=== PATIENT | male | born 1945 | race Two or more races ===

== ENCOUNTER 2022-08-13 18:40 | Emergency (ER) | payer OTHER, MEDICAID ==
[~2022-08-13] VITALS: Ht 172.7 cm; Wt 99.7 kg
[~2022-08-13 18:40] MED LIST: APIX2.5T PO; ASPI325T4 PO; ATOR20TA PO; METF-371 PO; METO25TA5 PO; PANT1INJ3 PO; TAMS1CAP25 PO; TRAZ50TA2 PO
[2022-08-13 19:22] LABS: Basophils # (auto) 0 10 ^3/uL (0-0.2); Basophils % (auto) 0.4 % (0.0-2.0); Eosinophils # (auto) 0.1 10 ^3/uL (0-0.8); Eosinophils % (auto) 0.9 % (0.0-7.0); Hematocrit 40.6 % (41.0-53.0); Hemoglobin 13.5 g/dL (13.5-17.5); Lymphocytes # (auto) 1.3 10 ^3/uL (0.4-5.4); Lymphocytes % (auto) 17.3 % (10.0-50.0); Mean Corpuscular Hemoglobin 30.1 pg (28.0-32.0); Mean Corpuscular Hgb Conc. 33.2 g/dL (32.0-36.0); Mean Corpuscular Volume 90.5 fL (80.0-100.0); Monocytes # (auto) 0.4 10 ^3/uL (0-1.3); Monocytes % (auto) 5.8 % (0.0-12.0); Neutrophils # (auto) 5.6 10 ^3/uL (1.6-8.6); Neutrophils % (auto) 75.6 % (37.0-80.0); Red Blood Cells 4.49 10^6/uL (4.5-5.90); Red Cell Distribution Width 13.9 % (11.8-14.3); White Blood Cell 7.4 10^3/uL (4.4-10.8)
[2022-08-13 19:40] LABS: INR 1.07 (0.9-1.15); Partial Thromboplastin Time 32.8 sec (24.6-33.4)
[2022-08-13 19:50] LABS: Calcium 8.6 mg/dL (8.5-10.1)
[2022-08-13 20:00] LABS: Albumin 3.7 g/dL (3.4-5.0); BUN/Creatinine Ratio 16.3 (10.0-20.0); Bilirubin, Total 0.5 mg/dL (0.2-1.0)
[2022-08-13 20:01] LABS: Total Protein 6.7 g/dL (6.4-8.2)
[2022-08-14 05:15] VITALS: BP 169/65
== END 2022-08-14 05:23 | disposition home or self-care (01) ==
LOC: ER 18:40
DX: I24.9 Acute ischemic heart disease, unspecified (principal); R07.89 Other chest pain; E11.9 Type 2 diabetes mellitus without complications; I10 Essential (primary) hypertension; Z79.899 Other long term (current) drug therapy; Z98.890 Other specified postprocedural states; Z88.6 Allergy status to analgesic agent; Z79.84 Long term (current) use of oral hypoglycemic drugs
CPT/HCPCS: 36415; 71045; 80053; 83880; 84484; 85025; 85610; 85730; 93005

== ENCOUNTER → 2022-10-01 | Outpatient (CLI) | payer OTHER, MEDICAID ==
[~2022-10-01] MED LIST changes: +TRAZ-227 PO; -TRAZ50TA2 PO
[2022-10-01 08:23] LABS: Basophils # (auto) 0 10 ^3/uL (0-0.2); Basophils % (auto) 0.4 % (0.0-2.0); Eosinophils # (auto) 0.1 10 ^3/uL (0-0.8); Eosinophils % (auto) 0.9 % (0.0-7.0); Hematocrit 42.3 % (41.0-53.0); Hemoglobin 14.3 g/dL (13.5-17.5); Lymphocytes # (auto) 1.1 10 ^3/uL (0.4-5.4); Lymphocytes % (auto) 17.4 % (10.0-50.0); Mean Corpuscular Hemoglobin 30.6 pg (28.0-32.0); Mean Corpuscular Hgb Conc. 33.7 g/dL (32.0-36.0); Mean Corpuscular Volume 90.6 fL (80.0-100.0); Monocytes # (auto) 0.5 10 ^3/uL (0-1.3); Monocytes % (auto) 7.5 % (0.0-12.0); Neutrophils # (auto) 4.7 10 ^3/uL (1.6-8.6); Neutrophils % (auto) 73.8 % (37.0-80.0); Nucleated Red Blood Cells % 0.5 %; Red Blood Cells 4.67 10^6/uL (4.5-5.90); Red Cell Distribution Width 12.7 % (11.8-14.3); White Blood Cell 6.3 10^3/uL (4.4-10.8)
[2022-10-01 08:35] LABS: Urine Bacteria NONE SEEN /hpf (None Seen); Urine Blood Negative /uL (Negative); Urine Specific Gravity 1.014 (1.001-1.035); Urine WBC <1 /hpf (0 - 3)
[2022-10-01 09:23] LABS: Albumin 3.6 g/dL (3.4-5.0); Magnesium 1.9 mg/dL (1.6-2.6); Potassium 4.2 mmol/L (3.5-5.1)
[2022-10-01 09:28] LABS: BUN/Creatinine Ratio 16.1 (10.0-20.0); Bilirubin, Total 0.8 mg/dL (0.2-1.0); Calcium 8.5 mg/dL (8.5-10.1); Total Protein 6.9 g/dL (6.4-8.2); Uric Acid 5.2 mg/dL (3.5-7.2)
[2022-10-01 10:51] LABS: Prostate Specific Antigen 1.41 ng/mL (0.0-4.0)
[2022-10-01 11:04] LABS: Folate (Folic Acid) 14.49 ng/mL (5.38-24)
== END | disposition home or self-care (01) ==
LOC: LAB 07:48
PROVIDERS: ATTEND Internal Medicine
DX: R79.89 Other specified abnormal findings of blood chemistry (principal); R68.89 Other general symptoms and signs; R73.09 Other abnormal glucose
CPT/HCPCS: 36415; 80053; 80061; 81001; 82306; 82607; 82746; 83036; 83735; 84153; 84443; 84550; 85025; 87086

== ENCOUNTER → 2022-12-17 | Outpatient (CLI) | payer OTHER, MEDICAID ==
[2022-12-17 09:50] LABS: Calcium 8.7 mg/dL (8.5-10.1); Potassium 4.4 mmol/L (3.5-5.1)
== END | disposition home or self-care (01) ==
LOC: LAB 08:47
PROVIDERS: ATTEND Nurse Practitioner Family
DX: C66.2 Malignant neoplasm of left ureter (principal); E11.9 Type 2 diabetes mellitus without complications; I10 Essential (primary) hypertension; E78.5 Hyperlipidemia, unspecified; N40.0 Benign prostatic hyperplasia without lower urinary tract symptoms; R79.89 Other specified abnormal findings of blood chemistry; Z90.5 Acquired absence of kidney; Z68.33 Body mass index [BMI] 33.0-33.9, adult
CPT/HCPCS: 36415; 80048; 82043; 82570

== ENCOUNTER → 2023-01-08 | Outpatient (CLI) | payer OTHER, MEDICAID | END | disposition home or self-care (01) | LOC: LAB 11:48 | PROVIDERS: ATTEND Urology | DX: R35.1 Nocturia (principal); R35.0 Frequency of micturition | CPT/HCPCS: 84153 ==

== ENCOUNTER → 2023-01-21 | Outpatient (CLI) | payer OTHER, MEDICAID ==
[~2023-01-21] VITALS: Ht 175.3 cm; Wt 99.8 kg
[~2023-01-21] MED LIST changes: +ADENOSINE 84 MG in GIVE UN-DILUTED 0 ML IV STA
== END | disposition home or self-care (01) ==
LOC: XYW 07:42
DX: R07.9 Chest pain, unspecified (principal); M17.0 Bilateral primary osteoarthritis of knee; Z87.891 Personal history of nicotine dependence; Z91.89 Other specified personal risk factors, not elsewhere classified; M16.0 Bilateral primary osteoarthritis of hip
CPT/HCPCS: 78452; 93017; A9500; J0153

== ENCOUNTER → 2023-02-07 | Outpatient (CLI) | payer OTHER, MEDICAID ==
[~2023-02-07] MED LIST changes: -ADENOSINE 84 MG in GIVE UN-DILUTED 0 ML IV STA
[2023-02-07 09:20] LABS: Urine Bacteria NONE SEEN /hpf (None Seen); Urine Blood Negative /uL (Negative); Urine Clarity Clear (Clear); Urine Color Colorless (Yellow); Urine Protein, UAD TRACE (Negative); Urine Specific Gravity 1.013 (1.001-1.035); Urine Urobilinogen Normal (Negative); Urine WBC 4 /hpf (0 - 3)
[2023-02-07 09:58] LABS: Alanine Aminotransferase 19 U/L (7-40); Albumin 4.3 g/dL (3.2-4.8); Alkaline Phosphatase 75 U/L (46-116); Anion Gap 8 (5-15); Aspartate Aminotransferase 16 U/L (13-40); BUN/Creatinine Ratio 13.7 (10.0-20.0); Bilirubin, Total 1.2 mg/dL (0.2-1.0); Blood Urea Nitrogen 13 mg/dL (9-23); Calcium 9.3 mg/dL (8.5-10.1); Carbon Dioxide 27 mmol/L (20-30); Chloride 102 mmol/L (98-107); Cholesterol 147 mg/dL (< 200); Glucose 99 mg/dL (74-106); HDL Cholesterol 49 mg/dL (40-59); LDL Cholesterol 79 mg/dL (< 100); Potassium 4.1 mmol/L (3.5-5.1); Sodium 137 mmol/L (136-145); Triglycerides 155 mg/dL (< 150)
[2023-02-07 10:10] LABS: Basophils # (auto) 0 10 ^3/uL (0-0.2); Basophils % (auto) 0.5 % (0.0-2.0); Eosinophils # (auto) 0.1 10 ^3/uL (0-0.8); Eosinophils % (auto) 1.1 % (0.0-7.0); Hemoglobin 15.2 g/dL (13.5-17.5); Lymphocytes # (auto) 1.7 10 ^3/uL (0.4-5.4); Lymphocytes % (auto) 25.1 % (10.0-50.0); Mean Corpuscular Hemoglobin 30.8 pg (28.0-32.0); Mean Corpuscular Hgb Conc. 33.7 g/dL (32.0-36.0); Mean Corpuscular Volume 91.2 fL (80.0-100.0); Monocytes # (auto) 0.4 10 ^3/uL (0-1.3); Monocytes % (auto) 6.5 % (0.0-12.0); Neutrophils # (auto) 4.5 10 ^3/uL (1.6-8.6); Neutrophils % (auto) 66.8 % (37.0-80.0); Red Blood Cells 4.93 10^6/uL (4.5-5.90); Red Cell Distribution Width 13.3 % (11.8-14.3); White Blood Cell 6.7 10^3/uL (4.4-10.8)
[2023-02-07 10:22] LABS: Folate (Folic Acid) 17.18 ng/mL (>5.38)
[2023-02-07 10:27] LABS: Uric Acid 5.9 mg/dL (3.7-9.2)
[2023-02-07 10:29] LABS: Magnesium 1.8 mg/dL (1.6-2.6)
== END | disposition home or self-care (01) ==
LOC: LAB 08:47
PROVIDERS: ATTEND Internal Medicine
DX: E61.2 Magnesium deficiency (principal); E79.0 Hyperuricemia without signs of inflammatory arthritis and tophaceous disease; R94.6 Abnormal results of thyroid function studies; R82.998 Other abnormal findings in urine; E55.9 Vitamin D deficiency, unspecified; R82.79 Other abnormal findings on microbiological examination of urine; D51.9 Vitamin B12 deficiency anemia, unspecified; E78.49 Other hyperlipidemia; R73.09 Other abnormal glucose; R68.89 Other general symptoms and signs
CPT/HCPCS: 36415; 80053; 80061; 81001; 82306; 82607; 82746; 83036; 83735; 84443; 84550; 85025; 87086

== ENCOUNTER 2023-02-12 06:51 | Day surgery (SDC) | payer OTHER, MEDICAID ==
[2023-02-10 10:23] LABS: Basophils # (auto) 0 10 ^3/uL (0-0.2); Basophils % (auto) 0.6 % (0.0-2.0); Eosinophils # (auto) 0.2 10 ^3/uL (0-0.8); Eosinophils % (auto) 2.6 % (0.0-7.0); Hematocrit 42.6 % (41.0-53.0); Hemoglobin 14.5 g/dL (13.5-17.5); Lymphocytes # (auto) 1.5 10 ^3/uL (0.4-5.4); Lymphocytes % (auto) 22.5 % (10.0-50.0); Mean Corpuscular Hemoglobin 30.9 pg (28.0-32.0); Mean Corpuscular Volume 90.8 fL (80.0-100.0); Monocytes # (auto) 0.5 10 ^3/uL (0-1.3); Neutrophils # (auto) 4.6 10 ^3/uL (1.6-8.6); Neutrophils % (auto) 67.3 % (37.0-80.0); Red Blood Cells 4.69 10^6/uL (4.5-5.90); Red Cell Distribution Width 13.2 % (11.8-14.3); White Blood Cell 6.9 10^3/uL (4.4-10.8)
[2023-02-10 10:34] LABS: INR 1.09 (0.9-1.15); Partial Thromboplastin Time 29.9 SEC (24.5-34.5); Prothrombin Time 11.4 sec (9.3-11.8)
[2023-02-10 10:53] LABS: Alanine Aminotransferase 16 U/L (7-40); Albumin 4.2 g/dL (3.2-4.8); Alkaline Phosphatase 68 U/L (46-116); Anion Gap 5 (5-15); Aspartate Aminotransferase 15 U/L (13-40); Blood Urea Nitrogen 13 mg/dL (9-23); Carbon Dioxide 29 mmol/L (20-30); Chloride 102 mmol/L (98-107); Glucose 80 mg/dL (74-106); Potassium 4.5 mmol/L (3.5-5.1); Sodium 136 mmol/L (136-145)
[2023-02-10 10:54] LABS: Bilirubin, Total 0.8 mg/dL (0.2-1.0); Total Protein 6.8 g/dL (5.7-8.2)
[~2023-02-12] VITALS: Ht 170.2 cm; Wt 99.8 kg
[2023-02-12] VITALS (9 sets, daily range): BP systolic 143–165; BP diastolic 64–86; PULSE 50–58; RESP 12–17; TEMP 97.8; O2SAT 92–96
[2023-02-12] MEDS ORDERED: LIDOCAINE 2%HCL (LOCAL ANESTH.) INJ 20ML MDV ONE (07:53)
[2023-02-12] MEDS ORDERED: IODIXANOL 320MG/ML 100ML BTL IV ONE (07:53)
[2023-02-12] MEDS ORDERED: HEPARIN SODIUM (PORCINE) 5000 UNITS/ML 1ML VIAL ONE (08:34)
[2023-02-12] MEDS ORDERED: ANGIOMAX 250 MG VIAL IV ONE (08:34)
[2023-02-12] MEDS ORDERED: VERAPAMIL 2.5MG/ML INJ 2ML VIAL IV ONE (08:34)
[2023-02-12] MEDS ORDERED: SODIUM CHL 0.9% 0 ML ONE (08:35)
[2023-02-12] MEDS ORDERED: MIDAZOLAM HCL 2MG/2ML 2ml VIAL (1mg/ml) ONE (08:35)
[2023-02-12] MEDS ORDERED: fentaNYL CITRATE 100 MCG/2 ML VL ONE (08:35)
== END 2023-02-12 11:55 | disposition home or self-care (01) ==
LOC: CATH 06:51
PROVIDERS: ATTEND Internal Medicine
DX: I25.10 Atherosclerotic heart disease of native coronary artery without angina pectoris (principal); I10 Essential (primary) hypertension; E11.9 Type 2 diabetes mellitus without complications; Z87.891 Personal history of nicotine dependence; Z79.82 Long term (current) use of aspirin; Z79.84 Long term (current) use of oral hypoglycemic drugs; Z79.899 Other long term (current) drug therapy; Z98.890 Other specified postprocedural states
CPT/HCPCS: 36415; 80053; 85025; 85610; 85730; 93458; C1769; C1887; C1894; J1644; J2250; J3010; Q9967; 99152; 99153

== ENCOUNTER 2023-03-20 07:59 | Day surgery (SDC) | payer OTHER, MEDICAID ==
[2023-03-14 14:44] LABS: Basophils # (auto) 0.1 10 ^3/uL (0-0.2); Basophils % (auto) 0.8 % (0.0-2.0); Eosinophils # (auto) 0.3 10 ^3/uL (0-0.8); Eosinophils % (auto) 4.2 % (0.0-7.0); Hematocrit 42.1 % (41.0-53.0); Hemoglobin 14.3 g/dL (13.5-17.5); Lymphocytes # (auto) 1.6 10 ^3/uL (0.4-5.4); Lymphocytes % (auto) 21.7 % (10.0-50.0); Mean Corpuscular Hemoglobin 30.8 pg (28.0-32.0); Mean Corpuscular Volume 90.6 fL (80.0-100.0); Monocytes # (auto) 0.6 10 ^3/uL (0-1.3); Monocytes % (auto) 8.1 % (0.0-12.0); Neutrophils # (auto) 4.7 10 ^3/uL (1.6-8.6); Neutrophils % (auto) 65.2 % (37.0-80.0); Nucleated Red Blood Cells % 0.1 %; Red Blood Cells 4.64 10^6/uL (4.5-5.90); Red Cell Distribution Width 12.9 % (11.8-14.3); White Blood Cell 7.3 10^3/uL (4.4-10.8)
[2023-03-14 14:51] LABS: Urine Bacteria NONE SEEN /hpf (None Seen); Urine Blood Negative /uL (Negative); Urine Clarity Clear (Clear); Urine Color Yellow (Yellow); Urine Protein, UAD TRACE (Negative); Urine Specific Gravity 1.021 (1.001-1.035); Urine WBC 10 /hpf (0 - 3); Urine pH 6.5 (5.0-8.0)
[2023-03-14 15:10] LABS: Alanine Aminotransferase 23 U/L (7-40); Albumin 4.4 g/dL (3.2-4.8); Alkaline Phosphatase 78 U/L (46-116); Anion Gap 5 (5-15); Aspartate Aminotransferase 18 U/L (13-40); BUN/Creatinine Ratio 8.1 (10.0-20.0); Blood Urea Nitrogen 8 mg/dL (9-23); Calcium 9.1 mg/dL (8.5-10.1); Carbon Dioxide 28 mmol/L (20-30); Chloride 100 mmol/L (98-107); Glucose 107 mg/dL (74-106); Potassium 4.7 mmol/L (3.5-5.1); Sodium 133 mmol/L (136-145)
[2023-03-14 15:11] LABS: Bilirubin, Total 0.6 mg/dL (0.2-1.0); Total Protein 6.8 g/dL (5.7-8.2)
[2023-03-14 15:16] LABS: INR 1.12 (0.9-1.15); Partial Thromboplastin Time 30.5 SEC (24.5-34.5); Prothrombin Time 11.7 sec (9.3-11.8)
[~2023-03-20] VITALS: Ht 177.8 cm; Wt 100.7 kg
[~2023-03-20 07:59] MED LIST changes: -APIX2.5T PO; +CHOL100047 PO
[2023-03-20] MEDS ORDERED: IOHEXOL 300 MG/ML 100ML BOTTLE IJ ONE (12:01)
[2023-03-20] MEDS ORDERED: fentaNYL CITRATE 100 MCG/2 ML VL ONE (12:04)
[2023-03-20] MEDS ORDERED: PROPOFOL 10 MG/ML 20 ML IV ONE (12:23)
[2023-03-20] MEDS ORDERED: ePHEDrine SULFATE 50 MG/ML AMP ONE (12:58)
[2023-03-20 13:17] VITALS: TEMP 98.1
[2023-03-20] MEDS ORDERED: MEPERIDINE HCL (25 MG/ML) 1ML VIAL IV PRN (13:30)
[2023-03-20] MEDS ORDERED: HYDROmorphone HCL 2 MG/ML VL/or syr IV PRN (13:30)
[2023-03-20] MEDS ORDERED: ONDANSETRON HCL 4 MG/2 ML VIAL IV PRN (13:30)
[2023-03-20] MEDS ORDERED: hydrALAZINE HCL 20 MG/ML VL IV ONE (14:30)
[2023-03-20 14:45] VITALS: BP 125/83; PULSE 62; RESP 11; O2SAT 96
== END 2023-03-20 14:55 | disposition home or self-care (01) ==
LOC: SUR 07:59
PROVIDERS: ATTEND Urology
DX: D41.22 Neoplasm of uncertain behavior of left ureter (principal); I10 Essential (primary) hypertension; E78.5 Hyperlipidemia, unspecified; E11.9 Type 2 diabetes mellitus without complications; Z87.891 Personal history of nicotine dependence; Z79.82 Long term (current) use of aspirin; Z79.84 Long term (current) use of oral hypoglycemic drugs; Z79.899 Other long term (current) drug therapy; Z98.890 Other specified postprocedural states
CPT/HCPCS: 36415; 52354; 74018; 76000; 80053; 81001; 82962; 85025; 85610; 85730; 87086; J2704; J3010; Q9967

== ENCOUNTER 2023-03-21 12:10 | Emergency (ER) | payer OTHER, MEDICAID | END 2023-03-21 13:53 | disposition left against medical advice (07) | LOC: ER 12:10 → EDBD 12:10 → ER 13:53 | DX: R40.4 Transient alteration of awareness (principal); Z53.21 Procedure and treatment not carried out due to patient leaving prior to being seen by health care provider ==

== ENCOUNTER 2023-04-07 09:14 | Emergency (ER) | payer OTHER, MEDICAID ==
[~2023-04-07] VITALS: Ht 172.7 cm; Wt 104.2 kg
[2023-04-07 10:04] LABS: Basophils # (auto) 0 10 ^3/uL (0-0.2); Basophils % (auto) 0.8 % (0.0-2.0); Eosinophils # (auto) 0.2 10 ^3/uL (0-0.8); Eosinophils % (auto) 2.8 % (0.0-7.0); Hematocrit 40.7 % (41.0-53.0); Hemoglobin 14.1 g/dL (13.5-17.5); Lymphocytes # (auto) 1.1 10 ^3/uL (0.4-5.4); Lymphocytes % (auto) 19.5 % (10.0-50.0); Mean Corpuscular Hemoglobin 31.1 pg (28.0-32.0); Mean Corpuscular Hgb Conc. 34.8 g/dL (32.0-36.0); Mean Corpuscular Volume 89.5 fL (80.0-100.0); Monocytes # (auto) 0.5 10 ^3/uL (0-1.3); Monocytes % (auto) 8.9 % (0.0-12.0); Neutrophils # (auto) 3.9 10 ^3/uL (1.6-8.6); Nucleated Red Blood Cells % 0.1 %; Red Blood Cells 4.54 10^6/uL (4.5-5.90); Red Cell Distribution Width 13.2 % (11.8-14.3); White Blood Cell 5.7 10^3/uL (4.4-10.8)
[2023-04-07 10:24] LABS: Alanine Aminotransferase 20 U/L (7-40); Albumin 4.3 g/dL (3.2-4.8); Alkaline Phosphatase 82 U/L (46-116); Anion Gap 5 (5-15); Aspartate Aminotransferase 15 U/L (13-40); BUN/Creatinine Ratio 15.8 (10.0-20.0); Bilirubin, Total 0.7 mg/dL (0.2-1.0); Blood Urea Nitrogen 16 mg/dL (9-23); Calcium 9.1 mg/dL (8.5-10.1); Carbon Dioxide 28 mmol/L (20-30); Chloride 97 mmol/L (98-107); Glucose 175 mg/dL (74-106); Potassium 3.6 mmol/L (3.5-5.1); Sodium 130 mmol/L (136-145); Total Protein 6.7 g/dL (5.7-8.2)
[2023-04-07 12:06] VITALS: BP 139/86; PULSE 68; RESP 16; TEMP 98.4; O2SAT 98
== END 2023-04-07 12:08 | disposition home or self-care (01) ==
LOC: ER 09:14
DX: D49.512 Neoplasm of unspecified behavior of left kidney (principal); R51.9 Headache, unspecified; I10 Essential (primary) hypertension; Z13.9 Encounter for screening, unspecified; E11.9 Type 2 diabetes mellitus without complications; Z85.9 Personal history of malignant neoplasm, unspecified; Z88.8 Allergy status to other drugs, medicaments and biological substances
CPT/HCPCS: 36415; 70450; 80053; 84484; 85025; 93005

== ENCOUNTER → 2023-04-22 | Outpatient (CLI) | payer OTHER, MEDICAID ==
[2023-04-22 09:01] LABS: Basophils # (auto) 0 10 ^3/uL (0-0.2); Basophils % (auto) 0.4 % (0.0-2.0); Eosinophils # (auto) 0 10 ^3/uL (0-0.8); Eosinophils % (auto) 0.4 % (0.0-7.0); Hematocrit 45.7 % (41.0-53.0); Hemoglobin 15.9 g/dL (13.5-17.5); Lymphocytes # (auto) 1.4 10 ^3/uL (0.4-5.4); Lymphocytes % (auto) 14.9 % (10.0-50.0); Mean Corpuscular Hemoglobin 31.2 pg (28.0-32.0); Mean Corpuscular Hgb Conc. 34.7 g/dL (32.0-36.0); Mean Corpuscular Volume 89.7 fL (80.0-100.0); Monocytes # (auto) 0.5 10 ^3/uL (0-1.3); Monocytes % (auto) 4.9 % (0.0-12.0); Neutrophils # (auto) 7.3 10 ^3/uL (1.6-8.6); Neutrophils % (auto) 79.4 % (37.0-80.0); Nucleated Red Blood Cells % 0.1 %; Red Blood Cells 5.09 10^6/uL (4.5-5.90); Red Cell Distribution Width 13.2 % (11.8-14.3); Urine Bacteria NONE SEEN /hpf (None Seen); Urine Blood Negative /uL (Negative); Urine Clarity Clear (Clear); Urine Color Colorless (Yellow); Urine Protein, UAD Negative (Negative); Urine Specific Gravity 1.015 (1.001-1.035); Urine Urobilinogen Normal (Negative); Urine WBC <1 /hpf (0 - 3); White Blood Cell 9.2 10^3/uL (4.4-10.8)
[2023-04-22 10:47] LABS: Uric Acid 6.4 mg/dL (3.7-9.2)
[2023-04-22 10:54] LABS: Folate (Folic Acid) 15.22 ng/mL (>5.38)
[2023-04-24 08:41] LABS: Hepatitis B Surface Antigen Negative (Negative)
[2023-04-24 09:01] LABS: Hepatitis A Ab IgM Negative
[2023-04-24 09:03] LABS: Hepatitis B Core IgM Negative; Hepatitis C Antibody Negative (Negative)
== END | disposition home or self-care (01) ==
LOC: LAB 08:06
PROVIDERS: ATTEND Internal Medicine
DX: E61.2 Magnesium deficiency (principal); R78.89 Finding of other specified substances, not normally found in blood; E78.9 Disorder of lipoprotein metabolism, unspecified; R68.89 Other general symptoms and signs; R94.6 Abnormal results of thyroid function studies; E79.0 Hyperuricemia without signs of inflammatory arthritis and tophaceous disease; R82.991 Hypocitraturia; R82.90 Unspecified abnormal findings in urine; E85.9 Amyloidosis, unspecified; R82.79 Other abnormal findings on microbiological examination of urine; D51.9 Vitamin B12 deficiency anemia, unspecified
CPT/HCPCS: 36415; 80061; 80074; 81001; 82306; 82607; 82746; 83036; 83735; 84443; 84550; 85025; 87086

== ENCOUNTER → 2023-06-16 | Outpatient (CLI) | payer OTHER, MEDICAID ==
[2023-06-16 10:01] LABS: Basophils # (auto) 0 10 ^3/uL (0-0.2); Basophils % (auto) 0.5 % (0.0-2.0); Eosinophils # (auto) 0.2 10 ^3/uL (0-0.8); Eosinophils % (auto) 2.9 % (0.0-7.0); Hematocrit 43.5 % (41.0-53.0); Lymphocytes # (auto) 1.6 10 ^3/uL (0.4-5.4); Lymphocytes % (auto) 25.2 % (10.0-50.0); Mean Corpuscular Hemoglobin 31.2 pg (28.0-32.0); Mean Corpuscular Hgb Conc. 34.5 g/dL (32.0-36.0); Mean Corpuscular Volume 90.5 fL (80.0-100.0); Monocytes # (auto) 0.5 10 ^3/uL (0-1.3); Monocytes % (auto) 8.1 % (0.0-12.0); Neutrophils # (auto) 3.9 10 ^3/uL (1.6-8.6); Neutrophils % (auto) 63.3 % (37.0-80.0); Nucleated Red Blood Cells % 0.1 %; Red Blood Cells 4.81 10^6/uL (4.5-5.90); Red Cell Distribution Width 13.6 % (11.8-14.3); White Blood Cell 6.2 10^3/uL (4.4-10.8)
[2023-06-16 10:18] LABS: Urine Bacteria NONE SEEN /hpf (None Seen); Urine Blood Negative /uL (Negative); Urine Clarity Clear (Clear); Urine Protein, UAD Negative (Negative); Urine Specific Gravity 1.014 (1.001-1.035); Urine WBC 2 /hpf (0 - 3); Urine pH 6.5 (5.0-8.0)
[2023-06-16 10:28] LABS: Urine Color Straw (Yellow)
[2023-06-16 10:30] LABS: Alanine Aminotransferase 16 U/L (7-40); Albumin 4.4 g/dL (3.2-4.8); Alkaline Phosphatase 81 U/L (46-116); Anion Gap 7 (5-15); BUN/Creatinine Ratio 9.1 (10.0-20.0); Blood Urea Nitrogen 8 mg/dL (9-23); Calcium 9.6 mg/dL (8.5-10.1); Carbon Dioxide 26 mmol/L (20-30); Chloride 100 mmol/L (98-107); Cholesterol 147 mg/dL (< 200); Glucose 115 mg/dL (74-106); HDL Cholesterol 52 mg/dL (40-59); LDL Cholesterol 81 mg/dL (< 100); Sodium 133 mmol/L (136-145); Triglycerides 131 mg/dL (< 150)
[2023-06-16 10:31] LABS: Bilirubin, Total 1.2 mg/dL (0.2-1.0); Total Protein 6.7 g/dL (5.7-8.2)
[2023-06-16 10:48] LABS: Aspartate Aminotransferase 25 U/L (13-40)
[2023-06-16 11:50] LABS: Folate (Folic Acid) 20.21 ng/mL (>5.38)
[2023-06-16 12:05] LABS: Uric Acid 5.6 mg/dL (3.7-9.2)
== END | disposition home or self-care (01) ==
LOC: LAB 09:17
PROVIDERS: ATTEND Internal Medicine
DX: E61.2 Magnesium deficiency (principal); E79.0 Hyperuricemia without signs of inflammatory arthritis and tophaceous disease; R82.998 Other abnormal findings in urine; R94.6 Abnormal results of thyroid function studies; D51.9 Vitamin B12 deficiency anemia, unspecified; E55.9 Vitamin D deficiency, unspecified; R82.79 Other abnormal findings on microbiological examination of urine; R78.89 Finding of other specified substances, not normally found in blood; E78.49 Other hyperlipidemia; R68.89 Other general symptoms and signs; R73.09 Other abnormal glucose
CPT/HCPCS: 36415; 80053; 80061; 81001; 82306; 82607; 82746; 83036; 83735; 84443; 84550; 85025; 87086

== ENCOUNTER 2023-08-30 10:04 | Emergency (ER) | payer OTHER, MEDICAID ==
[~2023-08-30] VITALS: Ht 170.2 cm; Wt 105.0 kg
[~2023-08-30 10:04] MED LIST changes: -ASPI325T4 PO; +ASPI325T6 PO
[2023-08-30 10:48] LABS: Urine Bacteria None Seen /hpf (None Seen)
[2023-08-30 10:58] LABS: Urine Blood Negative /uL (Negative); Urine Clarity Clear (Clear); Urine Color Light-Yellow (Yellow); Urine Protein, UAD Negative (Negative); Urine Specific Gravity 1.016 (1.001-1.035); Urine Urobilinogen Normal (Negative); Urine WBC 2 /hpf (0 - 3)
[2023-08-30 11:06] LABS: Basophils # (auto) 0 10 ^3/uL (0-0.2); Basophils % (auto) 0.2 % (0.0-2.0); Eosinophils # (auto) 0.1 10 ^3/uL (0-0.8); Eosinophils % (auto) 0.7 % (0.0-7.0); Hematocrit 41.8 % (41.0-53.0); Hemoglobin 14.4 g/dL (13.5-17.5); Lymphocytes # (auto) 0.6 10 ^3/uL (0.4-5.4); Lymphocytes % (auto) 6.2 % (10.0-50.0); Mean Corpuscular Hgb Conc. 34.4 g/dL (32.0-36.0); Mean Corpuscular Volume 90.2 fL (80.0-100.0); Monocytes # (auto) 0.5 10 ^3/uL (0-1.3); Neutrophils % (auto) 87.9 % (37.0-80.0); Red Blood Cells 4.63 10^6/uL (4.5-5.90); Red Cell Distribution Width 13.4 % (11.8-14.3); White Blood Cell 9.1 10^3/uL (4.4-10.8)
[2023-08-30 11:23] LABS: Alanine Aminotransferase 19 U/L (7-40); Albumin 4.6 g/dL (3.2-4.8); Alkaline Phosphatase 90 U/L (46-116); Anion Gap 7 (5-15); Aspartate Aminotransferase 16 U/L (13-40); BUN/Creatinine Ratio 9.6 (10.0-20.0); Blood Urea Nitrogen 10 mg/dL (9-23); Calcium 9.4 mg/dL (8.5-10.1); Carbon Dioxide 25 mmol/L (20-30); Chloride 95 mmol/L (98-107); Glucose 219 mg/dL (74-106); Potassium 3.6 mmol/L (3.5-5.1); Sodium 127 mmol/L (136-145)
[2023-08-30 11:24] LABS: Total Protein 7.3 g/dL (5.7-8.2)
[2023-08-30 11:59] VITALS: BP 135/75; PULSE 68; RESP 17; TEMP 98.2; O2SAT 96
== END 2023-08-30 12:00 | disposition home or self-care (01) ==
LOC: ER 10:04
DX: J06.9 Acute upper respiratory infection, unspecified (principal); E11.65 Type 2 diabetes mellitus with hyperglycemia; E87.1 Hypo-osmolality and hyponatremia; I10 Essential (primary) hypertension; E78.5 Hyperlipidemia, unspecified; Z85.9 Personal history of malignant neoplasm, unspecified; Z79.899 Other long term (current) drug therapy
CPT/HCPCS: 36415; 80053; 81001; 85025

== ENCOUNTER → 2023-09-02 | Outpatient (CLI) | payer OTHER, MEDICAID ==
[2023-09-02 11:29] LABS: Chloride 91 mmol/L (98-107); Potassium 3.8 mmol/L (3.5-5.1); Sodium 125 mmol/L (136-145)
[2023-09-02 11:30] LABS: Anion Gap 8 (5-15); Calcium 9.4 mg/dL (8.7-10.4); Carbon Dioxide 26 mmol/L (20-30)
[2023-09-02 11:35] LABS: BUN/Creatinine Ratio 13.1 (10.0-20.0); Blood Urea Nitrogen 13 mg/dL (9-23); Glucose 157 mg/dL (74-106)
== END | disposition home or self-care (01) ==
LOC: LAB 09:43
DX: C64.2 Malignant neoplasm of left kidney, except renal pelvis (principal)
CPT/HCPCS: 36415; 80048

== ENCOUNTER 2023-09-25 10:20 | Emergency (ER) | payer OTHER, MEDICAID ==
[~2023-09-25] VITALS: Ht 170.2 cm; Wt 105.3 kg
[2023-09-25 10:49] VITALS: BP 140/76
[2023-09-25 11:10] LABS: Basophils # (auto) 0.1 10 ^3/uL (0-0.2); Basophils % (auto) 0.8 % (0.0-2.0); Eosinophils # (auto) 0.3 10 ^3/uL (0-0.8); Eosinophils % (auto) 4.1 % (0.0-7.0); Hematocrit 42.6 % (41.0-53.0); Hemoglobin 14.7 g/dL (13.5-17.5); Lymphocytes # (auto) 1.2 10 ^3/uL (0.4-5.4); Lymphocytes % (auto) 18.7 % (10.0-50.0); Mean Corpuscular Hemoglobin 31.1 pg (28.0-32.0); Mean Corpuscular Hgb Conc. 34.6 g/dL (32.0-36.0); Monocytes # (auto) 0.5 10 ^3/uL (0-1.3); Monocytes % (auto) 7.5 % (0.0-12.0); Neutrophils # (auto) 4.6 10 ^3/uL (1.6-8.6); Neutrophils % (auto) 68.9 % (37.0-80.0); Red Blood Cells 4.73 10^6/uL (4.5-5.90); Red Cell Distribution Width 13.6 % (11.8-14.3); White Blood Cell 6.7 10^3/uL (4.4-10.8)
[2023-09-25 11:25] LABS: Chloride 96 mmol/L (98-107); Potassium 3.6 mmol/L (3.5-5.1); Sodium 131 mmol/L (136-145)
[2023-09-25 11:26] VITALS: PULSE 83
[2023-09-25 11:26] LABS: Anion Gap 5 (5-15); Carbon Dioxide 30 mmol/L (20-30)
[2023-09-25 11:27] LABS: Calcium 9.7 mg/dL (8.7-10.4)
[2023-09-25 11:29] LABS: Urine Bacteria None Seen /hpf (None Seen)
[2023-09-25 11:32] LABS: BUN/Creatinine Ratio 8.8 (10.0-20.0); Blood Urea Nitrogen 9 mg/dL (9-23); Glucose 191 mg/dL (74-106)
[2023-09-25 11:40] LABS: Urine Blood Negative /uL (Negative); Urine Clarity Clear (Clear); Urine Color Yellow (Yellow); Urine Protein, UAD TRACE (Negative); Urine Specific Gravity 1.016 (1.001-1.035); Urine Urobilinogen 2 mg/dL (Negative); Urine WBC 9 /hpf (0 - 3)
[2023-09-25 11:54] VITALS: RESP 16; O2SAT 98
== END 2023-09-25 15:30 | disposition home or self-care (01) ==
LOC: ER 10:20
DX: R53.1 Weakness (principal); M79.605 Pain in left leg; M79.604 Pain in right leg; R07.89 Other chest pain; I10 Essential (primary) hypertension; E78.5 Hyperlipidemia, unspecified; E11.9 Type 2 diabetes mellitus without complications; Z79.82 Long term (current) use of aspirin; Z79.899 Other long term (current) drug therapy
CPT/HCPCS: 36415; 71046; 80048; 81001; 83880; 85025; 93005; 93970

== ENCOUNTER → 2023-10-02 | Outpatient (CLI) | payer OTHER, MEDICAID ==
[2023-10-02 09:46] LABS: Urine Bacteria None Seen /hpf (None Seen)
[2023-10-02 10:35] LABS: Alanine Aminotransferase 15 U/L (7-40); Albumin 4.5 g/dL (3.2-4.8); Alkaline Phosphatase 87 U/L (46-116); Anion Gap 4 (5-15); BUN/Creatinine Ratio 12.9 (10.0-20.0); Blood Urea Nitrogen 13 mg/dL (9-23); Calcium 9.6 mg/dL (8.5-10.1); Carbon Dioxide 31 mmol/L (20-30); Chloride 98 mmol/L (98-107); Glucose 131 mg/dL (74-106); LDL Cholesterol 53 mg/dL (< 100); Magnesium 1.9 mg/dL (1.6-2.6); Potassium 3.6 mmol/L (3.5-5.1); Sodium 133 mmol/L (136-145); Triglycerides 141 mg/dL (< 150)
[2023-10-02 10:36] LABS: Aspartate Aminotransferase 11 U/L (13-40); Cholesterol 115 mg/dL (< 200); HDL Cholesterol 42 mg/dL (40-59)
[2023-10-02 10:39] LABS: Folate (Folic Acid) 16.49 ng/mL (>5.38)
[2023-10-02 10:49] LABS: INR 1.15 (0.9-1.15); Partial Thromboplastin Time 29.6 SEC (24.5-34.5); Prothrombin Time 12.1 sec (9.3-11.8)
[2023-10-02 10:54] LABS: Uric Acid 6.8 mg/dL (3.7-9.2)
[2023-10-02 12:49] LABS: Urine Blood Negative /uL (Negative); Urine Clarity Clear (Clear); Urine Color Light-Yellow (Yellow); Urine Protein, UAD Negative (Negative); Urine Specific Gravity 1.014 (1.001-1.035); Urine Urobilinogen Normal (Negative); Urine WBC 3 /hpf (0 - 3); Urine pH 6.5 (5.0-9.0)
== END | disposition home or self-care (01) ==
LOC: LAB 09:30
PROVIDERS: ATTEND Internal Medicine
DX: E66.01 Morbid (severe) obesity due to excess calories (principal); E55.9 Vitamin D deficiency, unspecified; I10 Essential (primary) hypertension; E11.9 Type 2 diabetes mellitus without complications; R07.9 Chest pain, unspecified; N28.9 Disorder of kidney and ureter, unspecified
CPT/HCPCS: 36415; 80053; 80061; 81001; 82306; 82607; 82746; 83036; 83735; 84443; 84550; 85610; 85730; 87086

== ENCOUNTER → 2023-12-03 | Outpatient (CLI) | payer OTHER, MEDICAID ==
[2023-12-03 08:19] LABS: Urine Bacteria FEW /hpf (None Seen); Urine Blood Negative /uL (Negative); Urine Clarity Clear (Clear); Urine Color Colorless (Yellow); Urine Protein, UAD Negative (Negative); Urine Specific Gravity 1.006 (1.001-1.035); Urine Urobilinogen Normal (Negative); Urine WBC 5 /hpf (0 - 3)
[2023-12-03 08:33] LABS: INR 1.07 (0.9-1.15); Partial Thromboplastin Time 29.6 SEC (24.5-34.5); Prothrombin Time 11.3 sec (9.3-11.8)
[2023-12-03 08:43] LABS: Creatinine, Urine 25.63 mg/dL (30.0-125.0)
[2023-12-03 08:47] LABS: Alanine Aminotransferase 57 U/L (7-40); Albumin 4.2 g/dL (3.2-4.8); Alkaline Phosphatase 95 U/L (46-116); Anion Gap 8 (5-15); Aspartate Aminotransferase 29 U/L (13-40); BUN/Creatinine Ratio 9.7 (10.0-20.0); Blood Urea Nitrogen 9 mg/dL (9-23); Calcium 9.5 mg/dL (8.7-10.4); Carbon Dioxide 28 mmol/L (20-30); Chloride 96 mmol/L (98-107); Cholesterol 125 mg/dL (< 200); Glucose 142 mg/dL (74-106); HDL Cholesterol 46 mg/dL (40-59); LDL Cholesterol 58 mg/dL (< 100); Sodium 132 mmol/L (136-145); Triglycerides 166 mg/dL (< 150)
[2023-12-03 08:48] LABS: Bilirubin, Total 1.2 mg/dL (0.2-1.0); Total Protein 6.6 g/dL (5.7-8.2)
[2023-12-03 09:01] LABS: Uric Acid 5.6 mg/dL (3.7-9.2)
[2023-12-03 09:19] LABS: Folate (Folic Acid) 12.74 ng/mL (>5.38)
== END | disposition home or self-care (01) ==
LOC: LAB 07:49
PROVIDERS: ATTEND Internal Medicine
DX: E11.9 Type 2 diabetes mellitus without complications (principal); E66.01 Morbid (severe) obesity due to excess calories
CPT/HCPCS: 36415; 80053; 80061; 81001; 82043; 82306; 82570; 82607; 82746; 83036; 84443; 84550; 85610; 85730; 87086

== ENCOUNTER 2023-12-19 14:01 | Inpatient (IN) | payer OTHER, MEDICAID ==
[~2023-12-19] VITALS: Ht 175.3 cm; Wt 105.0 kg
[2023-12-19 14:51] LABS: Basophils # (auto) 0.1 10 ^3/uL (0-0.2); Eosinophils # (auto) 0.2 10 ^3/uL (0-0.8); Eosinophils % (auto) 2.1 % (0.0-7.0); Hematocrit 37.9 % (41.0-53.0); Hemoglobin 13.1 g/dL (13.5-17.5); Lymphocytes # (auto) 0.7 10 ^3/uL (0.4-5.4); Lymphocytes % (auto) 9.6 % (10.0-50.0); Mean Corpuscular Hemoglobin 30.9 pg (28.0-32.0); Mean Corpuscular Hgb Conc. 34.4 g/dL (32.0-36.0); Mean Corpuscular Volume 89.7 fL (80.0-100.0); Monocytes # (auto) 1.1 10 ^3/uL (0-1.3); Monocytes % (auto) 14.8 % (0.0-12.0); Neutrophils # (auto) 5.5 10 ^3/uL (1.6-8.6); Neutrophils % (auto) 72.5 % (37.0-80.0); Red Blood Cells 4.23 10^6/uL (4.5-5.90); Red Cell Distribution Width 14.1 % (11.8-14.3); White Blood Cell 7.5 10^3/uL (4.4-10.8)
[2023-12-19 15:23] LABS: Chloride 92 mmol/L (98-107); Potassium 3.5 mmol/L (3.5-5.1); Sodium 127 mmol/L (136-145)
[2023-12-19 15:24] LABS: Anion Gap 3 (5-15); Carbon Dioxide 32 mmol/L (20-30)
[2023-12-19 15:25] LABS: Calcium 9.1 mg/dL (8.7-10.4)
[2023-12-19 15:29] LABS: BUN/Creatinine Ratio 7.7 (10.0-20.0); Blood Urea Nitrogen 9 mg/dL (9-23); Glucose 111 mg/dL (74-106)
[2023-12-19] MEDS ORDERED: ONDANSETRON HCL 4 MG/2 ML VIAL IV PRN (21:45)
[2023-12-19] MEDS ORDERED: DEXTROSE (50%) 50ML SYRG IV PRN (21:45)
[2023-12-19] MEDS ORDERED: ALBUTEROL SULF 2.5 MG/0.5ML(0.5%) NEB SOLN NEB PRN (21:45)
[2023-12-19 21:50] VITALS: BP 101/68; PULSE 80; RESP 20; O2SAT 98
[2023-12-19] MEDS: InsuLIN REG 1unit/0.01ml Soln (100units/ml) SC SCH (22:00)
[2023-12-19] MEDS: METOPROLOL TARTRATE 25 MG TAB PO SCH (22:00)
[2023-12-19] MEDS: ACCU-CHEK COMFORT CURVE STRIP VI SCH (22:00)
[2023-12-19] MEDS: ATORVASTATIN 20 MG TAB PO SCH (22:54)
[2023-12-20] VITALS (9 sets, daily range): BP systolic 110–138; BP diastolic 60–86; PULSE 74–90; RESP 16–77; TEMP 98.1–99.5; O2SAT 94–98
[2023-12-20] MEDS: guaiFENesin-CODEINE Liq 5 ML UD PO PRN (00:49)
[2023-12-20 06:13] LABS: Basophils # (auto) 0 10 ^3/uL (0-0.2); Basophils % (auto) 0.6 % (0.0-2.0); Eosinophils # (auto) 0.2 10 ^3/uL (0-0.8); Hematocrit 35.3 % (41.0-53.0); Hemoglobin 12.2 g/dL (13.5-17.5); Lymphocytes # (auto) 0.6 10 ^3/uL (0.4-5.4); Lymphocytes % (auto) 13.3 % (10.0-50.0); Mean Corpuscular Hemoglobin 31.2 pg (28.0-32.0); Mean Corpuscular Hgb Conc. 34.7 g/dL (32.0-36.0); Mean Corpuscular Volume 89.8 fL (80.0-100.0); Monocytes # (auto) 0.9 10 ^3/uL (0-1.3); Monocytes % (auto) 17.8 % (0.0-12.0); Neutrophils # (auto) 3.1 10 ^3/uL (1.6-8.6); Neutrophils % (auto) 64.3 % (37.0-80.0); Nucleated Red Blood Cells % 0.1 %; Red Blood Cells 3.93 10^6/uL (4.5-5.90); Red Cell Distribution Width 14.4 % (11.8-14.3); White Blood Cell 4.8 10^3/uL (4.4-10.8)
[2023-12-20 06:16] LABS: Chloride 96 mmol/L (98-107); Potassium 2.8 mmol/L (3.5-5.1); Sodium 129 mmol/L (136-145)
[2023-12-20 06:17] LABS: Anion Gap 2 (5-15); Calcium 8.6 mg/dL (8.7-10.4); Carbon Dioxide 31 mmol/L (20-30)
[2023-12-20 06:22] LABS: BUN/Creatinine Ratio 9.3 (10.0-20.0); Blood Urea Nitrogen 8 mg/dL (9-23); Glucose 105 mg/dL (74-106)
[2023-12-20] MEDS: POTASSIUM CHLORIDE 60 MEQ, LIDOCAINE 1% (LOCAL ANESTH.) 6 ML in SODIUM CHL 0.9% 500 ML IV ONE (09:57)
[2023-12-20] MEDS: FUROSEMIDE 40 MG TAB PO SCH (12:02)
[2023-12-20] MEDS: ACETAMINOPHEN 325 MG TAB PO PRN (12:03)
[2023-12-20 18:10] LABS: Urine Bacteria None Seen /hpf (None Seen)
[2023-12-20] MEDS: TAMSULOSIN HYDROCHLORIDE 0.4 MG CAP PO SCH (18:11)
[2023-12-20] MEDS: RIVAROXABAN 15 MG TAB PO SCH (18:11)
[2023-12-20 18:16] LABS: Urine Blood TRACE /uL (Negative); Urine Clarity Clear (Clear); Urine Color Colorless (Yellow); Urine Protein, UAD Negative (Negative); Urine Specific Gravity 1.006 (1.001-1.035); Urine Urobilinogen Normal (Negative); Urine WBC <1 /hpf (0 - 3)
[2023-12-20 18:35] LABS: Creatinine, Urine 31.45 mg/dL (30.0-125.0)
[2023-12-20] MEDS: AZITHROMYCIN 500MG/ 250ML 250 ML IV SCH (20:45)
[2023-12-21] VITALS (8 sets, daily range): BP systolic 114–156; BP diastolic 57–83; PULSE 66–92; RESP 16–20; TEMP 97.9–99.1; O2SAT 93–100
[2023-12-21 06:46] LABS: Rapid Influenza A Negative (Negative); Rapid Influenza B Negative (Negative)
[2023-12-21 07:34] LABS: Basophils # (auto) 0 10 ^3/uL (0-0.2); Basophils % (auto) 0.8 % (0.0-2.0); Eosinophils # (auto) 0.4 10 ^3/uL (0-0.8); Hematocrit 39.1 % (41.0-53.0); Hemoglobin 13.4 g/dL (13.5-17.5); Lymphocytes # (auto) 0.8 10 ^3/uL (0.4-5.4); Lymphocytes % (auto) 22.4 % (10.0-50.0); Mean Corpuscular Hemoglobin 31.2 pg (28.0-32.0); Mean Corpuscular Hgb Conc. 34.4 g/dL (32.0-36.0); Mean Corpuscular Volume 90.8 fL (80.0-100.0); Monocytes # (auto) 0.6 10 ^3/uL (0-1.3); Monocytes % (auto) 15.4 % (0.0-12.0); Neutrophils # (auto) 1.8 10 ^3/uL (1.6-8.6); Neutrophils % (auto) 51.4 % (37.0-80.0); Nucleated Red Blood Cells % 0.6 %; Red Blood Cells 4.31 10^6/uL (4.5-5.90); White Blood Cell 3.6 10^3/uL (4.4-10.8)
[2023-12-21 08:08] LABS: Chloride 99 mmol/L (98-107); Potassium 3.4 mmol/L (3.5-5.1); Sodium 131 mmol/L (136-145)
[2023-12-21 08:09] LABS: Calcium 8.9 mg/dL (8.7-10.4)
[2023-12-21 08:10] LABS: Anion Gap 4 (5-15); Carbon Dioxide 28 mmol/L (20-30)
[2023-12-21 08:15] LABS: BUN/Creatinine Ratio 8.2 (10.0-20.0); Blood Urea Nitrogen 7 mg/dL (9-23); Glucose 125 mg/dL (74-106)
[2023-12-21] MEDS: cefTRIAXone 1GM/50ML D5W 50 ML IV SCH (09:04)
[2023-12-21] MEDS: POTASSIUM CHL 20 Meq TABLET PO STA (09:10)
[2023-12-21] MEDS ORDERED: AZIT-185 PO (12:02)
== END 2023-12-21 14:30 | disposition home or self-care (01) | DRG 178 ==
LOC: ER 14:01 → OVERFLOW 21:41 → EAST 21:46
PROVIDERS: ADMIT Nurse Practitioner; ATTEND Nurse Practitioner
DX: J15.69 Pneumonia due to other Gram-negative bacteria (principal); E87.1 Hypo-osmolality and hyponatremia; J98.4 Other disorders of lung; J15.9 Unspecified bacterial pneumonia; I11.0 Hypertensive heart disease with heart failure; E11.65 Type 2 diabetes mellitus with hyperglycemia; E78.5 Hyperlipidemia, unspecified; I48.0 Paroxysmal atrial fibrillation; I50.9 Heart failure, unspecified; E87.6 Hypokalemia; N40.0 Benign prostatic hyperplasia without lower urinary tract symptoms; Z85.51 Personal history of malignant neoplasm of bladder; Z87.891 Personal history of nicotine dependence; Z90.5 Acquired absence of kidney
CPT/HCPCS: 36415; 71045; 80048; 81001; 82570; 82962; 83880; 83930; 84300; 84484; 85025; 87278; 87804; G0378; J1815; J2001

== ENCOUNTER → 2023-12-22 | Outpatient (CLI) | payer OTHER, MEDICAID ==
[~2023-12-22] MED LIST changes: +AZIT-185 PO
[2023-12-22 09:07] LABS: Urine Bacteria None Seen /hpf (None Seen)
[2023-12-22 09:55] LABS: Urine Blood Negative /uL (Negative); Urine Clarity Clear (Clear); Urine Color Yellow (Yellow); Urine Protein, UAD TRACE (Negative); Urine Specific Gravity 1.017 (1.001-1.035); Urine Urobilinogen 2 mg/dL (Negative); Urine WBC 1 /hpf (0 - 3)
[2023-12-22 10:06] LABS: Basophils # (auto) 0 10 ^3/uL (0-0.2); Basophils % (auto) 0.5 % (0.0-2.0); Eosinophils # (auto) 0.4 10 ^3/uL (0-0.8); Eosinophils % (auto) 8.2 % (0.0-7.0); Hematocrit 41.8 % (41.0-53.0); Lymphocytes # (auto) 0.9 10 ^3/uL (0.4-5.4); Lymphocytes % (auto) 18.5 % (10.0-50.0); Mean Corpuscular Hemoglobin 30.8 pg (28.0-32.0); Mean Corpuscular Hgb Conc. 33.5 g/dL (32.0-36.0); Mean Corpuscular Volume 91.7 fL (80.0-100.0); Monocytes # (auto) 0.5 10 ^3/uL (0-1.3); Monocytes % (auto) 9.7 % (0.0-12.0); Neutrophils % (auto) 63.1 % (37.0-80.0); Nucleated Red Blood Cells % 0.2 %; Platelet Count (auto) 350 10^3/uL (140-450); Red Blood Cells 4.55 10^6/uL (4.5-5.90); Red Cell Distribution Width 14.2 % (11.8-14.3); White Blood Cell 4.7 10^3/uL (4.4-10.8)
[2023-12-22 10:52] LABS: Alanine Aminotransferase 21 U/L (7-40); Alkaline Phosphatase 99 U/L (46-116); Anion Gap 3 (5-15); BUN/Creatinine Ratio 9.2 (10.0-20.0); Blood Urea Nitrogen 9 mg/dL (9-23); Calcium 9.5 mg/dL (8.7-10.4); Carbon Dioxide 29 mmol/L (20-30); Chloride 97 mmol/L (98-107); Glucose 159 mg/dL (74-106); Sodium 129 mmol/L (136-145)
[2023-12-22 10:53] LABS: Albumin 4.2 g/dL (3.2-4.8); Aspartate Aminotransferase 22 U/L (13-40); Bilirubin, Total 0.8 mg/dL (0.2-1.0)
[2023-12-22 10:54] LABS: Total Protein 6.9 g/dL (5.7-8.2)
== END | disposition home or self-care (01) ==
LOC: LAB 08:57
PROVIDERS: ATTEND Nurse Practitioner Gerontology
DX: C64.2 Malignant neoplasm of left kidney, except renal pelvis (principal); C67.8 Malignant neoplasm of overlapping sites of bladder; D49.59 Neoplasm of unspecified behavior of other genitourinary organ
CPT/HCPCS: 36415; 80053; 81001; 85025

== ENCOUNTER → 2024-01-16 | Outpatient (CLI) | payer OTHER, MEDICAID ==
[2024-01-16 09:58] LABS: Basophils # (auto) 0 10 ^3/uL (0-0.2); Basophils % (auto) 0.7 % (0.0-2.0); Eosinophils # (auto) 0.2 10 ^3/uL (0-0.8); Eosinophils % (auto) 3.1 % (0.0-7.0); Hematocrit 41.8 % (41.0-53.0); Hemoglobin 14.4 g/dL (13.5-17.5); Lymphocytes % (auto) 17.8 % (10.0-50.0); Mean Corpuscular Hgb Conc. 34.5 g/dL (32.0-36.0); Mean Corpuscular Volume 89.8 fL (80.0-100.0); Monocytes # (auto) 0.4 10 ^3/uL (0-1.3); Neutrophils # (auto) 3.9 10 ^3/uL (1.6-8.6); Neutrophils % (auto) 70.4 % (37.0-80.0); Nucleated Red Blood Cells % 0.1 %; Platelet Count (auto) 300 10^3/uL (140-450); Red Blood Cells 4.65 10^6/uL (4.5-5.90); Red Cell Distribution Width 13.9 % (11.8-14.3); White Blood Cell 5.6 10^3/uL (4.4-10.8)
[2024-01-16 10:52] LABS: Alanine Aminotransferase 22 U/L (7-40); Albumin 4.4 g/dL (3.2-4.8); Alkaline Phosphatase 98 U/L (46-116); Anion Gap 7 (5-15); Aspartate Aminotransferase 13 U/L (13-40); BUN/Creatinine Ratio 10.2 (10.0-20.0); Bilirubin, Total 1.2 mg/dL (0.2-1.0); Blood Urea Nitrogen 11 mg/dL (9-23); Calcium 9.7 mg/dL (8.7-10.4); Carbon Dioxide 29 mmol/L (20-30); Chloride 98 mmol/L (98-107); Glucose 152 mg/dL (74-106); Sodium 134 mmol/L (136-145); Total Protein 7.1 g/dL (5.7-8.2)
== END | disposition home or self-care (01) ==
LOC: LAB 08:50
PROVIDERS: ATTEND Nurse Practitioner Gerontology
DX: C64.2 Malignant neoplasm of left kidney, except renal pelvis (principal)
CPT/HCPCS: 36415; 80053; 85025

== ENCOUNTER 2024-03-31 06:30 | Emergency (ER) | payer OTHER, MEDICAID ==
[~2024-03-31] VITALS: Ht 172.7 cm; Wt 101.5 kg
[2024-03-31] MEDS ORDERED: NITR-87 PO (07:09)
--- NOTE | 2024-03-31 07:13 | ED.PDOC ---
General HPI Comments 78 year old male accompanied by son presents to the ED with chief complaint of Castillo catheter removal. 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 Son relays that the patient was supposed to have the Castillo catheter removed today by his doctor, however, he is unable to see them until 04/08 to have it removed. Patient states he wants it removed as soon as possible and did get the okay from his doctor to do so. Patient denies any abdominal pain, dysuria, hematuria, fever, or chills. Chief Complaint: Urinary Time Seen by MD: 07:08 Primary Care Provider: KENNEY Reviewed notes: Nurses Notes, Medications, Allergies Allergies: Coded Allergies: NO KNOWN ALLERGIES (Unverified , 04/08/22) Home Meds Active Scripts Nitrofurantoin Monohydrate Mac (Macrobid) 100 Mg Cap, 100 MG PO BID for 7 Days, #14 CAP Prov:SVEN COTTO MD 03/31/24 Azithromycin (ZITHROMAX TABLET) 250 Mg Tb, 250 MG PO DAILY, #6 TAB take 2 tabs first day then 1 tab daily until finish. Prov:MATT ASCENCIO MD 12/21/23 Reported Medications Cholecalciferol (D3) 1,000 Unit Cap, 1000 UNIT PO DAILY, CAP 03/17/23 Atorvastatin Calcium (Lipitor) 20 Mg Tab, 20 MG PO QPM, TAB 04/10/22 Trazodone Hcl (Trazodone Hcl) 50 Mg Tab, 25 MG PO DAILY, MG 04/10/22 Aspirin (Aspirin) 325 Mg Tab, 81 MG PO DAILY for 30 Days, MG 04/10/22 Metoprolol Tartrate (Metoprolol Tartrate) 25 Mg Tab, 25 MG PO BID for 30 Days, MG 04/10/22 Tamsulosin HCl (Tamsulosin Hydrochloride) 0.4 Mg Cap, 0.4 MG PO BID, CAP 04/10/22 Pantoprazole Sodium (PANTOPRAZOLE SODIUM) 40 Mg Inj, 40 MG PO BID, INJ 04/10/22 Metformin Hydrochloride (Metformin Hcl) 850 Mg Tab, 850 MG PO BID for 30 Days, MG 04/10/22 Information Source: Patient, Relative (Son) Mode of Arrival: Ambulatory Severity: Mild Inability to void: None Timing: Days Duration: Since onset Prehospital treatment: None Location: None Penile discharge: None Modifying factors: None associated signs and symptoms: None Past Medical History PAST MEDICAL HISTORY: Cancer, DM, High Lipids, HTN Surgical History (Other): Castillo catheter insertion Family History Family History: Reviewed,noncontributory to illness Social History Smoker: Non-Smoker Alcohol: Denies ETOH Use Drugs: Denies Drug Use Lives In: Home Constitutional: denies: chills, diaphoresis, fatigue, fever, malaise, sweats, weakness, others EENTM: denies: blurred vision, double vision, ear bleeding, ear discharge, ear drainage, ear pain, ear ringing, eye pain, eye redness, hearing loss, mouth pain, mouth swelling, nasal discharge, nose bleeding, nose congestion, nose pain, photophobia, tearing, throat pain, throat swelling, voice changes, others Respiratory: denies: cough, hemoptysis, orthopnea, SOB at rest, shortness of breath, SOB with excertion, stridor, wheezing, others Cardiovascular: denies: chest pain, dizzy spells, diaphoresis, Dyspnea on exertion, edema, irregular heart beat, left arm pain, lightheadedness, palpitations, PND, syncope, others Gastrointestinal: denies: abdomen distended, abdominal pain, blood streaked bowels, constipated, diarrhea, dysphagia, difficulty swallowing, hematemesis, melena, nausea, poor appetite, poor fluid intake, rectal bleeding, rectal pain, vomiting, others Genitourinary: denies: burning, dysuria, flank pain, frequency, hematuria, incontinence, penile discharge, penile sore, pain, testicle pain, testicle swelling, urgency, others Neurological: denies: dizziness, fainting, headache, left sided numbness, left sided weakness, numbness, paresthesia, pre-existing deficit, right sided numbness, right sided weakness, seizure, speech problems, tingling, tremors, weakness, others Musculoskeletal: denies: back pain, gout, joint pain, joint swelling, muscle pain, muscle stiffness, neck pain, others Integumetry: denies: bruises, change in color, change in hair/nails, dryness, laceration, lesions, lumps, rash, wounds, others Allergic/Immunocompromised: denies: Difficulty Healing, Frequent Infections, Hives, Itching, others Hematologic/Lymphatic: denies: anemia, blood clots, easy bleeding, easy bruising, swollen glands, others Endocrine: denies: excessive hunger, excessive sweating, excessive thirst, excessive urination, flushing, intolerance to cold, intolerance to heat, unexplained weight gain, unexplained weight loss, others Psychiatric: denies: anxiety, bipolar disorder, depression, hopeless, panic disorder, schizophrenia, sleepless, suicidal, others All Other Systems: Reviewed and Negative Physical Exam General Appearance: No Apparent Distress, Normal HEENT: Normal ENT Inspection, PERRL/EOMI Neck: Full Range of Motion, Non-Tender, Normal, Normal Inspection Respiratory: Chest Non-Tender, Lungs Clear, No Accessory Muscle Use, No Respiratory Distress, Normal Breath Sounds Cardiovascular: No Edema, No JVD, No Murmur, No Gallop, Normal Peripheral Pulses, Regular Rate/Rhythm Breast Exam: Deferred Gastrointestinal: No Organomegaly, Non Tender, No Pulsatile Mass, Normal Bowel Sounds, Soft Genitalia: Other (Castillo catheter in place with clear yellow urine in bag.) Pelvic: Deferred Rectal: Deferred Extremities: No calf tenderness, Normal capillary refill, Normal inspection, Normal range of motion, Non-tender, No pedal edema Musculoskeletal : Apperance: Normal Neurologic: Alert, bookkeeper assistant II-XII nml as Tested, No Motor Deficits, Normal Affect, Normal Mood, No Sensory Deficits Cerebellar Function: Normal Reflexes: Normal Skin: Dry, Normal Color, Warm Lymphatic: No Adenopathy Was a procedure done? Was a procedure done?: No Differential Diagnosis Kidney stone (Female): N/A Kidney stone (Male): N/A Penile/Scrotal: N/A Urinary Problem (Male): Other (Castillo catheter removal) Urinary Problem (Female): N/A X-Ray, Labs, Meds, VS Vital Signs Date Time Temp Pulse Resp B/P (MAP) Pulse Ox O2 Delivery O2 Flow Rate FiO2 03/31/24 07:46 98.1 97 17 137/71 (93) 97 98.1 03/31/24 07:46 71 17 97 Room Air 03/31/24 06:34 98.3 98 19 140/62 (88) 97 Time of 1ST Reevaluation: 07:38 Reevaluation 1ST: Resolved ( ) Patient Education/Counseling: Diagnosis, Treatment, Need For Follow Up Family Education/Counseling: Diagnosis, Treatment, Need For Follow Up Departure 1 Departure Time of Disposition: 08:30 Impression: Primary Impression: Postoperative urinary retention Disposition: 01 HOME / SELF CARE / HOMELESS Condition: Stable e-Prescriptions Nitrofurantoin Monohydrate Mac (Macrobid) 100 Mg Cap 100 MG PO BID for 7 Days, #14 CAP Prov: SVEN COTTO MD 03/31/24 Discharged With: Self Critical Care Note Critical Care Time?: No Stability Stability form required: No Heart Score Heart Score: Heart Score Response (Comments) Value History N/A 0 EKG N/A 0 Age N/A 0 Risk Factors N/A 0 Troponin N/A 0 Total 0 I personally scribed for SVEN COTTO MD ([email or web address]) on 03/31/24 at 07:13. Electronically submitted by Abhay Zendejas ([email or web address]). SVEN COTTO MD Mar 31, 2024 07:13
[2024-03-31 07:46] VITALS: BP 137/71; PULSE 71; RESP 17; TEMP 98.1; O2SAT 97
== END 2024-03-31 07:48 | disposition home or self-care (01) ==
LOC: ER 06:30
DX: R33.9 Retention of urine, unspecified (principal); I10 Essential (primary) hypertension; E11.9 Type 2 diabetes mellitus without complications; E78.5 Hyperlipidemia, unspecified; Z85.9 Personal history of malignant neoplasm, unspecified; Z79.82 Long term (current) use of aspirin; Z79.84 Long term (current) use of oral hypoglycemic drugs; Z79.899 Other long term (current) drug therapy; Z98.890 Other specified postprocedural states

== ENCOUNTER 2024-04-06 02:32 | Inpatient (IN) | payer OTHER, MEDICAID ==
[~2024-04-06] VITALS: Ht 170.2 cm; Wt 101.0 kg
[~2024-04-06 02:32] MED LIST changes: +NITR-87 PO
[2024-04-06 03:03] LABS: Urine Bacteria None Seen /hpf (None Seen)
--- NOTE | 2024-04-06 03:16 | ED.PDOC ---
General HPI Comments 78-year-old male presents with a chief complaint of hematuria, dysuria, and abdominal pain. Patient states that his pain is localized to his suprapubic region, non-radiating. Patient reports that he recently had a Castillo catheter removed on Friday, and just yesterday started developing hematuria. Patient reports that it is painful to urinate. No other symptoms or modifying factors present at this time. Chief Complaint: Penile Problem Time Seen by MD: 02:48 Primary Care Provider: KENNEY Jimenez notes: Medications, Allergies Allergies: Coded Allergies: NO KNOWN ALLERGIES (Unverified , 04/08/22) Home Meds Active Scripts Nitrofurantoin Monohydrate Mac (Macrobid) 100 Mg Cap, 100 MG PO BID for 7 Days, #14 CAP Prov:SVEN COTTO MD 03/31/24 Azithromycin (ZITHROMAX TABLET) 250 Mg Tb, 250 MG PO DAILY, #6 TAB take 2 tabs first day then 1 tab daily until finish. Prov:MATT ASCENCIO MD 12/21/23 Reported Medications Cholecalciferol (D3) 1,000 Unit Cap, 1000 UNIT PO DAILY, CAP 03/17/23 Atorvastatin Calcium (Lipitor) 20 Mg Tab, 20 MG PO QPM, TAB 04/10/22 Trazodone Hcl (Trazodone Hcl) 50 Mg Tab, 25 MG PO DAILY, MG 04/10/22 Aspirin (Aspirin) 325 Mg Tab, 81 MG PO DAILY for 30 Days, MG 04/10/22 Metoprolol Tartrate (Metoprolol Tartrate) 25 Mg Tab, 25 MG PO BID for 30 Days, MG 04/10/22 Tamsulosin HCl (Tamsulosin Hydrochloride) 0.4 Mg Cap, 0.4 MG PO BID, CAP 04/10/22 Pantoprazole Sodium (PANTOPRAZOLE SODIUM) 40 Mg Inj, 40 MG PO BID, INJ 04/10/22 Metformin Hydrochloride (Metformin Hcl) 850 Mg Tab, 850 MG PO BID for 30 Days, MG 04/10/22 Information Source: Patient, Relative Mode of Arrival: Ambulatory Severity: Moderate Inability to void: None Timing: Days Duration: Since onset Has not urinated for: Minutes Prehospital treatment: None Onset: Spontaneous Symptoms: Dysuria, Hematuria History of: Recent post-op Location: Suprapubic associated signs and symptoms: Abdominal Pain, Dysuria, Hematuria Vital Signs Vital Signs Date Time Temp Pulse Resp B/P (MAP) Pulse Ox O2 Delivery O2 Flow Rate FiO2 04/06/24 02:53 99.2 68 18 114/73 (87) 98 Physical Exam General: Awake, alert and oriented. No acute distress. Skin: Skin in warm, dry and intact. Appropriate color for ethnicity. Nailbeds pink with no cyanosis. HEENT: The head is normocephalic and atraumatic. Conjunctivae are clear without exudates or hemorrhage. Sclera is non-icteric. EOM are intact. No signs of nystagmus. Eyelids are normal in appearance without swelling or lesions. Oral mucosa is pink and moist Neck: The neck is supple with normal range of motion. No JVD. Cardiac: Heart rate and rhythm are normal. No murmurs, gallops, or rubs are auscultated. Respiratory: No signs of respiratory distress. Lung sounds are clear in all lobes bilaterally without rales, ronchi, or wheezes. Abdominal: Abdomen is soft, non-tender without distention. Bowel sounds are present and normoactive in all four quadrants. No CVA tenderness Extremities: Upper and lower extremities are atraumatic in appearance without deformity or edema. Neurological: The patient is awake, alert and oriented to person, place, and ti me with normal speech. Speech is clear. There is no facial asymmetry. Psychiatric: Appropriate mood and affect. Good judgement and insight. No visual or auditory hallucinations. Review of Systems: REVIEW OF SYSTEMS: No fever, no chills, or fatigue. No easy bruising or bleeding elsewhere HEENT: No sore throat, no earache, no congestion, no neck pain. Cardiac: No chest pain. No palpitations. Lungs: No shortness of breath, no cough. GI: No nausea, no vomiting, no diarrhea, no constipation, no abdominal pain : Positive dysuria, frequency, or urgency. Positive hematuria. Musculoskeletal: No joint pain , no joint swelling, no extremity edema. Skin: No rash, no itching. Neuro: No headache, no dizziness, no weakness Past Medical History PAST MEDICAL HISTORY: Cancer, DM, High Lipids, HTN Family History Family History: Reviewed,noncontributory to illness Social History Smoker: Non-Smoker Alcohol: Denies ETOH Use Drugs: Denies Drug Use Lives In: Home Was a procedure done? Was a procedure done?: No Differential Diagnosis Kidney stone (Female): AAA, Aortic dissection, Other Other Differential Diagnosis Bleeding disorder, urinary tract infection, kidney stone, hemorrhagic shock, uncontrolled bleeding, other X-Ray, Labs, Meds, VS Vital Signs Date Time Temp Pulse Resp B/P (MAP) Pulse Ox O2 Delivery O2 Flow Rate FiO2 04/06/24 02:53 99.2 68 18 114/73 (87) 98 Lab Test 04/06/24 03:04 04/06/24 03:01 Range/Units White Blood Count 6.3 4.4-10.8 10^3/uL Red Blood Count 4.70 4.5-5.90 10^6/uL Hemoglobin 13.7 13.5-17.5 g/dL Hematocrit 40.2 L 41.0-53.0 % Mean Corpuscular Volume 85.6 80.0-100.0 fL Mean Corpuscular Hemoglobin 29.1 28.0-32.0 pg Mean Corpuscular Hemoglobin Concent 33.9 32.0-36.0 g/dL Red Cell Distribution Width 14.5 H 11.8-14.3 % Platelet Count 262 140-450 10^3/uL Mean Platelet Volume 7.1 6.9-10.8 fL Neutrophils (%) (Auto) 67.8 37.0-80.0 % Lymphocytes (%) (Auto) 15.2 10.0-50.0 % Monocytes (%) (Auto) 5.8 0.0-12.0 % Eosinophils (%) (Auto) 9.8 H 0.0-7.0 % Basophils (%) (Auto) 1.4 0.0-2.0 % Neutrophils # (Auto) 4.3 1.6-8.6 10 ^3/uL Lymphocytes # (Auto) 1.0 0.4-5.4 10 ^3/uL Monocytes # (Auto) 0.4 0-1.3 10 ^3/uL Eosinophils # (Auto) 0.6 0-0.8 10 ^3/uL Basophils # (Auto) 0.1 0-0.2 10 ^3/uL Nucleated Red Blood Cells 0.1 % Prothrombin Time 17.2 H 9.3-11.8 sec Prothrombin Time INR 1.69 H 0.9-1.15 Sodium Level 133 L 136-145 mmol/L Potassium Level 3.7 3.5-5.1 mmol/L Chloride Level 97 L 98-107 mmol/L Carbon Dioxide Level 27 20-31 mmol/L Anion Gap 9 5-15 Blood Urea Nitrogen 16 9-23 mg/dL Creatinine 1.01 0.700-1.30 mg/dL Glomerular Filtration Rate Calc 76 >90 mL/min BUN/Creatinine Ratio 15.8 10.0-20.0 Serum Glucose 122 H 74-106 mg/dL Calcium Level 9.5 8.7-10.4 mg/dL Total Bilirubin 0.7 0.2-1.0 mg/dL Aspartate Amino Transferase (AST) 11 L 13-40 U/L Alanine Aminotransferase (ALT) 18 7-40 U/L Alkaline Phosphatase 90 46-116 U/L Total Protein 7.0 5.7-8.2 g/dL Albumin 4.4 3.2-4.8 g/dL Urine Color Colorless Yellow Urine Clarity Turbid H Clear Urine pH 6.5 5.0-9.0 Urine Specific [place] 1.013 1.001-1.035 Urine Protein 1+ H Negative Urine Ketones Negative Negative Urine Blood 3+ H Negative /uL Urine Nitrite Negative Negative Urine Bilirubin Negative Negative Urine Urobilinogen Normal Negative mg/dL Urine Leukocyte Esterase Trace Negative /uL Urine RBC 4093 0 - 3 /hpf Urine WBC 4 0 - 3 /hpf Urine Squamous Epithelial Cells Few <5 /hpf Urine Bacteria None seen None Seen /hpf Urine Glucose Normal Normal mg/dL Time of 1ST Reevaluation: 03:18 Reevaluation 1ST: Unchanged Patient Education/Counseling: Diagnosis, Treatment, Prognosis Family Education/Counseling: Diagnosis, Treatment, Prognosis Departure 1 Departure Time of Disposition: 05:34 Impression: Primary Impression: Hematuria Disposition: ADMITTED INPATIENT Condition: Stable Comments 78-year-old male with hematuria, on Xarelto. Abnormal bladder findings on CT abdomen and pelvis without contrast. Patient admitted for further treatment, evaluation and monitoring, Urology consultation, considering giving antibiotics however patient is afebrile, no leukocytosis, no bacteria seen on urinalysis. . I reviewed the following notes from the pt's past medical encounters: Most recent ED visit The following tests were ordered, and results were reviewed by me: Labs, imaging Additional information was gathered from interviewing the following independent historians: Patient's family member, son at bedside I reviewed and agreed with the following test results read by other providers: Agree with radiologist's interpretation of CT Critical Care Note Critical Care Time?: No Stability Stability form required: No I personally scribed for ENRIQUETA DUFF MD ([email or web address]) on 04/06/24 at 03:16. Electronically submitted by Panda Chávez ([email or web address]). ENRIQUETA DUFF MD Apr 06, 2024 03:16
[2024-04-06 03:17] LABS: Urine Blood 3+ /uL (Negative); Urine Clarity Turbid (Clear); Urine Color Colorless (Yellow); Urine Protein, UAD 1+ (Negative); Urine Specific Gravity 1.013 (1.001-1.035); Urine Urobilinogen Normal (Negative); Urine WBC 4 /hpf (0 - 3); Urine pH 6.5 (5.0-9.0)
[2024-04-06 03:20] LABS: Basophils # (auto) 0.1 10 ^3/uL (0-0.2); Basophils % (auto) 1.4 % (0.0-2.0); Eosinophils # (auto) 0.6 10 ^3/uL (0-0.8); Eosinophils % (auto) 9.8 % (0.0-7.0); Hematocrit 40.2 % (41.0-53.0); Hemoglobin 13.7 g/dL (13.5-17.5); Lymphocytes % (auto) 15.2 % (10.0-50.0); Mean Corpuscular Hemoglobin 29.1 pg (28.0-32.0); Mean Corpuscular Hgb Conc. 33.9 g/dL (32.0-36.0); Mean Corpuscular Volume 85.6 fL (80.0-100.0); Monocytes # (auto) 0.4 10 ^3/uL (0-1.3); Monocytes % (auto) 5.8 % (0.0-12.0); Neutrophils # (auto) 4.3 10 ^3/uL (1.6-8.6); Neutrophils % (auto) 67.8 % (37.0-80.0); Nucleated Red Blood Cells % 0.1 %; Platelet Count (auto) 262 10^3/uL (140-450); Red Cell Distribution Width 14.5 % (11.8-14.3); White Blood Cell 6.3 10^3/uL (4.4-10.8)
[2024-04-06 03:33] LABS: Alanine Aminotransferase 18 U/L (7-40); Albumin 4.4 g/dL (3.2-4.8); Alkaline Phosphatase 90 U/L (46-116); Anion Gap 9 (5-15); Aspartate Aminotransferase 11 U/L (13-40); BUN/Creatinine Ratio 15.8 (10.0-20.0); Bilirubin, Total 0.7 mg/dL (0.2-1.0); Blood Urea Nitrogen 16 mg/dL (9-23); Calcium 9.5 mg/dL (8.7-10.4); Carbon Dioxide 27 mmol/L (20-31); Chloride 97 mmol/L (98-107); Glucose 122 mg/dL (74-106); INR 1.69 (0.9-1.15); Potassium 3.7 mmol/L (3.5-5.1); Prothrombin Time 17.2 sec (9.3-11.8); Sodium 133 mmol/L (136-145)
--- NOTE | 2024-04-06 04:13 | DVH ---
Examination: ABPL CLINICAL INDICATION: Hematuria, abdominal pain, dysuria. COMPARISON: None. CONTRAST USED: None. TECHNIQUE: A plain CT study of the abdomen and pelvis is performed. The examination was performed w ith [address] scan is done according to ALARA (As Low as Reasonably Achievable). Multipl mateusz reconstructions were obtained. FINDINGS: The lack of intravenous contrast limits evaluation of solid organ and other structures, differentiati on / separation and intraluminal evaluation of vessels and ureter from surrounding structures, and ev aluation of organ or abnormal enhancement. CT ABDOMEN: Visualized lower thorax: The evaluation of lung bases demonstrates no focal infiltrates or pleural effusion. Subtle mosaic attenuation in visualized both lower lungs, due to small vessel / airway disease. Subpleural subsegmental atelectatic areas and / or scarring in visualized both lower pulmonary lobes posteriorly. Calcifications are noted in bilateral posterobasal pleura. Unenhanced liver: The liver is normal in size. There is no intrahepatic biliary radicle dilatation. Gallbladder: The gallbladder is normal and reveals no intrinsic abnormality. The common bile duct is not dilated. Unenhanced pancreas: The pancreas is normal in size and shape. No focal lesion is seen within. The peripancreatic fat planes are normal. Unenhanced spleen: The spleen is normal in size and does not show any focal abnormality. Retroperitoneum: Both adrenal glands are normal in size and morphology in this unenhanced CT scan. There is no significant retroperitoneal lymphadenopathy. Left kidney is not visualized in the left renal fossa along with hyperdensities in the proximal left renal artery, likely post operative changes. Please correlate with operative history. Right kidney measures approximately 11.8 x 6 x 7.5 cm (volume approximately 276 mL). Compensatory enlargement of the right kidney with right-sided perinephric fat stranding. Few hypoattenuating cystic lesions in right kidney, largest of approximate size 25 x 24 mm at the mid pole of right kidney laterally, likely simple renal cortical cysts. Advised further evaluation with CT CT abdomen and pelvis with contrast. No hydronephrosis or renal calculi. Vessels: Calcific atherosclerotic aorto-iliac plaques noted. Otherwise, the aorta, IVC and the mesenteric vess els cannot be commented in this unenhanced CT scan. Stomach and bowel: The bowel loops are unremarkable. There is no ascites. Skeletal system: Degenerative changes in the visualized thoracolumbar spine. The pelvic bones are unremarkable. CT PELVIS: Appendix: The appendix is unremarkable in appearance. Colon: The ascending, transverse, descending, sigmoid colon and rectum are unremarkable. Urinary bladder: Partially distended urinary bladder with circumferential, soft tissue density urinary bladder wall th ickening, probably due to underdistension / cystitis. Advised urinalysis correlation. Pelvic organs: The prostate is normal in size with parenchymal calcifications. No significant pelvic lymphadenopathy is identified. No abnormal fluid collection is seen. Bilateral indirect inguinal omentoceles. Partly visualized fat density area in the perineal musculature on the right side anteriorly, suggesti ve of lipoma. Advised further evaluation with MRI pelvis without contrast. IMPRESSION: 1. Left kidney is not visualized in the left renal fossa along with hyperdensities in the proximal l eft renal artery, likely post operative changes. Please correlate with operative history. 2. Compensatory enlargement of the right kidney with perinephric fat stranding. Advised further pat luation with CT urogram study with contrast as clinically indicated. 3. Partially distended urinary bladder with circumferential, soft tissue density urinary bladder wal l thickening, probably due to underdistension / cystitis. Advised urinalysis correlation. 4. No abdominal mass or adenopathy. 5. No ascites. 6. No free air. 7. Chronic and / or ancillary findings as described above. Electronically Signed 04/06/2024 04:12 Jennifer Espinoza
[2024-04-06] MEDS ORDERED: ACETAMINOPHEN 325 MG TAB PO PRN (04:30)
[2024-04-06] MEDS ORDERED: ONDANSETRON HCL 4 MG/2 ML VIAL IV PRN (04:30)
[2024-04-06] MEDS ORDERED: DEXTROSE (50%) 50ML SYRG IV PRN (04:30)
--- NOTE | 2024-04-06 04:57 | DVHHP2 ---
History of Present Illness Reason for Visit: Hematuria History of Present Illness 78-year-old male presents for evaluation of hematuria. Patient reports a one day history of bloody urine with associated dysuria and lower abdominal pain. Patient reports taking Xarelto. Patient recently had indwelling catheter removed last week. Denies any chest pain, shortness for breath or dizziness. No other acute complaints reported. Past Medical History Dyslipidemia, hypertension, diabetes mellitus and cancer Past Surgical History Denies Family History Noncontributory Smoke: No ALCOHOL: none Drugs: None Lives: with Family Review of Systems Review of Systems Review of systems are currently negative otherwise addressed in HPI. Allergies: Coded Allergies: NO KNOWN ALLERGIES (Unverified , 04/08/22) Medications Current Medications Medications Dose Ordered Sig/Angelito Route Start Time Stop Time Status Last Admin Dose Admin Ceftriaxone Sodium 50 ml @ 100 mls/hr DAILY@09 IV 04/06/24 09:00 Metoprolol Tartrate 25 mg BID PO 04/06/24 10:00 Atorvastatin Calcium 20 mg HS PO 04/06/24 22:00 Pantoprazole Sodium 40 mg DAILY@0600 PO 04/06/24 06:00 Tamsulosin HCl 0.4 mg QPM PO 04/06/24 18:00 Furosemide 20 mg DAILY PO 04/06/24 10:00 Diagnostic Test (Pha) 1 strip ACHS 04/06/24 07:00 Insulin Human Regular ACHS SC 04/06/24 07:00 Dextrose 50 ml UD PRN IV 04/06/24 04:30 Ondansetron HCl 4 mg Q4HP PRN IV 04/06/24 04:30 Acetaminophen 650 mg Q6HP PRN PO 04/06/24 04:30 Exam Vital Signs Vital Signs Date Time Temp Pulse Resp B/P (MAP) Pulse Ox O2 Delivery O2 Flow Rate FiO2 04/06/24 02:53 99.2 68 18 114/73 (87) 98 Exam Gen: 70-year-old male in no apparent distress Skin: Warm, dry, normal color and texture, no rash. HEENT: Normocephalic atraumatic, mucous membranes moist and pink. Neck: Cervical and supraclavicular nodes normal without enlargement, trachea is midline, thyroid gland is normal without masses. Pulmonary: Clear to auscultation and percussion bilaterally. Cardiac: Regular rate and rhythm. No murmur Abdomen: Soft, nontender, nondistended, bowel sounds present all 4 quadrants, no guarding, no rigidity, no organomegaly. Extremities: No cyanosis, clubbing, no edema Neuro: Cranial nerves II through XII grossly intact, normal affect and speech, n o focal motor deficits. Labs/Xrays ORDERING PHYSICIAN: MEGAN ALFARO MD PROCEDURE(s): CXR2 - CHEST TWO VIEWS ROUTINE REASON: chest pain ORDER NUMBER(s): [id number], ACCESSION NUMBER(s): [id number] CHEST TWO VIEWS ROUTINE CLINICAL HISTORY: chest pain COMPARISON: None TECHNIQUE: Frontal and lateral view of the chest was obtained FINDINGS: Lines and Tubes: None Lungs: No focal consolidation. Pleura: No effusion. No pneumothorax. Cardiomediastinal contours: Unremarkable Bones: No acute osseous abnormality. IMPRESSION: No acute cardiopulmonary disease. Labs Test 04/06/24 03:04 04/06/24 03:01 Range/Units White Blood Count 6.3 4.4-10.8 10^3/uL Red Blood Count 4.70 4.5-5.90 10^6/uL Hemoglobin 13.7 13.5-17.5 g/dL Hematocrit 40.2 L 41.0-53.0 % Mean Corpuscular Volume 85.6 80.0-100.0 fL Mean Corpuscular Hemoglobin 29.1 28.0-32.0 pg Mean Corpuscular Hemoglobin Concent 33.9 32.0-36.0 g/dL Red Cell Distribution Width 14.5 H 11.8-14.3 % Platelet Count 262 140-450 10^3/uL Mean Platelet Volume 7.1 6.9-10.8 fL Neutrophils (%) (Auto) 67.8 37.0-80.0 % Lymphocytes (%) (Auto) 15.2 10.0-50.0 % Monocytes (%) (Auto) 5.8 0.0-12.0 % Eosinophils (%) (Auto) 9.8 H 0.0-7.0 % Basophils (%) (Auto) 1.4 0.0-2.0 % Neutrophils # (Auto) 4.3 1.6-8.6 10 ^3/uL Lymphocytes # (Auto) 1.0 0.4-5.4 10 ^3/uL Monocytes # (Auto) 0.4 0-1.3 10 ^3/uL Eosinophils # (Auto) 0.6 0-0.8 10 ^3/uL Basophils # (Auto) 0.1 0-0.2 10 ^3/uL Nucleated Red Blood Cells 0.1 % Prothrombin Time 17.2 H 9.3-11.8 sec Prothrombin Time INR 1.69 H 0.9-1.15 Sodium Level 133 L 136-145 mmol/L Potassium Level 3.7 3.5-5.1 mmol/L Chloride Level 97 L 98-107 mmol/L Carbon Dioxide Level 27 20-31 mmol/L Anion Gap 9 5-15 Blood Urea Nitrogen 16 9-23 mg/dL Creatinine 1.01 0.700-1.30 mg/dL Glomerular Filtration Rate Calc 76 >90 mL/min BUN/Creatinine Ratio 15.8 10.0-20.0 Serum Glucose 122 H 74-106 mg/dL Calcium Level 9.5 8.7-10.4 mg/dL Total Bilirubin 0.7 0.2-1.0 mg/dL Aspartate Amino Transferase (AST) 11 L 13-40 U/L Alanine Aminotransferase (ALT) 18 7-40 U/L Alkaline Phosphatase 90 46-116 U/L Total Protein 7.0 5.7-8.2 g/dL Albumin 4.4 3.2-4.8 g/dL Urine Color Colorless Yellow Urine Clarity Turbid H Clear Urine pH 6.5 5.0-9.0 Urine Specific [place] 1.013 1.001-1.035 Urine Protein 1+ H Negative Urine Ketones Negative Negative Urine Blood 3+ H Negative /uL Urine Nitrite Negative Negative Urine Bilirubin Negative Negative Urine Urobilinogen Normal Negative mg/dL Urine Leukocyte Esterase Trace Negative /uL Urine RBC 4093 0 - 3 /hpf Urine WBC 4 0 - 3 /hpf Urine Squamous Epithelial Cells Few <5 /hpf Urine Bacteria None seen None Seen /hpf Urine Glucose Normal Normal mg/dL Assessment/Plan Assessment/Plan Assessment Hematuria Acute cystitis Diabetes mellitus Secondary coagulopathy Hypertension Plan Admit the patient to [facility] to the hospitalist Nephrology consultation Rocephin Resume home medications, hold Xarelto Continue treatment per orders. Plan discussed with: Patient My Orders Orders - JULES THOMPSON Procedure Category Date Status Time Ceftriaxone 1gm/50ml PHA 04/06/24 In Process D5w (Rocephin) 09:00 Metoprolol Tartrate PHA 04/06/24 In Process Tablet (Lopressor Ta 10:00 Atorvastatin (Lipitor) PHA 04/06/24 In Process 22:00 Pantoprazole Tablet PHA 04/06/24 In Process (Protonix Tablet) 06:00 Tamsulosin PHA 04/06/24 In Process Hydrochloride (Flomax) 18:00 Furosemide Tablet PHA 04/06/24 In Process (Lasix Tablet) 10:00 Type And Screen BBK 04/06/24 Logged 04:23 Consistent DIET 04/06/24 Transmitted Carb(Ccho)Diabetes Breakfast Basic Metabolic Panel LAB 04/07/24 Verified 04:00 Glucose Blood PHA 04/06/24 In Process (Accu-Chek Comfort 07:00 Insulin R (Human) PHA 04/06/24 In Process (Insulin R) 07:00 Dextrose 50% Syringe PHA 04/06/24 In Process 04:30 Admit ADMIT 04/06/24 Transmitted 04:23 Ondansetron Hcl PHA 04/06/24 In Process (Zofran) 04:30 Complete Blood Count LAB 04/07/24 Verified 04:00 Condition: Stable KAMILA 04/06/24 In Process 04:23 Acetaminophen Tablet PHA 04/06/24 In Process (Tylenol Tablet) 04:30 Bedrest With Bathroom KAMILA 04/06/24 In Process Privileg 04:23 Date of Service: Apr 06, 2024 Billing Provider: JULES THOMPSON Common Visit Codes: [id number] INP/OBS CARE (HIGH) JULES THOMPSON Apr 06, 2024 04:57
[2024-04-06] MEDS: PANTOPRAZOLE 40 MG TAB PO SCH (06:25)
[2024-04-06] MEDS: ACCU-CHEK COMFORT CURVE STRIP VI SCH (06:29)
[2024-04-06] MEDS: InsuLIN REG 1unit/0.01ml Soln (100units/ml) SC SCH (06:34)
[2024-04-06 07:46] VITALS: PULSE 79; RESP 18; O2SAT 99
[2024-04-06] MEDS: cefTRIAXone 1GM/50ML D5W 50 ML IV SCH (09:17)
[2024-04-06] MEDS: METOPROLOL TARTRATE 25 MG TAB PO SCH (09:22)
[2024-04-06] MEDS: FUROSEMIDE 20 MG TAB PO SCH (09:22)
[2024-04-06 15:15] VITALS: PULSE 74; RESP 12; O2SAT 98
--- NOTE | 2024-04-06 15:57 | DVHPN2 ---
Subjective Seen in the ED, son at bedside. Still c/o hematuria. Await Urology consult. 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: AAO x 4 Medications Current Medications Medications Dose Ordered Sig/Angelito Route Start Time Stop Time Status Last Admin Dose Admin Ceftriaxone Sodium 50 ml @ 100 mls/hr DAILY@09 IV 04/06/24 09:00 04/06/24 09:17 100 MLS/HR Metoprolol Tartrate 25 mg BID PO 04/06/24 10:00 04/06/24 09:22 25 MG Atorvastatin Calcium 20 mg HS PO 04/06/24 22:00 Pantoprazole Sodium 40 mg DAILY@0600 PO 04/06/24 06:00 04/06/24 06:25 40 MG Tamsulosin HCl 0.4 mg QPM PO 04/06/24 18:00 Furosemide 20 mg DAILY PO 04/06/24 10:00 04/06/24 09:22 20 MG Diagnostic Test (Pha) 1 strip ACHS 04/06/24 07:00 04/06/24 13:48 1 STRIP Insulin Human Regular ACHS SC 04/06/24 07:00 04/06/24 06:34 2 UNITS Dextrose 50 ml UD PRN IV 04/06/24 04:30 Ondansetron HCl 4 mg Q4HP PRN IV 04/06/24 04:30 Acetaminophen 650 mg Q6HP PRN PO 04/06/24 04:30 Laboratory Results Laboratory Tests 04/06/24 03:04 Chemistry Test 04/06/24 03:04 Albumin 4.4 g/dL (3.2-4.8) Calcium Level 9.5 mg/dL (8.7-10.4) Total Protein 7.0 g/dL (5.7-8.2) Coagulation Test 04/06/24 03:04 Prothrombin Time 17.2 sec (9.3-11.8) H Prothrombin Time INR 1.69 (0.9-1.15) H LFT Test 04/06/24 03:04 Alanine Aminotransferase (ALT) 18 U/L (7-40) Alkaline Phosphatase 90 U/L (46-116) Aspartate Amino Transferase (AST) 11 U/L (13-40) L Total Bilirubin 0.7 mg/dL (0.2-1.0) Urinalysis Test 04/06/24 03:01 Urine Color Colorless (Yellow) Urine Clarity Turbid (Clear) H Urine pH 6.5 (5.0-9.0) Urine Specific [place] 1.013 (1.001-1.035) Urine Protein 1+ (Negative) H Urine Ketones Negative (Negative) Urine Blood 3+ /uL (Negative) H Urine Nitrite Negative (Negative) Urine Bilirubin Negative (Negative) Urine Urobilinogen Normal mg/dL (Negative) Urine Leukocyte Esterase Trace /uL (Negative) Urine RBC 4093 /hpf (0 - 3) Urine WBC 4 /hpf (0 - 3) Urine Squamous Epithelial Cells Few /hpf (<5) Urine Bacteria None seen /hpf (None Seen) Urine Glucose Normal mg/dL (Normal) Assessment/Plan Assessment/Plan # Hematuria, 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
[2024-04-06] MEDS: TAMSULOSIN HYDROCHLORIDE 0.4 MG CAP PO SCH (18:31)
[2024-04-06 19:35] VITALS: BP 135/71; PULSE 68; RESP 12; TEMP 97.9; O2SAT 98
--- NOTE | 2024-04-06 21:19 | DVHDS2 ---
Discharge Summary Date of Admission Apr 06, 2024 at 04:33 Date of Discharge: Apr 06, 2024 Labs/Diagnostic Data: Laboratory Results Test 04/06/24 18:10 04/06/24 03:04 04/06/24 03:01 POC Glucose 236 mg/dl (70-106) White Blood Count 6.3 10^3/uL (4.4-10.8) Red Blood Count 4.70 10^6/uL (4.5-5.90) Hemoglobin 13.7 g/dL (13.5-17.5) Hematocrit 40.2 % (41.0-53.0) Mean Corpuscular Volume 85.6 fL (80.0-100.0) Mean Corpuscular Hemoglobin 29.1 pg (28.0-32.0) Mean Corpuscular Hemoglobin Concent 33.9 g/dL (32.0-36.0) Red Cell Distribution Width 14.5 % (11.8-14.3) Platelet Count 262 10^3/uL (140-450) Mean Platelet Volume 7.1 fL (6.9-10.8) Neutrophils (%) (Auto) 67.8 % (37.0-80.0) Lymphocytes (%) (Auto) 15.2 % (10.0-50.0) Monocytes (%) (Auto) 5.8 % (0.0-12.0) Eosinophils (%) (Auto) 9.8 % (0.0-7.0) Basophils (%) (Auto) 1.4 % (0.0-2.0) Neutrophils # (Auto) 4.3 10 ^3/uL (1.6-8.6) Lymphocytes # (Auto) 1.0 10 ^3/uL (0.4-5.4) Monocytes # (Auto) 0.4 10 ^3/uL (0-1.3) Eosinophils # (Auto) 0.6 10 ^3/uL (0-0.8) Basophils # (Auto) 0.1 10 ^3/uL (0-0.2) Nucleated Red Blood Cells 0.1 % Prothrombin Time 17.2 sec (9.3-11.8) Prothrombin Time INR 1.69 (0.9-1.15) Sodium Level 133 mmol/L (136-145) Potassium Level 3.7 mmol/L (3.5-5.1) Chloride Level 97 mmol/L (98-107) Carbon Dioxide Level 27 mmol/L (20-31) Anion Gap 9 (5-15) Blood Urea Nitrogen 16 mg/dL (9-23) Creatinine 1.01 mg/dL (0.700-1.30) Glomerular Filtration Rate Calc 76 mL/min (>90) BUN/Creatinine Ratio 15.8 (10.0-20.0) Serum Glucose 122 mg/dL (74-106) Calcium Level 9.5 mg/dL (8.7-10.4) Total Bilirubin 0.7 mg/dL (0.2-1.0) Aspartate Amino Transferase (AST) 11 U/L (13-40) Alanine Aminotransferase (ALT) 18 U/L (7-40) Alkaline Phosphatase 90 U/L (46-116) Total Protein 7.0 g/dL (5.7-8.2) Albumin 4.4 g/dL (3.2-4.8) Urine Color Colorless (Yellow) Urine Clarity Turbid (Clear) Urine pH 6.5 (5.0-9.0) Urine Specific [place] 1.013 (1.001-1.035) Urine Protein 1+ (Negative) Urine Ketones Negative (Negative) Urine Blood 3+ /uL (Negative) Urine Nitrite Negative (Negative) Urine Bilirubin Negative (Negative) Urine Urobilinogen Normal mg/dL (Negative) Urine Leukocyte Esterase Trace /uL (Negative) Urine RBC 4093 /hpf (0 - 3) Urine WBC 4 /hpf (0 - 3) Urine Squamous Epithelial Cells Few /hpf (<5) Urine Bacteria None seen /hpf (None Seen) Urine Glucose Normal mg/dL (Normal) Other Laboratory Tests 04/06/24 03:04 Brief Hx & Hospital Course: Patient was admitted for Hematuria, left AMA from the ED. Condition at Discharge: Undetermined Final Diagnosis/Problems List Hematuria Discharge Disposition: AMA Discharge Statement: "Patient was advised to return to the ER or call 911 if any headaches, dizziness, shortness of breath, chest pain, abdominal pain, bleeding, fevers, or worsening of medical condition. Patient was counseled about treatment plan, medications, possible side effects, patientverbalized understanding. All questions were answered to the best of my ability. This discharge took greater then 30 minutes in planning, reviewing documentation, counseling the patient, and discussing with other team members." ASSESSMENT ASSESSMENT Assessment Date of Service: Apr 06, 2024 Billing Provider: RENNY HERNANDEZ MD Common Visit Codes: NOT BILLABLE RENNY HERNANDEZ MD Apr 06, 2024 21:19
[2024-04-06] MEDS ORDERED: ATORVASTATIN 20 MG TAB PO SCH (22:00)
== END 2024-04-06 19:48 | disposition left against medical advice (07) | DRG 696 ==
LOC: ER 02:32 → OVERFLOW 04:33
PROVIDERS: ADMIT Nurse Practitioner; ATTEND Internal Medicine
DX: R31.9 Hematuria, unspecified (principal); D68.9 Coagulation defect, unspecified; E11.9 Type 2 diabetes mellitus without complications; Z53.29 Procedure and treatment not carried out because of patient's decision for other reasons; I10 Essential (primary) hypertension; E78.5 Hyperlipidemia, unspecified; Z90.5 Acquired absence of kidney; Z79.4 Long term (current) use of insulin; Z79.899 Other long term (current) drug therapy; I48.0 Paroxysmal atrial fibrillation
CPT/HCPCS: 36415; 74176; 80053; 81001; 82962; 85025; 85610; 86850; 86900; 86901; 96365; G0378; J1815

== ENCOUNTER → 2024-04-12 | Outpatient (CLI) | payer OTHER, MEDICAID ==
[2024-04-12 08:44] LABS: Urine Bacteria None Seen /hpf (None Seen)
[2024-04-12 09:59] LABS: Alanine Aminotransferase 20 U/L (7-40); Albumin 4.5 g/dL (3.2-4.8); Alkaline Phosphatase 99 U/L (46-116); Anion Gap 8 (5-15); Aspartate Aminotransferase 18 U/L (13-40); Calcium 9.8 mg/dL (8.7-10.4); Carbon Dioxide 26 mmol/L (20-31); LDL Cholesterol 48 mg/dL (< 100); Potassium 3.9 mmol/L (3.5-5.1); Triglycerides 81 mg/dL (< 150)
[2024-04-12 10:00] LABS: Bilirubin, Total 0.9 mg/dL (0.2-1.0); Cholesterol 102 mg/dL (< 200); HDL Cholesterol 42 mg/dL (40-59); Total Protein 7.2 g/dL (5.7-8.2); Urine Blood 2+ /uL (Negative); Urine Clarity Clear (Clear); Urine Color Light-Yellow (Yellow); Urine Protein, UAD TRACE (Negative); Urine Specific Gravity 1.017 (1.001-1.035); Urine Urobilinogen Normal (Negative); Urine WBC 2 /hpf (0 - 3)
[2024-04-12 10:01] LABS: Basophils # (auto) 0 10 ^3/uL (0-0.2); Basophils % (auto) 0.6 % (0.0-2.0); Eosinophils # (auto) 0.4 10 ^3/uL (0-0.8); Eosinophils % (auto) 7.8 % (0.0-7.0); Hematocrit 40.6 % (41.0-53.0); Lymphocytes # (auto) 1.1 10 ^3/uL (0.4-5.4); Lymphocytes % (auto) 22.5 % (10.0-50.0); Mean Corpuscular Hemoglobin 29.6 pg (28.0-32.0); Mean Corpuscular Hgb Conc. 34.4 g/dL (32.0-36.0); Mean Corpuscular Volume 86.1 fL (80.0-100.0); Monocytes # (auto) 0.4 10 ^3/uL (0-1.3); Monocytes % (auto) 8.6 % (0.0-12.0); Neutrophils # (auto) 2.9 10 ^3/uL (1.6-8.6); Neutrophils % (auto) 60.5 % (37.0-80.0); Nucleated Red Blood Cells % 0.1 %; Platelet Count (auto) 294 10^3/uL (140-450); Red Blood Cells 4.72 10^6/uL (4.5-5.90); Red Cell Distribution Width 14.8 % (11.8-14.3); White Blood Cell 4.8 10^3/uL (4.4-10.8)
[2024-04-12 10:03] LABS: BUN/Creatinine Ratio 10.5 (10.0-20.0); Blood Urea Nitrogen 14 mg/dL (9-23)
[2024-04-12 10:04] LABS: Chloride 97 mmol/L (98-107); Glucose 128 mg/dL (74-106); Sodium 131 mmol/L (136-145)
[2024-04-12 10:51] LABS: Uric Acid 5.9 mg/dL (3.7-9.2)
[2024-04-12 11:01] LABS: Prostate Specific Antigen 2.68 ng/mL (0.0-4.0)
[2024-04-12 12:19] LABS: Folate (Folic Acid) 12.02 ng/mL (>5.38)
== END | disposition home or self-care (01) ==
LOC: LAB 08:31
PROVIDERS: ATTEND Internal Medicine
DX: E11.9 Type 2 diabetes mellitus without complications (principal); I48.91 Unspecified atrial fibrillation; E78.5 Hyperlipidemia, unspecified; E66.01 Morbid (severe) obesity due to excess calories; M19.90 Unspecified osteoarthritis, unspecified site; I10 Essential (primary) hypertension
CPT/HCPCS: 36415; 80053; 80061; 81001; 82306; 82607; 82746; 83036; 84153; 84443; 84550; 85025; 87086

== ENCOUNTER → 2024-08-17 | Outpatient (CLI) | payer OTHER, MEDICAID ==
[2024-08-17 09:56] LABS: Alanine Aminotransferase 23 U/L (7-40); Alkaline Phosphatase 101 U/L (46-116); Anion Gap 9 (5-15); Aspartate Aminotransferase 16 U/L (13-40); BUN/Creatinine Ratio 10.9 (10.0-20.0); Blood Urea Nitrogen 11 mg/dL (9-23); Potassium 4.1 mmol/L (3.5-5.1); Total Protein 7.6 g/dL (5.7-8.2)
[2024-08-17 09:58] LABS: Albumin 4.8 g/dL (3.2-4.8); Bilirubin, Direct 0.3 mg/dL (<0.3); Carbon Dioxide 31 mmol/L (20-31); Chloride 92 mmol/L (98-107); Glucose 128 mg/dL (74-106); Sodium 132 mmol/L (136-145)
[2024-08-17 10:09] LABS: Basophils # (auto) 0 10 ^3/uL (0-0.2); Basophils % (auto) 0.5 % (0.0-2.0); Eosinophils # (auto) 0.3 10 ^3/uL (0-0.8); Eosinophils % (auto) 3.7 % (0.0-7.0); Hematocrit 44.2 % (41.0-53.0); Hemoglobin 14.6 g/dL (13.5-17.5); Lymphocytes % (auto) 14.6 % (10.0-50.0); Mean Corpuscular Hemoglobin 27.8 pg (28.0-32.0); Mean Corpuscular Volume 84.2 fL (80.0-100.0); Monocytes # (auto) 0.5 10 ^3/uL (0-1.3); Monocytes % (auto) 7.7 % (0.0-12.0); Neutrophils # (auto) 4.9 10 ^3/uL (1.6-8.6); Neutrophils % (auto) 73.5 % (37.0-80.0); Nucleated Red Blood Cells % 0.1 %; Platelet Count (auto) 311 10^3/uL (140-450); Red Blood Cells 5.25 10^6/uL (4.5-5.90); White Blood Cell 6.7 10^3/uL (4.4-10.8)
== END | disposition home or self-care (01) ==
LOC: LAB 08:36
PROVIDERS: ATTEND Urology
DX: C67.8 Malignant neoplasm of overlapping sites of bladder (principal)
CPT/HCPCS: 36415; 80053; 82248; 82977; 84550; 85025

== ENCOUNTER 2024-10-04 09:00 | Outpatient (CLI) | payer OTHER, MEDICAID ==
[2024-10-04 09:50] LABS: Anion Gap 8 (5-15); Calcium 9.8 mg/dL (8.7-10.4); Carbon Dioxide 28 mmol/L (20-31)
[2024-10-04 09:56] LABS: BUN/Creatinine Ratio 13.8 (10.0-20.0); Blood Urea Nitrogen 16 mg/dL (9-23)
[2024-10-04 10:04] LABS: Chloride 95 mmol/L (98-107); Glucose 197 mg/dL (74-106); Potassium 3.4 mmol/L (3.5-5.1); Sodium 131 mmol/L (136-145)
[2024-10-04 10:41] LABS: Creatinine, Urine 91.28 mg/dL (30.0-125.0)
== END 2024-10-04 17:00 | disposition home or self-care (01) ==
LOC: LAB 09:00
PROVIDERS: ATTEND Internal Medicine
DX: E11.9 Type 2 diabetes mellitus without complications (principal)
CPT/HCPCS: 36415; 80048; 82043; 82570

== ENCOUNTER 2024-11-24 19:31 | Inpatient (IN) | payer OTHER, MEDICAID ==
[~2024-11-24] VITALS: Ht 172.7 cm; Wt 116.9 kg
--- NOTE | 2024-11-24 19:54 | ECG ---
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
--- NOTE | 2024-11-24 19:58 | ED.PDOC ---
GI ASSESSMENT HPI Comments 79 year old male presents to the ED with a chief complaint of constipation onset 4 days. Patient's son states patient has been experiencing constipation, abdominal pain, abdominal distension, nausea as well as poor appetite for the past 4 days. PMHx cancer, DM, HTN, HLD. Denies chest pain, shortness of breath, dizziness, headache, fevers, chills, vomiting, diarrhea. No other associated symptoms, modifiers, recent injuries or sick contacts present at this time. Chief Complaint: Abdominal Pain Time Seen by MD: 19:50 Primary Care Provider: KENNEY Reviewed Notes: Medications, Allergies Allergies: Coded Allergies: NO KNOWN ALLERGIES (Unverified , 04/08/22) Home Meds Active Scripts Nitrofurantoin Monohydrate Mac (Macrobid) 100 Mg Cap, 100 MG PO BID for 7 Days, #14 CAP Prov:SVEN COTTO MD 03/31/24 Azithromycin (ZITHROMAX TABLET) 250 Mg Tb, 250 MG PO DAILY, #6 TAB take 2 tabs first day then 1 tab daily until finish. Prov:MATT ASCENCIO MD 12/21/23 Reported Medications Cholecalciferol (D3) 1,000 Unit Cap, 1000 UNIT PO DAILY, CAP 03/17/23 Atorvastatin Calcium (Lipitor) 20 Mg Tab, 20 MG PO QPM, TAB 04/10/22 Trazodone Hcl (Trazodone Hcl) 50 Mg Tab, 25 MG PO DAILY, MG 04/10/22 Aspirin (Aspirin) 325 Mg Tab, 81 MG PO DAILY for 30 Days, MG 04/10/22 Metoprolol Tartrate (Metoprolol Tartrate) 25 Mg Tab, 25 MG PO BID for 30 Days, MG 04/10/22 Tamsulosin HCl (Tamsulosin Hydrochloride) 0.4 Mg Cap, 0.4 MG PO BID, CAP 04/10/22 Pantoprazole Sodium (PANTOPRAZOLE SODIUM) 40 Mg Inj, 40 MG PO BID, INJ 04/10/22 Metformin Hydrochloride (Metformin Hcl) 850 Mg Tab, 850 MG PO BID for 30 Days, MG 04/10/22 Information Source: Patient, Relative (Child) Mode of Arrival: Ambulatory Timing: Days Duration: Since onset Prehospital treatment: None Quality: Sharp Vomitus: None Severity: Moderate Recent: None Recent Hx of: None Pain Location: Diffuse Modifying Factors: Nothing Associated sign and symptoms: Nausea, Constipation, Abdominal Pain Past Medical History PAST MEDICAL HISTORY: Cancer, DM, High Lipids, HTN Surgical History: Unknown Family History Family History: Reviewed,noncontributory to illness Social History Smoker: Non-Smoker Alcohol: Denies ETOH Use Drugs: Denies Drug Use Lives In: Home Constitutional: denies: chills, diaphoresis, fatigue, fever, malaise, sweats, weakness, others EENTM: denies: blurred vision, double vision, ear bleeding, ear discharge, ear drainage, ear pain, ear ringing, eye pain, eye redness, hearing loss, mouth pain, mouth swelling, nasal discharge, nose bleeding, nose congestion, nose pain, photophobia, tearing, throat pain, throat swelling, voice changes, others Respiratory: denies: cough, hemoptysis, orthopnea, SOB at rest, shortness of breath, SOB with excertion, stridor, wheezing, others Cardiovascular: denies: chest pain, dizzy spells, diaphoresis, Dyspnea on exertion, edema, irregular heart beat, left arm pain, lightheadedness, palpitations, PND, syncope, others Gastrointestinal: reports: abdomen distended, abdominal pain, constipated, nausea; denies: blood streaked bowels, diarrhea, dysphagia, difficulty swallowing, hematemesis, melena, poor appetite, poor fluid intake, rectal bleeding, rectal pain, vomiting, others Genitourinary: denies: burning, dysuria, flank pain, frequency, hematuria, incontinence, penile discharge, penile sore, pain, testicle pain, testicle swelling, urgency, others Neurological: denies: dizziness, fainting, headache, left sided numbness, left sided weakness, numbness, paresthesia, pre-existing deficit, right sided numbness, right sided weakness, seizure, speech problems, tingling, tremors, weakness, others Musculoskeletal: denies: back pain, gout, joint pain, joint swelling, muscle pain, muscle stiffness, neck pain, others Integumetry: denies: bruises, change in color, change in hair/nails, dryness, laceration, lesions, lumps, rash, wounds, others Allergic/Immunocompromised: denies: Difficulty Healing, Frequent Infections, Hives, Itching, others Hematologic/Lymphatic: denies: anemia, blood clots, easy bleeding, easy bruising, swollen glands, others Endocrine: denies: excessive hunger, excessive sweating, excessive thirst, excessive urination, flushing, intolerance to cold, intolerance to heat, unexplained weight gain, unexplained weight loss, others Psychiatric: denies: anxiety, bipolar disorder, depression, hopeless, panic disorder, schizophrenia, sleepless, suicidal, others All Other Systems: Reviewed and Negative Physical Exam General Appearance: No Apparent Distress, Normal HEENT: Normal ENT Inspection, Pharynx Normal, TMs Normal Neck: Full Range of Motion, Non-Tender, Normal, Normal Inspection Respiratory: Chest Non-Tender, Lungs Clear, No Accessory Muscle Use, No Respiratory Distress, Normal Breath Sounds Cardiovascular: No Edema, No JVD, No Murmur, No Gallop, Normal Peripheral Pulses, Regular Rate/Rhythm Breast Exam: Deferred Gastrointestinal: Diffuse (tenderness), No Organomegaly, Tenderness (diffused) Genitalia: Deferred Pelvic: Deferred Rectal: Deferred Extremities: No calf tenderness, Normal capillary refill, Normal inspection, Normal range of motion, Non-tender, No pedal edema Musculoskeletal : Apperance: Normal Neurologic: Alert, veneer trimmer II-XII nml as Tested, No Motor Deficits, Normal Affect, Normal Mood, No Sensory Deficits Cerebellar Function: Normal Reflexes: Normal Skin: Dry, Normal Color, Warm Lymphatic: No Adenopathy Was a procedure done? Was a procedure done?: No GI differential Dx Differential Diagnosis: Gastritis/PUD, Gastroenteritis, GI hemorrhage, UTI, Urolithiasis, Dehydration X-Ray, Labs, Meds, VS Vital Signs Date Time Temp Pulse Resp B/P (MAP) Pulse Ox O2 Delivery O2 Flow Rate FiO2 11/24/24 23:35 98.8 90 18 140/82 (101) 95 98.8 11/24/24 19:47 92 11/24/24 19:43 99.2 94 19 142/85 (104) 95 99.2 Lab Test 11/24/24 22:06 11/24/24 19:55 11/24/24 19:49 Range/Units Lactic Acid Level 2.2 *H 0.4-2.0 mmol/L White Blood Count 10.1 4.4-10.8 10^3/uL Red Blood Count 4.65 4.5-5.90 10^6/uL Hemoglobin 14.1 13.5-17.5 g/dL Hematocrit 42.2 41.0-53.0 % Mean Corpuscular Volume 90.9 80.0-100.0 fL Mean Corpuscular Hemoglobin 30.3 28.0-32.0 pg Mean Corpuscular Hemoglobin Concent 33.3 32.0-36.0 g/dL Red Cell Distribution Width 15.7 H 11.8-14.3 % Platelet Count 268 140-450 10^3/uL Mean Platelet Volume 7.6 6.9-10.8 fL Neutrophils (%) (Auto) 78.9 37.0-80.0 % Lymphocytes (%) (Auto) 10.8 10.0-50.0 % Monocytes (%) (Auto) 7.6 0.0-12.0 % Eosinophils (%) (Auto) 2.3 0.0-7.0 % Basophils (%) (Auto) 0.4 0.0-2.0 % Neutrophils # (Auto) 7.9 1.6-8.6 10 ^3/uL Lymphocytes # (Auto) 1.1 0.4-5.4 10 ^3/uL Monocytes # (Auto) 0.8 0-1.3 10 ^3/uL Eosinophils # (Auto) 0.2 0-0.8 10 ^3/uL Basophils # (Auto) 0 0-0.2 10 ^3/uL Nucleated Red Blood Cells 0.1 % Sodium Level 135 L 136-145 mmol/L Potassium Level 3.4 L 3.5-5.1 mmol/L Chloride Level 98 98-107 mmol/L Carbon Dioxide Level 28 20-31 mmol/L Anion Gap 9 5-15 Blood Urea Nitrogen 21 9-23 mg/dL Creatinine 1.66 H 0.700-1.30 mg/dL Glomerular Filtration Rate Calc 42 >90 mL/min BUN/Creatinine Ratio 12.7 10.0-20.0 Serum Glucose 215 H 74-106 mg/dL Calcium Level 8.7 8.7-10.4 mg/dL Magnesium Level 1.7 1.6-2.6 mg/dL Total Bilirubin 0.8 0.2-1.0 mg/dL Aspartate Amino Transferase (AST) 45 H 13-40 U/L Alanine Aminotransferase (ALT) 40 7-40 U/L Alkaline Phosphatase 114 46-116 U/L Troponin I High Sensitivity < 3 L </=54 ng/L Total Protein 6.7 5.7-8.2 g/dL Albumin 4.1 3.2-4.8 g/dL Lipase 39 12-53 U/L Thyroid Stimulating Hormone (TSH) 2.15 0.55-4.78 uIU/mL POC Glucose 203 H 70-106 mg/dl Current Medications Medications (Trade) Dose Ordered Sig/Angelito Route Start Time Stop Time Status Last Admin Sodium Chloride 1,000 ml @ 1,000 mls/hr Q1H ONCE IV 11/24/24 20:00 11/24/24 20:59 DC 11/25/24 00:39 Vancomycin HCl 200 ml @ 200 mls/hr ONCE ONCE IV 11/24/24 22:00 11/24/24 22:59 DC 11/25/24 00:40 Cefepime HCl 50 ml @ 50 mls/hr ONCE ONCE IV 11/24/24 22:15 11/24/24 23:14 DC 11/25/24 03:40 [place] [id number] Ph: [phone] DIAGNOSTIC IMAGING Diagnostic Imaging Report : [id number] Signed PATIENT: INA TINSLEYOACCT: [id number] UNIT: [id number] : 1945 LOC: ER ROOM / BED: / AGE / SEX: 79 / M ADM STATUS: REG ER SERVICE 50 ORDERING PHYSICIAN: MEGAN ALFARO MD PROCEDURE(s): ABPLIV - CT AB PEL WITH IV CON ONLY REASON: abdominal pain ORDER NUMBER(s): [id number], ACCESSION NUMBER(s): [id number] Exam: CT CT AB PEL WITH IV CON ONLY History: abdominal pain Comparison Study: 04/06/2024 TECHNIQUE: Multidetector CT of the abdomen and pelvis with IV contrast. Axial, coronal and sagittal multiplanar reformats were obtained from the axial data set by the technologist. Radiation Dose Information: CT Dose: CTDI volume is 24.8 mGy. Dose-length product is 1525.73 mGy*cm FINDINGS: Bibasilar atelectasis with mild pleural calcification and thickening. Htzm-wr-ucjvlycl cardiomegaly. Hepatic steatosis. Otherwise, liver, spleen, gallbladder, pancreas and adrenal glands unremarkable. The left kidney is surgically absent. Meqz-hm-amoolnif nonspecific right-sided perinephric fat stranding. Exophytic right renal cysts measuring up to 2.7 cm . There is additional 2.5 cm right medial exophytic hypodense righ renal lesion which measures as fluid density on comparison study with Limited evaluation for the Hounsfield unit on current study due to artifact. Moderate right hydronephrosis with no obstructing calculus noted. There is 2 small foci of air within the renal calyces. There is segmental mild wall thickening and dilatation of the right distal ureter up to 1.1 cm with fat stranding adjacent to the right mid and distal ureter. Urinary bladder is decompressed but demonstrates wall thickening with adjacent fat stranding. Prostate is heterogeneous measuring 4.3 x 4.5 5 cm. There is ill- defined margins of the seminal vesicles with associated adjacent fat stranding and 3 x 2.3 cm hypodense area adjacent to the right seminal vesicle. Stomach is unremarkable. Small bowel loops unremarkable. Appendix is unremarkable. Small to moderate amount of fecal material within the colon. The large bowel is otherwise unremarkable. No evidence of intraperitoneal free air. No evidence of aortic aneurysm or dissection. Frms-ch-yiygoyhk atherosclerotic calcification of the aorta and bilateral iliacs. No significant lymphadenopathy. Soft tissues unremarkable. Small fat containing bilateral inguinal hernias. Partially imaged destructive osseous lesions are noted. Multilevel moderate to severe degenerative changes of the thoracic and lumbar spine. 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 IMPRESSION: Wall thickening of the urinary bladder with adjacent fat stranding. Correlate for cystitis. Indistinctness of the seminal vesicles with adjacent fat stranding. Correlate for infectious process. 3 x 2.3 cm hypodense area adjacent to the right seminal vesicle. An abscess is within the differential. Mild fat stranding adjacent to the right mid and distal ureter with segmental Mild wall thickening and Dilatation of the distal ureter . Correlate for possible ascending infection. Xaqk-xs-rbyzljgs right hydronephrosis with no obstructing calculus noted.2 Foci of air within the right renal calyces which may represent emphysematous pyelitis. Prostate is enlarged. Recommend correlation with PSA. Additional findings as above. ATED BY: CODIE SERNA DO DICTATED DATE/TIME: 11/24/242102 SIGNED BY: KAREEM CODIE Zuri ALEMAN SIGNED DATE/TIME: 11/24/242102 CC: Time of 1ST Reevaluation: 20:20 Reevaluation 1ST: Unchanged Patient Education/Counseling: Diagnosis, Treatment, Prognosis Family Education/Counseling: Diagnosis, Treatment, Prognosis Additional Information The following tests were ordered, and results were reviewed by me: CBC, CMP, LIPASE, TROP, UA, CT AB PEL WITH IV CON, EKG Additional Information was gathered from interviewing the following independent historians: son I reviewed and agreed with the following test results read by other providers: CT AB PEL WITH IV CON I discussed treatment and results with medical personnel and: patient and son Comprehensive systems review obtained and negative except for what is stated in the HPI. SEPSIS Sepsis Screen Date sepsis recognized/suspect: Nov 24, 2024 Time Sepsis recognized/suspect: 1944 Recent Procedure: No On Antibiotic Therapy: No Respiratory Rate >20: No Heart Rate >90: No Temp<36 C (96.8 F) or >38.3 C: No SBP <90 or MAP <65 mmHG: No New Acute Mental Status Change: No Is the patient on CPAP, BIPAP,: No Physician Orders Ct Ab Pel With Iv Con Only (11/24/24 19:51) Blood Culture (11/24/24 21:49) Urine Bacterial Culture (11/24/24 21:49) Vital Signs Date Time Temp Pulse Resp B/P (MAP) Pulse Ox O2 Delivery O2 Flow Rate FiO2 11/24/24 23:35 98.8 90 18 140/82 (101) 95 98.8 11/24/24 19:47 92 11/24/24 19:43 99.2 94 19 142/85 (104) 95 99.2 Laboratory Tests Test 11/24/24 19:55 11/24/24 22:06 White Blood Count 10.1 10^3/uL (4.4-10.8) Lactic Acid Level 2.2 mmol/L (0.4-2.0) *H Medications Medications Dose Ordered Sig/Angelito Route Start Time Stop Time Status Last Admin Dose Admin Cefepime HCl 50 ml @ 50 mls/hr ONCE ONCE IV 11/24/24 22:15 11/24/24 23:14 DC 11/25/24 03:40 Sodium Chloride 1,000 ml @ 1,000 mls/hr Q1H ONCE IV 11/24/24 20:00 11/24/24 20:59 DC 11/25/24 00:39 Vancomycin HCl 200 ml @ 200 mls/hr ONCE ONCE IV 11/24/24 22:00 11/24/24 22:59 DC 11/25/24 00:40 Departure 1 Departure Time of Disposition: 06:04 (Patient presented with abdominal pain that was concerning for possible appendicits, gastritis, cholecystitis, colitis, gastroenteritis, sbo, or orther possible surgical emergency. Data: 1. I ordered and reviewed the result of at least 3 labs including a CBC, BMP, and Urinalysis. 2. I independently interpreted the following tests: CT Abdoment and Pelvis is concerning for urethritis hydronephrosis .Risk:This patient has a high risk of morbidity due to further diagnostic testing or treatment and may suffer from an acute abdominal process disorder. Workup reveals urethritis and hydronephrosis and patient should be admitted for further workup. and possible expert consultation. ) Impression: Primary Impression: Urethritis Additional Impressions: Hydronephrosis Qualified Codes: N13.30 - Unspecified hydronephrosis Intractable abdominal pain Disposition: ADMITTED INPATIENT Admit to: Med Surg Condition: Serious Critical Care Note Critical Care Time?: Yes Critical care comment: Intractable abdominal pain Authorized and Performed by: Megan Alfaro MD Total critical care time: Approximately 47 minutes Due to a high probability of clinically significant, life threatening deterioration, the patient required my highest level of preparedness to intervene emergently and I personally spent this critical care time directly and personally managing the patient. This critical care time included obtaining a history; examining the patient; pulse oximetry; ordering and review of studies; arranging urgent treatment with development of a management plan; evaluation of patient's response to treatment; frequent reassessment; and, discussions with other providers. This critical care time was performed to assess and manage the high probability of imminent, life-threatening deterioration that could result in multi-organ failure. It was exclusive of separately billable procedures and treating other patients and teaching time. Please see my other sections and the rest of the note for further information on patient assessment and treatment. Stability Stability form required: No I personally scribed for MEGAN ALFARO MD ([email or web address]) on 11/24/24 at 19:58. Electronically submitted by Barbara Lin ([email or web address]). I personally scribed for MEGAN ALFARO MD ([email or web address]) on 11/24/24 at 21:24. Electronically submitted by Barbara Lin ([email or web address]). MEGAN ALFARO MD Nov 24, 2024 19:58
[2024-11-24] MEDS ORDERED: ONDANSETRON HCL 4 MG/2 ML VIAL IV ONE (20:00)
[2024-11-24 20:14] LABS: Hematocrit 42.2 % (41.0-53.0); Hemoglobin 14.1 g/dL (13.5-17.5); Mean Corpuscular Hemoglobin 30.3 pg (28.0-32.0); Mean Corpuscular Volume 90.9 fL (80.0-100.0); Nucleated Red Blood Cells % 0.1 %
[2024-11-24 20:27] LABS: Alanine Aminotransferase 40 U/L (7-40); Albumin 4.1 g/dL (3.2-4.8); Alkaline Phosphatase 114 U/L (46-116); Anion Gap 9 (5-15); BUN/Creatinine Ratio 12.7 (10.0-20.0); Bilirubin, Total 0.8 mg/dL (0.2-1.0); Blood Urea Nitrogen 21 mg/dL (9-23); Calcium 8.7 mg/dL (8.7-10.4); Carbon Dioxide 28 mmol/L (20-31); Chloride 98 mmol/L (98-107); Lipase 39 U/L (12-53); Total Protein 6.7 g/dL (5.7-8.2)
[2024-11-24 20:28] LABS: Glucose 215 mg/dL (74-106); Potassium 3.4 mmol/L (3.5-5.1); Sodium 135 mmol/L (136-145)
--- NOTE | 2024-11-24 21:05 | DVH ---
Exam: CT CT AB PEL WITH IV CON ONLY History: abdominal pain Comparison Study: 04/06/2024 TECHNIQUE: Multidetector CT of the abdomen and pelvis with IV contrast. Axial, coronal and sagittal m ultiplanar reformats were obtained from the axial data set by the technologist. Radiation Dose Information: CT Dose: CTDI volume is 24.8 mGy. Dose-length product is 1525.73 mGy*cm FINDINGS: Bibasilar atelectasis with mild pleural calcification and thickening. Ldzl-to-yrrymoxe cardiomegaly. Hepatic steatosis. Otherwise, liver, spleen, gallbladder, pancreas and adrenal glands unremarkable. The left kidney is surgically absent. Olir-is-pdwzejug nonspecific right-sided perinephric fat strand ing. Exophytic right renal cysts measuring up to 2.7 cm . There is additional 2.5 cm right medial ex ophytic hypodense righ renal lesion which measures as fluid density on comparison study with Limited evaluation for the Hounsfield unit on current study due to artifact. Moderate right hydronephrosis with no obstructing calculus noted. There is 2 small foci of air within the renal calyces. There is segmental mild wall thickening and dilatation of the right distal ureter up to 1.1 cm with fat stranding adjacent to the right mid and distal ureter. Urinary bladder is decompressed but demonstrates wall thickening with adjacent fat stranding. Prostat e is heterogeneous measuring 4.3 x 4.5 5 cm. There is ill-defined margins of the seminal vesicles wit h associated adjacent fat stranding and 3 x 2.3 cm hypodense area adjacent to the right seminal vesic le. Stomach is unremarkable. Small bowel loops unremarkable. Appendix is unremarkable. Small to moderate amount of fecal material within the colon. The large bowel is otherwise unremarkable. No evidence of intraperitoneal free air. No evidence of aortic aneurysm or dissection. Fngs-ex-ykiqrvbs atherosclerotic calcification of the aorta and bilateral iliacs. No significant lymphadenopathy. Soft tissues unremarkable. Small fat containing bilateral inguinal hernias. Partially imaged destruct lori osseous lesions are noted. Multilevel moderate to severe degenerative changes of the thoracic and lumbar spine. 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 IMPRESSION: Wall thickening of the urinary bladder with adjacent fat stranding. Correlate for cystitis. Indistinctness of the seminal vesicles with adjacent fat stranding. Correlate for infectious process . 3 x 2.3 cm hypodense area adjacent to the right seminal vesicle. An abscess is within the different ial. Mild fat stranding adjacent to the right mid and distal ureter with segmental Mild wall thickening an d Dilatation of the distal ureter . Correlate for possible ascending infection. Fcpf-hl-jkcoiunh right hydronephrosis with no obstructing calculus noted.2 Foci of air within the ri ght renal calyces which may represent emphysematous pyelitis. Prostate is enlarged. Recommend correlation with PSA. Additional findings as above.
[2024-11-24] MEDS ORDERED: CEFEPIME 2GM/50ML NS 50 ML IV ONE (22:00)
[2024-11-24 22:52] LABS: Lactic Acid w/Reflex 2.2 mmol/L (0.4-2.0)
[2024-11-25] VITALS (8 sets, daily range): BP systolic 135–151; BP diastolic 77–102; PULSE 77–97; RESP 16–20; TEMP 96.7–98.8; O2SAT 93–95
[2024-11-25] MEDS: IOHEXOL 300 MG/ML 100ML BOTTLE IJ ONE
--- NOTE | 2024-11-25 00:12 | DVHHP2 ---
History of Present Illness History of Present Illness Patient is 79 years old male with past medical history of hypertension, diabetes mellitus type 2, hyperlipidemia, left renal carcinoma, status post left nephrectomy in 2021, atrial fibrillation on Xarelto came with a complaint of abdominal pain. As per patient he has been having abdominal pain for last 4 days, sudden onset, 8/10, crampy in nature, constant, no radiation, some relief with the pain medication. Patient also endorsed some nausea and poor appetite for a while and constipation for last 4 days. Patient denied any fever, diarrhea, dysuria, acute joint redness or swelling, chest pain no shortness of breaths. Initial lab workup revealed potassium 3.4, sodium 135, serum creatinine 1.66, GFR 42, blood sugar 215, lactic acid 2.2. CT abdomen and pelvis with IV contrast revealed- Wall thickening of the urinary bladder with adjacent fat stranding. Correlate for cystitis. Indistinctness of the seminal vesicles with adjacent fat stranding. Correlate for infectious process. 3 x 2.3 cm hypodense area adjacent to the right seminal vesicle. An abscess is within the differential. Mild fat stranding adjacent to the right mid and distal ureter with segmental Mild wall thickening and Dilatation of the distal ureter . Correlate for possible ascending infection. Ubki-nn-lotcethq right hydronephrosis with no obstructing calculus noted.2 Foci of air within the right renal calyces which may represent emphysematous pyelitis. Prostate is enlarged. Past Medical History hypertension, diabetes mellitus type 2, hyperlipidemia, left renal carcinoma, status post left nephrectomy in 2021, atrial fibrillation on Xarelto Past Surgical History Left nephrectomy due to renal carcinoma Past Social History Ex-smoker, denies alcoholism or substance abuse, lives alone Review of Systems Review of Systems Allergy- NKDA Cardiovascular- deny acute chest pain or shortness of breath or cough or palpitation Respiratory denies cough or short of breath or wheezing Gastrointestinal- denies any rectal bleedingor vomiting Musculoskeletal-denies acute joint swelling or tenderness or redness Neurological- denies acute dysarthria, dysphagia, change in vision Psychiatry- denies depression or SI or HI Skin- denies acute rash or purpura Allergies: Coded Allergies: NO KNOWN ALLERGIES (Unverified , 04/08/22) Medications Current Medications Medications Dose Ordered Sig/Angelito Route Start Time Stop Time Status Last Admin Dose Admin Sodium Chloride 1,000 ml @ 120 mls/hr [id number] IV 11/25/24 00:15 UNV Ondansetron HCl 4 mg Q4HP PRN IV 11/25/24 00:15 UNV Enoxaparin Sodium 40 mg DAILY SC 11/25/24 10:00 UNV Exam Vital Signs Vital Signs Date Time Temp Pulse Resp B/P (MAP) Pulse Ox O2 Delivery O2 Flow Rate FiO2 11/24/24 23:35 98.8 90 18 140/82 (101) 95 98.8 Exam General examination--awake, alert, oriented HEENT- PEERLA, no acute nasal discharge Cardiovascular- S1-S2 audible, rate and rhythm regular, no murmur Respiratory- CTAB, no wheeze or rhonchi Gastrointestinal-mild abdominal tenderness+, bowel sound+. Nondistended Genitourinary-+ suprapubic tenderness+, right renal angle tenderness+ Musculoskeletal-no acute joint swelling or tenderness or redness Lower extremity- no leg edema Neurological- cranial nerves intact, no acute dysarthria or dysphagia Psychiatry- denies depression or SI or HI Skin- no acute rash or purpura Labs/Xrays Labs Test 11/24/24 22:06 11/24/24 19:55 11/24/24 19:49 Range/Units Lactic Acid Level 2.2 *H 0.4-2.0 mmol/L White Blood Count 10.1 4.4-10.8 10^3/uL Red Blood Count 4.65 4.5-5.90 10^6/uL Hemoglobin 14.1 13.5-17.5 g/dL Hematocrit 42.2 41.0-53.0 % Mean Corpuscular Volume 90.9 80.0-100.0 fL Mean Corpuscular Hemoglobin 30.3 28.0-32.0 pg Mean Corpuscular Hemoglobin Concent 33.3 32.0-36.0 g/dL Red Cell Distribution Width 15.7 H 11.8-14.3 % Platelet Count 268 140-450 10^3/uL Mean Platelet Volume 7.6 6.9-10.8 fL Neutrophils (%) (Auto) 78.9 37.0-80.0 % Lymphocytes (%) (Auto) 10.8 10.0-50.0 % Monocytes (%) (Auto) 7.6 0.0-12.0 % Eosinophils (%) (Auto) 2.3 0.0-7.0 % Basophils (%) (Auto) 0.4 0.0-2.0 % Neutrophils # (Auto) 7.9 1.6-8.6 10 ^3/uL Lymphocytes # (Auto) 1.1 0.4-5.4 10 ^3/uL Monocytes # (Auto) 0.8 0-1.3 10 ^3/uL Eosinophils # (Auto) 0.2 0-0.8 10 ^3/uL Basophils # (Auto) 0 0-0.2 10 ^3/uL Nucleated Red Blood Cells 0.1 % Sodium Level 135 L 136-145 mmol/L Potassium Level 3.4 L 3.5-5.1 mmol/L Chloride Level 98 98-107 mmol/L Carbon Dioxide Level 28 20-31 mmol/L Anion Gap 9 5-15 Blood Urea Nitrogen 21 9-23 mg/dL Creatinine 1.66 H 0.700-1.30 mg/dL Glomerular Filtration Rate Calc 42 >90 mL/min BUN/Creatinine Ratio 12.7 10.0-20.0 Serum Glucose 215 H 74-106 mg/dL Calcium Level 8.7 8.7-10.4 mg/dL Total Bilirubin 0.8 0.2-1.0 mg/dL Aspartate Amino Transferase (AST) 45 H 13-40 U/L Alanine Aminotransferase (ALT) 40 7-40 U/L Alkaline Phosphatase 114 46-116 U/L Troponin I High Sensitivity < 3 L </=54 ng/L Total Protein 6.7 5.7-8.2 g/dL Albumin 4.1 3.2-4.8 g/dL Lipase 39 12-53 U/L POC Glucose 203 H 70-106 mg/dl SEPSIS Sepsis Screen Date sepsis recognized/suspect: Nov 24, 2024 Time Sepsis recognized/suspect: 1944 Recent Procedure: No On Antibiotic Therapy: No Respiratory Rate >20: No Heart Rate >90: No Temp<36 C (96.8 F) or >38.3 C: No SBP <90 or MAP <65 mmHG: No New Acute Mental Status Change: No Is the patient on CPAP, BIPAP,: No Physician Orders Urinalysis (11/24/24 19:51) Ct Ab Pel With Iv Con Only (11/24/24 19:51) Blood Culture (11/24/24 21:49) Urine Bacterial Culture (11/24/24 21:49) Admit (11/25/24 00:04) Code Status (11/25/24 00:04) Sodium Chloride 0.9% (11/25/24 00:15) Ondansetron Hcl (Zofran) (11/25/24 00:15) Enoxaparin Sodium (Lovenox) (11/25/24 10:00) Complete Blood Count (11/26/24 04:00) Comprehensive Metabolic Panel (11/26/24 04:00) Cardiac Diet-2gna,Lofat,Lochol (11/25/24 Breakfast) Notify Md Of Changes From Base (11/25/24 00:04) Potassium Er Tablet (Klor-Con Tablet) (11/25/24 00:15) Magnesium (11/25/24 00:08) Psa Total+% Free (11/25/24 00:08) Thyroid Stimulating Hormone (11/25/24 00:08) Abdomen Limited (11/25/24 00:10) Vital Signs Date Time Temp Pulse Resp B/P (MAP) Pulse Ox O2 Delivery O2 Flow Rate FiO2 11/24/24 23:35 98.8 90 18 140/82 (101) 95 98.8 11/24/24 19:47 92 11/24/24 19:43 99.2 94 19 142/85 (104) 95 99.2 Laboratory Tests Test 11/24/24 19:55 11/24/24 22:06 White Blood Count 10.1 10^3/uL (4.4-10.8) Lactic Acid Level 2.2 mmol/L (0.4-2.0) *H Assessment/Plan Assessment/Plan Assessment and plan # Acute intractable abdominal pain 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 - Indistinctness of the seminal vesicles with adjacent fat stranding. - Correlate for infectious process. 3 x 2.3 cm hypodense area adjacent to the right seminal vesicle. -Mild fat stranding adjacent to the right mid and distal ureter with segmental Mild wall thickening and Dilatation of the distal ureter . -Opvl-hr-ohkfidpk right hydronephrosis with no obstructing calculus noted - Foci of air within the right renal calyces which may represent emphysematous pyelitis. - Prostate is enlarged. -Renal ultrasound-1. Moderate right hydronephrosis and perinephric fluid. Right renal cysts. -ordered IV antibiotic meropenem and vancomycin as per pharmacy protocol -pending urine culture, blood culture -pending Urology consult # FERNANDO likely due to VMN -serum creatinine 1.66, GFR 42 -avoid dehydration and nephrotoxic drugs -continue IV normal saline as prescribed # Lactic acidosis-resolved -2.2 >1.9 -continue IV normal saline as prescribed # hypokalemia- -ordered potassium supplement -monitor BMP # BPH -pending PSA -continue Flomax 0.4 mg p.o. daily # Hypertension # Atrial fibrillation, on Xarelto -restarted home medication metoprolol tartrate 25 mg p.o. b.i.d. -restarted home medication Xarelto 20 mg p.o. daily # Diabetes mellitus type 2 with hyperglycemia -HBA1c 6.7 -insulin sliding scale As prescribed # hyperlipidemia -continue atorvastatin 20 mg p.o. q.h.s. # history of renal cancer, status post left nephrectomy -follow up outpatient with urologist PCP-Dr. Misha Coleman-cardiac diet, low-carbohydrate diet Goals of care, Code status full code ; discussed with >15 minutes PUD prophylaxis: Pantoprazole DVT prophylaxis: Lovenox Plan discussed with Dr. Hernandez , nursing staff, Total time spent on patient evaluation, chart review, assessment and plan, discussion discussion >35 minutes Plan discussed with: Patient, Son, Other (RN) My Orders Orders - JASON PALMA RESIDENT Procedure Category Date Status Time Admit ADMIT 11/25/24 Transmitted 00:04 Code Status CODE 11/25/24 Transmitted 00:04 Sodium Chloride 0.9% PHA 11/25/24 Logged 00:15 Ondansetron Hcl PHA 11/25/24 Logged (Zofran) 00:15 Enoxaparin Sodium PHA 11/25/24 Logged (Lovenox) 10:00 Complete Blood Count LAB 11/26/24 Verified 04:00 Comprehensive LAB 11/26/24 Verified Metabolic Panel 04:00 Cardiac DIET 11/25/24 Transmitted Diet-2gna,Lofat,Lochol Breakfast Notify Of Changes KAMILA 11/25/24 In Process From Base 00:04 Potassium Er Tablet PHA 11/25/24 Logged (Klor-Con Tablet) 00:15 Magnesium LAB 11/25/24 Logged 00:08 Psa Total+% Free LAB 11/25/24 Logged 00:08 Thyroid Stimulating LAB 11/25/24 Logged Hormone 00:08 Abdomen Limited US 11/25/24 Logged 00:10 Date of Service: Nov 25, 2024 Billing Provider: RENNY HERNANDEZ MD Common Visit Codes: 01581-NOACUCW INP/OBS CARE (HIGH) Secondary Visit Codes: 21375-DIYEDRAX CARE PLAN 30 MINUTES JASON PALMA RESIDENT Nov 25, 2024 00:12
[2024-11-25] MEDS ORDERED: ONDANSETRON HCL 4 MG/2 ML VIAL IV PRN (00:15)
[2024-11-25] MEDS: SODIUM CHLORIDE 0.9% 1,000 ML IV SCH ×2 (00:15→15:47)
[2024-11-25] MEDS: MORPHINE SULFATE 4 MG/ML SYR/VIAL IV ONE (00:25)
[2024-11-25] MEDS ORDERED: VANCOMYCIN PER PHARMACY 0 MG IV SCH (00:30)
[2024-11-25] MEDS: SODIUM CHLORIDE 0.9% 1,000 ML IV ONE ×2 (00:39)
[2024-11-25] MEDS: POTASSIUM CHL 20 Meq TABLET PO ONE ×2 (00:40→07:02)
[2024-11-25] MEDS: VANCOMYCIN 1GM/200ML PM 200 ML IV ONE (00:40)
--- NOTE | 2024-11-25 02:16 | DVH ---
INDICATION: Pyelonephritis/emphysematous pyelitis/malignancy TECHNIQUE: Multiple real-time sonographic images of the kidneys and bladder were obtained. COMPARISON: None FINDINGS: RIGHT kidney measures 13.0 cm in length with normal parenchymal echotexture and cortical thickness. P erinephric fluid. Anechoic cystic structure measures 3.0 x 2.6 x 2.6 cm. Moderate hydronephrosis. LEFT kidney is surgically absent. The urinary bladder is contracted with a wall thickness of 3 mm. No large intraluminal masses are see n in the bladder. No calculi. No significant postvoid residual. IMPRESSION: 1. Moderate right hydronephrosis and perinephric fluid. 2. Right renal cysts.
[2024-11-25] MEDS: MAGNESIUM SULFATE 1GM/100ML 100 ML IV ONE (02:37)
[2024-11-25] MEDS: CEFEPIME 2GM/50ML NS 50 ML IV ONE (03:40)
[2024-11-25 03:59] LABS: Urine Protein, UAD Negative (Negative)
[2024-11-25 04:14] LABS: Amphetamine Screen, Urine Neg (NEGATIVE); Barbiturate Scree,Urine Neg (NEGATIVE); Benzodiazephine Screen, Urine Neg (NEGATIVE); Cannabinoid Screen, Urine Neg (NEGATIVE); Cocaine Screen, Urine Neg (NEGATIVE); Opiate Scree,Urine Neg (NEGATIVE); Phencyclidine Screen, Urine Neg (NEGATIVE)
[2024-11-25] MEDS: MEROPENEM 1GM IVPB 50 ML IV SCH (05:10)
[2024-11-25 05:59] LABS: Chloride 100 mmol/L (98-107); Sodium 137 mmol/L (136-145)
[2024-11-25 06:00] LABS: Anion Gap 10 (5-15); Carbon Dioxide 27 mmol/L (20-31)
[2024-11-25] MEDS ORDERED: PIPERACILLIN-TAZOB 3.375GM 100 ML IV SCH (06:00)
[2024-11-25 06:01] LABS: Calcium 8.6 mg/dL (8.7-10.4); Hematocrit 38.2 % (41.0-53.0); Hemoglobin 13.3 g/dL (13.5-17.5); Mean Corpuscular Hemoglobin 30.2 pg (28.0-32.0); Mean Corpuscular Volume 86.9 fL (80.0-100.0); Nucleated Red Blood Cells % 0.0 %; Potassium 2.6 mmol/L (3.5-5.1)
[2024-11-25 06:05] LABS: BUN/Creatinine Ratio 13.0 (10.0-20.0); Blood Urea Nitrogen 20 mg/dL (9-23); Magnesium 2.2 mg/dL (1.6-2.6)
[2024-11-25 06:09] LABS: Glucose 187 mg/dL (74-106)
[2024-11-25] MEDS ORDERED: DEXTROSE (50%) 50ML SYRG IV PRN (06:15)
[2024-11-25] MEDS: POTASSIUM CHL 20MEQ/100ML 100 ML IV SCH (07:01)
[2024-11-25] MEDS: ACCU-CHEK COMFORT CURVE STRIP VI SCH (07:05)
[2024-11-25] MEDS: InsuLIN REG 1unit/0.01ml Soln (100units/ml) SC SCH (07:05)
[2024-11-25] MEDS: TAMSULOSIN HYDROCHLORIDE 0.4 MG CAP PO SCH (10:00)
[2024-11-25] MEDS: METOPROLOL TARTRATE 25 MG TAB PO SCH (10:00)
[2024-11-25] MEDS: CHOLECALCIFEROL (VITD3) 1,000UNIT=25mCg TAB PO SCH (10:00)
[2024-11-25] MEDS ORDERED: PATIENTS OWN MEDICATION (Aspirin 81 MG) PO SCH (10:00)
[2024-11-25] MEDS: ENOXAPARIN SOD 40 MG/0.4 ML SYRINGE SC SCH (10:02)
[2024-11-25] MEDS: METOCLOPRAMIDE HCL 5MG/ml INJ 2ml VIAL IV PRN (12:11)
[2024-11-25 12:53] LABS: Chloride 103 mmol/L (98-107); Potassium 3.6 mmol/L (3.5-5.1); Sodium 140 mmol/L (136-145)
[2024-11-25 12:54] LABS: Anion Gap 8 (5-15); Calcium 9.5 mg/dL (8.7-10.4); Carbon Dioxide 29 mmol/L (20-31)
[2024-11-25 12:59] LABS: BUN/Creatinine Ratio 13.2 (10.0-20.0); Blood Urea Nitrogen 18 mg/dL (9-23)
[2024-11-25 13:01] LABS: Glucose 108 mg/dL (74-106)
--- NOTE | 2024-11-25 13:14 | DVH ---
ULTRASOUND OF SCROTUM AND CONTENTS. INDICATION: r/o abscess COMPARISON: None TECHNIQUE: Multiple real-time grayscale sonographic and color and duplex Doppler images of the scrotu m and its contents were obtained. FINDINGS: The right testicle measures 5 x 2 x 3 cm. The left testicle measures 5 x 3 x 4 cm. Both testicles demonstrate homogeneous echotexture without evidence of focal lesions. The right epididymal head measures 1 cm. The left epididymal head measures 1 cm. Bilateral testicular appendages seen measuring up to 5 mm in the right side and 2 mm in the left side . Subsequent color and duplex Doppler interrogation of the testes demonstrated symmetric normal vascula r flow to both testicles. No focal areas of hyperemia were seen. IMPRESSION: 1. No evidence of torsion, epididymitis, and/or orchitis. 2. Large bilateral hydroceles.
--- NOTE | 2024-11-25 13:41 | DVHINCON2 ---
Date of service: Nov 25, 2024 Referring Physician hospitalist Reason for Consultation hydronephrosis History of Present Illness History Source: Patient, RN Notes, MD Notes, Old Records Exam Limitations: No limitations HPI 79 yo male with PMH of HTN, CKD, CHF, DM, and AFIB complaining of abdominal pain. As per patient he has been having abdominal pain for last 4 days, sudden onset, 8/10, crampy in nature, constant, no radiation, some relief with the pain medication. Patient also endorsed some nausea and poor appetite for a while and constipation for last 4 days. Patient denied any fever, diarrhea, dysuria, acute joint redness or swelling, chest pain no shortness of breaths. 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 He is undergoing chemotherapy at [facility]. He mentions multiple TURBTs over the past year and most recently pathology was low grade. CT showed right moderate right hydronephrosis and perinephric stranding with a foci of air in the renal calyces concerning for emphysematous pyelitis, could be due to recent instrumentation. The prostate is enlarged with heterogeneity and fat stranding near the seminal vesicles. Possible abscess near the right seminal vesicle. Home Meds Active Scripts Nitrofurantoin Monohydrate Mac (Macrobid) 100 Mg Cap, 100 MG PO BID for 7 Days, #14 CAP Prov:SVEN COTTO MD 03/31/24 Azithromycin (ZITHROMAX TABLET) 250 Mg Tb, 250 MG PO DAILY, #6 TAB take 2 tabs first day then 1 tab daily until finish. Prov:MATT ASCENCIO MD 12/21/23 Reported Medications Cholecalciferol (D3) 1,000 Unit Cap, 1000 UNIT PO DAILY, CAP 03/17/23 Atorvastatin Calcium (Lipitor) 20 Mg Tab, 20 MG PO QPM, TAB 04/10/22 Trazodone Hcl (Trazodone Hcl) 50 Mg Tab, 25 MG PO DAILY, MG 04/10/22 Aspirin (Aspirin) 325 Mg Tab, 81 MG PO DAILY for 30 Days, MG 04/10/22 Metoprolol Tartrate (Metoprolol Tartrate) 25 Mg Tab, 25 MG PO BID for 30 Days, MG 04/10/22 Tamsulosin HCl (Tamsulosin Hydrochloride) 0.4 Mg Cap, 0.4 MG PO BID, CAP 04/10/22 Pantoprazole Sodium (PANTOPRAZOLE SODIUM) 40 Mg Inj, 40 MG PO BID, INJ 04/10/22 Metformin Hydrochloride (Metformin Hcl) 850 Mg Tab, 850 MG PO BID for 30 Days, MG 04/10/22 Past Medical History Cardiac: AFIB, HTN Hemotology/Oncology: Cancer Patient Family History: Patient reports no known family medical history. Review of Systems Gastrointestinal: Nausea, Abdominal Pain H&P Exam Vital Signs Vital Signs Date Time Temp Pulse Resp B/P (MAP) Pulse Ox O2 Delivery O2 Flow Rate FiO2 11/25/24 12:50 97.0 77 16 139/94 (109) 94 97.0 11/25/24 08:00 Room Air* 0 21 General Appeara: Well developed, Well nourished, Normal Appearance Neuro/Mental St: Alert, Oriented Appearance: Appropriate appearance, Appropriate insight Eye contact/ Speech: Cooperative, Good eye contact, Normal speech Skin Exam: Normal inspection, Normal color, Warm/dry Labs/Xrays [place] [address] Ph: [phone] DIAGNOSTIC IMAGING Diagnostic Imaging Report : [id number] Signed PATIENT: INA TINSLEYOACCT: [id number] UNIT: [id number] : 1945 LOC: ER ROOM / BED: / AGE / SEX: 79 / M ADM STATUS: REG ER SERVICE 50 ORDERING PHYSICIAN: MEGAN ALFARO MD PROCEDURE(s): ABPLIV - CT AB PEL WITH IV CON ONLY REASON: abdominal pain ORDER NUMBER(s): [id number], ACCESSION NUMBER(s): [id number] Exam: CT CT AB PEL WITH IV CON ONLY History: abdominal pain Comparison Study: 04/06/2024 TECHNIQUE: Multidetector CT of the abdomen and pelvis with IV contrast. Axial, coronal and sagittal multiplanar reformats were obtained from the axial data set by the technologist. Radiation Dose Information: CT Dose: CTDI volume is 24.8 mGy. Dose-length product is 1525.73 mGy*cm FINDINGS: Bibasilar atelectasis with mild pleural calcification and thickening. Tiwp-rl-zevpilwm cardiomegaly. Hepatic steatosis. Otherwise, liver, spleen, gallbladder, pancreas and adrenal glands unremarkable. The left kidney is surgically absent. Ylqj-my-dunexzne nonspecific right-sided perinephric fat stranding. Exophytic right renal cysts measuring up to 2.7 cm . There is additional 2.5 cm right medial exophytic hypodense righ renal lesion which measures as fluid density on comparison study with Limited evaluation for the Hounsfield unit on current study due to artifact. Moderate right hydronephrosis with no obstructing calculus noted. There is 2 small foci of air within the renal calyces. There is segmental mild wall thickening and dilatation of the right distal ureter up to 1.1 cm with fat stranding adjacent to the right mid and distal ureter. Urinary bladder is decompressed but demonstrates wall thickening with adjacent fat stranding. Prostate is heterogeneous measuring 4.3 x 4.5 5 cm. There is ill- defined margins of the seminal vesicles with associated adjacent fat stranding and 3 x 2.3 cm hypodense area adjacent to the right seminal vesicle. Stomach is unremarkable. Small bowel loops unremarkable. Appendix is unremarkable. Small to moderate amount of fecal material within the colon. The large bowel is otherwise unremarkable. No evidence of intraperitoneal free air. No evidence of aortic aneurysm or dissection. Dbco-nh-wdfncqmd atherosclerotic calcification of the aorta and bilateral iliacs. No significant lymphadenopathy. Soft tissues unremarkable. Small fat containing bilateral inguinal hernias. Partially imaged destructive osseous lesions are noted. Multilevel moderate to severe degenerative changes of the thoracic and lumbar spine. 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 IMPRESSION: Wall thickening of the urinary bladder with adjacent fat stranding. Correlate for cystitis. Indistinctness of the seminal vesicles with adjacent fat stranding. Correlate for infectious process. 3 x 2.3 cm hypodense area adjacent to the right seminal vesicle. An abscess is within the differential. Mild fat stranding adjacent to the right mid and distal ureter with segmental Mild wall thickening and Dilatation of the distal ureter . Correlate for possible ascending infection. Vkun-ak-efbtslan right hydronephrosis with no obstructing calculus noted.2 Foci of air within the right renal calyces which may represent emphysematous pyelitis. Prostate is enlarged. Recommend correlation with PSA. Additional findings as above. ATED BY: CODIE SERNA DO DICTATED DATE/TIME: 11/24/242102 SIGNED BY: CODIE SERNA DO SIGNED DATE/TIME: 11/24/242102 CC: [address] [address] Ph: [phone] DIAGNOSTIC IMAGING Diagnostic Imaging Report : [id number] Signed PATIENT: JING TINSLEYCT: [id number] UNIT: [id number] : 1945 LOC: [facility] ROOM / BED: [facility] / A AGE / SEX: 79 / M ADM STATUS: ADM IN SERVICE ORDERING PHYSICIAN: JASON PALMA RESIDENT PROCEDURE(s): KIDUS - KIDNEY REASON: Pyelonephritis/emphysematous pyelitis/malignancy ORDER NUMBER(s): [id number], ACCESSION NUMBER(s): [id number] INDICATION: Pyelonephritis/emphysematous pyelitis/malignancy TECHNIQUE: Multiple real-time sonographic images of the kidneys and bladder were obtained. COMPARISON: None FINDINGS: RIGHT kidney measures 13.0 cm in length with normal parenchymal echotexture and cortical thickness. Perinephric fluid. Anechoic cystic structure measures 3.0 x 2.6 x 2.6 cm. Moderate hydronephrosis. LEFT kidney is surgically absent. The urinary bladder is contracted with a wall thickness of 3 mm. No large intraluminal masses are seen in the bladder. No calculi. No significant postvoid residual. IMPRESSION: 1. Moderate right hydronephrosis and perinephric fluid. 2. Right renal cysts. ATED BY: SANDER SAL MD DICTATED DATE/TIME: 11/25/24213 SIGNED BY: SNADER SAL MD SIGNED DATE/TIME: 11/25/24213 CC: [address] [address] Ph: [phone] DIAGNOSTIC IMAGING Diagnostic Imaging Report : [id number] Signed PATIENT: JING TINSLEYCT: [id number] UNIT: [id number] : 1945 LOC: [facility] / BED: 0292 / A AGE / SEX: 79 / M ADM STATUS: ADM IN SERVICE 1004 ORDERING PHYSICIAN: JU DUEÑAS NP PROCEDURE(s): TESUS - TESTICULAR ULTRASOUND REASON: r/o abscess ORDER NUMBER(s): [id number], ACCESSION NUMBER(s): [id number] ULTRASOUND OF SCROTUM AND CONTENTS. INDICATION: r/o abscess COMPARISON: None TECHNIQUE: Multiple real-time grayscale sonographic and color and duplex Doppler images of the scrotum and its contents were obtained. FINDINGS: The right testicle measures 5 x 2 x 3 cm. The left testicle measures 5 x 3 x 4 cm. Both testicles demonstrate homogeneous echotexture without evidence of focal lesions. The right epididymal head measures 1 cm. The left epididymal head measures 1 cm. Bilateral testicular appendages seen measuring up to 5 mm in the right side and 2 mm in the left side. Subsequent color and duplex Doppler interrogation of the testes demonstrated symmetric normal vascular flow to both testicles. No focal areas of hyperemia were seen. IMPRESSION: 1. No evidence of torsion, epididymitis, and/or orchitis. 2. Large bilateral hydroceles. ATED BY: KE WHITING MD DICTATED DATE/TIME: 11/25/24 1312 SIGNED BY: KE WHITING MD SIGNED DATE/TIME: 11/25/24 1312 CC: Labs Test 11/25/24 11:59 11/25/24 06:40 11/25/24 04:50 11/25/24 02:51 Range/Units Sodium Level 140 136-145 mmol/L Potassium Level 3.6 3.5-5.1 mmol/L Chloride Level 103 98-107 mmol/L Carbon Dioxide Level 29 20-31 mmol/L Anion Gap 8 5-15 Blood Urea Nitrogen 18 9-23 mg/dL Creatinine 1.36 H 0.700-1.30 mg/dL Glomerular Filtration Rate Calc 53 >90 mL/min BUN/Creatinine Ratio 13.2 10.0-20.0 Serum Glucose 108 H 74-106 mg/dL Calcium Level 9.5 8.7-10.4 mg/dL POC Glucose 164 H 70-106 mg/dl White Blood Count 8.6 4.4-10.8 10^3/uL Red Blood Count 4.40 L 4.5-5.90 10^6/uL Hemoglobin 13.3 L 13.5-17.5 g/dL Hematocrit 38.2 L 41.0-53.0 % Mean Corpuscular Volume 86.9 # 80.0-100.0 fL Mean Corpuscular Hemoglobin 30.2 28.0-32.0 pg Mean Corpuscular Hemoglobin Concent 34.8 32.0-36.0 g/dL Red Cell Distribution Width 15.3 H 11.8-14.3 % Platelet Count 244 140-450 10^3/uL Mean Platelet Volume 7.9 6.9-10.8 fL Neutrophils (%) (Auto) 81.4 H 37.0-80.0 % Lymphocytes (%) (Auto) 10.0 10.0-50.0 % Monocytes (%) (Auto) 5.8 0.0-12.0 % Eosinophils (%) (Auto) 2.5 0.0-7.0 % Basophils (%) (Auto) 0.3 0.0-2.0 % Neutrophils # (Auto) 7.0 1.6-8.6 10 ^3/uL Lymphocytes # (Auto) 0.9 0.4-5.4 10 ^3/uL Monocytes # (Auto) 0.5 0-1.3 10 ^3/uL Eosinophils # (Auto) 0.2 0-0.8 10 ^3/uL Basophils # (Auto) 0 0-0.2 10 ^3/uL Nucleated Red Blood Cells 0.0 % Hemoglobin A1c 6.7 H <5.7 % A1C Magnesium Level 2.2 1.6-2.6 mg/dL Vitamin B12 Level 674 211-911 pg/mL Vitamin D 25-Hydroxy 61.2 30.0-100 ng/mL Folic Acid 25.71 >5.38 ng/mL Urine Color Colorless Yellow Urine Clarity Clear Clear Urine pH 6.5 5.0-9.0 Urine Specific [place] 1.017 1.001-1.035 Urine Protein Negative Negative Urine Ketones Negative Negative Urine Blood Negative Negative /uL Urine Nitrite Negative Negative Urine Bilirubin Negative Negative Urine Urobilinogen Normal Negative mg/dL Urine Leukocyte Esterase Negative Negative /uL Urine RBC 2 0 - 3 /hpf Urine Microscopic WBC 4 H 0-3 /HPF Urine Squamous Epithelial Cells Few <5 /hpf Urine Bacteria None seen None Seen /hpf Urine Sperm Present None Seen /hpf Urine Glucose Normal Normal mg/dL Urine Opiates Screen Neg NEGATIVE Urine Fentanyl Screen Neg NEGATIVE Urine Barbiturates Screen Neg NEGATIVE Urine Phencyclidine Screen Neg NEGATIVE Urine Amphetamines Screen Neg NEGATIVE Urine Benzodiazepines Screen Neg NEGATIVE Urine Cocaine Screen Neg NEGATIVE Urine Cannabinoids Screen Neg NEGATIVE Test 11/25/24 00:15 11/24/24 19:55 Range/Units Lactic Acid Level 1.9 0.4-2.0 mmol/L Total Bilirubin 0.8 0.2-1.0 mg/dL Aspartate Amino Transferase (AST) 45 H 13-40 U/L Alanine Aminotransferase (ALT) 40 7-40 U/L Alkaline Phosphatase 114 46-116 U/L Troponin I High Sensitivity < 3 L </=54 ng/L Total Protein 6.7 5.7-8.2 g/dL Albumin 4.1 3.2-4.8 g/dL Lipase 39 12-53 U/L Thyroid Stimulating Hormone (TSH) 2.15 0.55-4.78 uIU/mL Assessment/Plan Problem List: (1) Renal cyst (2) Hydronephrosis due to obstruction of ureter (3) History of bladder cancer (4) Status post nephrectomy (5) Hydrocele in adult (6) Hydronephrosis Plan gunderson consult IR for right PCN urine culture PSA follow up with [facility] urology recommend MRI of the prostate Plan discussed with: Patient, Other JU DUEÑAS RAW SCALES OPERATOR Nov 25, 2024 13:40
[2024-11-25 14:24] LABS: INR 1.44 (0.9-1.15); Partial Thromboplastin Time 44.3 SEC (24.5-34.5); Prothrombin Time 14.7 sec (9.3-11.8)
--- NOTE | 2024-11-25 15:11 | DVHPN2 ---
Subjective Patient denies any symptoms. Reviewed: Care Plan, H&P, Labs, Medications Changes from previous H/P or p: No Changes General: Per HPI Objective Vitals Vital Signs Date Time Temp Pulse Resp B/P (MAP) Pulse Ox O2 Delivery O2 Flow Rate FiO2 11/25/24 12:50 97.0 77 16 139/94 (109) 94 97.0 11/25/24 08:00 Room Air* 0 21 Intake/Output Intake and Output 11/25/24 07:00 Intake Total 100 ml Balance 100 ml Intake Oral 100 ml General Appearance: Alert, Oriented X3, Cooperative, No acute distress HEENT: Atraumatic, PERRLA Lungs: Clear to auscultation, Normal air movement Cardiovascular: Normal S1, Normal S2 Musculoskeletal: Normal sensory function, Normal motor function Skin: Dry, Intact Psych/Mental Status: Mental status NL, Mood NL Medications Current Medications Medications Dose Ordered Sig/Angelito Route Start Time Stop Time Status Last Admin Dose Admin Sodium Chloride 1,000 ml @ 120 mls/hr Q8H20M IV 11/25/24 00:15 Enoxaparin Sodium 40 mg DAILY SC 11/25/24 10:00 11/25/24 10:02 40 MG Metoclopramide HCl 10 mg Q6HPRN PRN IV 11/25/24 00:15 11/25/24 12:11 10 MG Atorvastatin Calcium 20 mg QPM PO 11/25/24 18:00 Metoprolol Tartrate 25 mg BID PO 11/25/24 10:00 11/25/24 10:00 25 MG Tamsulosin HCl 0.4 mg BID PO 11/25/24 10:00 11/25/24 10:00 0.4 MG Trazodone HCl 25 mg DAILY PO 11/25/24 10:00 11/25/24 09:59 25 MG Cholecalciferol 1,000 unit DAILY PO 11/25/24 10:00 11/25/24 10:00 1,000 UNIT Rivaroxaban 20 mg QPM PO 11/25/24 18:00 Future Hold Vancomycin HCl 0 ml @ 0 mls/hr UD IV 11/25/24 00:30 Meropenem 50 ml @ 17 mls/hr Q8HR IV 11/25/24 06:00 11/25/24 14:11 17 MLS/HR Diagnostic Test (Pha) 1 strip ACHS 11/25/24 07:00 11/25/24 11:35 1 STRIP Insulin Human Regular ACHS SC 11/25/24 07:00 11/25/24 07:05 3 UNITS Dextrose 50 ml UD PRN IV 11/25/24 06:15 Aspirin 81 mg DAILY PO 11/25/24 10:00 11/25/24 09:59 81 MG Laboratory Results Laboratory Tests 11/25/24 04:50 11/25/24 11:59 Chemistry Test 11/24/24 19:55 11/25/24 04:50 11/25/24 11:59 Albumin 4.1 g/dL (3.2-4.8) Calcium Level 8.7 mg/dL (8.7-10.4) 8.6 mg/dL (8.7-10.4) L 9.5 mg/dL (8.7-10.4) Magnesium Level 1.7 mg/dL (1.6-2.6) 2.2 mg/dL (1.6-2.6) Total Protein 6.7 g/dL (5.7-8.2) Coagulation Test 11/25/24 13:58 Prothrombin Time 14.7 sec (9.3-11.8) H Prothrombin Time INR 1.44 (0.9-1.15) H Activated Partial Thromboplast Time 44.3 SEC (24.5-34.5) H Lipid panel Test 11/24/24 19:55 Lipase 39 U/L (12-53) LFT Test 11/24/24 19:55 Alanine Aminotransferase (ALT) 40 U/L (7-40) Alkaline Phosphatase 114 U/L (46-116) Aspartate Amino Transferase (AST) 45 U/L (13-40) H Total Bilirubin 0.8 mg/dL (0.2-1.0) HgA1c, TSH Test 11/24/24 19:55 11/25/24 04:50 Thyroid Stimulating Hormone (TSH) 2.15 uIU/mL (0.55-4.78) Hemoglobin A1c 6.7 % A1C (<5.7) H Urinalysis Test 11/25/24 02:51 Urine Color Colorless (Yellow) Urine Clarity Clear (Clear) Urine pH 6.5 (5.0-9.0) Urine Specific [place] 1.017 (1.001-1.035) Urine Protein Negative (Negative) Urine Ketones Negative (Negative) Urine Blood Negative /uL (Negative) Urine Nitrite Negative (Negative) Urine Bilirubin Negative (Negative) Urine Urobilinogen Normal mg/dL (Negative) Urine Leukocyte Esterase Negative /uL (Negative) Urine RBC 2 /hpf (0 - 3) Urine Microscopic WBC 4 /HPF (0-3) H Urine Squamous Epithelial Cells Few /hpf (<5) Urine Bacteria None seen /hpf (None Seen) Urine Sperm Present /hpf (None Seen) Urine Glucose Normal mg/dL (Normal) Labs and/or images reviewed: Labs reviewed by me, Image(s) reviewed by me Assessment/Plan Assessment/Plan Impression: -complicated cystitis -obstructive uropathy, right hydronephrosis -history of left nephrectomy -obesity -atrial fibrillation -diabetes mellitus -primary hypertension -chronic kidney disease stage IIIB Plan: -urology consultation: Plans for IR placement of nephrostomy tube -patient without fever, leukocytosis, left shift. Deescalate antibiotic therapy to Rocephin 1 g daily -stump anticoagulation, antiplatelet therapy for procedure tomorrow -decrease IV fluids to 60 mL/hour -regular insulin sliding scale -pain management -repeat labs in a.m. Total time spent with patient discussing and formulating plan of care: 35 minutes. This medical document was created using an electronic medical record system with [id number] dictation system. Although this document has been carefully reviewed, there may still be some phonetic and typographical errors. These areas are purely typographical due to imperfections of the software programs, and do not reflect any compromise in the patient's medical care. Plan discussed with: Patient, Other (RN) My Orders Orders - MEENAKSHI LEIGH NP Procedure Category Date Status Time Ceftriaxone Ivpb PHA 11/26/24 Verified Rocephin 09:00 Date of Service: Nov 25, 2024 Billing Provider: MEENAKSHI LEIGH NP Common Visit Codes: [id number] INP/OBS CARE(HIGH) MEENAKSHI LEIGH NP Nov 25, 2024 15:11
[2024-11-25] MEDS: ATORVASTATIN 20 MG TAB PO SCH (17:36)
[2024-11-25] MEDS ORDERED: RIVAROXABAN 20 MG TAB PO SCH (18:00)
[2024-11-26] VITALS (10 sets, daily range): BP systolic 130–163; BP diastolic 86–97; PULSE 87–104; RESP 16–20; TEMP 98.7–101.1; O2SAT 90–97
[2024-11-26 07:10] LABS: Hematocrit 40.6 % (41.0-53.0); Hemoglobin 14.4 g/dL (13.5-17.5); Mean Corpuscular Hemoglobin 30.6 pg (28.0-32.0); Mean Corpuscular Volume 86.5 fL (80.0-100.0); Nucleated Red Blood Cells % 0.0 %
[2024-11-26 07:31] LABS: Albumin 4.2 g/dL (3.2-4.8); Anion Gap 12 (5-15); BUN/Creatinine Ratio 10.4 (10.0-20.0); Blood Urea Nitrogen 14 mg/dL (9-23); Calcium 9.9 mg/dL (8.7-10.4); Carbon Dioxide 27 mmol/L (20-31); Chloride 102 mmol/L (98-107); Sodium 141 mmol/L (136-145); Total Protein 6.8 g/dL (5.7-8.2)
[2024-11-26 07:32] LABS: Alanine Aminotransferase 59 U/L (7-40); Alkaline Phosphatase 144 U/L (46-116); Bilirubin, Total 1.4 mg/dL (0.2-1.0); Glucose 130 mg/dL (74-106); Potassium 2.9 mmol/L (3.5-5.1)
[2024-11-26 08:07] LABS: Prostate Specific Antigen 2.9 ng/mL (0.0-4.0)
[2024-11-26] MEDS: MIDAZOLAM HCL 2MG/2ML 2ml VIAL (1mg/ml) ONE (10:31)
[2024-11-26] MEDS: fentaNYL CITRATE 100 MCG/2 ML VL ONE (10:31)
[2024-11-26] MEDS: LIDOCAINE 2%HCL (LOCAL ANESTH.) INJ 20ML MDV ONE (10:32)
[2024-11-26] MEDS: IOHEXOL 350 MG/ML 100ML IJ ONE (10:32)
--- NOTE | 2024-11-26 12:40 | DVH ---
PROCEDURE: Genitourinary catheter placement Procedural Personnel Attending physician(s): Du Malin Fellow physician(s): None Resident physician(s): None Advanced practice provider(s): None Pre-procedure diagnosis: Right hydronephrosis Post-procedure diagnosis: Same Indication: Urinary obstruction No Additional clinical history: None Complications: No immediate complications. IMPRESSION: Right nephrostomy tube placement. Plan: Flush drain with 10 cc normal saline daily to maintain patency. PROCEDURE SUMMARY - Target organ: Unilateral [place] kidney - Image-guided placement of genitourinary catheter(s) - Additional procedure(s): None PROCEDURE DETAILS: Pre-procedure Consent: Informed consent for the procedure including risks, benefits and alternatives was obtained a nd time-out was performed prior to the procedure. Preparation: The site was prepared and draped using maximal sterile barrier technique including cutan eous antisepsis. Anesthesia/sedation Level of anesthesia/sedation: Moderate sedation (conscious sedation) Anesthesia/sedation administered by: Independent trained observer under attending supervision with co ntinuous monitoring of the patient s level of consciousness and physiologic status Total intra-service sedation time (minutes): 30 Genitourinary catheter placement Side:Right [place] Local anesthesia was administered. A needle was advanced into an interpolar calyx under ultrasound an d fluoroscopy guidance. A wire was advanced, the tract was serially dilated and a nephrostomy tube wa s placed . Contrast injection was performed. Genitourinary catheter placed: 8.5 [place] multipurpose drain Findings: Mild hydronephrosis with contrast opacification to the level of the distal ureter External catheter securement: Non-absorbable suture and adhesive anchoring device Additional genitourinary system intervention Side: NA Genitourinary intervention: None Location of intervention: Not applicable Device used: Not applicable Description of intervention: Not applicable Post-intervention findings: Not applicable Contrast Contrast agent: Omnipaque 350 Contrast volume (mL): 5 Radiation Dose Fluoroscopy time (seconds): 22 Reference air kerma (mGy): 2 Kerma area product (Gy-cm2): 0.37 Additional Details Additional description of procedure: None Registry event: V/3/f Device used: Not applicable Equipment details: None Specimens removed: None. A sample was not sent for analysis. Estimated blood loss (mL): Less than 10 Standardized report: [email or web address] Attestation Signer name: Du Malin I attest that I was present for the entire procedure. I reviewed the stored images and agree with the report as written.
--- NOTE | 2024-11-26 12:43 | DVH ---
PROCEDURE: Genitourinary catheter placement Procedural Personnel Attending physician(s): Du Malin Fellow physician(s): None Resident physician(s): None Advanced practice provider(s): None Pre-procedure diagnosis: Right hydronephrosis Post-procedure diagnosis: Same Indication: Urinary obstruction No Additional clinical history: None Complications: No immediate complications. IMPRESSION: Right nephrostomy tube placement. Plan: Flush drain with 10 cc normal saline daily to maintain patency. PROCEDURE SUMMARY - Target organ: Unilateral [place] kidney - Image-guided placement of genitourinary catheter(s) - Additional procedure(s): None PROCEDURE DETAILS: Pre-procedure Consent: Informed consent for the procedure including risks, benefits and alternatives was obtained a nd time-out was performed prior to the procedure. Preparation: The site was prepared and draped using maximal sterile barrier technique including cutan eous antisepsis. Anesthesia/sedation Level of anesthesia/sedation: Moderate sedation (conscious sedation) Anesthesia/sedation administered by: Independent trained observer under attending supervision with co ntinuous monitoring of the patient s level of consciousness and physiologic status Total intra-service sedation time (minutes): 30 Genitourinary catheter placement Side:Right [place] Local anesthesia was administered. A needle was advanced into an interpolar calyx under ultrasound an d fluoroscopy guidance. A wire was advanced, the tract was serially dilated and a nephrostomy tube wa s placed . Contrast injection was performed. Genitourinary catheter placed: 8.5 [place] multipurpose drain Findings: Mild hydronephrosis with contrast opacification to the level of the distal ureter External catheter securement: Non-absorbable suture and adhesive anchoring device Additional genitourinary system intervention Side: NA Genitourinary intervention: None Location of intervention: Not applicable Device used: Not applicable Description of intervention: Not applicable Post-intervention findings: Not applicable Contrast Contrast agent: Omnipaque 350 Contrast volume (mL): 5 Radiation Dose Fluoroscopy time (seconds): 22 Reference air kerma (mGy): 2 Kerma area product (Gy-cm2): 0.37 Additional Details Additional description of procedure: None Registry event: V/3/f Device used: Not applicable Equipment details: None Specimens removed: None. A sample was not sent for analysis. Estimated blood loss (mL): Less than 10 Standardized report: [email or web address] Attestation Signer name: Du Malin I attest that I was present for the entire procedure. I reviewed the stored images and agree with the report as written.
[2024-11-26] MEDS: cefTRIAXone 1GM/50ML D5W 50 ML IV SCH (12:59)
[2024-11-26] MEDS: POTASSIUM EFFERVESENT TAB 25 MEQ PO ONE (15:07)
--- NOTE | 2024-11-26 15:28 | DVHPN2 ---
Subjective Patient denies any symptoms. Reviewed: Care Plan, H&P, Labs, Medications Changes from previous H/P or p: No Changes General: Per HPI Objective Vitals Vital Signs Date Time Temp Pulse Resp B/P (MAP) Pulse Ox O2 Delivery O2 Flow Rate FiO2 11/26/24 13:01 87 160/88 11/26/24 13:00 99.8 20 91 99.8 11/25/24 20:00 Room Air* 0 21 Intake/Output Intake and Output 11/26/24 07:00 Intake Total 1800 ml Output Total 1400 ml Balance 400 ml Intake Oral 900 ml IV Total 900 ml Output Urine Total 1400 ml General Appearance: Alert, Oriented X3, Cooperative, No acute distress HEENT: Atraumatic, PERRLA Lungs: Clear to auscultation, Normal air movement Cardiovascular: Normal S1, Normal S2 Musculoskeletal: Normal sensory function, Normal motor function Skin: Dry, Intact Psych/Mental Status: Mental status NL, Mood NL Medications Current Medications Medications Dose Ordered Sig/Angelito Route Start Time Stop Time Status Last Admin Dose Admin Metoclopramide HCl 10 mg Q6HPRN PRN IV 11/25/24 00:15 11/25/24 12:11 10 MG Atorvastatin Calcium 20 mg QPM PO 11/25/24 18:00 11/25/24 17:36 20 MG Metoprolol Tartrate 25 mg BID PO 11/25/24 10:00 11/26/24 13:01 25 MG Tamsulosin HCl 0.4 mg BID PO 11/25/24 10:00 11/26/24 13:02 0.4 MG Trazodone HCl 25 mg DAILY PO 11/25/24 10:00 11/26/24 13:02 25 MG Cholecalciferol 1,000 unit DAILY PO 11/25/24 10:00 11/26/24 13:00 1,000 UNIT Diagnostic Test (Pha) 1 strip ACHS 11/25/24 07:00 11/26/24 13:00 1 STRIP Insulin Human Regular ACHS SC 11/25/24 07:00 11/26/24 06:56 2 UNITS Dextrose 50 ml UD PRN IV 11/25/24 06:15 Ceftriaxone Sodium 50 ml @ 100 mls/hr DAILY@09 IV 11/26/24 09:00 11/26/24 12:59 100 MLS/HR Sodium Chloride 1,000 ml @ 75 mls/hr [id number] IV 11/25/24 15:15 11/26/24 05:49 75 MLS/HR Laboratory Results Laboratory Tests 11/26/24 06:00 Chemistry Test 11/26/24 06:00 Albumin 4.2 g/dL (3.2-4.8) Calcium Level 9.9 mg/dL (8.7-10.4) Total Protein 6.8 g/dL (5.7-8.2) LFT Test 11/26/24 06:00 Alanine Aminotransferase (ALT) 59 U/L (7-40) H Alkaline Phosphatase 144 U/L (46-116) H Aspartate Amino Transferase (AST) 69 U/L (13-40) H Total Bilirubin 1.4 mg/dL (0.2-1.0) H Urinalysis Test 11/25/24 02:51 Urine Color Colorless (Yellow) Urine Clarity Clear (Clear) Urine pH 6.5 (5.0-9.0) Urine Specific [place] 1.017 (1.001-1.035) Urine Protein Negative (Negative) Urine Ketones Negative (Negative) Urine Blood Negative /uL (Negative) Urine Nitrite Negative (Negative) Urine Bilirubin Negative (Negative) Urine Urobilinogen Normal mg/dL (Negative) Urine Leukocyte Esterase Negative /uL (Negative) Urine RBC 2 /hpf (0 - 3) Urine Microscopic WBC 4 /HPF (0-3) H Urine Squamous Epithelial Cells Few /hpf (<5) Urine Bacteria None seen /hpf (None Seen) Urine Sperm Present /hpf (None Seen) Urine Glucose Normal mg/dL (Normal) Microbiology Microbiology Date/Time Source Procedure Growth Status 11/25/24 07:41 Nose MRSA Screen - Final Complete 11/25/24 02:51 Voided Urine Urine Culture - Preliminary Resulted 11/24/24 22:06 Blood Blood Culture - Preliminary NO GROWTH AFTER 24 HOURS OF INCUBATION. Resulted Labs and/or images reviewed: Labs reviewed by me, Image(s) reviewed by me Assessment/Plan Assessment/Plan Impression: -complicated cystitis -obstructive uropathy, right hydronephrosis -history of left nephrectomy -obesity -atrial fibrillation -diabetes mellitus -primary hypertension -chronic kidney disease stage IIIB Plan: Events: Status post right nephrostomy tube placement. BUN and creatinine improving. Hypokalemic with K replete. Patient states that his pain has improved. -urology consultation: Recommendations reviewed. Please clarify if patient was to be discharged home with Cast[place] catheter. -patient without fever, leukocytosis, left shift. Deescalate antibiotic therapy to Rocephin 1 g daily -stump anticoagulation, antiplatelet therapy for procedure tomorrow -regular insulin sliding scale -pain management -repeat labs in a.m. -reassess for discharge tomorrow Total time spent with patient discussing and formulating plan of care: 35 minutes. This medical document was created using an electronic medical record system with [employer] dictation system. Although this document has been carefully reviewed, there may still be some phonetic and typographical errors. These areas are purely typographical due to imperfections of the software programs, and do not reflect any compromise in the patient's medical care. Plan discussed with: Patient, Other (RN) My Orders Orders - MEENAKSHI LEIGH NP Procedure Category Date Status Time LIVER US 11/26/24 Taken 13:11 Basic Metabolic Panel LAB 11/27/24 Verified 04:00 Magnesium LAB 11/27/24 Verified 04:00 Ns W Potassium 40meq PHA 11/26/24 Verified 15:30 Date of Service: Nov 26, 2024 Billing Provider: MEENAKSHI LEIGH NP Common Visit Codes: [id number] INP/OBS CARE(HIGH) MEENAKSHI LEIGH NP Nov 26, 2024 15:28
[2024-11-26] MEDS: SOD CHL 0.9%/ KCL 40MEQ 1,000 ML IV ONE (16:07)
[2024-11-26] MEDS: LACTULOSE 20Gm/30ML SOLN PO ONE (16:07)
--- NOTE | 2024-11-26 18:58 | DVH ---
Technique: Real-time ultrasound imaging of the abdomen was performed with grayscale and color Doppler . Indication: elevated lfts Comparison: None Findings: Liver measures 15.5 cm. It is increased in echogenicity and coarse echotexture without focal mass. P ortal vein is normal in caliber and demonstrates normal hepatopetal flow. Gallbladder demonstrates no evidence for cholelithiasis. There is no pericholecystic fluid. The wall thickness is normal. The common bile duct measures 5 mm. No intrahepatic biliary ductal dilatation. The right kidney measures 12.8 cm. There is no hydronephrosis or sonographic evidence of nephrolithia sis. Right kidney echogenic in appearance. Right renal midpole cyst measuring 2.1 cm. The visualized portion of the pancreas is unremarkable. The visualized portion of the IVC is unremarkable. Impression: Cirrhotic morphology liver. Echogenic right kidney, which can be seen with medical renal disease
[2024-11-27 01:00] VITALS: BP 147/85; PULSE 102; RESP 16; TEMP 98.9; O2SAT 91
[2024-11-27 05:00] VITALS: BP 137/83; PULSE 114; RESP 17; TEMP 97.9; O2SAT 89
[2024-11-27 08:01] LABS: Anion Gap 13 (5-15); Carbon Dioxide 25 mmol/L (20-31); Chloride 102 mmol/L (98-107); Sodium 140 mmol/L (136-145)
[2024-11-27 08:02] LABS: Calcium 9.6 mg/dL (8.7-10.4)
[2024-11-27 08:07] LABS: BUN/Creatinine Ratio 11.4 (10.0-20.0); Blood Urea Nitrogen 13 mg/dL (9-23)
[2024-11-27 08:11] LABS: Glucose 144 mg/dL (74-106); Magnesium 1.4 mg/dL (1.6-2.6); Potassium 2.8 mmol/L (3.5-5.1)
[2024-11-27 09:00] VITALS: BP 134/82; PULSE 119; RESP 20; TEMP 99.6; O2SAT 95
[2024-11-27 13:00] VITALS: BP_SYST 120; BP_SYST 145; BP_DIAS 76; BP_DIAS 99; PULSE 108; RESP 20; TEMP 100.1; TEMP 101.1; O2SAT 95; O2SAT 96
--- NOTE | 2024-11-27 18:53 | DVHPN2 ---
Subjective I am assuming the care of the patient from today onwards who was under the care of the hospitalist team. Patient is status post right nephrostomy tube placement. Reviewed: Care Plan, H&P, Labs, Medications Changes from previous H/P or p: No Changes General: Per HPI Objective Vitals Vital Signs Date Time Temp Pulse Resp B/P (MAP) Pulse Ox O2 Delivery O2 Flow Rate FiO2 11/27/24 13:00 101.1 108 20 145/99 (114) 95 101.1 11/27/24 08:00 Room Air* 0 21 Intake/Output Intake and Output 11/27/24 07:00 Intake Total 1250 ml Output Total 3900 ml Balance -2650 ml Intake Oral 1200 ml IV Total 50 ml Output Urine Total 2600 ml Drainage Total 1300 ml Exam HEENT pupils are reactive Neck is supple CV is S1-S2 regular rate and rhythm Respiratory diminished breath sounds bases GI positive bowel sound Extremity no pedal edema [employer] no motor deficit General Appearance: Alert, Oriented X3, Cooperative, No acute distress HEENT: Atraumatic, PERRLA Lungs: Clear to auscultation, Normal air movement Cardiovascular: Normal S1, Normal S2 Musculoskeletal: Normal sensory function, Normal motor function Skin: Dry, Intact Psych/Mental Status: Mental status NL, Mood NL Medications Current Medications Medications Dose Ordered Sig/Angelito Route Start Time Stop Time Status Last Admin Dose Admin Metoclopramide HCl 10 mg Q6HPRN PRN IV 11/25/24 00:15 11/25/24 12:11 10 MG Atorvastatin Calcium 20 mg QPM PO 11/25/24 18:00 11/26/24 17:34 20 MG Metoprolol Tartrate 25 mg BID PO 11/25/24 10:00 11/27/24 10:28 25 MG Tamsulosin HCl 0.4 mg BID PO 11/25/24 10:00 11/27/24 10:27 0.4 MG Trazodone HCl 25 mg DAILY PO 11/25/24 10:00 11/26/24 13:02 25 MG Cholecalciferol 1,000 unit DAILY PO 11/25/24 10:00 11/27/24 10:27 1,000 UNIT Diagnostic Test (Pha) 1 strip ACHS 11/25/24 07:00 11/27/24 17:22 1 STRIP Insulin Human Regular ACHS SC 11/25/24 07:00 11/27/24 07:05 3 UNITS Dextrose 50 ml UD PRN IV 11/25/24 06:15 Ceftriaxone Sodium 50 ml @ 100 mls/hr DAILY@09 IV 11/26/24 09:00 11/27/24 10:27 100 MLS/HR Laboratory Results Laboratory Tests 11/26/24 06:00 11/27/24 06:25 Chemistry Test 11/27/24 06:25 Calcium Level 9.6 mg/dL (8.7-10.4) Magnesium Level 1.4 mg/dL (1.6-2.6) L Urinalysis Test 11/25/24 02:51 Urine Color Colorless (Yellow) Urine Clarity Clear (Clear) Urine pH 6.5 (5.0-9.0) Urine Specific [place] 1.017 (1.001-1.035) Urine Protein Negative (Negative) Urine Ketones Negative (Negative) Urine Blood Negative /uL (Negative) Urine Nitrite Negative (Negative) Urine Bilirubin Negative (Negative) Urine Urobilinogen Normal mg/dL (Negative) Urine Leukocyte Esterase Negative /uL (Negative) Urine RBC 2 /hpf (0 - 3) Urine Microscopic WBC 4 /HPF (0-3) H Urine Squamous Epithelial Cells Few /hpf (<5) Urine Bacteria None seen /hpf (None Seen) Urine Sperm Present /hpf (None Seen) Urine Glucose Normal mg/dL (Normal) Microbiology Microbiology Date/Time Source Procedure Growth Status 11/25/24 07:41 Nose MRSA Screen - Final Complete 11/25/24 02:51 Voided Urine Urine Culture - Preliminary Resulted 11/24/24 22:06 Blood Blood Culture - Preliminary NO GROWTH AFTER 48 HOURS OF INCUBATION. Resulted Assessment/Plan Assessment/Plan 79-year-old male with a known history of diabetes mellitus type 2, hypertension, CKD stage IIIB, history of bladder cancer, history of left nephrectomy initially presented to the hospital with the abdominal pain found to have 1. Acute complicated cystitis/emphysematous pyelitis 2. Right obstructive uropathy with right hydronephrosis secondary to obstruction of the ureter 3. 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 History of left nephrectomy 5. Status post right nephrostomy tube placement for right obstructive uropathy 6. Diabetes mellitus type 2 7. Hypertension 8. Paroxysmal AFib -continue aspirin beta dolly, continue IV antibiotics, discharge plan once nephrostomy tube hematuria resolves. Plan discussed with: Patient, Other Date of Service: Nov 27, 2024 Billing Provider: ISIDRA DÍAZ MD Common Visit Codes: [id number] INP/OBS CARE(MOD) ISIDRA DÍAZ MD Nov 27, 2024 18:53
[2024-11-27 20:00] VITALS: PULSE 97; RESP 18; O2SAT 92
[2024-11-27 21:00] VITALS: BP 138/92; PULSE 109; RESP 19; TEMP 97.6; O2SAT 91
[2024-11-27] MEDS: ATORVASTATIN 20 MG TAB PO SCH (21:49)
[2024-11-28] VITALS (8 sets, daily range): BP systolic 139–156; BP diastolic 88–99; PULSE 85–116; RESP 18–20; TEMP 97.7–99.2; O2SAT 90–95
--- NOTE | 2024-11-28 15:43 | DVHPN2 ---
Subjective Patient is status post right nephrostomy tube placement. Today nephrostomy tube has gross blood . Patient does have known history of chronic AFib currently on Xarelto at home. Reviewed: Care Plan, H&P, Labs, Medications Changes from previous H/P or p: No Changes General: Per HPI Objective Vitals Vital Signs Date Time Temp Pulse Resp B/P (MAP) Pulse Ox O2 Delivery O2 Flow Rate FiO2 11/28/24 12:30 98.3 90 19 140/89 (106) 93 98.3 11/28/24 07:50 Room Air* 0 21 Intake/Output Intake and Output 11/28/24 07:00 Intake Total 1100 ml Output Total 600 ml Balance 500 ml Intake Oral 1100 ml Output Urine Total 600 ml # Voids 1 # Bowel Movements 2 Exam HEENT pupils are reactive Neck is supple CV is S1-S2 regular rate and rhythm Respiratory diminished breath sounds bases GI positive bowel sound Extremity no pedal edema [employer] no motor deficit General Appearance: Alert, Oriented X3, Cooperative, No acute distress HEENT: Atraumatic, PERRLA Lungs: Clear to auscultation, Normal air movement Cardiovascular: Normal S1, Normal S2 Musculoskeletal: Normal sensory function, Normal motor function Skin: Dry, Intact Psych/Mental Status: Mental status NL, Mood NL Medications Current Medications Medications Dose Ordered Sig/Angelito Route Start Time Stop Time Status Last Admin Dose Admin Metoclopramide HCl 10 mg Q6HPRN PRN IV 11/25/24 00:15 11/25/24 12:11 10 MG Metoprolol Tartrate 25 mg BID PO 11/25/24 10:00 11/28/24 09:31 25 MG Tamsulosin HCl 0.4 mg BID PO 11/25/24 10:00 11/28/24 09:30 0.4 MG Trazodone HCl 25 mg DAILY PO 11/25/24 10:00 11/28/24 09:30 25 MG Cholecalciferol 1,000 unit DAILY PO 11/25/24 10:00 11/28/24 09:31 1,000 UNIT Diagnostic Test (Pha) 1 strip ACHS 11/25/24 07:00 11/28/24 11:42 1 STRIP Insulin Human Regular ACHS SC 11/25/24 07:00 11/28/24 12:08 2 UNITS Dextrose 50 ml UD PRN IV 11/25/24 06:15 Ceftriaxone Sodium 50 ml @ 100 mls/hr DAILY@09 IV 11/26/24 09:00 11/28/24 09:30 100 MLS/HR Atorvastatin Calcium 20 mg HS PO 11/27/24 22:00 11/27/24 21:49 20 MG Laboratory Results Laboratory Tests 11/26/24 06:00 11/27/24 06:25 Urinalysis Test 11/25/24 02:51 Urine Color Colorless (Yellow) Urine Clarity Clear (Clear) Urine pH 6.5 (5.0-9.0) Urine Specific [place] 1.017 (1.001-1.035) Urine Protein Negative (Negative) Urine Ketones Negative (Negative) Urine Blood Negative /uL (Negative) Urine Nitrite Negative (Negative) Urine Bilirubin Negative (Negative) Urine Urobilinogen Normal mg/dL (Negative) Urine Leukocyte Esterase Negative /uL (Negative) Urine RBC 2 /hpf (0 - 3) Urine Microscopic WBC 4 /HPF (0-3) H Urine Squamous Epithelial Cells Few /hpf (<5) Urine Bacteria None seen /hpf (None Seen) Urine Sperm Present /hpf (None Seen) Urine Glucose Normal mg/dL (Normal) Microbiology Microbiology Date/Time Source Procedure Growth Status 11/25/24 07:41 Nose MRSA Screen - Final Complete 11/25/24 02:51 Voided Urine Urine Culture - Preliminary Resulted 11/24/24 22:06 Blood Blood Culture - Preliminary NO GROWTH AFTER 72 HOURS OF INCUBATION. Resulted Assessment/Plan Assessment/Plan 79-year-old male with a known history of diabetes mellitus type 2, hypertension, CKD stage IIIB, history of bladder cancer, history of left nephrectomy initially presented to the hospital with the abdominal pain found to have 1. Acute complicated cystitis/emphysematous pyelitis 2. Right obstructive uropathy with right hydronephrosis secondary to obstruction of the ureter 3. 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 History of left nephrectomy 5. Status post right nephrostomy tube placement for right obstructive uropathy 6. Diabetes mellitus type 2 7. Hypertension 8. Paroxysmal AFib, resume Xarelto -watch for worsening hematuria, may have to hold Xarelto if hematuria gets worse. -continue beta dolly, continue IV antibiotics, discharge plan once nephrostomy tube hematuria resolves. Plan discussed with: Patient My Orders Orders - ISIDRA DÍAZ MD Procedure Category Date Status Time Atorvastatin (Lipitor) PHA 11/27/24 In Process 22:00 Pt Request For Service PT 11/28/24 Logged 15:17 (Nf) Aarti PHA 11/28/24 Transmitted 22:00 Date of Service: Nov 28, 2024 Billing Provider: ISIDRA DÍAZ MD Common Visit Codes: [id number] INP/OBS CARE(MOD) ISIDRA DÍAZ MD Nov 28, 2024 15:43
[2024-11-28] MEDS ORDERED: SODIUM CHLORIDE 0.9% 1,000 ML IV SCH (15:45)
[2024-11-28] MEDS: RIVAROXABAN 20 MG TAB PO SCH (22:02)
[2024-11-29 01:00] VITALS: BP 123/62; PULSE 90; RESP 19; TEMP 97.8; O2SAT 94
[2024-11-29 05:00] VITALS: BP 143/93; PULSE 104; RESP 19; TEMP 97.8; O2SAT 92
[2024-11-29 08:00] VITALS: BP 121/73; PULSE 115; PULSE 84; RESP 20; RESP 21; TEMP 99.1; O2SAT 92; O2SAT 95
[2024-11-29] MEDS: ACETAMINOPHEN 500 MG TAB or CAP PO PRN (09:17)
[2024-11-29 12:00] VITALS: BP 131/86; PULSE 84; RESP 18; TEMP 98.7; O2SAT 95
[2024-11-29 16:00] VITALS: BP 146/87; PULSE 79; RESP 20; TEMP 99; O2SAT 93
[2024-11-29 16:37] LABS: Hematocrit 35.1 % (41.0-53.0); Hemoglobin 12.3 g/dL (13.5-17.5); Mean Corpuscular Hemoglobin 30.2 pg (28.0-32.0); Mean Corpuscular Volume 85.8 fL (80.0-100.0); Nucleated Red Blood Cells % 0.0 %
[2024-11-29 16:51] LABS: Albumin 3.3 g/dL (3.2-4.8); Anion Gap 9 (5-15); BUN/Creatinine Ratio 11.0 (10.0-20.0); Blood Urea Nitrogen 11 mg/dL (9-23); Calcium 9.5 mg/dL (8.7-10.4); Carbon Dioxide 28 mmol/L (20-31)
[2024-11-29 16:52] LABS: Alanine Aminotransferase 107 U/L (7-40); Alkaline Phosphatase 252 U/L (46-116); Bilirubin, Total 1.1 mg/dL (0.2-1.0); Chloride 94 mmol/L (98-107); Glucose 124 mg/dL (74-106); Potassium 2.9 mmol/L (3.5-5.1); Sodium 131 mmol/L (136-145); Total Protein 5.4 g/dL (5.7-8.2)
[2024-11-29] MEDS: PIPERACILLIN-TAZOB 3.375GM 100 ML IV SCH (17:04)
[2024-11-29 21:00] VITALS: BP 123/94; PULSE 111; RESP 20; TEMP 98.2; O2SAT 95
[2024-11-30 01:00] VITALS: BP 117/78; PULSE 85; RESP 20; TEMP 98.7; O2SAT 95
[2024-11-30 05:00] VITALS: BP 132/85; PULSE 108; RESP 20; TEMP 98.4; O2SAT 93
--- NOTE | 2024-11-30 07:08 | DVHINCON2 ---
Date of service: Nov 29, 2024 Family History: Patient reports no known family medical history. Allergies: Coded Allergies: NO KNOWN ALLERGIES (Unverified , 04/08/22) Home Meds Active Scripts Nitrofurantoin Monohydrate Mac (Macrobid) 100 Mg Cap, 100 MG PO BID for 7 Days, #14 CAP Prov:SVEN COTTO MD 03/31/24 Azithromycin (ZITHROMAX TABLET) 250 Mg Tb, 250 MG PO DAILY, #6 TAB take 2 tabs first day then 1 tab daily until finish. Prov:MATT ASCENCIO MD 12/21/23 Reported Medications Cholecalciferol (D3) 1,000 Unit Cap, 1000 UNIT PO DAILY, CAP 03/17/23 Atorvastatin Calcium (Lipitor) 20 Mg Tab, 20 MG PO QPM, TAB 04/10/22 Trazodone Hcl (Trazodone Hcl) 50 Mg Tab, 25 MG PO DAILY, MG 04/10/22 Aspirin (Aspirin) 325 Mg Tab, 81 MG PO DAILY for 30 Days, MG 04/10/22 Metoprolol Tartrate (Metoprolol Tartrate) 25 Mg Tab, 25 MG PO BID for 30 Days, MG 04/10/22 Tamsulosin HCl (Tamsulosin Hydrochloride) 0.4 Mg Cap, 0.4 MG PO BID, CAP 04/10/22 Pantoprazole Sodium (PANTOPRAZOLE SODIUM) 40 Mg Inj, 40 MG PO BID, INJ 04/10/22 Metformin Hydrochloride (Metformin Hcl) 850 Mg Tab, 850 MG PO BID for 30 Days, MG 04/10/22 Current Medications Current Medications Medications (Trade) Dose Ordered Sig/Angelito Route PRN Reason Start Time Stop Time Status Last Admin Acetaminophen (Tylenol Tablet Or Capsule) 500 mg Q8HP PRN PO MILD PAIN (1-3 PAIN SCALE) 11/29/24 09:00 11/29/24 09:17 Piperacillin Sod/ Tazobactam Sod 100 ml @ 25 mls/hr Q8HR IV 11/29/24 14:45 11/30/24 05:43 Trazodone HCl (Desyrel) 25 mg QHSP PO 11/29/24 22:00 11/29/24 21:31 Vital Signs Vital Signs Date Time Temp Pulse Resp B/P (MAP) Pulse Ox O2 Delivery O2 Flow Rate FiO2 11/30/24 05:00 98.4 108 20 132/85 (101) 93 98.4 11/29/24 20:00 Room Air* 0 21 Labs/Diagnostic Data Labs Test 11/30/24 05:45 11/29/24 16:02 11/27/24 06:25 11/25/24 13:58 Range/Units POC Glucose 182 H 70-106 mg/dl White Blood Count 8.6 4.4-10.8 10^3/uL Red Blood Count 4.08 L 4.5-5.90 10^6/uL Hemoglobin 12.3 L 13.5-17.5 g/dL Hematocrit 35.1 #L 41.0-53.0 % Mean Corpuscular Volume 85.8 80.0-100.0 fL Mean Corpuscular Hemoglobin 30.2 28.0-32.0 pg Mean Corpuscular Hemoglobin Concent 35.1 32.0-36.0 g/dL Red Cell Distribution Width 14.9 H 11.8-14.3 % Platelet Count 160 140-450 10^3/uL Mean Platelet Volume 8.1 6.9-10.8 fL Neutrophils (%) (Auto) 77.9 37.0-80.0 % Lymphocytes (%) (Auto) 9.6 L 10.0-50.0 % Monocytes (%) (Auto) 9.0 0.0-12.0 % Eosinophils (%) (Auto) 3.2 0.0-7.0 % Basophils (%) (Auto) 0.3 0.0-2.0 % Neutrophils # (Auto) 6.7 1.6-8.6 10 ^3/uL Lymphocytes # (Auto) 0.8 0.4-5.4 10 ^3/uL Monocytes # (Auto) 0.8 0-1.3 10 ^3/uL Eosinophils # (Auto) 0.3 0-0.8 10 ^3/uL Basophils # (Auto) 0 0-0.2 10 ^3/uL Nucleated Red Blood Cells 0.0 % Sodium Level 131 #L 136-145 mmol/L Potassium Level 2.9 L 3.5-5.1 mmol/L Chloride Level 94 L 98-107 mmol/L Carbon Dioxide Level 28 20-31 mmol/L Anion Gap 9 5-15 Blood Urea Nitrogen 11 9-23 mg/dL Creatinine 1.00 0.700-1.30 mg/dL Glomerular Filtration Rate Calc 77 >90 mL/min BUN/Creatinine Ratio 11.0 10.0-20.0 Serum Glucose 124 H 74-106 mg/dL Calcium Level 9.5 8.7-10.4 mg/dL Total Bilirubin 1.1 H 0.2-1.0 mg/dL Aspartate Amino Transferase (AST) 122 H 13-40 U/L Alanine Aminotransferase (ALT) 107 H 7-40 U/L Alkaline Phosphatase 252 H 46-116 U/L Total Protein 5.4 L 5.7-8.2 g/dL Albumin 3.3 3.2-4.8 g/dL Magnesium Level 1.4 L 1.6-2.6 mg/dL Prothrombin Time 14.7 H 9.3-11.8 sec Prothrombin Time INR 1.44 H 0.9-1.15 Activated Partial Thromboplast Time 44.3 H 24.5-34.5 SEC Test 11/25/24 04:50 11/25/24 02:51 11/25/24 00:15 11/24/24 19:55 Range/Units Hemoglobin A1c 6.7 H <5.7 % A1C Free Prostate Specific Antigen 0.58 N/A ng/mL Percent Free Prostate Specific Ag 20.0 . % Prostate Specific Antigen Total 2.9 0.0-4.0 ng/mL Vitamin B12 Level 674 211-911 pg/mL Vitamin D 25-Hydroxy 61.2 30.0-100 ng/mL Folic Acid 25.71 >5.38 ng/mL Urine Color Colorless Yellow Urine Clarity Clear Clear Urine pH 6.5 5.0-9.0 Urine Specific [place] 1.017 1.001-1.035 Urine Protein Negative Negative Urine Ketones Negative Negative Urine Blood Negative Negative /uL Urine Nitrite Negative Negative Urine Bilirubin Negative Negative Urine Urobilinogen Normal Negative mg/dL Urine Leukocyte Esterase Negative Negative /uL Urine RBC 2 0 - 3 /hpf Urine Microscopic WBC 4 H 0-3 /HPF Urine Squamous Epithelial Cells Few <5 /hpf Urine Bacteria None seen None Seen /hpf Urine Sperm Present None Seen /hpf Urine Glucose Normal Normal mg/dL Urine Opiates Screen Neg NEGATIVE Urine Fentanyl Screen Neg NEGATIVE Urine Barbiturates Screen Neg NEGATIVE Urine Phencyclidine Screen Neg NEGATIVE Urine Amphetamines Screen Neg NEGATIVE Urine Benzodiazepines Screen Neg NEGATIVE Urine Cocaine Screen Neg NEGATIVE Urine Cannabinoids Screen Neg NEGATIVE Lactic Acid Level 1.9 0.4-2.0 mmol/L Troponin I High Sensitivity < 3 L </=54 ng/L Lipase 39 12-53 U/L Thyroid Stimulating Hormone (TSH) 2.15 0.55-4.78 uIU/mL Microbiology Date/Time Source Procedure Growth Status 11/25/24 07:41 Nose MRSA Screen - Final Complete 11/25/24 02:51 Voided Urine Urine Culture - Preliminary Resulted 11/24/24 22:06 Blood Blood Culture - Final NO GROWTH AFTER 5 DAYS OF INCUBATION. Complete Problems(with codes): (1) Pelvic abscess in male (2) Hydronephrosis due to obstruction of ureter (3) Hydrocele in adult (4) Status post nephrectomy (5) History of bladder cancer (6) Urethritis Plan/Recommendation ASSESSMENT AND PLAN: ID Problem List: \-- Acute right-sided abdominal pain \-- Right hydronephrosis \-- Possible urinary tract infection / cystitis \-- History of left renal carcinoma, status post nephrectomy (2021) \-- Atrial fibrillation on Xarelto \-- Hypertension \-- Type 2 Diabetes Mellitus \-- Hyperlipidemia Assessment This is a 79-year-old female with a history of type 2 diabetes, hypertension, hyperlipidemia, atrial fibrillation (on Xarelto), and left renal carcinoma s/p nephrectomy in 2021. She presents with acute onset, crampy, right-sided abdominal pain radiating to the right lower quadrant for four days, rated as 8/10, with associated nausea, vomiting, and constipation. Imaging (CT abdomen/pelvis) demonstrates wall thickening of the urinary bladder with perivesical fat stranding concerning for possible cystitis, a 3 x 2.3 cm hypodense area in the right seminal vesicle (abscess within differential), mild to moderate right hydronephrosis with dilated distal ureter, and possible ascending infection. 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 There is also evidence of cirrhotic liver morphology and a right echogenic kidney. Exam is notable for suprapubic, right lower quadrant, and right CVA tenderness. Labs reveal creatinine of 1.66, sodium 131-135, potassium 3.4, WBC 10.1, lactic acid 2.2, lipase 389, and urinalysis positive for pyuria but negative for nitrites and leukocyte esterase. Cultures to date, including blood and urine, are negative. Testicular ultrasound was negative for torsion, epididymitis, or orchitis; renal ultrasound confirmed moderate right hydronephrosis with perinephric fluid and r ight renal cyst. A nephrostomy has been planned by urology for persistent right hydronephrosis. MRI prostate is planned to evaluate for possible abscess. Liver ultrasound noted cirrhotic changes. Low suspicion for active infection per urology, however, empiric antibiotics for possible prostatic abscess are advised given imaging and lab data. Plan: \-- Proceed with right percutaneous nephrostomy tube placement \-- Urology: urine culture, prostate screen, and MRI prostate to rule out prostatic abscess \-- Empiric oral antibiotics: levofloxacin 500 mg daily for six weeks (pending MRI findings) \-- Outpatient follow-up with urology at [facility] \-- Reassess with repeat CT abdomen/pelvis in six weeks to monitor for resolution of abscess or infection \-- Monitor creatinine and renal function \-- Continue all home medications as appropriate, especially anticoagulation (Xarelto) with close monitoring in context of renal insufficiency \-- Supportive care: pain control, maintain hydration \-- Patient and plan discussed with urology and patient updated accordingly Isolation Precautions: standard Assessment and plan discussed with the patient as documented above. Plan subject to change pending new diagnostics, updates may follow as addenda. Thank you for consult. ID will continue to follow. Please contact Infectious Disease with any concerns. Deysi Dominguez M.D. [facility] Ph: ? ? Teams text: [email or web address] Electronically signed by: Deysi Dominguez MD, 11/29/2024 \ History: The patient's chart and medications were reviewed in detail, and the patient was seen and examined. History obtained from: patient Tj Carcamo is a 79-year-old female with a past medical history significant for Type 2 Diabetes Mellitus, hypertension, hyperlipidemia, atrial fibrillation (on Xarelto), and left renal carcinoma status post nephrectomy (2021), presenting with acute onset, severe right-sided, crampy abdominal pain for four days with associated nausea, vomiting, constipation. No known drug allergies. Ex-smoker. Denies alcohol and illicit drug use. Lives alone. Review of Systems: A complete 10 system review of systems was completed and negative except as noted in the HPI or here. ROS: -CONSTITUTIONAL: Denies weight loss, fever, and chills. -HEENT: Denies changes in vision and hearing. -RESPIRATORY: Denies shortness of breath and cough. -CARDIOVASCULAR: Denies palpitations and chest pain. -GASTROINTESTINAL: Endorses right lower quadrant and right flank pain, nausea, vomiting, and constipation. Denies diarrhea. -GENITOURINARY: Denies dysuria or frequency. Endorses suprapubic pain and right CVA tenderness. -MUSCULOSKELETAL: Denies myalgia and joint pain. -SKIN: Denies rash or pruritus. -NEUROLOGICAL: Denies headache and syncope. -PSYCHIATRIC: Denies recent mood changes, depression, or anxiety. Past Medical History: -Type 2 Diabetes Mellitus -Hypertension -Hyperlipidemia -Left renal carcinoma status post nephrectomy (2021) -Atrial fibrillation Past Surgical History: -Left nephrectomy (2021) -Other surgical history not provided Home Medications: -Xarelto (rivaroxaban) for atrial fibrillation -Other home medications not specified Allergies: -No known drug allergies Family History: -Not provided in transcript Social History: -Ex-smoker -Denies alcohol use -Denies illicit drug use -Lives alone Social Determinants of Health: -Not discussed Objective: Vital Signs on Arrival: Temp: 98.8 F Blood Pressure: 140/82 mmHg Pulse: 90 bpm Respiratory Rate: 18/min SpO2: 95% on room air Most Recent Vital Signs: Not provided Admission Weight: Not provided BMI: Not provided Physical Exam: General: NAD Neck: Supple. No masses. HEENT: PERRL. Normal lids and conjunctiva. Moist mucous membranes. Oropharynx without lesions, exudates or excessive erythema. Normal appearance of the external aspects of the nose and ears. Heart: Regular rhythm, normal rate. No murmur. No lower extremity edema. Lungs: Normal respiratory effort. Clear to auscultation bilaterally. No wheezes. No crackles. Abdomen: Soft. Tender to palpation in the suprapubic region and right lower quadrant, with right costovertebral angle tenderness. Non-distended. No masses or abdominal hernia. Msk: No digital cyanosis. Normal strength and tone in all four limbs Skin: Warm and dry, no rashes. Neuro: Alert. No facial droop or slurred speech. Extra-ocular movements intact. Sensation intact to soft touch in all four limbs. Psych: Appropriate mood. Full affect. Oriented to person, place, time, and situation. Lines: Not discussed Diagnostic Studies: Available diagnostic studies were reviewed personally. Significant relevant results and findings are outlined below or addressed in the Assessment and Plan above. Pertinent Imaging: -CT Abdomen/Pelvis: Wall thickening of urinary bladder with adjacent fat stranding concerning for cystitis. 3 x 2.3 cm hypodense area in right seminal vesicle, possible abscess. Dilatation of distal ureter. Mild to moderate right hydronephrosis, mild wall thickening. Foci of air in right renal calyces (may represent emphysematous pyelitis). -Renal Ultrasound: Moderate right hydronephrosis with perinephric fluid, right renal cyst. -Testicular Ultrasound: No evidence of torsion, epididymitis, or orchitis. Large bilateral hydroceles. -Liver Ultrasound: Cirrhotic morphology of liver; right echogenic kidney. -Nephrostogram: Mild hydronephrosis, contrast to distal ureter. Laboratory Studies: -Creatinine: 1.66 -Sodium: 131-135 -Potassium: 3.4 -WBC: 10.1 -Hemoglobin: 14.1 -Platelets: 268 -Lactic acid: 2.2 -Lipase: 389 -Bilirubin: 0.8 -AST: 45 -ALT: 40 -Urinalysis: Positive for pyuria. Negative for nitrites and leukocyte esterase. -Blood cultures: No growth to date -Urine cultures: No growth -Urine tox screen: Negative -Other labs not specified Microbiology: -Blood cultures: No growth -Urine culture: No growth Other Studies: -MRI prostate recommended, pending Today's Encounter date: 11/29/2024 Patient Name: jT Carcamo Provider: Deysi Dominguez M.D. Plan discussed with: Patient DEYSI DOMINGUEZ MD Nov 30, 2024 07:08
[2024-11-30 08:00] VITALS: RESP 18; O2SAT 96
[2024-11-30 09:29] VITALS: BP 133/88; PULSE 98; RESP 18; TEMP 97.8; O2SAT 96
--- NOTE | 2024-11-30 10:56 | DVHPN2 ---
Consult Progress Note Date Seen: Nov 30, 2024 Subjective Patient reports: Other (renal function in tact , urinating well . patient denies any pain today and feeling significantly improved since admission . tolerating levofloxacin ) Objective vital signs Vital Sign Date Time Temp Pulse Resp B/P (MAP) Pulse Ox O2 Delivery O2 Flow Rate FiO2 11/30/24 09:30 98 133/88 11/30/24 09:29 97.8 18 96 97.8 11/30/24 08:00 Room Air* 0 21 Total Intake and Output 11/29/24 11/29/24 11/30/24 15:00 23:00 07:00 Intake Total 50 ml 1100 ml 900 ml Output Total 1000 ml 1052 ml Balance 50 ml 100 ml -152 ml medications Current Medications Medications Dose Ordered Sig/Angelito Route Start Time Stop Time Status Last Admin Dose Admin Metoclopramide HCl 10 mg Q6HPRN PRN IV 11/25/24 00:15 11/25/24 12:11 10 MG Metoprolol Tartrate 25 mg BID PO 11/25/24 10:00 11/30/24 09:30 25 MG Tamsulosin HCl 0.4 mg BID PO 11/25/24 10:00 11/30/24 09:30 0.4 MG Cholecalciferol 1,000 unit DAILY PO 11/25/24 10:00 11/30/24 09:30 1,000 UNIT Diagnostic Test (Pha) 1 strip ACHS 11/25/24 07:00 11/30/24 05:48 1 STRIP Insulin Human Regular ACHS SC 11/25/24 07:00 11/30/24 06:17 3 UNITS Dextrose 50 ml UD PRN IV 11/25/24 06:15 Atorvastatin Calcium 20 mg HS PO 11/27/24 22:00 11/29/24 21:32 20 MG Rivaroxaban 20 mg HS PO 11/28/24 22:00 11/29/24 21:33 20 MG Acetaminophen 500 mg Q8HP PRN PO 11/29/24 09:00 11/29/24 09:17 500 MG Piperacillin Sod/ Tazobactam Sod 100 ml @ 25 mls/hr Q8HR IV 11/29/24 14:45 11/30/24 05:43 25 MLS/HR Trazodone HCl 25 mg QHSP PO 11/29/24 22:00 11/29/24 21:31 25 MG Physical Exam: General: NAD Neck: Supple. No masses. HEENT: PERRL. Normal lids and conjunctiva. Moist mucous membranes. Oropharynx without lesions, exudates or excessive erythema. Normal appearance of the external aspects of the nose and ears. Heart: Regular rhythm, normal rate. No murmur. No lower extremity edema. Lungs: Normal respiratory effort. Clear to auscultation bilaterally. No wheezes. No crackles. Abdomen: Soft. Tender to palpation in the suprapubic region and right lower quadrant, with right costovertebral angle tenderness. Non-distended. No masses or abdominal hernia. Msk: No digital cyanosis. Normal strength and tone in all four limbs Skin: Warm and dry, no rashes. Neuro: Alert. No facial droop or slurred speech. Extra-ocular movements intact. Sensation intact to soft touch in all four limbs. Psych: Appropriate mood. Full affect. Oriented to person, place, time, and situation. laboratory and microbiology Laboratory Tests 11/29/24 16:02 Test 11/29/24 16:02 Range/Units Serum Glucose 124 H 74-106 mg/dL Problem List/Assessment/Plan Problems(with codes): (1) Pelvic abscess in male (2) Hydronephrosis due to obstruction of ureter (3) Hydrocele in adult (4) Status post nephrectomy (5) History of bladder cancer (6) Renal cyst Problem List/Assessment/Plan ASSESSMENT AND PLAN: ID Problem List: \-- Acute right-sided abdominal pain \-- Right hydronephrosis \-- Possible urinary tract infection / cystitis \-- History of left renal carcinoma, status post nephrectomy (2021) \-- Atrial fibrillation on Xarelto \-- Hypertension \-- Type 2 Diabetes Mellitus \-- Hyperlipidemia Assessment This is a 79-year-old female with a history of type 2 diabetes, hypertension, hyperlipidemia, atrial fibrillation (on Xarelto), and left renal carcinoma s/p nephrectomy in 2021. She presents with acute onset, crampy, right-sided abdominal pain radiating to the right lower quadrant for four days, rated as 8/10, with associated nausea, vomiting, and constipation. Imaging (CT abdomen/pelvis) demonstrates wall thickening of the urinary bladder with perivesical fat stranding concerning for possible cystitis, a 3 x 2.3 cm hypodense area in the right seminal vesicle (abscess within differential), mild to moderate right hydronephrosis with dilated distal ureter, and possible ascending infection. 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 There is also evidence of cirrhotic liver morphology and a right echogenic kidney. Exam is notable for suprapubic, right lower quadrant, and right CVA tenderness. Labs reveal creatinine of 1.66, sodium 131-135, potassium 3.4, WBC 10.1, lactic acid 2.2, lipase 389, and urinalysis positive for pyuria but negative for nitrites and leukocyte esterase. Cultures to date, including blood and urine, are negative. Testicular ultrasound was negative for torsion, epididymitis, or orchitis; renal ultrasound confirmed moderate right hydronephrosis with perinephric fluid and right renal cyst. A nephrostomy has been planned by urology for persistent right hydronephrosis. MRI prostate is planned to evaluate for possible abscess. Liver ultrasound noted cirrhotic changes. Low suspicion for active infection per urology, however, empiric antibiotics for possible prostatic abscess are advised given imaging and lab data. 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 patient has neumorous lesions in the liver as large as 5cm , multiple renal cysts up to 2.3cm in size . heterogenous lesions in the left aspect of the pelvis in the expected region of the seminal versicles measuring 5.1x 4.4 cm but very poorly characterized . increased edema signal within the pulmonary with extremely heterogenous appearance . could represent neoplasm vs inflammatory process . 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 however as image is unable to differentiate between this and an abscess will treat empirically from proctitis Plan: - recommend hematology oncology consultation to evaluate satisipations cancer and to determine if additional chemotherapy regimens are indicated at this time \-- Proceed with right percutaneous nephrostomy tube placement \-- f/u on urine culture \-- continue levofloxacin 500 mg daily for six weeks (pending MRI findings) \-- Outpatient follow-up with urology at [facility] \-- Reassess with repeat CT abdomen/pelvis in six weeks to monitor for resolution of abscess or infection \-- Monitor creatinine and renal function \-- Continue all home medications as appropriate, especially anticoagulation (Xarelto) with close monitoring in context of renal insufficiency \-- Supportive care: pain control, maintain hydration \-- Patient and plan discussed with urology and patient updated accordingly Isolation Precautions: standard Plan discussed with: Other DEYSI MENDOZA MD Nov 30, 2024 10:56
[2024-11-30 13:01] VITALS: BP 134/85; PULSE 99; RESP 18; TEMP 97.4; O2SAT 93
--- NOTE | 2024-11-30 18:07 | DVHPN2 ---
Subjective Patient is status post right nephrostomy tube placement. Patient's nephrostomy tube has clear urine now, currently MRI abdomen is pending for ruling out a prostatic abscess. Patient's family was updated regarding current plan of care. Reviewed: Care Plan, H&P, Labs, Medications Changes from previous H/P or p: No Changes General: Per HPI Objective Vitals Vital Signs Date Time Temp Pulse Resp B/P (MAP) Pulse Ox O2 Delivery O2 Flow Rate FiO2 11/30/24 13:01 97.4 99 18 134/85 (101) 93 97.4 11/30/24 08:00 Room Air* 0 21 Intake/Output Intake and Output 11/30/24 07:00 Intake Total 2050 ml Output Total 2052 ml Balance -2 ml Intake Oral 1800 ml IV Total 250 ml Output Urine Total 2050 ml Stool Total 2 ml # Bowel Movements 1 Exam HEENT pupils are reactive Neck is supple CV is S1-S2 regular rate and rhythm Respiratory diminished breath sounds bases GI positive bowel sound Extremity no pedal edema 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 General Appearance: Alert, Oriented X3, Cooperative, No acute distress HEENT: Atraumatic, PERRLA Lungs: Clear to auscultation, Normal air movement Cardiovascular: Normal S1, Normal S2 Musculoskeletal: Normal sensory function, Normal motor function Skin: Dry, Intact Psych/Mental Status: Mental status NL, Mood NL Medications Current Medications Medications Dose Ordered Sig/Angelito Route Start Time Stop Time Status Last Admin Dose Admin Metoclopramide HCl 10 mg Q6HPRN PRN IV 11/25/24 00:15 11/25/24 12:11 10 MG Metoprolol Tartrate 25 mg BID PO 11/25/24 10:00 11/30/24 09:30 25 MG Tamsulosin HCl 0.4 mg BID PO 11/25/24 10:00 11/30/24 09:30 0.4 MG Cholecalciferol 1,000 unit DAILY PO 11/25/24 10:00 11/30/24 09:30 1,000 UNIT Diagnostic Test (Pha) 1 strip ACHS 11/25/24 07:00 11/30/24 17:26 1 STRIP Insulin Human Regular ACHS SC 11/25/24 07:00 11/30/24 11:58 2 UNITS Dextrose 50 ml UD PRN IV 11/25/24 06:15 Atorvastatin Calcium 20 mg HS PO 11/27/24 22:00 11/29/24 21:32 20 MG Rivaroxaban 20 mg HS PO 11/28/24 22:00 11/29/24 21:33 20 MG Acetaminophen 500 mg Q8HP PRN PO 11/29/24 09:00 11/29/24 09:17 500 MG Trazodone HCl 25 mg QHSP PO 11/29/24 22:00 11/29/24 21:31 25 MG Levofloxacin 500 mg DAILY PO 12/01/24 10:00 Laboratory Results Laboratory Tests 11/29/24 16:02 Urinalysis Test 11/25/24 02:51 Urine Color Colorless (Yellow) Urine Clarity Clear (Clear) Urine pH 6.5 (5.0-9.0) Urine Specific [place] 1.017 (1.001-1.035) Urine Protein Negative (Negative) Urine Ketones Negative (Negative) Urine Blood Negative /uL (Negative) Urine Nitrite Negative (Negative) Urine Bilirubin Negative (Negative) Urine Urobilinogen Normal mg/dL (Negative) Urine Leukocyte Esterase Negative /uL (Negative) Urine RBC 2 /hpf (0 - 3) Urine Microscopic WBC 4 /HPF (0-3) H Urine Squamous Epithelial Cells Few /hpf (<5) Urine Bacteria None seen /hpf (None Seen) Urine Sperm Present /hpf (None Seen) Urine Glucose Normal mg/dL (Normal) Microbiology Microbiology Date/Time Source Procedure Growth Status 11/25/24 07:41 Nose MRSA Screen - Final Complete 11/25/24 02:51 Voided Urine Urine Culture - Preliminary Resulted 11/24/24 22:06 Blood Blood Culture - Final NO GROWTH AFTER 5 DAYS OF INCUBATION. Complete Assessment/Plan Assessment/Plan 79-year-old male with a known history of diabetes mellitus type 2, hypertension, CKD stage IIIB, history of bladder cancer, history of left nephrectomy initially presented to the hospital with the abdominal pain found to have 1. Acute complicated cystitis/emphysematous pyelitis 2. Right obstructive uropathy with right hydronephrosis secondary to obstruction of the ureter 3. 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 History of left nephrectomy 5. Status post right nephrostomy tube placement for right obstructive uropathy 6. Diabetes mellitus type 2 7. Hypertension 8. Paroxysmal AFib, resume Xarelto -watch for worsening hematuria, may have to hold Xarelto if hematuria gets worse. -follow up MRI abdomen to rule out prostatic abscess., follow up Infectious Disease recommendations. -continue beta dolly, continue IV antibiotics, discharge plan once nephrostomy tube hematuria resolves. Plan discussed with: Patient, Son, Other Date of Service: Nov 30, 2024 Billing Provider: ISIDRA DÍAZ MD Common Visit Codes: [id number] INP/OBS CARE(MOD) ISIDRA DÍAZ MD Nov 30, 2024 18:07
--- NOTE | 2024-11-30 18:21 | DVH ---
PROCEDURE: MRI MRI ABD PELVIS W/O CONT Indication: Hematuria, pain COMPARISON: 11/24/2024 TECHNIQUE: Multiplanar multisequence images of the abdomen and pelvis are obtained without contrast a re obtained. FINDINGS: Examination limited secondary to motion artifact especially in the pelvic region. Adrenal glands unremarkable. Spleen measures 13 cm craniocaudal. There are innumerable T2 bright lesions throughout the liver replacing more than 75% of the hepatic p arenchyma. Some of these lesions include left hepatic lobe lesions measuring 4.3 cm, 4.2 cm, 5.0 cm a nd right hepatic lobe lesions measuring 4.7 cm, 4.1 cm, 4.6 cm. The liver capsule is nodular morpholo gy. Gallbladder contracted. Pericholecystic / gallbladder wall edema. The left kidney is absent. The right kidney demonstrates no hydronephrosis. Right nephrostomy tube n ot well characterized on MRI Multiple renal cysts measuring up to 2.3 cm. Stomach is partially distended. Pancreas grossly appears unremarkable. Small bowel loops normal in caliber. Colonic diverticula. There is a heterogeneous lesion in the left aspect of the pelvis in the expected region of the semina l vesicles measuring 5.1 x 4.4 cm, very poorly characterized. There is overall increased edema signal within the pulmonary with Extremely heterogeneous appearance. The bladder is nondilated. There is presacral edema. Large left hydrocele. Small right hydrocele. Right pelvic adductor region lipoma measuring 9.6 x 4.1 cm There is increased stir/ T2 signal within the L4 vertebral body. IMPRESSION: Examination degraded by motion. Limited evaluation without contrast. Diffuse hepatic neoplastic / metastatic disease replacing > 75% of the lesions as described above. R ecommend oncology consultation Heterogeneous structure within the right aspect of the pelvis near the region of the seminal vesicles measuring 5.1 x 4.4 cm could represent neoplasm. Other considerations include infectious / inflammat ory processes. Recommend oncology /urology consultation. PET scan can also be obtained to further e valuate. Overall extremely heterogeneous appearance of the pelvis with extensive increased stir/ T2 signal and edema. Increased stir/ T2 signal within the L4 vertebral body which could represent metastatic disease/neopl asm. Recommend MRI lumbar spine with and without contrast to evaluate. Large left hydrocele. Small right hydrocele. Splenomegaly. Pericholecystic / gallbladder wall edema. Left kidney appears absent. Other findings as described Patient would benefit from PET scan to further evaluate
[2024-11-30 21:00] VITALS: BP 124/76; PULSE 106; RESP 17; TEMP 97.4; O2SAT 92
[2024-12-01] VITALS (8 sets, daily range): BP systolic 121–152; BP diastolic 67–86; PULSE 63–111; RESP 18–21; TEMP 97.8–98.6; O2SAT 91–100
--- NOTE | 2024-12-01 07:17 | ECG ---
[facility] Test Date: 2024-11-30 Test Time: 16:02:09 Pat Name: MARGE TINSLEY Department: Room: 0292 A Gender: M Speech And Language Assistant: SUBHASH : 1945 Requested By: DEYSI MENDOZA Order Number: [id number] Reading MD: Duc Mcintosh Measurements Intervals [place] Rate: 104 P: 0 IA: 0 QRS: 1 QRSD: 99 T: 1 QT: 348 QTc: 458 Interpretive Statements Atrial fibrillation Ventricular premature complex Low voltage, precordial leads Borderline T abnormalities, diffuse leads Baseline wander in lead(s) V2 Electronically Signed On 12-01-2024 13:55:20 PDT by Duc Mcintosh Please click the below link to view image of tracing.
[2024-12-01] MEDS: levoFLOXacin 500 MG TAB PO SCH (09:07)
[2024-12-01] MEDS: DOCUSATE SOD 100 MG CAP PO ONE (11:30)
--- NOTE | 2024-12-01 15:07 | DVHPN2 ---
Subjective Patient is status post right nephrostomy tube placement. Patient's nephrostomy tube has clear urine now, MRI ABDOMEN SHOWED EVIDENCE OF LIVER LESION LIKELY METASTATIC WELL L4 METASTASIS WELL SEMINAL VESICLE MASS, THESE FINDINGS WERE EXPLAINED TO THE PATIENT PATIENT'S SON WELL PATIENT'S DAUGHTER AT BEDSIDE THEY UNDERSTAND THEY ARE REQUESTING HIGHER LEVEL OF CARE HIS ONCOLOGIST IS DR. GARCIA WHO IS AT [facility]. 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 Reviewed: Care Plan, H&P, Labs, Medications Changes from previous H/P or p: No Changes General: Per HPI Objective Vitals Vital Signs Date Time Temp Pulse Resp B/P (MAP) Pulse Ox O2 Delivery O2 Flow Rate FiO2 12/01/24 09:08 107 145/85 12/01/24 09:00 98.6 20 91 98.6 12/01/24 08:10 Room Air* 0 21 Intake/Output Intake and Output 12/01/24 07:00 Intake Total 1400 ml Output Total 595 ml Balance 805 ml Intake Oral 1400 ml Output Urine Total 595 ml # Voids 3 # Bowel Movements 1 Exam HEENT pupils are reactive Neck is supple CV is S1-S2 regular rate and rhythm Respiratory diminished breath sounds bases GI positive bowel sound Extremity no pedal edema 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 General Appearance: Alert, Oriented X3, Cooperative, No acute distress HEENT: Atraumatic, PERRLA Lungs: Clear to auscultation, Normal air movement Cardiovascular: Normal S1, Normal S2 Musculoskeletal: Normal sensory function, Normal motor function Skin: Dry, Intact Psych/Mental Status: Mental status NL, Mood NL Medications Current Medications Medications Dose Ordered Sig/Angelito Route Start Time Stop Time Status Last Admin Dose Admin Metoclopramide HCl 10 mg Q6HPRN PRN IV 11/25/24 00:15 11/25/24 12:11 10 MG Metoprolol Tartrate 25 mg BID PO 11/25/24 10:00 12/01/24 09:08 25 MG Tamsulosin HCl 0.4 mg BID PO 11/25/24 10:00 12/01/24 09:08 0.4 MG Cholecalciferol 1,000 unit DAILY PO 11/25/24 10:00 12/01/24 09:08 1,000 UNIT Diagnostic Test (Pha) 1 strip ACHS 11/25/24 07:00 12/01/24 12:11 1 STRIP Insulin Human Regular ACHS SC 11/25/24 07:00 12/01/24 12:14 3 UNITS Dextrose 50 ml UD PRN IV 11/25/24 06:15 Atorvastatin Calcium 20 mg HS PO 11/27/24 22:00 11/30/24 21:28 20 MG Rivaroxaban 20 mg HS PO 11/28/24 22:00 11/30/24 21:27 20 MG Acetaminophen 500 mg Q8HP PRN PO 11/29/24 09:00 12/01/24 10:26 500 MG Trazodone HCl 25 mg QHSP PO 11/29/24 22:00 11/29/24 21:31 25 MG Levofloxacin 500 mg DAILY PO 12/01/24 10:00 12/01/24 09:07 500 MG Docusate Sodium 100 mg BID PO 12/01/24 22:00 Lactulose 30 ml TID PRN PO 12/01/24 11:00 Laboratory Results Chemistry Test 12/01/24 14:30 Albumin Pending Calcium Level Pending Magnesium Level Pending Total Protein Pending LFT Test 12/01/24 14:30 Alanine Aminotransferase (ALT) Pending Alkaline Phosphatase Pending Aspartate Amino Transferase (AST) Pending Total Bilirubin Pending Urinalysis Test 11/25/24 02:51 Urine Color Colorless (Yellow) Urine Clarity Clear (Clear) Urine pH 6.5 (5.0-9.0) Urine Specific [place] 1.017 (1.001-1.035) Urine Protein Negative (Negative) Urine Ketones Negative (Negative) Urine Blood Negative /uL (Negative) Urine Nitrite Negative (Negative) Urine Bilirubin Negative (Negative) Urine Urobilinogen Normal mg/dL (Negative) Urine Leukocyte Esterase Negative /uL (Negative) Urine RBC 2 /hpf (0 - 3) Urine Microscopic WBC 4 /HPF (0-3) H Urine Squamous Epithelial Cells Few /hpf (<5) Urine Bacteria None seen /hpf (None Seen) Urine Sperm Present /hpf (None Seen) Urine Glucose Normal mg/dL (Normal) Microbiology Microbiology Date/Time Source Procedure Growth Status 11/25/24 07:41 Nose MRSA Screen - Final Complete 11/25/24 02:51 Voided Urine Urine Culture - Preliminary Resulted 11/24/24 22:06 Blood Blood Culture - Final NO GROWTH AFTER 5 DAYS OF INCUBATION. Complete Assessment/Plan Assessment/Plan 79-year-old male with a known history of diabetes mellitus type 2, hypertension, CKD stage IIIB, history of bladder cancer, history of left nephrectomy initially presented to the hospital with the abdominal pain found to have 1. Acute complicated cystitis/emphysematous pyelitis 2. Right obstructive uropathy with right hydronephrosis secondary to obstruction of the ureter 3. 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 History of left nephrectomy 5. Status post right nephrostomy tube placement for right obstructive uropathy 6. Diabetes mellitus type 2 7. Hypertension 8. Paroxysmal AFib, ON XARELTO 9. LIVER LESION LIKELY METASTASIS WELL L4 LESION LIKELY METASTASIS 10. PELVIC MASS/SEMINAL VESICLE MASS UNDERLYING NEOPLASM CAN NOT BE EXCLUDED -CONTINUE BREATHING TREATMENT, GET A CHEST X-RAY. -MRI FINDING DISCUSSED WITH THE PATIENT PATIENT HAS BEEN FAMILY MEMBER AT BEDSIDE, OUTPATIENT PET SCAN RECOMMENDED follow up Infectious Disease recommendations. -continue beta dolly, continue IV antibiotics, TRANSFERRED TO HIGHER LEVEL OF CARE PER PATIENT'S AND PATIENT'S FAMILY REQUEST TO [facility] PATIENT'S ONCOLO GIST IS DR. GARCIA AT [facility]. Plan discussed with: Patient, Daughter, Son My Orders Orders - ISIDRA DÍAZ MD Procedure Category Date Status Time Docusate Sodium PHA 12/01/24 In Process Capsule (Colace 22:00 Lactulose Oral PHA 12/01/24 In Process 11:00 Complete Blood Count LAB 12/01/24 In Process 13:03 Comprehensive LAB 12/01/24 In Process Metabolic Panel 13:03 Chest Portable XY 12/01/24 Logged 13:03 * Primary Counselor CONS 12/01/24 Transmitted Consult Magnesium LAB 12/01/24 In Process 13:28 Date of Service: Dec 01, 2024 Billing Provider: ISIDRA DÍAZ MD Common Visit Codes: [id number] INP/OBS CARE(MOD) ISIDRA DÍAZ MD Dec 01, 2024 15:07
[2024-12-01 15:17] LABS: Hematocrit 35.5 % (41.0-53.0); Hemoglobin 12.4 g/dL (13.5-17.5); Mean Corpuscular Hemoglobin 30.2 pg (28.0-32.0); Mean Corpuscular Volume 86.0 fL (80.0-100.0); Nucleated Red Blood Cells % 0.0 %
--- NOTE | 2024-12-01 16:28 | DVH ---
EXAM: XY CHEST PORTABLE HISTORY: shortness of breath COMPARISON: XY CHEST PORTABLE on DOS: 12/21/23, XY CHEST PORTABLE on DOS: 12/19/23, XY CHEST TWO VIEWS ROUTINE on DOS: 09/25/23, XY CHEST PORTABLE on DOS: 07/01/23, XY CHEST PORTABLE on DOS: 08/13/22 TECHNIQUE: Portable upright AP view of the chest was performed. FINDINGS: There is diffuse interstitial prominence, greatest centrally. No pneumothorax or consolidative infilt rates. The heart is enlarged. IMPRESSION: Cardiomegaly and Increased interstitial prominence suggestive of CHF.
[2024-12-01 17:01] LABS: Albumin 3.3 g/dL (3.2-4.8); Anion Gap 8 (5-15); BUN/Creatinine Ratio 12.3 (10.0-20.0); Blood Urea Nitrogen 9 mg/dL (9-23); Calcium 10.1 mg/dL (8.7-10.4); Carbon Dioxide 23 mmol/L (20-31); Glucose 100 mg/dL (74-106)
[2024-12-01 17:02] LABS: Alanine Aminotransferase 128 U/L (7-40); Alkaline Phosphatase 364 U/L (46-116); Bilirubin, Total 1.8 mg/dL (0.2-1.0); Chloride 94 mmol/L (98-107); Potassium 3.4 mmol/L (3.5-5.1); Sodium 125 mmol/L (136-145); Total Protein 5.6 g/dL (5.7-8.2)
[2024-12-01] MEDS: DOCUSATE SOD 100 MG CAP PO SCH (21:31)
[2024-12-01] MEDS: LACTULOSE 20Gm/30ML SOLN PO PRN (21:33)
[2024-12-02] VITALS (12 sets, daily range): BP systolic 114–136; BP diastolic 68–93; PULSE 79–113; RESP 16–20; TEMP 97.7–98.8; O2SAT 90–100
--- NOTE | 2024-12-02 17:27 | DVHPN2 ---
Subjective Patient is status post right nephrostomy tube placement. Patient's nephrostomy tube has clear urine now, MRI ABDOMEN SHOWED EVIDENCE OF LIVER LESION LIKELY METASTATIC WELL L4 METASTASIS WELL SEMINAL VESICLE MASS, THESE FINDINGS WERE EXPLAINED TO THE PATIENT PATIENT'S SON WELL PATIENT'S DAUGHTER AT BEDSIDE THEY UNDERSTAND , family was updated at bedside in the presence of bedside SHAHRIAR Vences. Regarding current plan of care. Reviewed: Care Plan, H&P, Labs, Medications Changes from previous H/P or p: No Changes General: Per HPI Objective Vitals Vital Signs Date Time Temp Pulse Resp B/P (MAP) Pulse Ox O2 Delivery O2 Flow Rate FiO2 12/02/24 17:25 98.4 103 20 136/81 (99) 94 98.4 12/02/24 08:00 Nasal Cannula* 2 28 Intake/Output Intake and Output 12/02/24 07:00 Intake Total 1600 ml Output Total 1575 ml Balance 25 ml Intake Oral 1600 ml Output Urine Total 1575 ml Exam HEENT pupils are reactive Neck is supple CV is S1-S2 regular rate and rhythm Respiratory diminished breath sounds bases GI positive bowel sound Extremity no pedal edema 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 General Appearance: Alert, Oriented X3, Cooperative, No acute distress HEENT: Atraumatic, PERRLA Lungs: Clear to auscultation, Normal air movement Cardiovascular: Normal S1, Normal S2 Musculoskeletal: Normal sensory function, Normal motor function Skin: Dry, Intact Psych/Mental Status: Mental status NL, Mood NL Medications Current Medications Medications Dose Ordered Sig/Angelito Route Start Time Stop Time Status Last Admin Dose Admin Metoclopramide HCl 10 mg Q6HPRN PRN IV 11/25/24 00:15 12/02/24 00:17 10 MG Metoprolol Tartrate 25 mg BID PO 11/25/24 10:00 12/02/24 10:22 25 MG Tamsulosin HCl 0.4 mg BID PO 11/25/24 10:00 12/02/24 10:21 0.4 MG Cholecalciferol 1,000 unit DAILY PO 11/25/24 10:00 12/02/24 10:21 1,000 UNIT Diagnostic Test (Pha) 1 strip ACHS 11/25/24 07:00 12/02/24 12:25 1 STRIP Insulin Human Regular ACHS SC 11/25/24 07:00 12/02/24 05:24 2 UNITS Dextrose 50 ml UD PRN IV 11/25/24 06:15 Atorvastatin Calcium 20 mg HS PO 11/27/24 22:00 12/01/24 21:31 20 MG Rivaroxaban 20 mg HS PO 11/28/24 22:00 12/01/24 21:32 20 MG Acetaminophen 500 mg Q8HP PRN PO 11/29/24 09:00 12/01/24 10:26 500 MG Trazodone HCl 25 mg QHSP PO 11/29/24 22:00 11/29/24 21:31 25 MG Levofloxacin 500 mg DAILY PO 12/01/24 10:00 12/02/24 10:21 500 MG Docusate Sodium 100 mg BID PO 12/01/24 22:00 12/02/24 10:22 100 MG Lactulose 30 ml TID PRN PO 12/01/24 11:00 12/01/24 21:33 30 ML Laboratory Results Laboratory Tests 12/01/24 14:30 12/01/24 16:25 Urinalysis Test 11/25/24 02:51 Urine Color Colorless (Yellow) Urine Clarity Clear (Clear) Urine pH 6.5 (5.0-9.0) Urine Specific [place] 1.017 (1.001-1.035) Urine Protein Negative (Negative) Urine Ketones Negative (Negative) Urine Blood Negative /uL (Negative) Urine Nitrite Negative (Negative) Urine Bilirubin Negative (Negative) Urine Urobilinogen Normal mg/dL (Negative) Urine Leukocyte Esterase Negative /uL (Negative) Urine RBC 2 /hpf (0 - 3) Urine Microscopic WBC 4 /HPF (0-3) H Urine Squamous Epithelial Cells Few /hpf (<5) Urine Bacteria None seen /hpf (None Seen) Urine Sperm Present /hpf (None Seen) Urine Glucose Normal mg/dL (Normal) Microbiology Microbiology Date/Time Source Procedure Growth Status 11/25/24 07:41 Nose MRSA Screen - Final Complete 11/25/24 02:51 Voided Urine Urine Culture - Final Complete 11/24/24 22:06 Blood Blood Culture - Final NO GROWTH AFTER 5 DAYS OF INCUBATION. Complete Assessment/Plan Assessment/Plan 79-year-old male with a known history of diabetes mellitus type 2, hypertension, CKD stage IIIB, history of bladder cancer, history of left nephrectomy initially presented to the hospital with the abdominal pain found to have 1. Acute complicated cystitis/emphysematous pyelitis 2. Right obstructive uropathy with right hydronephrosis secondary to obstruction of the ureter 3. 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 History of left nephrectomy 5. Status post right nephrostomy tube placement for right obstructive uropathy 6. Diabetes mellitus type 2 7. Hypertension 8. Paroxysmal AFib, ON XARELTO 9. LIVER LESION LIKELY METASTASIS WELL L4 LESION LIKELY METASTASIS 10. PELVIC MASS/SEMINAL VESICLE MASS/prostatitis UNDERLYING NEOPLASM CAN NOT BE EXCLUDED -CONTINUE BREATHING TREATMENT, incentive spirometry -MRI FINDING DISCUSSED WITH THE PATIENT PATIENT HAS BEEN FAMILY MEMBER AT BEDSIDE, OUTPATIENT PET SCAN RECOMMENDED follow up Infectious Disease recommendations. -continue beta dolly, p.o. antibiotics. cancel transferred to higher level. Plan discussed with: Patient, Daughter, Son Date of Service: Dec 03, 2024 Billing Provider: ISIDRA DÍAZ MD Common Visit Codes: [id number] INP/OBS CARE(MOD) ISIDRA DÍAZ MD Dec 02, 2024 17:27
[2024-12-02] MEDS ORDERED: CLINIMIX PER PHARMACY 0 ML IV SCH (19:30)
[2024-12-02] MEDS: ALBUTEROL SULF 2.5 MG/0.5ML(0.5%) NEB SOLN NEB SCH (19:46)
[2024-12-02 20:22] LABS: Albumin 3.4 g/dL (3.2-4.8); Anion Gap 10 (5-15); BUN/Creatinine Ratio 9.9 (10.0-20.0); Blood Urea Nitrogen 10 mg/dL (9-23); Carbon Dioxide 25 mmol/L (20-31); Potassium 3.8 mmol/L (3.5-5.1); Total Protein 5.7 g/dL (5.7-8.2)
[2024-12-02 20:24] LABS: Chloride 89 mmol/L (98-107); Sodium 124 mmol/L (136-145)
[2024-12-02 20:25] LABS: Alanine Aminotransferase 148 U/L (7-40); Alkaline Phosphatase 435 U/L (46-116); Bilirubin, Total 2.6 mg/dL (0.2-1.0); Calcium 12.1 mg/dL (8.7-10.4); Glucose 141 mg/dL (74-106); Magnesium 1.6 mg/dL (1.6-2.6)
[2024-12-02] MEDS: SODIUM PHOSPHATES 24 MEQ in SODIUM CHL 0.9% 100 ML IV ONE (21:00)
[2024-12-02] MEDS: AMINO ACID INFUSION IN D10W 1,000 ML IV SCH (23:12)
[2024-12-03] VITALS (15 sets, daily range): BP systolic 96–147; BP diastolic 65–95; PULSE 85–104; RESP 18–30; TEMP 97.4–98.8; O2SAT 92–98
[2024-12-03 06:25] LABS: Anion Gap 9 (5-15); BUN/Creatinine Ratio 10.4 (10.0-20.0); Blood Urea Nitrogen 10 mg/dL (9-23); Carbon Dioxide 25 mmol/L (20-31); Magnesium 1.7 mg/dL (1.6-2.6); Potassium 3.6 mmol/L (3.5-5.1); Triglycerides 75 mg/dL (< 150)
[2024-12-03 06:37] LABS: Alanine Aminotransferase 157 U/L (7-40); Albumin 3.1 g/dL (3.2-4.8); Alkaline Phosphatase 413 U/L (46-116); Bilirubin, Total 2.8 mg/dL (0.2-1.0); Calcium 12.2 mg/dL (8.7-10.4); Chloride 91 mmol/L (98-107); Glucose 125 mg/dL (74-106); Sodium 125 mmol/L (136-145); Total Protein 5.3 g/dL (5.7-8.2)
--- NOTE | 2024-12-03 14:54 | DVH ---
Indication: abdomen distention/pain Technique: CT axial images of the abdomen and pelvis are obtained without contrast. Coronal and sagit keo reformats were obtained. Radiation Dose Information: CTDI volume is 22.4 mGy. Dose-length product is 3.92 mGy*cm Comparison: MRI MRI ABD PELVIS W/O CONT on DOS: 11/30/24 FINDINGS: There is limited interpretation of the abdomen and pelvis without administration of intravenous contr ast. The lung bases demonstrate patchy pulmonary airspace consolidation. 1.6 cm right upper lobe pulmonary nodule. 6 mm right upper lobe pulmonary nodule. Left lower lobe 9 mm soft tissue nodule. Left lower lobe soft tissue nodule measuring 11 mm. 5 mm left lower lobe soft tissue nodule. 9 mm left lower lo be soft tissue nodule. Bilateral pleural calcifications. Cardiomegaly. Coronary artery calcification disease. Adrenal glands, spleen and pancreas unremarkabl e. Cirrhotic morphology liver. Diffuse infiltrative metastatic/ neoplastic disease involving the liver replacing > 75% of the hepatic parenchyma. No CT evidence for cholelithiasis. Right nephrostomy tube. No significant hydronephrosis. Right renal cysts measuring up to 3.1 cm. Left kidney absent. Stomach partially distended. Small bowel loops are normal in caliber. Moderate volume stool within the colon. Normal appendix. Abdominal aortic atherosclerotic disease. Bladder partially distended. Bladder wall thickening/ irregularity up to 13 mm. Redemonstration of heterogeneous structure in the pelvis measuring 10.2 x 6.0 cm, previously 8.7 x 4. 9 cm. Adjacent pelvic sidewall lymphadenopathy including right pelvic sidewall lymph node measuring 1 .6 cm and left pelvic sidewall lymph node measuring 1.3 cm. Presacral edema. No inguinal lymphadenopa thy. No inguinal lymphadenopathy. Fat containing lesion within the right adductor canal measuring 7.6 x 5 .0 cm consistent with lipoma. Moderate bilateral sacroiliac degenerative joint disease. Moderate to advanced thoracolumbar degenera tive disc disease IMPRESSION: Limited evaluation without contrast. Diffuse hepatic infiltrative metastatic /neoplastic disease replacing > 75% of the liver. Recommend oncology consultation. Bilateral pulmonary nodules up to 11 mm, possibly representing metastatic disease. Pelvic hyperdense lesion which appears more pronounced than on the previous CT measuring 6 by 10.2 cm , previously 4.9 x 8.7 cm. This could represent soft tissue mass/neoplasm. Associated hemorrhage/ b leeding can not be ruled out. There is associated pelvic sidewall lymphadenopathy concerning for axel plasm / metastatic process. PET scan can be obtained to further characterize this lesion/process. Bladder wall thickening with surrounding stranding which could represent sequela of cystitis, neuroge bill bladder, outlet obstruction, neoplastic infiltration. Bilateral pleural calcifications which can be seen with asbestos exposure, previous trauma/ infection . Left kidney absent. Interval placement of right nephrostomy tube with no significant residual hydronephrosis. Patchy bilateral pulmonary airspace consolidation. Other findings as described.
[2024-12-03] MEDS: SODIUM CHLORIDE 0.9% 1,000 ML IV SCH (16:10)
[2024-12-03] MEDS ORDERED: DEXTROSE (50%) 50ML SYRG IV SCH (16:15)
--- NOTE | 2024-12-03 17:02 | DVHPN2 ---
Subjective Overnight events noted. Patient is very physically deconditioned. Also poor appetite. I had a meeting with the patient's whole family members in a meeting known in the presence of major case detective Kayden charge nurse as well as back in the director of immigration case worker. Who is trying to arrange the outpatient appointment with the Hematology Oncology as well as Urology. In the meantime patient has hyponatremia as well because of poor intake. All the questions of the family member answered and they appreciated the update. Reviewed: Care Plan, H&P, Labs, Medications Changes from previous H/P or p: No Changes General: Per HPI Objective Vitals Vital Signs Date Time Temp Pulse Resp B/P (MAP) Pulse Ox O2 Delivery O2 Flow Rate FiO2 12/03/24 14:46 104 20 95 12/03/24 14:38 Nasal Cannula* 1 24 12/03/24 13:00 97.8 147/95 (112) 97.8 Intake/Output Intake and Output 12/03/24 07:00 Intake Total 735 ml Balance 735 ml Intake Oral 735 ml # Voids 3 Exam HEENT pupils are reactive Neck is supple CV is S1-S2 regular rate and rhythm Respiratory diminished breath sounds bases GI positive bowel sound, soft distended mildly tender no guarding no rigidity. Extremity trace edema HRBP no motor deficit General Appearance: Alert, Oriented X3, Cooperative, No acute distress HEENT: Atraumatic, PERRLA Lungs: Clear to auscultation, Normal air movement Cardiovascular: Normal S1, Normal S2 Musculoskeletal: Normal sensory function, Normal motor function Skin: Dry, Intact Psych/Mental Status: Mental status NL, Mood NL Medications Current Medications Medications Dose Ordered Sig/Angelito Route Start Time Stop Time Status Last Admin Dose Admin Metoclopramide HCl 10 mg Q6HPRN PRN IV 11/25/24 00:15 12/03/24 12:18 10 MG Metoprolol Tartrate 25 mg BID PO 11/25/24 10:00 12/03/24 10:22 25 MG Tamsulosin HCl 0.4 mg BID PO 11/25/24 10:00 12/03/24 10:22 0.4 MG Cholecalciferol 1,000 unit DAILY PO 11/25/24 10:00 12/03/24 10:22 1,000 UNIT Atorvastatin Calcium 20 mg HS PO 11/27/24 22:00 12/02/24 23:10 20 MG Rivaroxaban 20 mg HS PO 11/28/24 22:00 12/02/24 23:11 20 MG Acetaminophen 500 mg Q8HP PRN PO 11/29/24 09:00 12/01/24 10:26 500 MG Trazodone HCl 25 mg QHSP PO 11/29/24 22:00 12/02/24 23:10 25 MG Levofloxacin 500 mg DAILY PO 12/01/24 10:00 12/03/24 10:22 500 MG Docusate Sodium 100 mg BID PO 12/01/24 22:00 12/03/24 10:22 100 MG Lactulose 30 ml TID PRN PO 12/01/24 11:00 12/01/24 21:33 30 ML Amino Acids 0 ml @ 0 mls/hr PER PHARMACY IV 12/02/24 19:30 Albuterol 2.5 mg Q4HWA NEB 12/02/24 19:30 12/03/24 14:38 2.5 MG Amino Acids/ Electrolytes/ Dextrose 1,000 ml @ 41 mls/hr DAILY@2200 IV 12/02/24 22:00 12/02/24 23:12 41 MLS/HR Sodium Chloride 1,000 ml @ 75 mls/hr [id number] IV 12/03/24 13:30 12/03/24 16:10 75 MLS/HR Diagnostic Test (Pha) 1 strip Q6HR 12/03/24 18:00 Insulin Human Regular FOLLOW SLIDING SCALE Q6HR SC 12/03/24 18:00 Dextrose 50 ml UD IV 12/03/24 16:15 Laboratory Results Laboratory Tests 12/01/24 14:30 12/03/24 05:17 Chemistry Test 12/02/24 19:53 12/03/24 05:17 Albumin 3.4 g/dL (3.2-4.8) 3.1 g/dL (3.2-4.8) L Calcium Level 12.1 mg/dL (8.7-10.4) H 12.2 mg/dL (8.7-10.4) H Magnesium Level 1.6 mg/dL (1.6-2.6) 1.7 mg/dL (1.6-2.6) Phosphorus Level 1.8 mg/dL (2.4-5.1) L 2.9 mg/dL (2.4-5.1) Total Protein 5.7 g/dL (5.7-8.2) 5.3 g/dL (5.7-8.2) L Lipid panel Test 12/03/24 05:17 Triglycerides Level 75 mg/dL (< 150) LFT Test 12/02/24 19:53 12/03/24 05:17 Alanine Aminotransferase (ALT) 148 U/L (7-40) H 157 U/L (7-40) H Alkaline Phosphatase 435 U/L (46-116) H 413 U/L (46-116) H Aspartate Amino Transferase (AST) 204 U/L (13-40) H 234 U/L (13-40) H Total Bilirubin 2.6 mg/dL (0.2-1.0) H 2.8 mg/dL (0.2-1.0) H Urinalysis Test 11/25/24 02:51 Urine Color Colorless (Yellow) Urine Clarity Clear (Clear) Urine pH 6.5 (5.0-9.0) Urine Specific [place] 1.017 (1.001-1.035) Urine Protein Negative (Negative) Urine Ketones Negative (Negative) Urine Blood Negative /uL (Negative) Urine Nitrite Negative (Negative) Urine Bilirubin Negative (Negative) Urine Urobilinogen Normal mg/dL (Negative) Urine Leukocyte Esterase Negative /uL (Negative) Urine RBC 2 /hpf (0 - 3) Urine Microscopic WBC 4 /HPF (0-3) H Urine Squamous Epithelial Cells Few /hpf (<5) Urine Bacteria None seen /hpf (None Seen) Urine Sperm Present /hpf (None Seen) Urine Glucose Normal mg/dL (Normal) Microbiology Microbiology Date/Time Source Procedure Growth Status 11/25/24 07:41 Nose MRSA Screen - Final Complete 11/25/24 02:51 Voided Urine Urine Culture - Final Complete 11/24/24 22:06 Blood Blood Culture - Final NO GROWTH AFTER 5 DAYS OF INCUBATION. Complete Assessment/Plan Assessment/Plan 79-year-old male with a known history of diabetes mellitus type 2, hypertension, CKD stage IIIB, history of bladder cancer, history of left nephrectomy initially presented to the hospital with the abdominal pain found to have 1. Acute complicated cystitis/emphysematous pyelitis 2. Right obstructive uropathy with right hydronephrosis secondary to obstruction of the ureter 3. 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 Abdominal pain with nausea and one episode of vomiting with a mild distention rule out small-bowel obstruction or large bowel obstruction. 5. Status post right nephrostomy tube placement for right obstructive uropathy 6. Diabetes mellitus type 2 7. Hypertension 8. Paroxysmal AFib, ON XARELTO 9. LIVER LESION LIKELY METASTASIS WELL L4 LESION LIKELY METASTASIS 10. PELVIC MASS/SEMINAL VESICLE MASS/prostatitis UNDERLYING NEOPLASM CAN NOT BE EXCLUDED 11. History of left nephrectomy -up in the chair with the physical therapy, also obtain occupational therapy -CONTINUE BREATHING TREATMENT, incentive spirometry -MRI FINDING DISCUSSED WITH THE PATIENT PATIENT HAS BEEN FAMILY MEMBER AT BEDSIDE, OUTPATIENT PET SCAN RECOMMENDED follow up Infectious Disease recommendations. -continue beta dolly, p.o. antibiotics. I had a lengthy discussion with the family regarding current plan of care in the presence of charge nurse Kayden, as well as Leanne the director of major case detective and one more major case detective. Fall the questions were answered. Patient's family appreciated the current plan of care has been as update. Plan discussed with: Patient, Daughter, Son, Other My Orders Orders - ISIDRA DÍAZ MD Procedure Category Date Status Time Clinimix Per Pharmacy PHA 12/02/24 In Process 19:30 Albuterol Medneb PHA 12/02/24 In Process (Ventolin Medneb) 19:30 Comprehensive LAB 12/04/24 Verified Metabolic Panel 05:00 Comprehensive LAB 12/05/24 Verified Metabolic Panel 05:00 Comprehensive LAB 12/06/24 Verified Metabolic Panel 05:00 Magnesium LAB 12/04/24 Verified 05:00 Magnesium LAB 12/05/24 Verified 05:00 Magnesium LAB 12/06/24 Verified 05:00 Phosphorus LAB 12/04/24 Verified 05:00 Phosphorus LAB 12/05/24 Verified 05:00 Phosphorus LAB 12/06/24 Verified 05:00 Amino Acid Infusion PHA 12/02/24 In Process In D10w (Clinimix 4. 22:00 Sodium Chloride 0.9% PHA 12/03/24 In Process 13:30 Complete Blood Count LAB 12/04/24 Verified 06:00 Magnesium LAB 12/04/24 Verified 06:00 Phosphorus LAB 12/04/24 Verified 06:00 Comprehensive LAB 12/04/24 Verified Metabolic Panel 04:00 Ct Ab Pel Wo Con-No CT 12/03/24 Resulted Oral Or Iv 13:38 * Dietary Consult CONS 12/03/24 Transmitted 14:15 Pt Request For Service PT 12/03/24 Logged 14:15 Glucose Blood PHA 12/03/24 In Process (Accu-Chek Comfort 18:00 Insulin R (Human) PHA 12/03/24 In Process (Insulin R) 18:00 Dextrose 50% Syringe PHA 12/03/24 In Process 16:15 Clinimix Per Pharmacy [facility] 12/03/24 In Process 22:00 Date of Service: Dec 03, 2024 Billing Provider: ISIDRA DÍAZ MD Common Visit Codes: [id number] INP/OBS CARE(MOD) ISIDRA DÍAZ MD Dec 03, 2024 17:02
[2024-12-03] MEDS: ACCU-CHEK COMFORT CURVE STRIP VI SCH (18:39)
[2024-12-03] MEDS: InsuLIN REG 1unit/0.01ml Soln (100units/ml) SC SCH (18:39)
--- NOTE | 2024-12-03 18:57 | DVHPN2 ---
Consult Progress Note Date Seen: Dec 01, 2024 Subjective Patient reports: Other (interval placement of right nephrostomy tube and mild pain at the site , draining clear urine ) Objective vital signs Vital Sign Date Time Temp Pulse Resp B/P (MAP) Pulse Ox O2 Delivery O2 Flow Rate FiO2 12/03/24 17:00 97.8 93 18 133/75 (94) 93 97.8 12/03/24 14:38 Nasal Cannula* 1 24 Total Intake and Output 12/02/24 12/02/24 12/03/24 15:00 23:00 07:00 Intake Total 375 ml 360 ml Balance 375 ml 360 ml medications Current Medications Medications Dose Ordered Sig/Angelito Route Start Time Stop Time Status Last Admin Dose Admin Metoclopramide HCl 10 mg Q6HPRN PRN IV 11/25/24 00:15 12/03/24 12:18 10 MG Metoprolol Tartrate 25 mg BID PO 11/25/24 10:00 12/03/24 10:22 25 MG Tamsulosin HCl 0.4 mg BID PO 11/25/24 10:00 12/03/24 10:22 0.4 MG Cholecalciferol 1,000 unit DAILY PO 11/25/24 10:00 12/03/24 10:22 1,000 UNIT Atorvastatin Calcium 20 mg HS PO 11/27/24 22:00 12/02/24 23:10 20 MG Rivaroxaban 20 mg HS PO 11/28/24 22:00 12/02/24 23:11 20 MG Acetaminophen 500 mg Q8HP PRN PO 11/29/24 09:00 12/01/24 10:26 500 MG Trazodone HCl 25 mg QHSP PO 11/29/24 22:00 12/02/24 23:10 25 MG Levofloxacin 500 mg DAILY PO 12/01/24 10:00 12/03/24 10:22 500 MG Docusate Sodium 100 mg BID PO 12/01/24 22:00 12/03/24 10:22 100 MG Lactulose 30 ml TID PRN PO 12/01/24 11:00 12/01/24 21:33 30 ML Amino Acids 0 ml @ 0 mls/hr PER PHARMACY IV 12/02/24 19:30 Albuterol 2.5 mg Q4HWA NEB 12/02/24 19:30 12/03/24 14:38 2.5 MG Amino Acids/ Electrolytes/ Dextrose 1,000 ml @ 41 mls/hr DAILY@2200 IV 12/02/24 22:00 12/02/24 23:12 41 MLS/HR Sodium Chloride 1,000 ml @ 75 mls/hr [id number] IV 12/03/24 13:30 12/03/24 16:10 75 MLS/HR Diagnostic Test (Pha) 1 strip Q6HR 12/03/24 18:00 12/03/24 18:39 1 STRIP Insulin Human Regular FOLLOW SLIDING SCALE Q6HR SC 12/03/24 18:00 12/03/24 18:39 4 UNITS Dextrose 50 ml UD IV 12/03/24 16:15 Physical Exam: General: NAD Neck: Supple. No masses. HEENT: PERRL. Normal lids and conjunctiva. Moist mucous membranes. Oropharynx without lesions, exudates or excessive erythema. Normal appearance of the external aspects of the nose and ears. Heart: Regular rhythm, normal rate. No murmur. No lower extremity edema. Lungs: Normal respiratory effort. Clear to auscultation bilaterally. No wheezes. No crackles. Abdomen: Soft. Tender to palpation in the suprapubic region and right lower quadrant, with right costovertebral angle tenderness. Non-distended. No masses or abdominal hernia. Msk: No digital cyanosis. Normal strength and tone in all four limbs Skin: Warm and dry, no rashes. Neuro: Alert. No facial droop or slurred speech. Extra-ocular movements intact. Sensation intact to soft touch in all four limbs. Psych: Appropriate mood. Full affect. Oriented to person, place, time, and situation. laboratory and microbiology Laboratory Tests 12/03/24 05:17 12/01/24 14:30 Test 12/03/24 05:17 Range/Units Serum Glucose 125 H 74-106 mg/dL Problem List/Assessment/Plan Problems(with codes): (1) Renal cyst (2) History of bladder cancer (3) Hydrocele in adult (4) Hydronephrosis due to obstruction of ureter (5) Pelvic abscess in male Problem List/Assessment/Plan ASSESSMENT AND PLAN: ID Problem List: \-- Acute right-sided abdominal pain \-- Right hydronephrosis \-- Possible urinary tract infection / cystitis \-- History of left renal carcinoma, status post nephrectomy (2021) \-- Atrial fibrillation on Xarelto \-- Hypertension \-- Type 2 Diabetes Mellitus \-- Hyperlipidemia Assessment This is a 79-year-old female with a history of type 2 diabetes, hypertension, hyperlipidemia, atrial fibrillation (on Xarelto), and left renal carcinoma s/p nephrectomy in 2021. She presents with acute onset, crampy, right-sided abdominal pain radiating to the right lower quadrant for four days, rated as 8/10, with associated nausea, vomiting, and constipation. Imaging (CT abdomen/pelvis) demonstrates wall thickening of the urinary bladder with perivesical fat stranding concerning for possible cystitis, a 3 x 2.3 cm hypodense area in the right seminal vesicle (abscess within differential), mild to moderate right hydronephrosis with dilated distal ureter, and possible ascending infection. 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 There is also evidence of cirrhotic liver morphology and a right echogenic kidney. Exam is notable for suprapubic, right lower quadrant, and right CVA tenderness. Labs reveal creatinine of 1.66, sodium 131-135, potassium 3.4, WBC 10.1, lactic acid 2.2, lipase 389, and urinalysis positive for pyuria but negative for nitrites and leukocyte esterase. Cultures to date, including blood and urine, are negative. Testicular ultrasound was negative for torsion, epididymitis, or orchitis; renal ultrasound confirmed moderate right hydronephrosis with perinephric fluid and right renal cyst. A nephrostomy has been planned by urology for persistent right hydronephrosis. MRI prostate is planned to evaluate for possible abscess. Liver ultrasound noted cirrhotic changes. Low suspicion for active infection per urology, however, empiric antibiotics for possible prostatic abscess are advised given imaging and lab data. 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 patient has neumorous lesions in the liver as large as 5cm , multiple renal cysts up to 2.3cm in size . heterogenous lesions in the left aspect of the pelvis in the expected region of the seminal versicles measuring 5.1x 4.4 cm but very poorly characterized . increased edema signal within the pulmonary with extremely heterogenous appearance . could represent neoplasm vs inflammatory process . 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 however as image is unable to differentiate between this and an abscess will treat empirically from proctitis 12/01: low suspicion for UTI , urine culture is without any significant growth Plan: - recommend hematology oncology consultation to evaluate satisipations cancer and to determine if additional chemotherapy regimens are indicated at this time \-- Proceed with right percutaneous nephrostomy tube placement \-- f/u on urine culture \-- continue levofloxacin 500 mg daily for six weeks (pending MRI findings) \-- Outpatient follow-up with urology at [facility] \-- Reassess with repeat CT abdomen/pelvis in six weeks to monitor for resolution of abscess or infection \-- Monitor creatinine and renal function \-- Continue all home medications as appropriate, especially anticoagulation (Xarelto) with close monitoring in context of renal insufficiency \-- Supportive care: pain control, maintain hydration \-- Patient and plan discussed with urology and patient updated accordingly Isolation Precautions: standard Plan discussed with: Other Dietary Evaluation Review Comments: 1) CCHO 60gm + 2 gm Na diet 2) Refer Medical Diagnostic Radiographer for diabetes education Expected Outcomes/Goals: To meet >75% estimated needs Fu 3-5 days DEYSI MENDOZA MD Dec 03, 2024 18:57
--- NOTE | 2024-12-03 18:58 | DVHPN2 ---
Consult Progress Note Date Seen: Dec 02, 2024 Subjective Patient reports: Other (transitioned to oral antibioitc therapy and has not developed fevers , tachycardic . unable to be seen by hematology oncology due to unavailable at [facility] ) Objective vital signs Vital Sign Date Time Temp Pulse Resp B/P (MAP) Pulse Ox O2 Delivery O2 Flow Rate FiO2 12/03/24 17:00 97.8 93 18 133/75 (94) 93 97.8 12/03/24 14:38 Nasal Cannula* 1 24 Total Intake and Output 12/02/24 12/02/24 12/03/24 15:00 23:00 07:00 Intake Total 375 ml 360 ml Balance 375 ml 360 ml medications Current Medications Medications Dose Ordered Sig/Angelito Route Start Time Stop Time Status Last Admin Dose Admin Metoclopramide HCl 10 mg Q6HPRN PRN IV 11/25/24 00:15 12/03/24 12:18 10 MG Metoprolol Tartrate 25 mg BID PO 11/25/24 10:00 12/03/24 10:22 25 MG Tamsulosin HCl 0.4 mg BID PO 11/25/24 10:00 12/03/24 10:22 0.4 MG Cholecalciferol 1,000 unit DAILY PO 11/25/24 10:00 12/03/24 10:22 1,000 UNIT Atorvastatin Calcium 20 mg HS PO 11/27/24 22:00 12/02/24 23:10 20 MG Rivaroxaban 20 mg HS PO 11/28/24 22:00 12/02/24 23:11 20 MG Acetaminophen 500 mg Q8HP PRN PO 11/29/24 09:00 12/01/24 10:26 500 MG Trazodone HCl 25 mg QHSP PO 11/29/24 22:00 12/02/24 23:10 25 MG Levofloxacin 500 mg DAILY PO 12/01/24 10:00 12/03/24 10:22 500 MG Docusate Sodium 100 mg BID PO 12/01/24 22:00 12/03/24 10:22 100 MG Lactulose 30 ml TID PRN PO 12/01/24 11:00 12/01/24 21:33 30 ML Amino Acids 0 ml @ 0 mls/hr PER PHARMACY IV 12/02/24 19:30 Albuterol 2.5 mg Q4HWA NEB 12/02/24 19:30 12/03/24 14:38 2.5 MG Amino Acids/ Electrolytes/ Dextrose 1,000 ml @ 41 mls/hr DAILY@2200 IV 12/02/24 22:00 12/02/24 23:12 41 MLS/HR Sodium Chloride 1,000 ml @ 75 mls/hr [id number] IV 12/03/24 13:30 12/03/24 16:10 75 MLS/HR Diagnostic Test (Pha) 1 strip Q6HR 12/03/24 18:00 12/03/24 18:39 1 STRIP Insulin Human Regular FOLLOW SLIDING SCALE Q6HR SC 12/03/24 18:00 12/03/24 18:39 4 UNITS Dextrose 50 ml UD IV 12/03/24 16:15 Physical Exam: General: NAD Neck: Supple. No masses. HEENT: PERRL. Normal lids and conjunctiva. Moist mucous membranes. Oropharynx without lesions, exudates or excessive erythema. Normal appearance of the external aspects of the nose and ears. Heart: Regular rhythm, normal rate. No murmur. No lower extremity edema. Lungs: Normal respiratory effort. Clear to auscultation bilaterally. No wheezes. No crackles. Abdomen: Soft. Tender to palpation in the suprapubic region and right lower quadrant, with right costovertebral angle tenderness. Non-distended. No masses or abdominal hernia. Msk: No digital cyanosis. Normal strength and tone in all four limbs Skin: Warm and dry, no rashes. Neuro: Alert. No facial droop or slurred speech. Extra-ocular movements intact. Sensation intact to soft touch in all four limbs. Psych: Appropriate mood. Full affect. Oriented to person, place, time, and situation. laboratory and microbiology Laboratory Tests 12/03/24 05:17 12/01/24 14:30 Test 12/03/24 05:17 Range/Units Serum Glucose 125 H 74-106 mg/dL Problem List/Assessment/Plan Problems(with codes): (1) URI (upper respiratory infection) (2) Urethritis (3) Intractable abdominal pain (4) History of bladder cancer (5) Hydrocele in adult (6) Hydronephrosis due to obstruction of ureter (7) Pelvic abscess in male Problem List/Assessment/Plan ASSESSMENT AND PLAN: ID Problem List: \-- Acute right-sided abdominal pain \-- Right hydronephrosis \-- Possible urinary tract infection / cystitis \-- History of left renal carcinoma, status post nephrectomy (2021) \-- Atrial fibrillation on Xarelto \-- Hypertension \-- Type 2 Diabetes Mellitus \-- Hyperlipidemia Assessment This is a 79-year-old female with a history of type 2 diabetes, hypertension, hyperlipidemia, atrial fibrillation (on Xarelto), and left renal carcinoma s/p nephrectomy in 2021. She presents with acute onset, crampy, right-sided abdominal pain radiating to the right lower quadrant for four days, rated as 8/10, with associated nausea, vomiting, and constipation. Imaging (CT abdomen/pelvis) demonstrates wall thickening of the urinary bladder with perivesical fat stranding concerning for possible cystitis, a 3 x 2.3 cm hypodense area in the right seminal vesicle (abscess within differential), mild to moderate right hydronephrosis with dilated distal ureter, and possible ascending infection. 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 There is also evidence of cirrhotic liver morphology and a right echogenic kidney. Exam is notable for suprapubic, right lower quadrant, and right CVA tenderness. Labs reveal creatinine of 1.66, sodium 131-135, potassium 3.4, WBC 10.1, lactic acid 2.2, lipase 389, and urinalysis positive for pyuria but negative for nitrites and leukocyte esterase. Cultures to date, including blood and urine, are negative. Testicular ultrasound was negative for torsion, epididymitis, or orchitis; renal ultrasound confirmed moderate right hydronephrosis with perinephric fluid and right renal cyst. A nephrostomy has been planned by urology for persistent right hydronephrosis. MRI prostate is planned to evaluate for possible abscess. Liver ultrasound noted cirrhotic changes. Low suspicion for active infection per urology, however, empiric antibiotics for possible prostatic abscess are advised given imaging and lab data. 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 patient has neumorous lesions in the liver as large as 5cm , multiple renal cysts up to 2.3cm in size . heterogenous lesions in the left aspect of the pelvis in the expected region of the seminal versicles measuring 5.1x 4.4 cm but very poorly characterized . increased edema signal within the pulmonary with extremely heterogenous appearance . could represent neoplasm vs inflammatory process . 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 however as image is unable to differentiate between this and an abscess will treat empirically from proctitis 12/01: low suspicion for UTI , urine culture is without any significant growth 12/02:patients family requesting transfer to higher level of care at [place] Plan: - repeat EKG in 5 days to ensure patient is tolerating levofloxacin without arrhythmia - recommend hematology oncology consultation to evaluate satisipations cancer and to determine if additional chemotherapy regimens are indicated at this time \-- Proceed with right percutaneous nephrostomy tube placement \-- f/u on urine culture \-- continue levofloxacin 500 mg daily for six weeks (pending MRI findings) \-- Outpatient follow-up with urology at [facility] \-- Reassess with repeat CT abdomen/pelvis in six weeks to monitor for resolution of abscess or infection \-- Monitor creatinine and renal function \-- Continue all home medications as appropriate, especially anticoagulation (Xarelto) with close monitoring in context of renal insufficiency \-- Supportive care: pain control, maintain hydration \-- Patient and plan discussed with urology and patient updated accordingly Isolation Precautions: standard Plan discussed with: Other Dietary Evaluation Review Comments: 1) CCHO 60gm + 2 gm Na diet 2) Refer Oil Sprayer for diabetes education Expected Outcomes/Goals: To meet >75% estimated needs Fu 3-5 days DEYSI MENDOZA MD Dec 03, 2024 18:57
--- NOTE | 2024-12-03 18:58 | DVHPN2 ---
Consult Progress Note Date Seen: Dec 03, 2024 Subjective Patient reports: Other (remains clinically stable , family is concerned about patients metastatic cancer . tachycardic ) Objective vital signs Vital Sign Date Time Temp Pulse Resp B/P (MAP) Pulse Ox O2 Delivery O2 Flow Rate FiO2 12/03/24 17:00 97.8 93 18 133/75 (94) 93 97.8 12/03/24 14:38 Nasal Cannula* 1 24 Total Intake and Output 12/02/24 12/02/24 12/03/24 15:00 23:00 07:00 Intake Total 375 ml 360 ml Balance 375 ml 360 ml medications Current Medications Medications Dose Ordered Sig/Angelito Route Start Time Stop Time Status Last Admin Dose Admin Metoclopramide HCl 10 mg Q6HPRN PRN IV 11/25/24 00:15 12/03/24 12:18 10 MG Metoprolol Tartrate 25 mg BID PO 11/25/24 10:00 12/03/24 10:22 25 MG Tamsulosin HCl 0.4 mg BID PO 11/25/24 10:00 12/03/24 10:22 0.4 MG Cholecalciferol 1,000 unit DAILY PO 11/25/24 10:00 12/03/24 10:22 1,000 UNIT Atorvastatin Calcium 20 mg HS PO 11/27/24 22:00 12/02/24 23:10 20 MG Rivaroxaban 20 mg HS PO 11/28/24 22:00 12/02/24 23:11 20 MG Acetaminophen 500 mg Q8HP PRN PO 11/29/24 09:00 12/01/24 10:26 500 MG Trazodone HCl 25 mg QHSP PO 11/29/24 22:00 12/02/24 23:10 25 MG Levofloxacin 500 mg DAILY PO 12/01/24 10:00 12/03/24 10:22 500 MG Docusate Sodium 100 mg BID PO 12/01/24 22:00 12/03/24 10:22 100 MG Lactulose 30 ml TID PRN PO 12/01/24 11:00 12/01/24 21:33 30 ML Amino Acids 0 ml @ 0 mls/hr PER PHARMACY IV 12/02/24 19:30 Albuterol 2.5 mg Q4HWA NEB 12/02/24 19:30 12/03/24 14:38 2.5 MG Amino Acids/ Electrolytes/ Dextrose 1,000 ml @ 41 mls/hr DAILY@2200 IV 12/02/24 22:00 12/02/24 23:12 41 MLS/HR Sodium Chloride 1,000 ml @ 75 mls/hr [id number] IV 12/03/24 13:30 12/03/24 16:10 75 MLS/HR Diagnostic Test (Pha) 1 strip Q6HR 12/03/24 18:00 12/03/24 18:39 1 STRIP Insulin Human Regular FOLLOW SLIDING SCALE Q6HR SC 12/03/24 18:00 12/03/24 18:39 4 UNITS Dextrose 50 ml UD IV 12/03/24 16:15 Physical Exam: General: NAD Neck: Supple. No masses. HEENT: PERRL. Normal lids and conjunctiva. Moist mucous membranes. Oropharynx without lesions, exudates or excessive erythema. Normal appearance of the external aspects of the nose and ears. Heart: Regular rhythm, normal rate. No murmur. No lower extremity edema. Lungs: Normal respiratory effort. Clear to auscultation bilaterally. No wheezes. No crackles. Abdomen: Soft. Tender to palpation in the suprapubic region and right lower quadrant, with right costovertebral angle tenderness. Non-distended. No masses or abdominal hernia. Msk: No digital cyanosis. Normal strength and tone in all four limbs Skin: Warm and dry, no rashes. Neuro: Alert. No facial droop or slurred speech. Extra-ocular movements intact. Sensation intact to soft touch in all four limbs. Psych: Appropriate mood. Full affect. Oriented to person, place, time, and situation. laboratory and microbiology Laboratory Tests 12/03/24 05:17 12/01/24 14:30 Test 12/03/24 05:17 Range/Units Serum Glucose 125 H 74-106 mg/dL Problem List/Assessment/Plan Problems(with codes): (1) Renal cyst (2) Pelvic abscess in male (3) Hydronephrosis due to obstruction of ureter (4) Hydrocele in adult (5) Status post nephrectomy Problem List/Assessment/Plan ASSESSMENT AND PLAN: ID Problem List: \-- Acute right-sided abdominal pain \-- Right hydronephrosis \-- Possible urinary tract infection / cystitis \-- History of left renal carcinoma, status post nephrectomy (2021) \-- Atrial fibrillation on Xarelto \-- Hypertension \-- Type 2 Diabetes Mellitus \-- Hyperlipidemia Assessment This is a 79-year-old female with a history of type 2 diabetes, hypertension, hyperlipidemia, atrial fibrillation (on Xarelto), and left renal carcinoma s/p nephrectomy in 2021. She presents with acute onset, crampy, right-sided abdominal pain radiating to the right lower quadrant for four days, rated as 8/10, with associated nausea, vomiting, and constipation. Imaging (CT abdomen/pelvis) demonstrates wall thickening of the urinary bladder with perivesical fat stranding concerning for possible cystitis, a 3 x 2.3 cm hypodense area in the right seminal vesicle (abscess within differential), mild to moderate right hydronephrosis with dilated distal ureter, and possible ascending infection. 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 There is also evidence of cirrhotic liver morphology and a right echogenic kidney. Exam is notable for suprapubic, right lower quadrant, and right CVA tenderness. Labs reveal creatinine of 1.66, sodium 131-135, potassium 3.4, WBC 10.1, lactic acid 2.2, lipase 389, and urinalysis positive for pyuria but negative for nitrites and leukocyte esterase. Cultures to date, including blood and urine, are negative. Testicular ultrasound was negative for torsion, epididymitis, or orchitis; renal ultrasound confirmed moderate right hydronephrosis with perinephric fluid and right renal cyst. A nephrostomy has been planned by urology for persistent right hydronephrosis. MRI prostate is planned to evaluate for possible abscess. Liver ultrasound noted cirrhotic changes. Low suspicion for active infection per urology, however, empiric antibiotics for possible prostatic abscess are advised given imaging and lab data. 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 patient has neumorous lesions in the liver as large as 5cm , multiple renal cysts up to 2.3cm in size . heterogenous lesions in the left aspect of the pelvis in the expected region of the seminal versicles measuring 5.1x 4.4 cm but very poorly characterized . increased edema signal within the pulmonary with extremely heterogenous appearance . could represent neoplasm vs inflammatory process . 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 remains clinically stable , no signs of active sepsis Plan: - repeat EKG in 5 days to ensure patient is tolerating levofloxacin without arrhythmia - recommend hematology oncology consultation to evaluate satisipations cancer and to determine if additional chemotherapy regimens are indicated at this time \-- Proceed with right percutaneous nephrostomy tube placement \-- f/u on urine culture \-- continue levofloxacin 500 mg daily for six weeks (pending MRI findings) \-- Outpatient follow[facility] at [facility] \-- Reassess with repeat CT abdomen/pelvis in six weeks to monitor for resolution of abscess or infection \-- Monitor creatinine and renal function \-- Continue all home medications as appropriate, especially anticoagulation (Xarelto) with close monitoring in context of renal insufficiency \-- Supportive care: pain control, maintain hydration \-- Patient and plan discussed with urology and patient updated accordingly Isolation Precautions: standard Plan discussed with: Other Dietary Evaluation Review Comments: 1) CCHO 60gm + 2 gm Na diet 2) Refer [employer] for diabetes education Expected Outcomes/Goals: To meet >75% estimated needs Fu 3-5 days DEYSI MENDOZA MD Dec 03, 2024 18:58
[2024-12-04] VITALS (17 sets, daily range): BP systolic 121–165; BP diastolic 77–94; PULSE 79–115; RESP 17–24; TEMP 98.2–99.3; O2SAT 90–99
[2024-12-04 07:28] LABS: Hematocrit 37.5 % (41.0-53.0); Hemoglobin 13.2 g/dL (13.5-17.5); Mean Corpuscular Hemoglobin 30.5 pg (28.0-32.0); Mean Corpuscular Volume 86.8 fL (80.0-100.0); Nucleated Red Blood Cells % 0.0 %
[2024-12-04 07:44] LABS: Albumin 3.2 g/dL (3.2-4.8); Anion Gap 11 (5-15); BUN/Creatinine Ratio 11.8 (10.0-20.0); Blood Urea Nitrogen 10 mg/dL (9-23); Carbon Dioxide 23 mmol/L (20-31); Magnesium 1.8 mg/dL (1.6-2.6); Potassium 3.9 mmol/L (3.5-5.1)
[2024-12-04 07:49] LABS: Alanine Aminotransferase 212 U/L (7-40); Alkaline Phosphatase 533 U/L (46-116); Bilirubin, Total 3.8 mg/dL (0.2-1.0); Calcium 12.7 mg/dL (8.7-10.4); Chloride 89 mmol/L (98-107); Glucose 114 mg/dL (74-106); Sodium 123 mmol/L (136-145); Total Protein 5.5 g/dL (5.7-8.2)
[2024-12-04 11:59] LABS: Base Excess 1.8 mmol/L (-2.0-3.0)
--- NOTE | 2024-12-04 13:51 | DVH ---
EXAM: CT HEAD WITHOUT CONTRAST INDICATION: aloc/confusion TECHNIQUE: CT of the head without intravenous contrast. Coronal and sagittal reformatted images are s ubmitted. Radiation Dose : 1. Head: CT Dose: CTDI volume is 48.72 mGy. Dose-length product is 1.85 mGy*cm The dose indicators for CT are the volume Computed Tomography (CT) Dose Index (CTDIvol) and the Dose Length Product (DLP), and are measured in units of mGy and mGy-cm, respectively. These indicators are not patient dose, but values generated from the CT scanner acquisition factors. The report includes radiation exposure data for exposures received during this examination. All CT scans at this medical facility are performed using dose modulation techniques as appropriate to a performed exam including the following: Automated exposure control was utilized; adjustment of the MA and/or KV according to patient size; and use of iterative reconstruction technique. COMPARISON: CT HEAD WITHOUT CONTRAST on DOS: 04/07/23 FINDINGS: There is no evidence of acute intracranial hemorrhage, extra-axial collection, mass effect, midline s hift, herniation or hydrocephalus. The ventricles, sulci and cisterns are age appropriate. The burnett-white differentiation is intact. The visualized paranasal sinuses and mastoid air cells are clear. No depressed calvarial fracture. The surrounding soft tissues are unremarkable. IMPRESSION: 1. No evidence of acute intracranial abnormality.
[2024-12-04] MEDS ORDERED: HYDROcodone-ACET 5/325MG TAB PO PRN (18:00)
--- NOTE | 2024-12-04 18:11 | DVHPN2 ---
Subjective Overnight events noted. Patient is very physically deconditioned. Also poor appetite. Patient did receive trazodone overnight which was discontinued by Magda turner by me. Also family was apparently regarding current plan of care. Patient ammonia level came increased, lactulose has been added, CT head is negative for any acute pathology. Also to be noted patient nephrostomy tube got pulled out accidentally, IR has been consulted and they will replace it on Friday. Reviewed: Care Plan, H&P, Labs, Medications Changes from previous H/P or p: Changes (Right and nephrostomy tube got pulled out accidentally.) General: Per HPI Objective Vitals Vital Signs Date Time Temp Pulse Resp B/P (MAP) Pulse Ox O2 Delivery O2 Flow Rate FiO2 12/04/24 17:19 99.0 96 20 126/85 (99) 97 99.0 12/04/24 14:47 Nasal Cannula* 2 28 Intake/Output Intake and Output 12/04/24 07:00 Intake Total 540 ml Output Total 100 ml Balance 440 ml Intake Oral 540 ml Output Urine Total 100 ml # Voids 1 Exam HEENT pupils are reactive Neck is supple CV is S1-S2 regular rate and rhythm Respiratory diminished breath sounds bases GI positive bowel sound, soft distended mildly tender no guarding no rigidity. 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 General Appearance: Alert, Oriented X3, Cooperative, No acute distress HEENT: Atraumatic, PERRLA Lungs: Clear to auscultation, Normal air movement Cardiovascular: Normal S1, Normal S2 Musculoskeletal: Normal sensory function, Normal motor function Skin: Dry, Intact Psych/Mental Status: Mental status NL, Mood NL Medications Current Medications Medications Dose Ordered Sig/Angelito Route Start Time Stop Time Status Last Admin Dose Admin Metoclopramide HCl 10 mg Q6HPRN PRN IV 11/25/24 00:15 12/03/24 12:18 10 MG Metoprolol Tartrate 25 mg BID PO 11/25/24 10:00 12/04/24 09:02 25 MG Tamsulosin HCl 0.4 mg BID PO 11/25/24 10:00 12/04/24 09:02 0.4 MG Cholecalciferol 1,000 unit DAILY PO 11/25/24 10:00 12/04/24 09:02 1,000 UNIT Atorvastatin Calcium 20 mg HS PO 11/27/24 22:00 12/03/24 23:27 20 MG Rivaroxaban 20 mg HS PO 11/28/24 22:00 12/02/24 23:11 20 MG Acetaminophen 500 mg Q8HP PRN PO 11/29/24 09:00 12/01/24 10:26 500 MG Levofloxacin 500 mg DAILY PO 12/01/24 10:00 12/04/24 09:02 500 MG Docusate Sodium 100 mg BID PO 12/01/24 22:00 12/04/24 09:02 100 MG Lactulose 30 ml TID PRN PO 12/01/24 11:00 12/01/24 21:33 30 ML Amino Acids 0 ml @ 0 mls/hr PER PHARMACY IV 12/02/24 19:30 Albuterol 2.5 mg Q4HWA NEB 12/02/24 19:30 12/04/24 14:47 2.5 MG Amino Acids/ Electrolytes/ Dextrose 1,000 ml @ 41 mls/hr DAILY@2200 IV 12/02/24 22:00 12/03/24 22:30 41 MLS/HR Sodium Chloride 1,000 ml @ 75 mls/hr [id number] IV 12/03/24 13:30 12/04/24 02:50 75 MLS/HR Diagnostic Test (Pha) 1 strip Q6HR 12/03/24 18:00 12/04/24 12:00 1 STRIP Insulin Human Regular FOLLOW SLIDING SCALE Q6HR SC 12/03/24 18:00 12/04/24 12:00 4 UNITS Dextrose 50 ml UD IV 12/03/24 16:15 Acetaminophen/ Hydrocodone Bitart 1 tab Q4HPRN PRN PO 12/04/24 18:00 UNV Laboratory Results Laboratory Tests 12/04/24 06:12 Chemistry Test 12/04/24 06:12 Albumin 3.2 g/dL (3.2-4.8) Calcium Level 12.7 mg/dL (8.7-10.4) H Magnesium Level 1.8 mg/dL (1.6-2.6) Phosphorus Level 2.0 mg/dL (2.4-5.1) L Total Protein 5.5 g/dL (5.7-8.2) L LFT Test 12/04/24 06:12 Alanine Aminotransferase (ALT) 212 U/L (7-40) H Alkaline Phosphatase 533 U/L (46-116) H Aspartate Amino Transferase (AST) 323 U/L (13-40) H Total Bilirubin 3.8 mg/dL (0.2-1.0) H Urinalysis Test 11/25/24 02:51 Urine Color Colorless (Yellow) Urine Clarity Clear (Clear) Urine pH 6.5 (5.0-9.0) Urine Specific [place] 1.017 (1.001-1.035) Urine Protein Negative (Negative) Urine Ketones Negative (Negative) Urine Blood Negative /uL (Negative) Urine Nitrite Negative (Negative) Urine Bilirubin Negative (Negative) Urine Urobilinogen Normal mg/dL (Negative) Urine Leukocyte Esterase Negative /uL (Negative) Urine RBC 2 /hpf (0 - 3) Urine Microscopic WBC 4 /HPF (0-3) H Urine Squamous Epithelial Cells Few /hpf (<5) Urine Bacteria None seen /hpf (None Seen) Urine Sperm Present /hpf (None Seen) Urine Glucose Normal mg/dL (Normal) Blood Gas Results Test 12/04/24 11:34 Arterial Blood pH 7.500 (7.350-7.450) FiO2 % 28.0 Microbiology Microbiology Date/Time Source Procedure Growth Status 11/25/24 07:41 Nose MRSA Screen - Final Complete 11/25/24 02:51 Voided Urine Urine Culture - Final Complete 11/24/24 22:06 Blood Blood Culture - Final NO GROWTH AFTER 5 DAYS OF INCUBATION. Complete Assessment/Plan Assessment/Plan 79-year-old male with a known history of diabetes mellitus type 2, hypertension, CKD stage IIIB, history of bladder cancer, history of left nephrectomy initially presented to the hospital with the abdominal pain found to have 1. Acute complicated cystitis/emphysematous pyelitis 2. Right obstructive uropathy with right hydronephrosis secondary to obstruction of the ureter 3. 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 Abdominal pain with nausea and one episode of vomiting with a mild distention rule out small-bowel obstruction or large bowel obstruction. 5. Status post right nephrostomy tube placement for right obstructive uropathy, accident and pulled out by the patient and family. 6. Diabetes mellitus type 2 7. Transaminitis 8. Paroxysmal AFib, ON XARELTO 9. LIVER LESION LIKELY METASTASIS WELL L4 LESION LIKELY METASTASIS 10. PELVIC MASS/SEMINAL VESICLE MASS/prostatitis UNDERLYING NEOPLASM CAN NOT BE EXCLUDED 11. 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 -continue beta dolly, p.o. antibiotics. I had a lengthy discussion with the family regarding current plan of care in the presence of charge nurse Kayden, as well as Leanne the director of manager of case and one more manager of case on12/03. Fall the questions were answered. Patient's family appreciated the current plan of care has been as update. Also I updated the family at bedside regarding current plan of care. Plan discussed with: Patient, Daughter, Son My Orders Orders - ISIDRA DÍAZ MD Procedure Category Date Status Time Abg W/ Co-Ox RT 12/04/24 Logged 11:34 Clinimix Per Pharmacy [facility] 12/04/24 In Process 22:[address] 12/04/24 Resulted 12:33 Hydrocodone-Acet PHA 12/04/24 Logged 5/325mg Tab ([place] 18:00 Date of Service: Dec 04, 2024 Billing Provider: ISIDRA DÍAZ MD Common Visit Codes: [id number] INP/OBS CARE(MOD) ISIDRA DÍAZ MD Dec 04, 2024 18:11
--- NOTE | 2024-12-04 23:32 | DVHPN2 ---
Consult Progress Note Date Seen: Dec 04, 2024 Subjective Patient reports: Feels better (R nephrostomy tube pulled out inadvertently. otherwise no complaints. tolerating levofloxacin. ) Review of Systems: HEENT:Abnormal Objective vital signs Vital Sign Date Time Temp Pulse Resp B/P (MAP) Pulse Ox O2 Delivery O2 Flow Rate FiO2 12/04/24 22:40 107 148/80 12/04/24 22:20 93 Nasal Cannula 2.0 12/04/24 22:20 28 12/04/24 18:59 20 12/04/24 17:19 99.0 99.0 Total Intake and Output 12/03/24 12/03/24 12/04/24 15:00 23:00 07:00 Intake Total 300 ml 240 ml Output Total 100 ml Balance 200 ml 240 ml medications Current Medications Medications Dose Ordered Sig/Angelito Route Start Time Stop Time Status Last Admin Dose Admin Metoclopramide HCl 10 mg Q6HPRN PRN IV 11/25/24 00:15 12/03/24 12:18 10 MG Metoprolol Tartrate 25 mg BID PO 11/25/24 10:00 12/04/24 22:40 25 MG Tamsulosin HCl 0.4 mg BID PO 11/25/24 10:00 12/04/24 22:39 0.4 MG Cholecalciferol 1,000 unit DAILY PO 11/25/24 10:00 12/04/24 09:02 1,000 UNIT Atorvastatin Calcium 20 mg HS PO 11/27/24 22:00 12/04/24 22:39 20 MG Rivaroxaban 20 mg HS PO 11/28/24 22:00 12/04/24 22:39 20 MG Acetaminophen 500 mg Q8HP PRN PO 11/29/24 09:00 12/01/24 10:26 500 MG Levofloxacin 500 mg DAILY PO 12/01/24 10:00 12/04/24 09:02 500 MG Docusate Sodium 100 mg BID PO 12/01/24 22:00 12/04/24 22:39 100 MG Lactulose 30 ml TID PRN PO 12/01/24 11:00 12/01/24 21:33 30 ML Amino Acids 0 ml @ 0 mls/hr PER PHARMACY IV 12/02/24 19:30 Albuterol 2.5 mg Q4HWA NEB 12/02/24 19:30 12/04/24 18:56 2.5 MG Amino Acids/ Electrolytes/ Dextrose 1,000 ml @ 41 mls/hr DAILY@2200 IV 12/02/24 22:00 12/04/24 22:39 41 MLS/HR Sodium Chloride 1,000 ml @ 75 mls/hr [id number] IV 12/03/24 13:30 12/04/24 02:50 75 MLS/HR Diagnostic Test (Pha) 1 strip Q6HR 12/03/24 18:00 12/04/24 22:56 1 STRIP Insulin Human Regular FOLLOW SLIDING SCALE Q6HR SC 12/03/24 18:00 12/04/24 18:00 2 UNITS Dextrose 50 ml UD IV 12/03/24 16:15 Acetaminophen/ Hydrocodone Bitart 1 tab Q4HPRN PRN PO 12/04/24 18:00 Lactulose 30 ml TID PRN PO 12/04/24 18:30 laboratory and microbiology Laboratory Tests 12/04/24 06:12 Test 12/04/24 06:12 Range/Units Serum Glucose 114 H 74-106 mg/dL Problem List/Assessment/Plan Problems(with codes): (1) Elevated liver enzymes (2) Metastatic cancer to liver (3) Cirrhosis of liver (4) Generalized weakness (5) Hepatic encephalopathy (6) Atrial fibrillation (7) URI (upper respiratory infection) (8) Pelvic abscess in male Problem List/Assessment/Plan ASSESSMENT AND PLAN: ID Problem List: \-- Acute right-sided abdominal pain \-- Right hydronephrosis \-- Possible urinary tract infection / cystitis \-- History of left renal carcinoma, status post nephrectomy (2021) \-- Atrial fibrillation on Xarelto \-- Hypertension \-- Type 2 Diabetes Mellitus \-- Hyperlipidemia Assessment This is a 79-year-old female with a history of type 2 diabetes, hypertension, hyperlipidemia, atrial fibrillation (on Xarelto), and left renal carcinoma s/p nephrectomy in 2021. She presents with acute onset, crampy, right-sided abdominal pain radiating to the right lower quadrant for four days, rated as 8/10, with associated nausea, vomiting, and constipation. Imaging (CT abdomen/pelvis) demonstrates wall thickening of the urinary bladder with perivesical fat stranding concerning for possible cystitis, a 3 x 2.3 cm hypodense area in the right seminal vesicle (abscess within differential), mild to moderate right hydronephrosis with dilated distal ureter, and possible ascending infection. 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 There is also evidence of cirrhotic liver morphology and a right echogenic kidney. Exam is notable for suprapubic, right lower quadrant, and right CVA tenderness. Labs reveal creatinine of 1.66, sodium 131-135, potassium 3.4, WBC 10.1, lactic acid 2.2, lipase 389, and urinalysis positive for pyuria but negative for nitrites and leukocyte esterase. Cultures to date, including blood and urine, are negative. Testicular ultrasound was negative for torsion, epididymitis, or orchitis; renal ultrasound confirmed moderate right hydronephrosis with perinephric fluid and right renal cyst. A nephrostomy has been planned by urology for persistent right hydronephrosis. MRI prostate is planned to evaluate for possible abscess. Liver ultrasound noted cirrhotic changes. Low suspicion for active infection per urology, however, empiric antibiotics for possible prostatic abscess are advised given imaging and lab data. 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 patient has neumorous lesions in the liver as large as 5cm , multiple renal cysts up to 2.3cm in size . heterogenous lesions in the left aspect of the pelvis in the expected region of the seminal versicles measuring 5.1x 4.4 cm but very poorly characterized . increased edema signal within the pulmonary with extremely heterogenous appearance . could represent neoplasm vs inflammatory process . 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 remains clinically stable , no signs of active sepsis 12/04: patient is without a nephrostomy line , able to urinate through catheter . no signs of cellulitis at site of nephrostomy tube exit Plan: - repeat EKG in 5 days to ensure patient is tolerating levofloxacin without arrhythmia - recommend hematology oncology consultation to evaluate satisipations cancer and to determine if additional chemotherapy regimens are indicated at this time \-- Proceed with right percutaneous nephrostomy tube placement \-- f/u on urine culture \-- continue levofloxacin 500 mg daily for six weeks (pending MRI findings) \-- Outpatient follow-up with urology at [facility] \-- Reassess with repeat CT abdomen/pelvis in six weeks to monitor for resolution of abscess or infection \-- Monitor creatinine and renal function \-- Continue all home medications as appropriate, especially anticoagulation (Xarelto) with close monitoring in context of renal insufficiency \-- Supportive care: pain control, maintain hydration \-- Patient and plan discussed with urology and patient updated accordingly Isolation Precautions: standard Plan discussed with: Other Dietary Evaluation Review Comments: 1) CCHO 60gm + 2 gm Na diet 2) Refer [employer] for diabetes education Expected Outcomes/Goals: To meet >75% estimated needs Fu 3-5 days DEYSI MENDOZA MD Dec 04, 2024 23:32
[2024-12-05] VITALS (43 sets, daily range): BP systolic 106–151; BP diastolic 43–103; PULSE 62–124; RESP 16–33; TEMP 96.6–102.7; O2SAT 88–98
[2024-12-05] MEDS: LACTULOSE 20Gm/30ML SOLN PO PRN (01:36)
[2024-12-05 08:01] LABS: Anion Gap 11 (5-15); BUN/Creatinine Ratio 20.2 (10.0-20.0); Blood Urea Nitrogen 22 mg/dL (9-23); Carbon Dioxide 23 mmol/L (20-31); Magnesium 2.0 mg/dL (1.6-2.6); Potassium 4.4 mmol/L (3.5-5.1)
[2024-12-05 08:02] LABS: Albumin 3.2 g/dL (3.2-4.8)
[2024-12-05 08:17] LABS: Alanine Aminotransferase 262 U/L (7-40); Alkaline Phosphatase 516 U/L (46-116); Bilirubin, Total 5.3 mg/dL (0.2-1.0); Chloride 88 mmol/L (98-107); Glucose 119 mg/dL (74-106); Sodium 122 mmol/L (136-145); Total Protein 5.5 g/dL (5.7-8.2)
[2024-12-05 08:21] LABS: Calcium 15.4 mg/dL (8.7-10.4)
[2024-12-05] MEDS: SODIUM CHLORIDE 0.9% 1,000 ML IV SCH (08:45)
[2024-12-05 10:08] LABS: Base Excess 0.3 mmol/L (-2.0-3.0)
--- NOTE | 2024-12-05 10:25 | DVH ---
CLINICAL HISTORY: SHORTNESS OF BREATH TECHNIQUE: View of the chest was obtained. WID: COMPARISON: XY CHEST PORTABLE on DOS: 12/01/24, XY CHEST PORTABLE on DOS: 12/21/23, XY CHEST PORTABLE o n DOS: 12/19/23, XY CHEST TWO VIEWS ROUTINE on DOS: 09/25/23, XY CHEST PORTABLE on DOS: 07/01/23 FINDINGS: Lungs: There is septal thickening with haziness of the lungs. Bronchial wall thickening. Cardiomediastinal silhouette: Enlarged Bones: No acute osseous abnormality. Imaged upper Abdomen: Enteric tube courses below the diaphragm. IMPRESSION: 1. Mild cardiomegaly with interstitial pulmonary edema, unchanged when compared to prior.
[2024-12-05 10:57] LABS: Hematocrit 40.2 % (41.0-53.0); Hemoglobin 13.8 g/dL (13.5-17.5); Mean Corpuscular Hemoglobin 30.2 pg (28.0-32.0); Mean Corpuscular Volume 88.3 fL (80.0-100.0); Nucleated Red Blood Cells % 0.0 %
--- NOTE | 2024-12-05 11:08 | DVHINCON2 ---
Date of service: Dec 05, [address] Hopson Reason for Consultation Hypercalcemia History of Present Illness Mr. Carcamo is a 79-year-old male with initial presentation in the hospital with abdominal pain. His clinical history has been notable for left nephrectomy for renal cell carcinoma several years ago. His clinical course during current hospitalization notable for treatment IV fluids with improvement in his kidney function. Of note his serum calcium level has continued to rise and currently was reported in the 15 range. He has received bisphosphonate therapy this morning. He was seen in the [facility]. Past Medical History hypertension, diabetes mellitus type 2, hyperlipidemia, left renal carcinoma, status post left nephrectomy in 2021, atrial fibrillation on Xarelto Past Surgical History Left nephrectomy due to renal carcinoma Allergies: Coded Allergies: NO KNOWN ALLERGIES (Unverified , 04/08/22) Home Meds Active Scripts Nitrofurantoin Monohydrate Mac (Macrobid) 100 Mg Cap, 100 MG PO BID for 7 Days, #14 CAP Prov:SVEN COTTO MD 03/31/24 Azithromycin (ZITHROMAX TABLET) 250 Mg Tb, 250 MG PO DAILY, #6 TAB take 2 tabs first day then 1 tab daily until finish. Prov:MATT ASCENCIO MD 12/21/23 Reported Medications Cholecalciferol (D3) 1,000 Unit Cap, 1000 UNIT PO DAILY, CAP 03/17/23 Atorvastatin Calcium (Lipitor) 20 Mg Tab, 20 MG PO QPM, TAB 04/10/22 Trazodone Hcl (Trazodone Hcl) 50 Mg Tab, 25 MG PO DAILY, MG 04/10/22 Aspirin (Aspirin) 325 Mg Tab, 81 MG PO DAILY for 30 Days, MG 04/10/22 Metoprolol Tartrate (Metoprolol Tartrate) 25 Mg Tab, 25 MG PO BID for 30 Days, MG 04/10/22 Tamsulosin HCl (Tamsulosin Hydrochloride) 0.4 Mg Cap, 0.4 MG PO BID, CAP 04/10/22 Pantoprazole Sodium (PANTOPRAZOLE SODIUM) 40 Mg Inj, 40 MG PO BID, INJ 04/10/22 Metformin Hydrochloride (Metformin Hcl) 850 Mg Tab, 850 MG PO BID for 30 Days, MG 04/10/22 Current Medications Current Medications Medications (Trade) Dose Ordered Sig/Angelito Route PRN Reason Start Time Stop Time Status Last Admin Acetaminophen/ Hydrocodone Bitart (Ceres 5/325MG Tab) 1 tab Q4HPRN PRN PO MODERATE PAIN (4-6 PAIN SCALE) 12/04/24 18:00 Lactulose 30 ml TID PRN PO FOR CONSTIPATION 12/04/24 18:30 12/05/24 01:36 Sodium Chloride 1,000 ml @ 125 mls/hr Q8H IV 12/05/24 08:45 Family History: Patient reports no known family medical history. Review of Systems Denies gross hematuria, dysuria, tea or Coca-Cola colored urine Denies excessive use of recent NSAIDs, foamy urine, recent IV contrast studies Denies recent chest pain, dyspnea, PND, orthopnea Denies fever, chills, nausea, vomiting, diarrhea Denies unintentional weight loss, night sweats Denies focal weakness, numbness H&P Exam Vital Signs/I&O Vital Sign Date Time Temp Pulse Resp B/P (MAP) Pulse Ox O2 Delivery O2 Flow Rate FiO2 12/05/24 10:02 111 20 95 12/05/24 09:55 Nasal Cannula 2.0 12/05/24 09:55 28 12/05/24 09:05 99.1 134/78 (96) 99.1 Intake and Output 12/04/24 12/05/24 18:59 06:59 Intake Total 350 ml 0 ml Output Total 0 ml 0 ml Balance 350 ml 0 ml Intake Oral 350 ml 0 ml Output Urine Total 0 ml 0 ml Physical Exam Gen: nad heent: nc/at, mmm lungs: cta anteriorly cvs: no rub abd: soft, bowel sounds audible ext: no edema skin: no rash neuro: alert and oriented Labs/Diagnostic Data Labs/Diagnostic Data Laboratory Tests Test 12/05/24 10:00 12/05/24 09:36 12/05/24 06:49 12/05/24 05:56 Range/Units Blood Gas Specimen Type Arterial Blood Gas Sample Site Right radial Blood Gas Patient Temperature 37.0 Arterial Blood Date Drawn [id number] Arterial Blood pH 7.446 7.350-7.450 Arterial Blood Partial Pressure CO2 35.5 35.0-48.0 mmHg Arterial Blood Partial Pressure O2 64.7 L 83.0-108.0 mmHg Arterial Blood HCO3 23.9 21.0-28.0 mmol/L Arterial Blood Oxygen Saturation 91.4 L 94.0-98.0 % Arterial Blood Base Excess 0.3 -2.0-3.0 mmol/L Arterial Blood Oxyhemoglobin 90.0 L 94.0-98.0 % Arterial Blood Carboxyhemoglobin 1.0 0.5-1.5 % Arterial Blood Methemoglobin 0.5 0.0-1.5 % Juan Test Modified Blood Gas Total Hemoglobin 14.10 13.5-17.5 g/dL Blood Gas Liter Flow 2.00 Blood Gas Modality Nasal cannula FiO2 % 28.0 POC Glucose 127 H 131 H 70-106 mg/dl Sodium Level 122 L 136-145 mmol/L Potassium Level 4.4 3.5-5.1 mmol/L Chloride Level 88 L 98-107 mmol/L Carbon Dioxide Level 23 20-31 mmol/L Anion Gap 11 5-15 Blood Urea Nitrogen 22 # 9-23 mg/dL Creatinine 1.09 0.700-1.30 mg/dL Glomerular Filtration Rate Calc 69 >90 mL/min BUN/Creatinine Ratio 20.2 H 10.0-20.0 Serum Glucose 119 H 74-106 mg/dL Calcium Level 15.4 *H 8.7-10.4 mg/dL Phosphorus Level 2.6 2.4-5.1 mg/dL Magnesium Level 2.0 1.6-2.6 mg/dL Total Bilirubin 5.3 H 0.2-1.0 mg/dL Aspartate Amino Transferase (AST) 404 H 13-40 U/L Alanine Aminotransferase (ALT) 262 H 7-40 U/L Alkaline Phosphatase 516 H 46-116 U/L Ammonia 61 H 11-32 umol/L Total Protein 5.5 L 5.7-8.2 g/dL Albumin 3.2 3.2-4.8 g/dL Test 12/04/24 22:55 12/04/24 18:16 12/04/24 16:52 12/04/24 11:42 Range/Units POC Glucose 128 H 143 H 167 H 70-106 mg/dl Ammonia 51 H 11-32 umol/L Test 12/04/24 11:34 12/04/24 06:12 12/04/24 00:01 12/03/24 18:33 Range/Units Blood Gas Specimen Type Arterial Blood Gas Sample Site Right radial Blood Gas Patient Temperature 37.0 Arterial Blood Date Drawn [id number] Arterial Blood pH 7.500 H 7.350-7.450 Arterial Blood Partial Pressure CO2 31.9 L 35.0-48.0 mmHg Arterial Blood Partial Pressure O2 74.5 L 83.0-108.0 mmHg Arterial Blood HCO3 24.3 21.0-28.0 mmol/L Arterial Blood Oxygen Saturation 94.5 94.0-98.0 % Arterial Blood Base Excess 1.8 -2.0-3.0 mmol/L Arterial Blood Oxyhemoglobin 93.6 L 94.0-98.0 % Arterial Blood Carboxyhemoglobin 0.6 0.5-1.5 % Arterial Blood Methemoglobin 0.4 0.0-1.5 % Juan Test Modified Blood Gas Total Hemoglobin 13.20 L 13.5-17.5 g/dL Blood Gas Liter Flow 2.00 Blood Gas Modality Nasal cannula FiO2 % 28.0 White Blood Count 12.0 H 4.4-10.8 10^3/uL Red Blood Count 4.32 L 4.5-5.90 10^6/uL Hemoglobin 13.2 L 13.5-17.5 g/dL Hematocrit 37.5 L 41.0-53.0 % Mean Corpuscular Volume 86.8 80.0-100.0 fL Mean Corpuscular Hemoglobin 30.5 28.0-32.0 pg Mean Corpuscular Hemoglobin Concent 35.1 32.0-36.0 g/dL Red Cell Distribution Width 15.0 H 11.8-14.3 % Platelet Count 178 140-450 10^3/uL Mean Platelet Volume 7.9 6.9-10.8 fL Neutrophils (%) (Auto) 86.6 H 37.0-80.0 % Lymphocytes (%) (Auto) 4.5 L 10.0-50.0 % Monocytes (%) (Auto) 8.3 0.0-12.0 % Eosinophils (%) (Auto) 0.3 0.0-7.0 % Basophils (%) (Auto) 0.3 0.0-2.0 % Neutrophils # (Auto) 10.4 H 1.6-8.6 10 ^3/uL Lymphocytes # (Auto) 0.5 0.4-5.4 10 ^3/uL Monocytes # (Auto) 1.0 0-1.3 10 ^3/uL Eosinophils # (Auto) 0 0-0.8 10 ^3/uL Basophils # (Auto) 0 0-0.2 10 ^3/uL Nucleated Red Blood Cells 0.0 % Sodium Level 123 L 136-145 mmol/L Potassium Level 3.9 3.5-5.1 mmol/L Chloride Level 89 L 98-107 mmol/L Carbon Dioxide Level 23 20-31 mmol/L Anion Gap 11 5-15 Blood Urea Nitrogen 10 9-23 mg/dL Creatinine 0.85 0.700-1.30 mg/dL Glomerular Filtration Rate Calc 88 >90 mL/min BUN/Creatinine Ratio 11.8 10.0-20.0 Serum Glucose 114 H 74-106 mg/dL Calcium Level 12.7 H 8.7-10.4 mg/dL Phosphorus Level 2.0 L 2.4-5.1 mg/dL Magnesium Level 1.8 1.6-2.6 mg/dL Total Bilirubin 3.8 H 0.2-1.0 mg/dL Aspartate Amino Transferase (AST) 323 H 13-40 U/L Alanine Aminotransferase (ALT) 212 H 7-40 U/L Alkaline Phosphatase 533 H 46-116 U/L Total Protein 5.5 L 5.7-8.2 g/dL Albumin 3.2 3.2-4.8 g/dL POC Glucose 161 H 190 H 70-106 mg/dl Test 12/03/24 12:12 12/03/24 06:03 12/03/24 05:17 12/02/24 22:17 Range/Units POC Glucose 165 H 130 H 151 H 70-106 mg/dl Sodium Level 125 L 136-145 mmol/L Potassium Level 3.6 3.5-5.1 mmol/L Chloride Level 91 L 98-107 mmol/L Carbon Dioxide Level 25 20-31 mmol/L Anion Gap 9 5-15 Blood Urea Nitrogen 10 9-23 mg/dL Creatinine 0.96 0.700-1.30 mg/dL Glomerular Filtration Rate Calc 80 >90 mL/min BUN/Creatinine Ratio 10.4 10.0-20.0 Serum Glucose 125 H 74-106 mg/dL Calcium Level 12.2 H 8.7-10.4 mg/dL Phosphorus Level 2.9 2.4-5.1 mg/dL Magnesium Level 1.7 1.6-2.6 mg/dL Total Bilirubin 2.8 H 0.2-1.0 mg/dL Aspartate Amino Transferase (AST) 234 H 13-40 U/L Alanine Aminotransferase (ALT) 157 H 7-40 U/L Alkaline Phosphatase 413 H 46-116 U/L Total Protein 5.3 L 5.7-8.2 g/dL Albumin 3.1 L 3.2-4.8 g/dL Triglycerides Level 75 < 150 mg/dL Test 12/02/24 19:53 12/02/24 17:20 12/02/24 12:20 12/02/24 05:23 Range/Units Sodium Level 124 L 136-145 mmol/L Potassium Level 3.8 3.5-5.1 mmol/L Chloride Level 89 L 98-107 mmol/L Carbon Dioxide Level 25 20-31 mmol/L Anion Gap 10 5-15 Blood Urea Nitrogen 10 9-23 mg/dL Creatinine 1.01 0.700-1.30 mg/dL Glomerular Filtration Rate Calc 76 >90 mL/min BUN/Creatinine Ratio 9.9 L 10.0-20.0 Serum Glucose 141 H 74-106 mg/dL Calcium Level 12.1 H 8.7-10.4 mg/dL Phosphorus Level 1.8 L 2.4-5.1 mg/dL Magnesium Level 1.6 1.6-2.6 mg/dL Total Bilirubin 2.6 H 0.2-1.0 mg/dL Aspartate Amino Transferase (AST) 204 H 13-40 U/L Alanine Aminotransferase (ALT) 148 H 7-40 U/L Alkaline Phosphatase 435 H 46-116 U/L Total Protein 5.7 5.7-8.2 g/dL Albumin 3.4 3.2-4.8 g/dL POC Glucose 141 H 118 H 139 H 70-106 mg/dl Test 12/01/24 21:30 12/01/24 16:56 12/01/24 16:25 12/01/24 16:24 Range/Units POC Glucose 138 H 115 H 70-106 mg/dl Sodium Level 125 #L 136-145 mmol/L Potassium Level 3.4 L 3.5-5.1 mmol/L Chloride Level 94 L 98-107 mmol/L Carbon Dioxide Level 23 20-31 mmol/L Anion Gap 8 5-15 Blood Urea Nitrogen 9 9-23 mg/dL Creatinine 0.73 0.700-1.30 mg/dL Glomerular Filtration Rate Calc 93 >90 mL/min BUN/Creatinine Ratio 12.3 10.0-20.0 Serum Glucose 100 74-106 mg/dL Calcium Level 10.1 8.7-10.4 mg/dL Total Bilirubin 1.8 H 0.2-1.0 mg/dL Aspartate Amino Transferase (AST) 169 H 13-40 U/L Alanine Aminotransferase (ALT) 128 H 7-40 U/L Alkaline Phosphatase 364 H 46-116 U/L Total Protein 5.6 L 5.7-8.2 g/dL Albumin 3.3 3.2-4.8 g/dL Magnesium Level 1.5 L 1.6-2.6 mg/dL Test 12/01/24 14:30 12/01/24 11:54 12/01/24 05:51 11/30/24 21:33 Range/Units White Blood Count 10.1 4.4-10.8 10^3/uL Red Blood Count 4.13 L 4.5-5.90 10^6/uL Hemoglobin 12.4 L 13.5-17.5 g/dL Hematocrit 35.5 L 41.0-53.0 % Mean Corpuscular Volume 86.0 80.0-100.0 fL Mean Corpuscular Hemoglobin 30.2 28.0-32.0 pg Mean Corpuscular Hemoglobin Concent 35.1 32.0-36.0 g/dL Red Cell Distribution Width 15.0 H 11.8-14.3 % Platelet Count 200 140-450 10^3/uL Mean Platelet Volume 8.2 6.9-10.8 fL Neutrophils (%) (Auto) 83.3 H 37.0-80.0 % Lymphocytes (%) (Auto) 6.9 L 10.0-50.0 % Monocytes (%) (Auto) 8.4 0.0-12.0 % Eosinophils (%) (Auto) 1.2 0.0-7.0 % Basophils (%) (Auto) 0.2 0.0-2.0 % Neutrophils # (Auto) 8.4 1.6-8.6 10 ^3/uL Lymphocytes # (Auto) 0.7 0.4-5.4 10 ^3/uL Monocytes # (Auto) 0.8 0-1.3 10 ^3/uL Eosinophils # (Auto) 0.1 0-0.8 10 ^3/uL Basophils # (Auto) 0 0-0.2 10 ^3/uL Nucleated Red Blood Cells 0.0 % POC Glucose 161 H 131 H 119 H 70-106 mg/dl Test 11/30/24 17:05 11/30/24 10:53 11/30/24 05:45 11/29/24 21:30 Range/Units POC Glucose 108 H 143 H 182 H 196 H 70-106 mg/dl Test 11/29/24 16:36 11/29/24 16:02 11/29/24 11:24 11/29/24 06:13 Range/Units POC Glucose 128 H 177 H 144 H 70-106 mg/dl White Blood Count 8.6 4.4-10.8 10^3/uL Red Blood Count 4.08 L 4.5-5.90 10^6/uL Hemoglobin 12.3 L 13.5-17.5 g/dL Hematocrit 35.1 #L 41.0-53.0 % Mean Corpuscular Volume 85.8 80.0-100.0 fL Mean Corpuscular Hemoglobin 30.2 28.0-32.0 pg Mean Corpuscular Hemoglobin Concent 35.1 32.0-36.0 g/dL Red Cell Distribution Width 14.9 H 11.8-14.3 % Platelet Count 160 140-450 10^3/uL Mean Platelet Volume 8.1 6.9-10.8 fL Neutrophils (%) (Auto) 77.9 37.0-80.0 % Lymphocytes (%) (Auto) 9.6 L 10.0-50.0 % Monocytes (%) (Auto) 9.0 0.0-12.0 % Eosinophils (%) (Auto) 3.2 0.0-7.0 % Basophils (%) (Auto) 0.3 0.0-2.0 % Neutrophils # (Auto) 6.7 1.6-8.6 10 ^3/uL Lymphocytes # (Auto) 0.8 0.4-5.4 10 ^3/uL Monocytes # (Auto) 0.8 0-1.3 10 ^3/uL Eosinophils # (Auto) 0.3 0-0.8 10 ^3/uL Basophils # (Auto) 0 0-0.2 10 ^3/uL Nucleated Red Blood Cells 0.0 % Sodium Level 131 #L 136-145 mmol/L Potassium Level 2.9 L 3.5-5.1 mmol/L Chloride Level 94 L 98-107 mmol/L Carbon Dioxide Level 28 20-31 mmol/L Anion Gap 9 5-15 Blood Urea Nitrogen 11 9-23 mg/dL Creatinine 1.00 0.700-1.30 mg/dL Glomerular Filtration Rate Calc 77 >90 mL/min BUN/Creatinine Ratio 11.0 10.0-20.0 Serum Glucose 124 H 74-106 mg/dL Calcium Level 9.5 8.7-10.4 mg/dL Total Bilirubin 1.1 H 0.2-1.0 mg/dL Aspartate Amino Transferase (AST) 122 H 13-40 U/L Alanine Aminotransferase (ALT) 107 H 7-40 U/L Alkaline Phosphatase 252 H 46-116 U/L Total Protein 5.4 L 5.7-8.2 g/dL Albumin 3.3 3.2-4.8 g/dL Test 11/28/24 21:36 11/28/24 16:25 11/28/24 11:37 11/28/24 06:17 Range/Units POC Glucose 147 H 219 H 159 H 152 H 70-106 mg/dl Test 11/27/24 21:51 11/27/24 17:21 11/27/24 07:01 11/27/24 06:25 Range/Units POC Glucose 158 H 100 163 H 70-106 mg/dl Sodium Level 140 136-145 mmol/L Potassium Level 2.8 L 3.5-5.1 mmol/L Chloride Level 102 98-107 mmol/L Carbon Dioxide Level 25 20-31 mmol/L Anion Gap 13 5-15 Blood Urea Nitrogen 13 9-23 mg/dL Creatinine 1.14 0.700-1.30 mg/dL Glomerular Filtration Rate Calc 65 >90 mL/min BUN/Creatinine Ratio 11.4 10.0-20.0 Serum Glucose 144 H 74-106 mg/dL Calcium Level 9.6 8.7-10.4 mg/dL Magnesium Level 1.4 L 1.6-2.6 mg/dL Test 11/27/24 00:07 11/26/24 16:58 11/26/24 12:47 11/26/24 06:00 Range/Units POC Glucose 151 H 158 H 111 H 70-106 mg/dl White Blood Count 10.7 4.4-10.8 10^3/uL Red Blood Count 4.69 4.5-5.90 10^6/uL Hemoglobin 14.4 13.5-17.5 g/dL Hematocrit 40.6 L 41.0-53.0 % Mean Corpuscular Volume 86.5 80.0-100.0 fL Mean Corpuscular Hemoglobin 30.6 28.0-32.0 pg Mean Corpuscular Hemoglobin Concent 35.4 32.0-36.0 g/dL Red Cell Distribution Width 16.0 H 11.8-14.3 % Platelet Count 256 140-450 10^3/uL Mean Platelet Volume 7.9 6.9-10.8 fL Neutrophils (%) (Auto) 80.5 H 37.0-80.0 % Lymphocytes (%) (Auto) 9.9 L 10.0-50.0 % Monocytes (%) (Auto) 6.9 0.0-12.0 % Eosinophils (%) (Auto) 2.3 0.0-7.0 % Basophils (%) (Auto) 0.4 0.0-2.0 % Neutrophils # (Auto) 8.6 1.6-8.6 10 ^3/uL Lymphocytes # (Auto) 1.1 0.4-5.4 10 ^3/uL Monocytes # (Auto) 0.7 0-1.3 10 ^3/uL Eosinophils # (Auto) 0.2 0-0.8 10 ^3/uL Basophils # (Auto) 0 0-0.2 10 ^3/uL Nucleated Red Blood Cells 0.0 % Sodium Level 141 136-145 mmol/L Potassium Level 2.9 L 3.5-5.1 mmol/L Chloride Level 102 98-107 mmol/L Carbon Dioxide Level 27 20-31 mmol/L Anion Gap 12 5-15 Blood Urea Nitrogen 14 9-23 mg/dL Creatinine 1.34 H 0.700-1.30 mg/dL Glomerular Filtration Rate Calc 54 >90 mL/min BUN/Creatinine Ratio 10.4 10.0-20.0 Serum Glucose 130 H 74-106 mg/dL Calcium Level 9.9 8.7-10.4 mg/dL Total Bilirubin 1.4 H 0.2-1.0 mg/dL Aspartate Amino Transferase (AST) 69 H 13-40 U/L Alanine Aminotransferase (ALT) 59 H 7-40 U/L Alkaline Phosphatase 144 H 46-116 U/L Total Protein 6.8 5.7-8.2 g/dL Albumin 4.2 3.2-4.8 g/dL Test 11/26/24 05:33 11/25/24 23:46 11/25/24 17:17 11/25/24 13:58 Range/Units POC Glucose 135 H 142 H 121 H 70-106 mg/dl Prothrombin Time 14.7 H 9.3-11.8 sec Prothrombin Time INR 1.44 H 0.9-1.15 Activated Partial Thromboplast Time 44.3 H 24.5-34.5 SEC Test 11/25/24 11:59 11/25/24 11:27 11/25/24 06:40 11/25/24 04:50 Range/Units Sodium Level 140 137 136-145 mmol/L Potassium Level 3.6 2.6 L 3.5-5.1 mmol/L Chloride Level 103 100 98-107 mmol/L Carbon Dioxide Level 29 27 20-31 mmol/L Anion Gap 8 10 5-15 Blood Urea Nitrogen 18 20 9-23 mg/dL Creatinine 1.36 H 1.54 H 0.700-1.30 mg/dL Glomerular Filtration Rate Calc 53 46 >90 mL/min BUN/Creatinine Ratio 13.2 13.0 10.0-20.0 Serum Glucose 108 H 187 H 74-106 mg/dL Calcium Level 9.5 8.6 L 8.7-10.4 mg/dL POC Glucose 122 H 164 H 70-106 mg/dl White Blood Count 8.6 4.4-10.8 10^3/uL Red Blood Count 4.40 L 4.5-5.90 10^6/uL Hemoglobin 13.3 L 13.5-17.5 g/dL Hematocrit 38.2 L 41.0-53.0 % Mean Corpuscular Volume 86.9 # 80.0-100.0 fL Mean Corpuscular Hemoglobin 30.2 28.0-32.0 pg Mean Corpuscular Hemoglobin Concent 34.8 32.0-36.0 g/dL Red Cell Distribution Width 15.3 H 11.8-14.3 % Platelet Count 244 140-450 10^3/uL Mean Platelet Volume 7.9 6.9-10.8 fL Neutrophils (%) (Auto) 81.4 H 37.0-80.0 % Lymphocytes (%) (Auto) 10.0 10.0-50.0 % Monocytes (%) (Auto) 5.8 0.0-12.0 % Eosinophils (%) (Auto) 2.5 0.0-7.0 % Basophils (%) (Auto) 0.3 0.0-2.0 % Neutrophils # (Auto) 7.0 1.6-8.6 10 ^3/uL Lymphocytes # (Auto) 0.9 0.4-5.4 10 ^3/uL Monocytes # (Auto) 0.5 0-1.3 10 ^3/uL Eosinophils # (Auto) 0.2 0-0.8 10 ^3/uL Basophils # (Auto) 0 0-0.2 10 ^3/uL Nucleated Red Blood Cells 0.0 % Hemoglobin A1c 6.7 H <5.7 % A1C Magnesium Level 2.2 1.6-2.6 mg/dL Free Prostate Specific Antigen 0.58 N/A ng/mL Percent Free Prostate Specific Ag 20.0 . % Prostate Specific Antigen Total 2.9 0.0-4.0 ng/mL Vitamin B12 Level 674 211-911 pg/mL Vitamin D 25-Hydroxy 61.2 30.0-100 ng/mL Folic Acid 25.71 >5.38 ng/mL Test 11/25/24 02:51 11/25/24 00:15 11/24/24 22:06 11/24/24 19:55 Range/Units Urine Color Colorless Yellow Urine Clarity Clear Clear Urine pH 6.5 5.0-9.0 Urine Specific [place] 1.017 1.001-1.035 Urine Protein Negative Negative Urine Ketones Negative Negative Urine Blood Negative Negative /uL Urine Nitrite Negative Negative Urine Bilirubin Negative Negative Urine Urobilinogen Normal Negative mg/dL Urine Leukocyte Esterase Negative Negative /uL Urine RBC 2 0 - 3 /hpf Urine Microscopic WBC 4 H 0-3 /HPF Urine Squamous Epithelial Cells Few <5 /hpf Urine Bacteria None seen None Seen /hpf Urine Sperm Present None Seen /hpf Urine Glucose Normal Normal mg/dL Urine Opiates Screen Neg NEGATIVE Urine Fentanyl Screen Neg NEGATIVE Urine Barbiturates Screen Neg NEGATIVE Urine Phencyclidine Screen Neg NEGATIVE Urine Amphetamines Screen Neg NEGATIVE Urine Benzodiazepines Screen Neg NEGATIVE Urine Cocaine Screen Neg NEGATIVE Urine Cannabinoids Screen Neg NEGATIVE Lactic Acid Level 1.9 2.2 *H 0.4-2.0 mmol/L White Blood Count 10.1 4.4-10.8 10^3/uL Red Blood Count 4.65 4.5-5.90 10^6/uL Hemoglobin 14.1 13.5-17.5 g/dL Hematocrit 42.2 41.0-53.0 % Mean Corpuscular Volume 90.9 80.0-100.0 fL Mean Corpuscular Hemoglobin 30.3 28.0-32.0 pg Mean Corpuscular Hemoglobin Concent 33.3 32.0-36.0 g/dL Red Cell Distribution Width 15.7 H 11.8-14.3 % Platelet Count 268 140-450 10^3/uL Mean Platelet Volume 7.6 6.9-10.8 fL Neutrophils (%) (Auto) 78.9 37.0-80.0 % Lymphocytes (%) (Auto) 10.8 10.0-50.0 % Monocytes (%) (Auto) 7.6 0.0-12.0 % Eosinophils (%) (Auto) 2.3 0.0-7.0 % Basophils (%) (Auto) 0.4 0.0-2.0 % Neutrophils # (Auto) 7.9 1.6-8.6 10 ^3/uL Lymphocytes # (Auto) 1.1 0.4-5.4 10 ^3/uL Monocytes # (Auto) 0.8 0-1.3 10 ^3/uL Eosinophils # (Auto) 0.2 0-0.8 10 ^3/uL Basophils # (Auto) 0 0-0.2 10 ^3/uL Nucleated Red Blood Cells 0.1 % Sodium Level 135 L 136-145 mmol/L Potassium Level 3.4 L 3.5-5.1 mmol/L Chloride Level 98 98-107 mmol/L Carbon Dioxide Level 28 20-31 mmol/L Anion Gap 9 5-15 Blood Urea Nitrogen 21 9-23 mg/dL Creatinine 1.66 H 0.700-1.30 mg/dL Glomerular Filtration Rate Calc 42 >90 mL/min BUN/Creatinine Ratio 12.7 10.0-20.0 Serum Glucose 215 H 74-106 mg/dL Calcium Level 8.7 8.7-10.4 mg/dL Magnesium Level 1.7 1.6-2.6 mg/dL Total Bilirubin 0.8 0.2-1.0 mg/dL Aspartate Amino Transferase (AST) 45 H 13-40 U/L Alanine Aminotransferase (ALT) 40 7-40 U/L Alkaline Phosphatase 114 46-116 U/L Troponin I High Sensitivity < 3 L </=54 ng/L Total Protein 6.7 5.7-8.2 g/dL Albumin 4.1 3.2-4.8 g/dL Lipase 39 12-53 U/L Thyroid Stimulating Hormone (TSH) 2.15 0.55-4.78 uIU/mL Test 11/24/24 19:49 Range/Units POC Glucose 203 H 70-106 mg/dl Microbiology Date/Time Source Procedure Growth Status 11/25/24 07:41 Nose MRSA Screen - Final Complete 11/25/24 02:51 Voided Urine Urine Culture - Final Complete 11/24/24 22:06 Blood Blood Culture - Final NO GROWTH AFTER 5 DAYS OF INCUBATION. Complete Assessment IMP: 1) Hemodynamically mediated acute kidney injury + noted obstructive uropathy of solitary right kidney - kidney function improved 2) hypercalcemia - unclear etiology, but rapid increase as inpatient. 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 4) hypertension 5) abdominal pain REC: - we will discontinue vitamin-D - agree with bisphosphonate therapy - we will check intact PTH, serum and urine immunoelectrophoresis, serial chemi stry panels. - may consider forced diuresis is serum calcium continues to rise. - we will ensure calcium composition of parenteral nutrition down titrated if needed. - we will continue to follow closely with you. Thank you for the consultation. Plan discussed with: Other CHYNA NUÑEZ MD Dec 05, 2024 11:08
[2024-12-05] MEDS: ZOLEDRONIC ACID 4 MG in SODIUM CHL 0.9% 100 ML IV ONE (11:29)
--- NOTE | 2024-12-05 14:10 | DVH ---
Bilateral Upper Extremity Venous Duplex Clinical History: SWELLING TO LEFT ARM Comparison: US BILAT LOWER DVT on DOS: 09/25/23 Technique: Duplex doppler evaluation of the venous system of the bilateral lower neck and upper extremity includ ing color doppler and spectral/pulsed waveform analysis was performed. Findings: RIGHT: The internal jugular vein demonstrates appropriate compressibility and waveform variability. The subclavian vein is patent on color Doppler evaluation without intraluminal thrombus and demonstra beni waveform variability. The visualized portion of the brachiocephalic vein is patent on color Doppler evaluation without intr aluminal thrombus and demonstrates waveform variability. The axillary vein demonstrates appropriate compressibility and waveform variability. The brachial veins demonstrate appropriate compressibility and patency on Doppler evaluation. The basilic vein demonstrates appropriate compressibility and patency on Doppler evaluation. The cephalic vein demonstrates appropriate compressibility and patency on Doppler evaluation. Left: The internal jugular vein demonstrates appropriate compressibility and waveform variability. The subclavian vein is patent on color Doppler evaluation without intraluminal thrombus and demonstra beni waveform variability. The visualized portion of the brachiocephalic vein is patent on color Doppler evaluation without intr aluminal thrombus and demonstrates waveform variability. The axillary vein demonstrates appropriate compressibility and waveform variability. The brachial veins demonstrate appropriate compressibility and patency on Doppler evaluation. The basilic vein demonstrates appropriate compressibility and patency on Doppler evaluation. The cephalic vein demonstrates appropriate compressibility and patency on Doppler evaluation. Impression: 1. No venous thrombus identified in the bilateral upper extremity vessels evaluated above. 2. If clinical concern/symptoms persist or worsen, short-interval follow-up study is suggested.
[2024-12-05] MEDS: AMIODARONE BOLUS KIT 100 ML IV ONE (14:55)
[2024-12-05 15:00] LABS: Urine Protein, UAD 1+ (Negative)
[2024-12-05] MEDS: LACTULOSE 10g/15ml SOLN 473ML PR SCH (15:08)
[2024-12-05] MEDS: AMIODARONE 360mg/200mL PREMIX 200 ML IV ONE (15:13)
--- NOTE | 2024-12-05 15:55 | DVHPN2 ---
Subjective Overnight events noted. Patient's became more confused eventually upgraded to D OU. Family member at bedside were updated regarding current plan of care. Lactulose enema will be ordered as well as Zometa will be given for hypercalcemia of malignancy. Also will closely monitor liver function tests and GI will be consulted as well as well Nephrology. [facility] Hematology Oncology was consulted who may come today or tomorrow to evaluated the patient. Although inpatient there is no indication for immunotherapy or chemotherapy keeping in view of patient's current critical condition physical deconditioning and functional decline. Reviewed: Care Plan, H&P, Labs, Medications Changes from previous H/P or p: Changes (Patient is more altered today, we will start TPN per pharmacy also we will provide lactulose enema.) General: Per HPI Objective Vitals Vital Signs Date Time Temp Pulse Resp B/P (MAP) Pulse Ox O2 Delivery O2 Flow Rate FiO2 12/05/24 14:12 122 20 95 12/05/24 14:05 Nasal Cannula 2.0 12/05/24 14:05 28 12/05/24 12:18 126/64 12/05/24 09:05 99.1 99.1 Intake/Output Intake and Output 12/05/24 07:00 Intake Total 350 ml Output Total 0 ml Balance 350 ml Intake Oral 350 ml Output Urine Total 0 ml Exam HEENT pupils are reactive , positive scleral icterus. Neck is supple CV is S1-S2 regular rate and rhythm Respiratory diminished breath sounds bases GI positive bowel sound, soft distended mildly tender no guarding no rigidity. 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 General Appearance: Alert, Oriented X3, Cooperative, No acute distress HEENT: Atraumatic, PERRLA Lungs: Clear to auscultation, Normal air movement Cardiovascular: Normal S1, Normal S2 Musculoskeletal: Normal sensory function, Normal motor function Skin: Dry, Intact Psych/Mental Status: Mental status NL, Mood NL Medications Current Medications Medications Dose Ordered Sig/Angelito Route Start Time Stop Time Status Last Admin Dose Admin Metoclopramide HCl 10 mg Q6HPRN PRN IV 11/25/24 00:15 12/03/24 12:18 10 MG Metoprolol Tartrate 25 mg BID PO 11/25/24 10:00 12/05/24 11:18 25 MG Tamsulosin HCl 0.4 mg BID PO 11/25/24 10:00 12/05/24 11:19 0.4 MG Atorvastatin Calcium 20 mg HS PO 11/27/24 22:00 12/04/24 22:39 20 MG Rivaroxaban 20 mg HS PO 11/28/24 22:00 12/04/24 22:39 20 MG Acetaminophen 500 mg Q8HP PRN PO 11/29/24 09:00 12/01/24 10:26 500 MG Levofloxacin 500 mg DAILY PO 12/01/24 10:00 12/05/24 11:19 500 MG Docusate Sodium 100 mg BID PO 12/01/24 22:00 12/05/24 11:30 100 MG Lactulose 30 ml TID PRN PO 12/01/24 11:00 12/01/24 21:33 30 ML Amino Acids 0 ml @ 0 mls/hr PER PHARMACY IV 12/02/24 19:30 12/05/24 21:59 Albuterol 2.5 mg Q4HWA NEB 12/02/24 19:30 12/05/24 14:13 2.5 MG Amino Acids/ Electrolytes/ Dextrose 1,000 ml @ 41 mls/hr DAILY@2200 IV 12/02/24 22:00 12/05/24 21:59 12/04/24 22:39 41 MLS/HR Diagnostic Test (Pha) 1 strip Q6HR 12/03/24 18:00 12/05/24 12:28 1 STRIP Insulin Human Regular FOLLOW SLIDING SCALE Q6HR SC 12/03/24 18:00 12/05/24 06:01 2 UNITS Dextrose 50 ml UD IV 12/03/24 16:15 Acetaminophen/ Hydrocodone Bitart 1 tab Q4HPRN PRN PO 12/04/24 18:00 Lactulose 30 ml TID PRN PO 12/04/24 18:30 12/05/24 01:36 30 ML Sodium Chloride 1,000 ml @ 125 mls/hr Q8H IV 12/05/24 08:45 12/05/24 12:30 125 MLS/HR Amino Acids 0 ml @ 0 mls/hr PER PHARMACY IV 12/05/24 17:00 Fat Emulsion Intravenous 50 ml/ Sodium Phosphate 20 meq/Potassium Chloride 20 meq/ Magnesium Sulfate 4 meq/ Multivitamins 10 ml/Amino Acids/ Dextrose/Purified Water 1,126 ml @ 46 mls/hr [id number] IV 12/05/24 22:00 12/06/24 21:59 Lactulose 300 ml Q6HR HI 12/05/24 14:00 12/05/24 15:08 300 ML Laboratory Results Laboratory Tests 12/05/24 06:49 Chemistry Test 12/05/24 06:49 Albumin 3.2 g/dL (3.2-4.8) Calcium Level 15.4 mg/dL (8.7-10.4) *H Magnesium Level 2.0 mg/dL (1.6-2.6) Phosphorus Level 2.6 mg/dL (2.4-5.1) Total Protein 5.5 g/dL (5.7-8.2) L LFT Test 12/05/24 06:49 Alanine Aminotransferase (ALT) 262 U/L (7-40) H Alkaline Phosphatase 516 U/L (46-116) H Aspartate Amino Transferase (AST) 404 U/L (13-40) H Total Bilirubin 5.3 mg/dL (0.2-1.0) H Urinalysis Test 11/25/24 02:51 12/05/24 14:40 Urine Sperm Present /hpf (None Seen) Urine Color Dark-yellow (Yellow) Urine Clarity Turbid (Clear) H Urine pH 5.5 (5.0-9.0) Urine Specific [place] 1.019 (1.001-1.035) Urine Protein 1+ (Negative) H Urine Ketones Negative (Negative) Urine Blood 3+ /uL (Negative) H Urine Nitrite Negative (Negative) Urine Bilirubin 1+ (Negative) Urine Urobilinogen 4 mg/dL (Negative) H Urine Leukocyte Esterase Trace /uL (Negative) Urine RBC 104 /hpf (0 - 3) Urine Microscopic WBC 10 /HPF (0-3) H Urine Squamous Epithelial Cells Few /hpf (<5) Urine Bacteria Few /hpf (None Seen) H Urine Hyaline Casts Few /lpf (0 - 2) Urine Mucus Few (None Seen) Urine Osmolality Pending Urine Creatinine 139.51 mg/dL (30.0-125.0) H Urine Sodium < 10 mmol/L (40-220) L Urine Glucose Normal mg/dL (Normal) Blood Gas Results Test 12/05/24 10:00 Arterial Blood pH 7.446 (7.350-7.450) FiO2 % 28.0 Microbiology Microbiology Date/Time Source Procedure Growth Status 11/25/24 07:41 Nose MRSA Screen - Final Complete 11/25/24 02:51 Voided Urine Urine Culture - Final Complete 11/24/24 22:06 Blood Blood Culture - Final NO GROWTH AFTER 5 DAYS OF INCUBATION. Complete Assessment/Plan Assessment/Plan 79-year-old male with a known history of diabetes mellitus type 2, hypertension, CKD stage IIIB, history of urinary bladder cancer, history of left nephrectomy initially presented to the hospital with the abdominal pain found to have 1. Acute complicated cystitis/emphysematous pyelitis 2. Right obstructive uropathy with right hydronephrosis secondary to obstruction of the ureter 3. 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 Abdominal pain with nausea and one episode of vomiting with a mild distention ruled out small-bowel obstruction or large bowel obstruction. 5. Status post right nephrostomy tube placement for right obstructive uropathy, accident got pulled out, replacement of right nephrostomy tube by IR scheduled on Friday. 6. Diabetes mellitus type 2 7. Transaminitis 8. Paroxysmal AFib, ON XARELTO 9. LIVER LESION LIKELY METASTASIS WELL L4 LESION LIKELY METASTASIS 10. PELVIC MASS/SEMINAL VESICLE MASS/prostatitis UNDERLYING NEOPLASM CAN NOT BE EXCLUDED 11. Solitary right kidney with a history of left nephrectomy 12. Acute Metabolic encephalopathy -upgrade to D OU, aspiration precautions, TPN for pharmacy, monitor liver function tests, GI consult on-call, nephrology consultation -provide lactulose enema 300 mL in 700 mL of normal saline per rectal hold for 30 minutes -Zometa 4 mg IV x1 dose, monitor renal functioning -MRI FINDING DISCUSSED WITH THE patient's family members AT BEDSIDE, OUTPATIENT PET SCAN RECOMMENDED follow up Infectious Disease recommendations. -continue beta dolly, p.o. antibiotics. I had a lengthy discussion with the family regarding current plan of care in the presence of charge nurse Kayden, as well as Leanne the director of shelter case manager and one more shelter case manager on12/03. Patient's family appreciated the current plan of care as well as update. Family was explained critical condition of the patient's, prognosis remain guarded. Plan discussed with: Daughter, Son, Other (Daughter in-law.) My Orders Orders - ISIDRA DÍAZ MD Procedure Category Date Status Time Hydrocodone-Acet PHA 12/04/24 In Process 5/325mg Tab ([place] 18:00 Lactulose Oral PHA 12/04/24 In Process 18:30 Sodium Chloride 0.9% PHA 12/05/24 In Process 08:45 Transfer Orders XFER 12/05/24 Transmitted 08:38 Chest Portable XY 12/05/24 Resulted 09:40 Abg W/ Co-Ox RT 12/05/24 Logged 09:40 Communication Order ORDERS 12/05/24 Transmitted 09:40 *[facility] CONS 12/05/24 Transmitted -[place] 09:58 Tpn Per Pharmacy PHA 12/05/24 In Process 17:00 * Picc Line Consult CONS 12/05/24 Transmitted 11:35 Amino Acid PHA 12/05/24 In Process Infusion... W/Fat 22:00 Tpn Per Pharmacy KAMILA 12/05/24 In Process 22:00 Lactulose Rectal PHA 12/05/24 In Process 14:00 Bi Lat Upper Dvt US 12/05/24 Resulted 13:19 Amiodarone PHA 12/05/24 In Process 360mg/200ml Premix 14:30 Amiodarone PHA 12/05/24 In Process 360mg/200ml Premix 20:30 * [facility] [employer] CONS 12/05/24 Transmitted 15:47 Date of Service: Dec 05, 2024 Billing Provider: ISIDRA DÍAZ MD Common Visit Codes: [id number] INP/OBS CARE(HIGH) ISIDRA DÍAZ MD Dec 05, 2024 15:55
[2024-12-05] MEDS ORDERED: TPN PER PHARMACY 0 ML IV SCH (17:00)
[2024-12-05] MEDS: AMIODARONE 360mg/200mL PREMIX 200 ML IV SCH (20:55)
[2024-12-05] MEDS: PPN PER PHARMACY IV NR (21:21)
[2024-12-05] MEDS: IBUPROFEN 600 MG TAB PO ONE (22:43)
[2024-12-06] VITALS (65 sets, daily range): BP systolic 89–133; BP diastolic 44–77; PULSE 83–121; RESP 16–29; TEMP 94.3–102.2; O2SAT 87–98
[2024-12-06 07:27] LABS: Hematocrit 39.9 % (41.0-53.0); Hemoglobin 13.8 g/dL (13.5-17.5); Mean Corpuscular Hemoglobin 31.1 pg (28.0-32.0); Mean Corpuscular Volume 89.7 fL (80.0-100.0); Nucleated Red Blood Cells % 0.0 %
[2024-12-06 07:38] LABS: Anion Gap 17 (5-15); BUN/Creatinine Ratio 18.1 (10.0-20.0); Carbon Dioxide 21 mmol/L (20-31); Magnesium 2.4 mg/dL (1.6-2.6); Potassium 4.5 mmol/L (3.5-5.1)
[2024-12-06 07:40] LABS: Alanine Aminotransferase 387 U/L (7-40); Albumin 2.9 g/dL (3.2-4.8); Alkaline Phosphatase 408 U/L (46-116); Bilirubin, Total 3.7 mg/dL (0.2-1.0); Blood Urea Nitrogen 39 mg/dL (9-23); Chloride 90 mmol/L (98-107); Glucose 110 mg/dL (74-106); Sodium 128 mmol/L (136-145); Total Protein 5.1 g/dL (5.7-8.2)
[2024-12-06 07:43] LABS: Calcium 15.7 mg/dL (8.7-10.4)
[2024-12-06 08:02] LABS: INR 2.33 (0.9-1.15); Partial Thromboplastin Time 45.6 SEC (24.5-34.5); Prothrombin Time 22.7 sec (9.3-11.8)
[2024-12-06 08:35] LABS: Base Excess -5.4 mmol/L (-2.0-3.0)
[2024-12-06 11:16] LABS: Hepatitis B Surface Antigen Negative (Negative); Hepatitis C Antibody Negative (Negative)
--- NOTE | 2024-12-06 11:31 | DVH ---
CHEST RADIOGRAPH Indication: PICC LINE PLACEMENT Technique: XY CHEST PORTABLE COMPARISON: None FINDINGS: Right PICC line tip projects over the SVC. Nasogastric tube projects towards stomach. The cardiac silhouette is enlarged. The lungs demonstrate bilateral patchy airspace opacities. The pu lmonary vasculature is prominent. Small bilateral pleural effusions, [id number]. There i s no pneumothorax. IMPRESSION: As above
--- NOTE | 2024-12-06 11:39 | DVHPN2 ---
Progress Note Date Seen: Dec 06, 2024 Medical Necessity Reason Pt with a Central, PICC or Fol: Yes The following are medically ne: Gunderson Catheter (Nephrostomy tube) Reason for gunderson catheter: Bladder Retention/Obstruc Objective vital signs Vital Sign Date Time Temp Pulse Resp B/P (MAP) Pulse Ox O2 Delivery O2 Flow Rate FiO2 12/06/24 11:13 101 22 98 12/06/24 10:55 102/59 12/06/24 10:00 Nasal Cannula* 3 32 12/06/24 08:00 98.4 209.1 Total Intake and Output 12/05/24 12/05/24 12/06/24 15:00 23:00 07:00 Intake Total 1471 ml 1404.64 ml 1561.28 ml Output Total 350 ml 1150 ml 2250 ml Balance 1121 ml 254.64 ml -688.72 ml medications Current Medications Medications Dose Ordered Sig/Angelito Route Start Time Stop Time Status Last Admin Dose Admin Metoclopramide HCl 10 mg Q6HPRN PRN IV 11/25/24 00:15 12/03/24 12:18 10 MG Metoprolol Tartrate 25 mg BID PO 11/25/24 10:00 12/06/24 10:55 25 MG Tamsulosin HCl 0.4 mg BID PO 11/25/24 10:00 12/06/24 10:46 0.4 MG Rivaroxaban 20 mg HS PO 11/28/24 22:00 12/05/24 21:31 20 MG Acetaminophen 500 mg Q8HP PRN PO 11/29/24 09:00 12/05/24 20:27 500 MG Levofloxacin 500 mg DAILY PO 12/01/24 10:00 12/05/24 11:19 500 MG Docusate Sodium 100 mg BID PO 12/01/24 22:00 12/05/24 11:30 100 MG Albuterol 2.5 mg Q4HWA NEB 12/02/24 19:30 12/06/24 11:02 2.5 MG Diagnostic Test (Pha) 1 strip Q6HR 12/03/24 18:00 12/06/24 06:02 1 STRIP Insulin Human Regular FOLLOW SLIDING SCALE Q6HR SC 12/03/24 18:00 12/05/24 06:01 2 UNITS Dextrose 50 ml UD IV 12/03/24 16:15 Acetaminophen/ Hydrocodone Bitart 1 tab Q4HPRN PRN PO 12/04/24 18:00 Lactulose 30 ml TID PRN PO 12/04/24 18:30 12/05/24 01:36 30 ML Sodium Chloride 1,000 ml @ 125 mls/hr Q8H IV 12/05/24 08:45 12/06/24 06:37 125 MLS/HR Amino Acids 0 ml @ 0 mls/hr PER PHARMACY IV 12/05/24 17:00 Fat Emulsion Intravenous 50 ml/ Sodium Phosphate 20 meq/Potassium Chloride 20 meq/ Magnesium Sulfate 4 meq/ Multivitamins 10 ml/Amino Acids/ Dextrose/Purified Water 1,126 ml @ 46 mls/hr [id number] IV 12/05/24 22:00 12/06/24 21:59 12/05/24 21:21 46 MLS/HR Lactulose 300 ml Q6HR MI 12/05/24 14:00 12/06/24 06:02 300 ML Sodium Chloride 10 ml QSHIFT@10,22 IV 12/06/24 22:00 Fat Emulsion Intravenous 100 ml/Sodium Chloride 20 meq/ Sodium Acetate 60 meq/Multivitamins 10 ml/Chromium/ Copper/Manganese/ Zinc 1 ml/Amino Acids/Dextrose 1,146 ml @ 48 mls/hr [id number] IV 12/06/24 22:00 12/07/24 21:59 laboratory and microbiology Laboratory Tests 12/06/24 06:26 Test 12/06/24 06:26 Range/Units Serum Glucose 110 H 74-106 mg/dL Microbiology Date/Time Source Procedure Growth Status 11/25/24 07:41 Nose MRSA Screen - Final Complete 11/25/24 02:51 Voided Urine Urine Culture - Final Complete 11/24/24 22:06 Blood Blood Culture - Final NO GROWTH AFTER 5 DAYS OF INCUBATION. 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 and a right nephrostomy tube presents to the hospital with severe hypercalcemia Acute kidney injury hemodynamically mediated in the setting of severe volume depletion CKD II, solitary kidney, right percutaneous nephrostomy tube Severe hypercalcemia non parathyroid related History urothelial cancer Hyponatremia Aggressive IVF IV calcitonin obtain urine osm IV zometa monitor UOP from nephrostomy Urology guarded prognosis Plan discussed with: Patient My Orders My Orders Orders - NORIS PETTY MD Procedure Category Date Status Time Osmolality, Serum LAB 12/06/24 Verified 11:28 Immunofixation Serum LAB 12/06/24 Verified 11:28 Protein LAB 12/06/24 Verified Electrophoresis Serum 11:28 Dietary Evaluation Review Comments: 1) CCHO 60gm + 2 gm Na diet 2) Refer [employer] for diabetes education Expected Outcomes/Goals: To meet >75% estimated needs Fu 3-5 days Total Time (mins): 40 NORIS PETTY MD Dec 06, 2024 11:39
[2024-12-06] MEDS: cefTRIAXone 1GM/50ML D5W 50 ML IV SCH (12:26)
[2024-12-06] MEDS: PANTOPRAZOLE 40 MG/10 ML VIAL INJ IV SCH (12:26)
[2024-12-06] MEDS: CALCITONIN 400unit/2ml Vial (200unit/ml) SC SCH (12:45)
[2024-12-06] MEDS: phytonadione 5 MG in SODIUM CHL 0.9% 50 ML IV ONE (13:10)
[2024-12-06] MEDS: ZOLEDRONIC ACID 4 MG in SODIUM CHL 0.9% 100 ML IV ONE (13:23)
--- NOTE | 2024-12-06 15:10 | DVHPN2 ---
Subjective Patient encephalopathic Reviewed: Care Plan, H&P, Labs, Medications Changes from previous H/P or p: Changes General: Per HPI Objective Vitals Vital Signs Date Time Temp Pulse Resp B/P (MAP) Pulse Ox O2 Delivery O2 Flow Rate FiO2 12/06/24 14:59 100 20 94 12/06/24 14:00 Nasal Cannula* 3 32 12/06/24 13:30 98.6 120/60 (80) 98.6 Intake/Output Intake and Output 12/06/24 07:00 Intake Total 4436.92 ml Output Total 3750 ml Balance 686.92 ml Intake Oral 0 ml IV Total 4376.92 ml Other 60 ml Output Urine Total 950 ml Stool Total 2000 ml Gastric Drainage Total 800 ml General Appearance: moderate distress HEENT: Atraumatic, PERRLA Lungs: Other (Bibasilar rhonchi) Cardiovascular: Normal S1, Normal S2 Musculoskeletal: Weak motor strength RUE, Weak motor strength LUE, Weak motor strength RLE, Weak motor strength LLE Skin: Dry, Intact Psych/Mental Status: Other (Unable to assess) Medications Current Medications Medications Dose Ordered Sig/Angelito Route Start Time Stop Time Status Last Admin Dose Admin Metoclopramide HCl 10 mg Q6HPRN PRN IV 11/25/24 00:15 12/03/24 12:18 10 MG Tamsulosin HCl 0.4 mg BID PO 11/25/24 10:00 12/06/24 10:46 0.4 MG Acetaminophen 500 mg Q8HP PRN PO 11/29/24 09:00 12/05/24 20:27 500 MG Docusate Sodium 100 mg BID PO 12/01/24 22:00 12/05/24 11:30 100 MG Albuterol 2.5 mg Q4HWA NEB 12/02/24 19:30 12/06/24 14:59 2.5 MG Diagnostic Test (Pha) 1 strip Q6HR 12/03/24 18:00 12/06/24 12:11 1 STRIP Insulin Human Regular FOLLOW SLIDING SCALE Q6HR SC 12/03/24 18:00 12/05/24 06:01 2 UNITS Dextrose 50 ml UD IV 12/03/24 16:15 Acetaminophen/ Hydrocodone Bitart 1 tab Q4HPRN PRN PO 12/04/24 18:00 Sodium Chloride 1,000 ml @ 125 mls/hr Q8H IV 12/05/24 08:45 12/06/24 06:37 125 MLS/HR Amino Acids 0 ml @ 0 mls/hr PER PHARMACY IV 12/05/24 17:00 Fat Emulsion Intravenous 50 ml/ Sodium Phosphate 20 meq/Potassium Chloride 20 meq/ Magnesium Sulfate 4 meq/ Multivitamins 10 ml/Amino Acids/ Dextrose/Purified Water 1,126 ml @ 46 mls/hr [id number] IV 12/05/24 22:00 12/06/24 21:59 12/05/24 21:21 46 MLS/HR Lactulose 300 ml Q6HR HI 12/05/24 14:00 12/06/24 12:11 300 ML Sodium Chloride 10 ml QSHIFT@,22 IV 12/06/24 22:00 Fat Emulsion Intravenous 100 ml/Sodium Chloride 20 meq/ Sodium Acetate 60 meq/Multivitamins 10 ml/Chromium/ Copper/Manganese/ Zinc 1 ml/Amino Acids/Dextrose 1,146 ml @ 48 mls/hr [id number] IV 12/06/24 22:00 12/07/24 21:59 Calcitonin [place] 450 unit BID SC 12/06/24 11:45 12/08/24 11:44 12/06/24 12:45 450 UNIT Pantoprazole Sodium 40 mg BID IV 12/06/24 11:45 12/06/24 12:26 40 MG Ceftriaxone Sodium 50 ml @ 100 mls/hr DAILY@09 IV 12/06/24 11:45 12/06/24 12:26 100 MLS/HR Laboratory Results Laboratory Tests 12/06/24 06:26 Chemistry Test 12/06/24 06:26 Albumin 2.9 g/dL (3.2-4.8) L Calcium Level 15.7 mg/dL (8.7-10.4) *H Magnesium Level 2.4 mg/dL (1.6-2.6) Phosphorus Level 5.7 mg/dL (2.4-5.1) H Total Protein 5.1 g/dL (5.7-8.2) L Coagulation Test 12/06/24 06:26 Prothrombin Time 22.7 sec (9.3-11.8) H Prothrombin Time INR 2.33 (0.9-1.15) H Activated Partial Thromboplast Time 45.6 SEC (24.5-34.5) H LFT Test 12/06/24 06:26 Alanine Aminotransferase (ALT) 387 U/L (7-40) H Alkaline Phosphatase 408 U/L (46-116) H Aspartate Amino Transferase (AST) 802 U/L (13-40) H Total Bilirubin 3.7 mg/dL (0.2-1.0) H HgA1c, TSH Test 12/06/24 06:26 Thyroid Stimulating Hormone (TSH) 1.02 uIU/mL (0.55-4.78) Urinalysis Test 11/25/24 02:51 12/05/24 14:40 Urine Sperm Present /hpf (None Seen) Urine Color Dark-yellow (Yellow) Urine Clarity Turbid (Clear) H Urine pH 5.5 (5.0-9.0) Urine Specific [place] 1.019 (1.001-1.035) Urine Protein 1+ (Negative) H Urine Ketones Negative (Negative) Urine Blood 3+ /uL (Negative) H Urine Nitrite Negative (Negative) Urine Bilirubin 1+ (Negative) Urine Urobilinogen 4 mg/dL (Negative) H Urine Leukocyte Esterase Trace /uL (Negative) Urine RBC 104 /hpf (0 - 3) Urine Microscopic WBC 10 /HPF (0-3) H Urine Squamous Epithelial Cells Few /hpf (<5) Urine Bacteria Few /hpf (None Seen) H Urine Hyaline Casts Few /lpf (0 - 2) Urine Mucus Few (None Seen) Urine Osmolality 473 mOsm/kg Urine Creatinine 139.51 mg/dL (30.0-125.0) H Urine Sodium < 10 mmol/L (40-220) L Urine Glucose Normal mg/dL (Normal) Blood Gas Results Test 12/06/24 08:12 Arterial Blood pH 7.380 (7.350-7.450) FiO2 % 28.0 Microbiology Microbiology Date/Time Source Procedure Growth Status 11/25/24 07:41 Nose MRSA Screen - Final Complete 11/25/24 02:51 Voided Urine Urine Culture - Final Complete 11/24/24 22:06 Blood Blood Culture - Final NO GROWTH AFTER 5 DAYS OF INCUBATION. Complete Labs and/or images reviewed: Labs reviewed by me, Image(s) reviewed by me Assessment/Plan Assessment/Plan Impression: -complicated cystitis -obstructive uropathy, right hydronephrosis -history of left nephrectomy -obesity -atrial fibrillation -diabetes mellitus -primary hypertension -chronic kidney disease stage IIIB -metabolic encephalopathy -hypercalcemia Plan: Events: Overall worsening clinical status. Patient and acute renal failure, acute liver failure with metastatic disease. Patient had replacement of nephrostomy tube given dislodgement. MRI of the abdomen and pelvis reveals T-spine/L-spine metastatic disease as well as pelvic mass. Long discussion made with patient's daughters were bedside regarding overall prognosis. Given patient has persistent encephalopathy, worsening clinical status, patient has now been made a DNR/DNI status. Family is wishing to continue current medical modalities. -change antibiotic therapy to Zosyn -stop anticoagulation given questionable GI bleed -PPI -NG tube to low intermittent suction -TPN -regular insulin sliding scale -pain management -repeat labs in a.m. Critical care time spent with patient discussing and formulating plan of care: 90 minutes. This does not include time spent performing procedures. This medical document was created using an electronic medical record system with [employer] dictation system. Although this document has been carefully reviewed, there may still be some phonetic and typographical errors. These areas are purely typographical due to imperfections of the software programs, and do not reflect any compromise in the patient's medical care. Plan discussed with: Patient, Daughter, Other (RN) My Orders Orders - MEENAKSHI LEIGH NP Procedure Category Date Status Time Pantoprazole PHA 12/06/24 In Process (Protonix) 11:45 Hemoglobin & LAB 12/06/24 Logged Hematocrit 16:00 Ceftriaxone 1gm/50ml PHA 12/06/24 In Process D5w (Rocephin) 11:45 Date of Service: Dec 06, 2024 Billing Provider: MEENAKSHI LEIGH NP Common Visit Codes: [id number] CARE 30-74 MIN, [id number] CARE-EACH +30MIN MEENAKSHI LEIGH NP Dec 06, 2024 15:10
[2024-12-06 16:18] LABS: Hematocrit 36.0 % (41.0-53.0); Hemoglobin 11.7 g/dL (13.5-17.5)
[2024-12-06] MEDS: SODIUM CHLOR 0.9% PF (SALINE LOCK) 10ML VIAL/SYR IV SCH (21:54)
[2024-12-06] MEDS: TPN PER PHARMACY IV NR (21:55)
--- NOTE | 2024-12-06 22:00 | DVHINCON2 ---
Date of service: Dec 06, 2024 Referring Physician Sadiq Cardoso Reason for Consultation Elevated ammonia level and cirrhosis History of Present Illness Patient is 79 years old male with past medical history of hypertension, diabetes mellitus type 2, hyperlipidemia, left renal carcinoma, status post left nephrectomy in 2021, atrial fibrillation on Xarelto admitted with a complaint of abdominal pain. As per patient he has been having abdominal pain for last 4 days, sudden onset, 8/10, crampy in nature, constant, no radiation, some relief with the pain medication. Patient also endorsed some nausea and poor appetite for a while and constipation for last [address] abdomen and pelvis with IV contrast revealed- Wall thickening of the urinary bladder with adjacent fat stranding. Indistinctness of the seminal vesicles with adjacent fat stranding. 3 x 2.3 cm hypodense area adjacent to the right seminal vesicle. An abscess is within the differential. Mild fat stranding adjacent to the right mid and distal ureter with segmental Mild wall thickening and Dilatation of the distal ureter . 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 Prostate is enlarged. CT and MRI imaging also revealed evidence of metastases to the liver and possible pulmonary nodules. Ultrasound is also suggestive of underlying cirrhosis of the liver. Patient has moderate elevation in liver enzymes and his ammonia level was elevated. Patient is encephalopathic Past Medical History Past Medical History hypertension, diabetes mellitus type 2, hyperlipidemia, left renal carcinoma, status post left nephrectomy in 2021, atrial fibrillation on Xarelto Past Surgical History Past Surgical History Left nephrectomy due to renal carcinoma Family History: Patient reports no known family medical history. Social History Past Social History Ex-smoker, denies alcoholism or substance abuse, lives alone Allergies: Coded Allergies: NO KNOWN ALLERGIES (Unverified , 04/08/22) Home Meds Active Scripts Nitrofurantoin Monohydrate Mac (Macrobid) 100 Mg Cap, 100 MG PO BID for 7 Days, #14 CAP Prov:SVEN COTTO MD 03/31/24 Azithromycin (ZITHROMAX TABLET) 250 Mg Tb, 250 MG PO DAILY, #6 TAB take 2 tabs first day then 1 tab daily until finish. Prov:MATT ASCENCIO MD 12/21/23 Reported Medications Cholecalciferol (D3) 1,000 Unit Cap, 1000 UNIT PO DAILY, CAP 03/17/23 Atorvastatin Calcium (Lipitor) 20 Mg Tab, 20 MG PO QPM, TAB 04/10/22 Trazodone Hcl (Trazodone Hcl) 50 Mg Tab, 25 MG PO DAILY, MG 04/10/22 Aspirin (Aspirin) 325 Mg Tab, 81 MG PO DAILY for 30 Days, MG 04/10/22 Metoprolol Tartrate (Metoprolol Tartrate) 25 Mg Tab, 25 MG PO BID for 30 Days, MG 04/10/22 Tamsulosin HCl (Tamsulosin Hydrochloride) 0.4 Mg Cap, 0.4 MG PO BID, CAP 04/10/22 Pantoprazole Sodium (PANTOPRAZOLE SODIUM) 40 Mg Inj, 40 MG PO BID, INJ 04/10/22 Metformin Hydrochloride (Metformin Hcl) 850 Mg Tab, 850 MG PO BID for 30 Days, MG 04/10/22 Current Medications Current Medications Medications (Trade) Dose Ordered Sig/Angelito Route PRN Reason Start Time Stop Time Status Last Admin Fat Emulsion Intravenous 50 ml/ Sodium Phosphate 20 meq/Potassium Chloride 20 meq/ Magnesium Sulfate 4 meq/ Multivitamins 10 ml/Amino Acids/ Dextrose/Purified Water 1,126 ml @ 46 mls/hr [id number] IV 12/05/24 22:00 12/06/24 21:59 12/05/24 21:21 Sodium Chloride (Saline Lock Ns) 10 ml QSHIFT@10,22 IV 12/06/24 22:00 Fat Emulsion Intravenous 100 ml/Sodium Chloride 20 meq/ Sodium Acetate 60 meq/Multivitamins 10 ml/Chromium/ Copper/Manganese/ Zinc 1 ml/Amino Acids/Dextrose 1,146 ml @ 48 mls/hr [id number] IV 12/06/24 22:00 12/07/24 21:59 Calcitonin [place] (Miacalcin Injectable) 450 unit BID SC 12/06/24 11:45 12/08/24 11:44 12/06/24 12:45 Pantoprazole Sodium (Protonix) 40 mg BID IV 12/06/24 11:45 12/06/24 12:26 Ceftriaxone Sodium 50 ml @ 100 mls/hr DAILY@09 IV 12/06/24 11:45 12/06/24 15:07 DC 12/06/24 12:26 Piperacillin Sod/ Tazobactam Sod 100 ml @ 25 mls/hr Q12HR IV 12/06/24 22:00 Vital Signs Vital Signs Date Time Temp Pulse Resp B/P (MAP) Pulse Ox O2 Delivery O2 Flow Rate FiO2 12/06/24 21:15 112 25 92 12/06/24 21:00 99.1 99.1 12/06/24 20:00 Nasal Cannula* 3 32 Physical Exam HEENT pupils are reactive Neck is supple ;encephalopathy CV is S1-S2 regular rate and rhythm Respiratory diminished breath sounds bases GI positive bowel sound, soft distended mildly tender no guarding no rigidity. Extremity trace edema, genitourinary positive left hydrocele Labs/Diagnostic Data Labs Test 12/06/24 17:50 12/06/24 16:35 12/06/24 15:57 12/06/24 08:12 Range/Units POC Glucose 120 H 70-106 mg/dl Hemoglobin 11.7 #L 13.5-17.5 g/dL Hematocrit 36.0 L 41.0-53.0 % Blood Gas Specimen Type Arterial Blood Gas Sample Site Left radial Blood Gas Patient Temperature 37.0 Arterial Blood Date Drawn [id number] Arterial Blood pH 7.380 7.350-7.450 Arterial Blood Partial Pressure CO2 32.4 L 35.0-48.0 mmHg Arterial Blood Partial Pressure O2 78.5 L 83.0-108.0 mmHg Arterial Blood HCO3 18.7 L 21.0-28.0 mmol/L Arterial Blood Oxygen Saturation 93.9 L 94.0-98.0 % Arterial Blood Base Excess -5.4 L -2.0-3.0 mmol/L Arterial Blood Oxyhemoglobin 93.1 L 94.0-98.0 % Arterial Blood Carboxyhemoglobin 0.5 0.5-1.5 % Arterial Blood Methemoglobin 0.3 0.0-1.5 % Juan Test Yes Blood Gas Total Hemoglobin 13.20 L 13.5-17.5 g/dL Blood Gas Liter Flow 2.00 Blood Gas Modality Nasal cannula FiO2 % 28.0 Test 12/06/24 06:26 12/05/24 14:40 12/03/24 05:17 11/25/24 04:50 Range/Units White Blood Count 15.8 H 4.4-10.8 10^3/uL Red Blood Count 4.45 L 4.5-5.90 10^6/uL Mean Corpuscular Volume 89.7 80.0-100.0 fL Mean Corpuscular Hemoglobin 31.1 28.0-32.0 pg Mean Corpuscular Hemoglobin Concent 34.6 32.0-36.0 g/dL Red Cell Distribution Width 16.2 H 11.8-14.3 % Platelet Count 179 140-450 10^3/uL Mean Platelet Volume 8.3 6.9-10.8 fL Neutrophils (%) (Auto) 90.1 H 37.0-80.0 % Lymphocytes (%) (Auto) 2.7 L 10.0-50.0 % Monocytes (%) (Auto) 6.8 0.0-12.0 % Eosinophils (%) (Auto) 0.1 0.0-7.0 % Basophils (%) (Auto) 0.3 0.0-2.0 % Neutrophils # (Auto) 14.2 H 1.6-8.6 10 ^3/uL Lymphocytes # (Auto) 0.4 0.4-5.4 10 ^3/uL Monocytes # (Auto) 1.1 0-1.3 10 ^3/uL Eosinophils # (Auto) 0 0-0.8 10 ^3/uL Basophils # (Auto) 0.1 0-0.2 10 ^3/uL Nucleated Red Blood Cells 0.0 % Prothrombin Time 22.7 H 9.3-11.8 sec Prothrombin Time INR 2.33 H 0.9-1.15 Activated Partial Thromboplast Time 45.6 H 24.5-34.5 SEC Sodium Level 128 #L 136-145 mmol/L Potassium Level 4.5 3.5-5.1 mmol/L Chloride Level 90 L 98-107 mmol/L Carbon Dioxide Level 21 20-31 mmol/L Anion Gap 17 H 5-15 Blood Urea Nitrogen 39 #H 9-23 mg/dL Creatinine 2.16 H 0.700-1.30 mg/dL Glomerular Filtration Rate Calc 30 >90 mL/min BUN/Creatinine Ratio 18.1 10.0-20.0 Serum Glucose 110 H 74-106 mg/dL Serum Osmolality 291 278-298 mOsm/kg Uric Acid 10.9 H 3.7-9.2 mg/dL Calcium Level 15.7 *H 8.7-10.4 mg/dL Phosphorus Level 5.7 H 2.4-5.1 mg/dL Magnesium Level 2.4 1.6-2.6 mg/dL Total Bilirubin 3.7 H 0.2-1.0 mg/dL Aspartate Amino Transferase (AST) 802 H 13-40 U/L Alanine Aminotransferase (ALT) 387 H 7-40 U/L Alkaline Phosphatase 408 H 46-116 U/L Ammonia 38 H 11-32 umol/L Thyroid Stimulating Hormone (TSH) 1.02 0.55-4.78 uIU/mL Parathyroid Hormone (Intact) 13.7 L 18.4-80.1 pg/mL Hepatitis A IgM Antibody Negative Hepatitis B Surface Antigen Negative Negative Hepatitis B Core IgM Antibody Negative Negative Hepatitis C Antibody Negative Negative Urine Color Dark-yellow Yellow Urine Clarity Turbid H Clear Urine pH 5.5 5.0-9.0 Urine Specific [place] 1.019 1.001-1.035 Urine Protein 1+ H Negative Urine Ketones Negative Negative Urine Blood 3+ H Negative /uL Urine Nitrite Negative Negative Urine Bilirubin 1+ Negative Urine Urobilinogen 4 H Negative mg/dL Urine Leukocyte Esterase Trace Negative /uL Urine RBC 104 0 - 3 /hpf Urine Microscopic WBC 10 H 0-3 /HPF Urine Squamous Epithelial Cells Few <5 /hpf Urine Bacteria Few H None Seen /hpf Urine Hyaline Casts Few 0 - 2 /lpf Urine Mucus Few None Seen Urine Osmolality 473 mOsm/kg Urine Creatinine 139.51 H 30.0-125.0 mg/dL Urine Sodium < 10 L 40-220 mmol/L Urine Glucose Normal Normal mg/dL Triglycerides Level 75 < 150 mg/dL Hemoglobin A1c 6.7 H <5.7 % A1C Free Prostate Specific Antigen 0.58 N/A ng/mL Percent Free Prostate Specific Ag 20.0 . % Prostate Specific Antigen Total 2.9 0.0-4.0 ng/mL Vitamin B12 Level 674 211-911 pg/mL Vitamin D 25-Hydroxy 61.2 30.0-100 ng/mL Folic Acid 25.71 >5.38 ng/mL Test 11/25/24 02:51 11/25/24 00:15 11/24/24 19:55 Range/Units Urine Sperm Present None Seen /hpf Urine Opiates Screen Neg NEGATIVE Urine Fentanyl Screen Neg NEGATIVE Urine Barbiturates Screen Neg NEGATIVE Urine Phencyclidine Screen Neg NEGATIVE Urine Amphetamines Screen Neg NEGATIVE Urine Benzodiazepines Screen Neg NEGATIVE Urine Cocaine Screen Neg NEGATIVE Urine Cannabinoids Screen Neg NEGATIVE Lactic Acid Level 1.9 0.4-2.0 mmol/L Troponin I High Sensitivity < 3 L </=54 ng/L Lipase 39 12-53 U/L Microbiology Date/Time Source Procedure Growth Status 11/25/24 07:41 Nose MRSA Screen - Final Complete 11/25/24 02:51 Voided Urine Urine Culture - Final Complete 11/24/24 22:06 Blood Blood Culture - Final NO GROWTH AFTER 5 DAYS OF INCUBATION. Complete Problems(with codes): (1) Hepatic encephalopathy (2) Elevated liver enzymes (3) Metastatic cancer to liver (4) Cirrhosis of liver (5) Pelvic abscess in male (6) Hydronephrosis due to obstruction of ureter (7) Hydrocele in adult (8) Status post nephrectomy (9) Intractable abdominal pain (10) Atrial fibrillation (11) Generalized weakness Plan/Recommendation Assessment plan 79-year-old male with advanced metastatic liver disease possibly with primary of the renal cell or the seminal vesicles Underlying cirrhosis of the liver with elevated liver enzymes hepatic encephalopathy and coagulopathy Overall the prognosis of this patient is very poor and consideration should be given to hospice placement Awaiting oncology consult Continue IV antibiotics, IV amiodarone drip Patient is on IV TPN He is getting ZON ETA for severe hypercalcemia Patient is receiving lactulose per rectum and if an NG tube is placed we can give lactulose via the NG tube 30 mL q.6 hours until diarrhea Monitor labs and I will follow up this patient with you Plan discussed with: Other (None) AYSE MUNIZ MD Dec 06, 2024 22:00
[2024-12-06] MEDS: PIPERACILLIN-TAZOB 3.375GM 100 ML IV SCH (22:06)
[2024-12-07] VITALS (41 sets, daily range): BP systolic 81–121; BP diastolic 42–90; PULSE 94–120; RESP 16–30; TEMP 98.1–99.5; O2SAT 94–98
[2024-12-07 05:48] LABS: Hematocrit 35.1 % (41.0-53.0); Hemoglobin 12.0 g/dL (13.5-17.5); Mean Corpuscular Hemoglobin 30.7 pg (28.0-32.0); Mean Corpuscular Volume 89.6 fL (80.0-100.0); Nucleated Red Blood Cells % 0.0 %
[2024-12-07 06:08] LABS: Anion Gap 14 (5-15); BUN/Creatinine Ratio 19.8 (10.0-20.0); Carbon Dioxide 20 mmol/L (20-31); Magnesium 2.3 mg/dL (1.6-2.6); Potassium 4.1 mmol/L (3.5-5.1)
[2024-12-07 06:09] LABS: Alanine Aminotransferase 408 U/L (7-40); Albumin 2.6 g/dL (3.2-4.8); Alkaline Phosphatase 307 U/L (46-116); Bilirubin, Total 2.7 mg/dL (0.2-1.0); Blood Urea Nitrogen 68 mg/dL (9-23); Calcium 12.2 mg/dL (8.7-10.4); Chloride 94 mmol/L (98-107); Glucose 160 mg/dL (74-106); Sodium 128 mmol/L (136-145); Total Protein 4.6 g/dL (5.7-8.2)
[2024-12-07 08:07] LABS: Immunoglobulin A 358 mg/dL (61-437); Immunoglobulin G, Serum 913 mg/dL (603-1613); Immunoglobulin M 22 mg/dL (15-143)
[2024-12-07] MEDS ORDERED: Nepro With Carb Steady 1 Liter Bottle GT SCH (09:45)
--- NOTE | 2024-12-07 09:50 | DVHPN2 ---
Subjective Patient encephalopathic Reviewed: Care Plan, H&P, Labs, Medications Changes from previous H/P or p: No Changes General: Per HPI Objective Vitals Vital Signs Date Time Temp Pulse Resp B/P (MAP) Pulse Ox O2 Delivery O2 Flow Rate FiO2 12/07/24 08:00 100 22 97 Simple Mask* 6 50 12/07/24 07:30 101/57 (72) 12/07/24 04:00 98.6 98.6 Intake/Output Intake and Output 12/07/24 07:00 Intake Total 4609.68 ml Output Total 2900 ml Balance 1709.68 ml Intake Oral 0 ml IV Total 4549.68 ml Other 60 ml Output Urine Total 210 ml Stool Total 1700 ml Gastric Drainage Total 990 ml # Voids 1 General Appearance: moderate distress HEENT: Atraumatic, PERRLA Lungs: Other (Bibasilar rhonchi) Cardiovascular: Normal S1, Normal S2 Musculoskeletal: Weak motor strength RUE, Weak motor strength LUE, Weak motor strength RLE, Weak motor strength LLE Skin: Dry, Intact Psych/Mental Status: Other (Unable to assess) Medications Current Medications Medications Dose Ordered Sig/Angelito Route Start Time Stop Time Status Last Admin Dose Admin Metoclopramide HCl 10 mg Q6HPRN PRN IV 11/25/24 00:15 12/03/24 12:18 10 MG Tamsulosin HCl 0.4 mg BID PO 11/25/24 10:00 12/06/24 10:46 0.4 MG Acetaminophen 500 mg Q8HP PRN PO 11/29/24 09:00 12/05/24 20:27 500 MG Docusate Sodium 100 mg BID PO 12/01/24 22:00 12/05/24 11:30 100 MG Albuterol 2.5 mg Q4HWA NEB 12/02/24 19:30 12/07/24 06:24 2.5 MG Diagnostic Test (Pha) 1 strip Q6HR 12/03/24 18:00 12/07/24 06:15 1 STRIP Insulin Human Regular FOLLOW SLIDING SCALE Q6HR SC 12/03/24 18:00 12/07/24 05:48 4 UNITS Dextrose 50 ml UD IV 12/03/24 16:15 Acetaminophen/ Hydrocodone Bitart 1 tab Q4HPRN PRN PO 12/04/24 18:00 Amino Acids 0 ml @ 0 mls/hr PER PHARMACY IV 12/05/24 17:00 Lactulose 300 ml Q6HR MS 12/05/24 14:00 12/07/24 05:49 300 ML Sodium Chloride 10 ml QSHIFT@10,22 IV 12/06/24 22:00 12/06/24 21:54 10 ML Fat Emulsion Intravenous 100 ml/Sodium Chloride 20 meq/ Sodium Acetate 60 meq/Multivitamins 10 ml/Chromium/ Copper/Manganese/ Zinc 1 ml/Amino Acids/Dextrose 1,146 ml @ 48 mls/hr [id number] IV 12/06/24 22:00 12/07/24 21:59 12/06/24 21:55 48 MLS/HR Calcitonin [place] 450 unit BID SC 12/06/24 11:45 12/08/24 11:44 12/06/24 21:47 450 UNIT Pantoprazole Sodium 40 mg BID IV 12/06/24 11:45 12/06/24 22:05 40 MG Piperacillin Sod/ Tazobactam Sod 100 ml @ 25 mls/hr Q12HR IV 12/06/24 22:00 12/06/24 22:06 25 MLS/HR Laboratory Results Laboratory Tests 12/07/24 05:20 Chemistry Test 12/06/24 15:57 12/07/24 05:20 Albumin Pending 2.6 g/dL (3.2-4.8) L Albumin/Globulin Ratio Pending Total Protein Pending 4.6 g/dL (5.7-8.2) L Calcium Level 12.2 mg/dL (8.7-10.4) H Magnesium Level 2.3 mg/dL (1.6-2.6) Phosphorus Level 4.6 mg/dL (2.4-5.1) LFT Test 12/07/24 05:20 Alanine Aminotransferase (ALT) 408 U/L (7-40) H Alkaline Phosphatase 307 U/L (46-116) H Aspartate Amino Transferase (AST) 974 U/L (13-40) H Total Bilirubin 2.7 mg/dL (0.2-1.0) H Urinalysis Test 11/25/24 02:51 12/05/24 14:40 Urine Sperm Present /hpf (None Seen) Urine Color Dark-yellow (Yellow) Urine Clarity Turbid (Clear) H Urine pH 5.5 (5.0-9.0) Urine Specific [place] 1.019 (1.001-1.035) Urine Protein 1+ (Negative) H Urine Ketones Negative (Negative) Urine Blood 3+ /uL (Negative) H Urine Nitrite Negative (Negative) Urine Bilirubin 1+ (Negative) Urine Urobilinogen 4 mg/dL (Negative) H Urine Leukocyte Esterase Trace /uL (Negative) Urine RBC 104 /hpf (0 - 3) Urine Microscopic WBC 10 /HPF (0-3) H Urine Squamous Epithelial Cells Few /hpf (<5) Urine Bacteria Few /hpf (None Seen) H Urine Hyaline Casts Few /lpf (0 - 2) Urine Mucus Few (None Seen) Urine Osmolality 473 mOsm/kg Urine Creatinine 139.51 mg/dL (30.0-125.0) H Urine Sodium < 10 mmol/L (40-220) L Urine Glucose Normal mg/dL (Normal) Microbiology Microbiology Date/Time Source Procedure Growth Status 11/25/24 07:41 Nose MRSA Screen - Final Complete 11/25/24 02:51 Voided Urine Urine Culture - Final Complete 11/24/24 22:06 Blood Blood Culture - Final NO GROWTH AFTER 5 DAYS OF INCUBATION. Complete Labs and/or images reviewed: Labs reviewed by me, Image(s) reviewed by me Assessment/Plan Assessment/Plan Impression: -complicated cystitis -obstructive uropathy, right hydronephrosis -history of left nephrectomy -obesity -atrial fibrillation -diabetes mellitus -primary hypertension -chronic kidney disease stage IIIB -metabolic encephalopathy -hypercalcemia -acute hypoxic respiratory failure Plan: Events: Patient continues to be encephalopathic. Now on simple mask at 6 L/min. Heart rate controlled. Calcium improving. Ammonia level improving. NG tube with minimal output -continue Zosyn -O2 supplementation to keep saturation greater than 92% -continue Protonix 40 mg IV b.i.d. -start trickle feeding with Nepro, continue TPN -stop lactulose rectally, switched to 30 mL via NG tube q.6 hours -regular insulin sliding scale -pain management -repeat labs in a.m. Critical care time spent with patient discussing and formulating plan of care: 40 minutes. This does not include time spent performing procedures. This medical document was created using an electronic medical record system with [employer] system. Although this document has been carefully reviewed, there may still be some phonetic and typographical errors. These areas are purely typographical due to imperfections of the software programs, and do not reflect any compromise in the patient's medical care. Plan discussed with: Patient, Other (RN) My Orders Orders - MEENAKSHI LEIGH NP Procedure Category Date Status Time Pantoprazole PHA 12/06/24 In Process (Protonix) 11:45 Piperacillin-Tazob PHA 12/06/24 In Process 3.375gm (Zosyn 3.375g 22:00 Code Status CODE 12/07/24 Transmitted 05:14 Date of Service: Dec 07, 2024 Billing Provider: MEENAKSHI LEIGH NP Common Visit Codes: 98491-[id number] CARE 30-74 MIN MEENAKSHI LEIGH NP Dec 07, 2024 09:50
--- NOTE | 2024-12-07 10:39 | DVHPN2 ---
Progress Note Date Seen: Dec 07, 2024 Medical Necessity Reason Pt with a Central, PICC or Fol: Yes The following are medically ne: Gunderson Catheter (Nephrostomy tube) Reason for gunderson catheter: Bladder Retention/Obstruc Subjective Patient reports: Feels worse (respiratory distress) Review of Systems: CVS:Abnormal, RESPIRATORY:Abnormal Objective vital signs Vital Sign Date Time Temp Pulse Resp B/P (MAP) Pulse Ox O2 Delivery O2 Flow Rate FiO2 12/07/24 10:00 97 12/07/24 10:00 18 94 Nasal Cannula* 4 36 12/07/24 08:00 98.6 115/53 (73) 98.6 Total Intake and Output 12/06/24 12/06/24 12/07/24 15:00 23:00 07:00 Intake Total 1706.78 ml 1427.28 ml 1475.62 ml Output Total 1900 ml 1000 ml Balance 1706.78 ml -472.72 ml 475.62 ml medications Current Medications Medications Dose Ordered Sig/Angelito Route Start Time Stop Time Status Last Admin Dose Admin Metoclopramide HCl 10 mg Q6HPRN PRN IV 11/25/24 00:15 12/03/24 12:18 10 MG Acetaminophen 500 mg Q8HP PRN PO 11/29/24 09:00 12/05/24 20:27 500 MG Docusate Sodium 100 mg BID PO 12/01/24 22:00 12/05/24 11:30 100 MG Albuterol 2.5 mg Q4HWA NEB 12/02/24 19:30 12/07/24 09:46 2.5 MG Diagnostic Test (Pha) 1 strip Q6HR 12/03/24 18:00 12/07/24 06:15 1 STRIP Insulin Human Regular FOLLOW SLIDING SCALE Q6HR SC 12/03/24 18:00 12/07/24 05:48 4 UNITS Dextrose 50 ml UD IV 12/03/24 16:15 Acetaminophen/ Hydrocodone Bitart 1 tab Q4HPRN PRN PO 12/04/24 18:00 Amino Acids 0 ml @ 0 mls/hr PER PHARMACY IV 12/05/24 17:00 Sodium Chloride 10 ml QSHIFT@10,22 IV 12/06/24 22:00 12/07/24 10:13 10 ML Fat Emulsion Intravenous 100 ml/Sodium Chloride 20 meq/ Sodium Acetate 60 meq/Multivitamins 10 ml/Chromium/ Copper/Manganese/ Zinc 1 ml/Amino Acids/Dextrose 1,146 ml @ 48 mls/hr [id number] IV 12/06/24 22:00 12/07/24 21:59 12/06/24 21:55 48 MLS/HR Calcitonin [place] 450 unit BID SC 12/06/24 11:45 12/08/24 11:44 12/07/24 10:13 450 UNIT Pantoprazole Sodium 40 mg BID IV 12/06/24 11:45 12/07/24 10:13 40 MG Piperacillin Sod/ Tazobactam Sod 100 ml @ 25 mls/hr Q12HR IV 12/06/24 22:00 12/07/24 10:13 25 MLS/HR Fat Emulsion Intravenous 100 ml/Sodium Chloride 20 meq/ Sodium Acetate 20 meq/Potassium Chloride 20 meq/ Multivitamins 10 ml/Amino Acids/ Dextrose 1,285 ml @ 53 mls/hr [id number] IV 12/07/24 22:00 12/08/24 21:59 UNV Lactulose 30 ml Q6HR GT 12/07/24 12:00 UNV Enteral Nutritional Formula 1,000 ml 30ML/HR GT 12/07/24 09:45 UNV Examination: GENERAL:Abnormal, LUNGS:Abnormal, CVS:Abnormal, ABDOMEN:Abnormal laboratory and microbiology Laboratory Tests 12/07/24 05:20 Test 12/07/24 05:20 Range/Units Serum Glucose 160 H 74-106 mg/dL Microbiology Date/Time Source Procedure Growth Status 11/25/24 07:41 Nose MRSA Screen - Final Complete 11/25/24 02:51 Voided Urine Urine Culture - Final Complete 11/24/24 22:06 Blood Blood Culture - Final NO GROWTH AFTER 5 DAYS OF INCUBATION. 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 and a right nephrostomy tube presents to the hospital with severe hypercalcemia Acute kidney injury hemodynamically mediated in the setting of severe volume depletion CKD II, solitary kidney, right percutaneous nephrostomy tube Severe hypercalcemia non parathyroid related History urothelial cancer Hyponatremia encephalopathy stop IVF due to respiratory distress IV calcitonin x 48 hrs s/p IV zometa monitor UOP from nephrostomy Urology grim prognosis , agree with discussing end of life goals Plan discussed with: Spouse My Orders My Orders Orders - NORIS PETTY MD Procedure Category Date Status Time Protein LAB 12/06/24 In Process Electrophoresis Serum 11:28 Calcitonin Injectable PHA 12/06/24 In Process (Miacalcin Injecta 11:45 Dietary Evaluation Review Comments: 1) CCHO 60gm + 2 gm Na diet 2) Refer [employer] Production Manager for diabetes education Expected Outcomes/Goals: To meet >75% estimated needs Fu 3-5 days Total Time (mins): 45 NORIS PETTY MD Dec 07, 2024 10:39
[2024-12-07] MEDS ORDERED: LACTULOSE 20Gm/30ML SOLN GT SCH (12:00)
[2024-12-07] MEDS: MORPHINE SULFATE INJ 2 MG/ml SYRG IV PRN (14:29)
[2024-12-07] MEDS: LORazepam 2MG/ML-1ML VIAL IV PRN (15:35)
--- NOTE | 2024-12-07 17:41 | DVHPN2 ---
Progress Note - Dictate Date Seen: Dec 07, 2024 Medical Necessity Reason Pt with a Central, PICC or Fol: Yes The following are medically ne: Gunderson Catheter (Nephrostomy tube) Reason for gunderson catheter: Bladder Retention/Obstruc Subjective Worsening respiratory status No GI bleeding Ammonia level down to 38 Worsening and persistent elevation of liver enzymes vital signs Vital Sign Date Time Temp Pulse Resp B/P (MAP) Pulse Ox O2 Delivery O2 Flow Rate FiO2 12/07/24 17:00 98.1 111 20 107/90 (96) 95 98.1 12/07/24 16:00 Nasal Cannula* 4 36 Total Intake and Output 12/06/24 12/06/24 12/07/24 15:00 23:00 07:00 Intake Total 1706.78 ml 1427.28 ml 1475.62 ml Output Total 1900 ml 1000 ml Balance 1706.78 ml -472.72 ml 475.62 ml medications Current Medications Medications Dose Ordered Sig/Angelito Route Start Time Stop Time Status Last Admin Dose Admin Metoclopramide HCl 10 mg Q6HPRN PRN IV 11/25/24 00:15 12/03/24 12:18 10 MG Fat Emulsion Intravenous 100 ml/Sodium Chloride 20 meq/ Sodium Acetate 20 meq/Potassium Chloride 20 meq/ Multivitamins 10 ml/Amino Acids/ Dextrose 1,285 ml @ 53 mls/hr [id number] IV 12/07/24 22:00 12/08/24 21:59 UNV Lorazepam 1 mg Q1HP PRN IV 12/07/24 11:00 12/07/24 15:35 1 MG Morphine Sulfate 1 mg Q1HP PRN IV 12/07/24 11:00 12/07/24 14:29 1 MG objective Examination: GENERAL:Abnormal, LUNGS:Abnormal, CVS:Abnormal, ABDOMEN:Abnormal laboratory and microbiology Laboratory Tests 12/07/24 05:20 Test 12/07/24 05:20 Range/Units Serum Glucose 160 H 74-106 mg/dL Problems(with codes): (1) Elevated liver enzymes (2) Metastatic cancer to liver (3) Cirrhosis of liver (4) Generalized weakness (5) Hepatic encephalopathy Prognosis Plan Family has decided to discontinue all invasive treatment They have requested comfort care Patient has been downgraded to the floor Only morphine Ativan and oxygen supplementation Prognosis is poor and condition is critical Dietary Evaluation Review Comments: 1) [facility] [place] 60gm + 2 gm Na diet 2) Refer [employer] Consultant for diabetes education Expected Outcomes/Goals: To meet >75% estimated needs Fu 3-5 days Plan discussed with: Other (None) AYSE MUNIZ MD Dec 07, 2024 17:41
[2024-12-07] MEDS ORDERED: TPN PER PHARMACY IV NR (22:00)
--- NOTE | 2024-12-07 22:09 | DVHPN2 ---
Consult Progress Note Date Seen: Dec 06, 2024 Subjective Patient reports: Other (came acutely hypoxic , coagulation enzymes have become elevated . nephrostomy tube replacement has been put on hold . patient appears lethargic and remains confused , is on Bypap and has changed status to DNR DNI ) Objective vital signs Vital Sign Date Time Temp Pulse Resp B/P (MAP) Pulse Ox O2 Delivery O2 Flow Rate FiO2 12/07/24 18:11 106 22 109/76 12/07/24 17:00 98.1 95 98.1 12/07/24 16:00 Nasal Cannula* 4 36 Total Intake and Output 12/06/24 12/06/24 12/07/24 15:00 23:00 07:00 Intake Total 1706.78 ml 1427.28 ml 1475.62 ml Output Total 1900 ml 1000 ml Balance 1706.78 ml -472.72 ml 475.62 ml medications Current Medications Medications Dose Ordered Sig/Angelito Route Start Time Stop Time Status Last Admin Dose Admin Metoclopramide HCl 10 mg Q6HPRN PRN IV 11/25/24 00:15 12/03/24 12:18 10 MG Fat Emulsion Intravenous 100 ml/Sodium Chloride 20 meq/ Sodium Acetate 20 meq/Potassium Chloride 20 meq/ Multivitamins 10 ml/Amino Acids/ Dextrose 1,285 ml @ 53 mls/hr [id number] IV 12/07/24 22:00 12/08/24 21:59 UNV Lorazepam 1 mg Q1HP PRN IV 12/07/24 11:00 12/07/24 15:35 1 MG Morphine Sulfate 1 mg Q1HP PRN IV 12/07/24 11:00 12/07/24 17:41 1 MG Physical Exam: General: NAD Neck: Supple. No masses. HEENT: PERRL. Normal lids and conjunctiva. Moist mucous membranes. Oropharynx without lesions, exudates or excessive erythema. Normal appearance of the external aspects of the nose and ears. Heart: Regular rhythm, normal rate. No murmur. No lower extremity edema. Lungs: Normal respiratory effort. Clear to auscultation bilaterally. No wheezes. No crackles. Abdomen: Soft. Tender to palpation in the suprapubic region and right lower quadrant, with right costovertebral angle tenderness. Non-distended. No masses or abdominal hernia. Msk: No digital cyanosis. Normal strength and tone in all four limbs Skin: Warm and dry, no rashes. Neuro: Alert. No facial droop or slurred speech. Extra-ocular movements intact. Sensation intact to soft touch in all four limbs. Psych: Appropriate mood. Full affect. Oriented to person, place, time, and situation. laboratory and microbiology Laboratory Tests 12/07/24 05:20 Test 12/07/24 05:20 Range/Units Serum Glucose 160 H 74-106 mg/dL Problem List/Assessment/Plan Problems(with codes): (1) Elevated liver enzymes (2) Metastatic cancer to liver (3) Cirrhosis of liver (4) Generalized weakness (5) Hepatic encephalopathy (6) Atrial fibrillation (7) URI (upper respiratory infection) Problem List/Assessment/Plan ASSESSMENT AND PLAN: ID Problem List: \-- Acute right-sided abdominal pain \-- Right hydronephrosis \-- Possible urinary tract infection / cystitis \-- History of left renal carcinoma, status post nephrectomy (2021) \-- Atrial fibrillation on Xarelto \-- Hypertension \-- Type 2 Diabetes Mellitus \-- Hyperlipidemia Assessment This is a 79-year-old female with a history of type 2 diabetes, hypertension, hyperlipidemia, atrial fibrillation (on Xarelto), and left renal carcinoma s/p nephrectomy in 2021. She presents with acute onset, crampy, right-sided abdominal pain radiating to the right lower quadrant for four days, rated as 8/10, with associated nausea, vomiting, and constipation. Imaging (CT abdomen/pelvis) demonstrates wall thickening of the urinary bladder with perivesical fat stranding concerning for possible cystitis, a 3 x 2.3 cm hypodense area in the right seminal vesicle (abscess within differential), mild to moderate right hydronephrosis with dilated distal ureter, and possible ascending infection. 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 There is also evidence of cirrhotic liver morphology and a right echogenic kidney. Exam is notable for suprapubic, right lower quadrant, and right CVA tenderness. Labs reveal creatinine of 1.66, sodium 131-135, potassium 3.4, WBC 10.1, lactic acid 2.2, lipase 389, and urinalysis positive for pyuria but negative for nitrites and leukocyte esterase. Cultures to date, including blood and urine, are negative. Testicular ultrasound was negative for torsion, epididymitis, or orchitis; renal ultrasound confirmed moderate right hydronephrosis with perinephric fluid and right renal cyst. A nephrostomy has been planned by urology for persistent right hydronephrosis. MRI prostate is planned to evaluate for possible abscess. Liver ultrasound noted cirrhotic changes. Low suspicion for active infection per urology, however, empiric antibiotics for possible prostatic abscess are advised given imaging and lab data. 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 patient has neumorous lesions in the liver as large as 5cm , multiple renal cysts up to 2.3cm in size . heterogenous lesions in the left aspect of the pelvis in the expected region of the seminal versicles measuring 5.1x 4.4 cm but very poorly characterized . increased edema signal within the pulmonary with extremely heterogenous appearance . could represent neoplasm vs inflammatory process . 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 remains clinically stable , no signs of active sepsis 8: patient is without a nephrostomy line , able to urinate through catheter . no signs of cellulitis at site of nephrostomy tube exit 8: total calcium is elevated 15.4 despite bisphosphonate use .Patient likely has hypercalcemia and is transferred to ICU for further monitoring as use of zomata 8: patient has changed status to DNR DNI Plan: - agree with ng tube and tpn use while attempting to improve hemodynamic failures , worsening renal failure and worsening liver disease - continue presser support to keep maps above 65 - currently requiring amiodarone drip , not needing too much presser and intermittent use of levofed - consider hematology oncology evaluation , optimizing treatment for hypercalcemia malignancy - determine if nephrostomy tube placement would be helpful in clearing calcium and would discuss with urology if a more urgent placement of nephrostomy tube is indicated given rising calcium levels and confusion and fevers - monitor fever curve - repeat EKG in 5 days to ensure patient is tolerating levofloxacin without arrhythmia - recommend hematology oncology consultation to evaluate satisipations cancer and to determine if additional chemotherapy regimens are indicated at this time \-- Proceed with right percutaneous nephrostomy tube placement \-- f/u on urine culture \-- continue levofloxacin 500 mg daily for six weeks (pending MRI findings) \-- Outpatient follow-[facility] with urology at [facility] \-- Reassess with repeat CT abdomen/pelvis in six weeks to monitor for resolution of abscess or infection \-- Monitor creatinine and renal function \-- Continue all home medications as appropriate, especially anticoagulation (Xarelto) with close monitoring in context of renal insufficiency \-- Supportive care: pain control, maintain hydration \-- Patient and plan discussed with urology and patient updated accordingly Authorized and Performed by: Deysi Dominguez Total critical care time: Approximately 76 minutes Due to a high probability of clinically significant, life threatening deterioration, the patient required my highest level of preparedness to intervene emergently and I personally spent this critical care time directly and personally managing the patient. This critical care time included obtaining a history; examining the patient; pulse oximetry; ordering and review of studies; arranging urgent treatment with development of a management plan; evaluation of patient's response to treatment; frequent reassessment; and, discussions with other providers. This critical care time was performed to assess and manage the high probability of imminent, life-threatening deterioration that could result in multi-organ failure. It was exclusive of separately billable procedures and treating other patients and teaching time. Isolation Precautions: Standard Plan discussed with: Other Dietary Evaluation Review Comments: 1) CCHO 60gm + 2 gm Na diet 2) Refer [employer] for diabetes education Expected Outcomes/Goals: To meet >75% estimated needs Fu 3-5 days DEYSI DOMINGUEZ MD Dec 07, 2024 22:09
--- NOTE | 2024-12-07 22:09 | DVHPN2 ---
Consult Progress Note Date Seen: Dec 05, 2024 Subjective Patient reports: Other (developing fevers of 101.4 , recieved biphosphonate therapy and is using a cooling blanket . temperatures do not appear to be going down with tylenol use . patient is confused ) Objective vital signs Vital Sign Date Time Temp Pulse Resp B/P (MAP) Pulse Ox O2 Delivery O2 Flow Rate FiO2 12/07/24 18:11 106 22 109/76 12/07/24 17:00 98.1 95 98.1 12/07/24 16:00 Nasal Cannula* 4 36 Total Intake and Output 12/06/24 12/06/24 12/07/24 15:00 23:00 07:00 Intake Total 1706.78 ml 1427.28 ml 1475.62 ml Output Total 1900 ml 1000 ml Balance 1706.78 ml -472.72 ml 475.62 ml medications Current Medications Medications Dose Ordered Sig/Angelito Route Start Time Stop Time Status Last Admin Dose Admin Metoclopramide HCl 10 mg Q6HPRN PRN IV 11/25/24 00:15 12/03/24 12:18 10 MG Fat Emulsion Intravenous 100 ml/Sodium Chloride 20 meq/ Sodium Acetate 20 meq/Potassium Chloride 20 meq/ Multivitamins 10 ml/Amino Acids/ Dextrose 1,285 ml @ 53 mls/hr [id number] IV 12/07/24 22:00 12/08/24 21:59 UNV Lorazepam 1 mg Q1HP PRN IV 12/07/24 11:00 12/07/24 15:35 1 MG Morphine Sulfate 1 mg Q1HP PRN IV 12/07/24 11:00 12/07/24 17:41 1 MG Physical Exam: General: NAD Neck: Supple. No masses. HEENT: PERRL. Normal lids and conjunctiva. Moist mucous membranes. Oropharynx without lesions, exudates or excessive erythema. Normal appearance of the external aspects of the nose and ears. Heart: Regular rhythm, normal rate. No murmur. No lower extremity edema. Lungs: Normal respiratory effort. Clear to auscultation bilaterally. No wheezes. No crackles. Abdomen: Soft. Tender to palpation in the suprapubic region and right lower quadrant, with right costovertebral angle tenderness. Non-distended. No masses or abdominal hernia. Msk: No digital cyanosis. Normal strength and tone in all four limbs Skin: Warm and dry, no rashes. Neuro: Alert. No facial droop or slurred speech. Extra-ocular movements intact. Sensation intact to soft touch in all four limbs. Psych: Appropriate mood. Full affect. Oriented to person, place, time, and situation. laboratory and microbiology Laboratory Tests 12/07/24 05:20 Test 12/07/24 05:20 Range/Units Serum Glucose 160 H 74-106 mg/dL Problem List/Assessment/Plan Problems(with codes): (1) Elevated liver enzymes (2) Metastatic cancer to liver (3) Cirrhosis of liver (4) Generalized weakness (5) Hepatic encephalopathy (6) Atrial fibrillation Problem List/Assessment/Plan ASSESSMENT AND PLAN: ID Problem List: \-- Acute right-sided abdominal pain \-- Right hydronephrosis \-- Possible urinary tract infection / cystitis \-- History of left renal carcinoma, status post nephrectomy (2021) \-- Atrial fibrillation on Xarelto \-- Hypertension \-- Type 2 Diabetes Mellitus \-- Hyperlipidemia Assessment This is a 79-year-old female with a history of type 2 diabetes, hypertension, hyperlipidemia, atrial fibrillation (on Xarelto), and left renal carcinoma s/p nephrectomy in 2021. She presents with acute onset, crampy, right-sided abdominal pain radiating to the right lower quadrant for four days, rated as 8/10, with associated nausea, vomiting, and constipation. Imaging (CT abdomen/pelvis) demonstrates wall thickening of the urinary bladder with perivesical fat stranding concerning for possible cystitis, a 3 x 2.3 cm hypodense area in the right seminal vesicle (abscess within differential), mild to moderate right hydronephrosis with dilated distal ureter, and possible ascending infection. 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 There is also evidence of cirrhotic liver morphology and a right echogenic kidney. Exam is notable for suprapubic, right lower quadrant, and right CVA tenderness. Labs reveal creatinine of 1.66, sodium 131-135, potassium 3.4, WBC 10.1, lactic acid 2.2, lipase 389, and urinalysis positive for pyuria but negative for nitrites and leukocyte esterase. Cultures to date, including blood and urine, are negative. Testicular ultrasound was negative for torsion, epididymitis, or orchitis; renal ultrasound confirmed moderate right hydronephrosis with perinephric fluid and right renal cyst. A nephrostomy has been planned by urology for persistent right hydronephrosis. MRI prostate is planned to evaluate for possible abscess. Liver ultrasound noted cirrhotic changes. Low suspicion for active infection per urology, however, empiric antibiotics for possible prostatic abscess are advised given imaging and lab data. 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 patient has neumorous lesions in the liver as large as 5cm , multiple renal cysts up to 2.3cm in size . heterogenous lesions in the left aspect of the pelvis in the expected region of the seminal versicles measuring 5.1x 4.4 cm but very poorly characterized . increased edema signal within the pulmonary with extremely heterogenous appearance . could represent neoplasm vs inflammatory process . 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 remains clinically stable , no signs of active sepsis 12/04: patient is without a nephrostomy line , able to urinate through catheter . no signs of cellulitis at site of nephrostomy tube exit 12/05: total calcium is elevated 15.4 despite bisphosphonate use .Patient likely has hypercalcemia and is transferred to ICU for further monitoring as use of zomata Plan: - consider hematology oncology evaluation , optimizing treatment for hypercalcemia malignancy - determine if nephrostomy tube placement would be helpful in clearing calcium and would discuss with urology if a more urgent placement of nephrostomy tube is indicated given rising calcium levels and confusion and fevers - monitor fever curve - repeat EKG in 5 days to ensure patient is tolerating levofloxacin without arrhythmia - recommend hematology oncology consultation to evaluate satisipations cancer and to determine if additional chemotherapy regimens are indicated at this time \-- Proceed with right percutaneous nephrostomy tube placement \-- f/u on urine culture \-- continue levofloxacin 500 mg daily for six weeks (pending MRI findings) \-- Outpatient follow-up with urology at [facility] \-- Reassess with repeat CT abdomen/pelvis in six weeks to monitor for resolution of abscess or infection \-- Monitor creatinine and renal function \-- Continue all home medications as appropriate, especially anticoagulation (Xarelto) with close monitoring in context of renal insufficiency \-- Supportive care: pain control, maintain hydration \-- Patient and plan discussed with urology and patient updated accordingly Authorized and Performed by: Deysi Dominguez Total critical care time: Approximately 76 minutes Due to a high probability of clinically significant, life threatening deterioration, the patient required my highest level of preparedness to intervene emergently and I personally spent this critical care time directly and personally managing the patient. This critical care time included obtaining a history; examining the patient; pulse oximetry; ordering and review of studies; arranging urgent treatment with development of a management plan; evaluation of patient's response to treatment; frequent reassessment; and, discussions with other providers. This critical care time was performed to assess and manage the high probability of imminent, life-threatening deterioration that could result in multi-organ failure. It was exclusive of separately billable procedures and treating other patients and teaching time. Isolation Precautions: Standard Plan discussed with: Other Dietary Evaluation Review Comments: 1) CCHO 60gm + 2 gm Na diet 2) Refer [employer] for diabetes education Expected Outcomes/Goals: To meet >75% estimated needs Fu 3-5 days DEYSI DOMINGUEZ MD Dec 07, 2024 22:09
--- NOTE | 2024-12-07 22:09 | DVHPN2 ---
Consult Progress Note Date Seen: Dec 07, 2024 Subjective Patient reports: Other (able to stay off pressers , intermittently requiring Bypap however patients BUN is rising . calcium remains elevated at 12.2 and tachycardic , intermittently hypotensive with maps dropping . currently on 4 liters nasal cannula . appears to be ensorsing general pains and body aches ) Objective vital signs Vital Sign Date Time Temp Pulse Resp B/P (MAP) Pulse Ox O2 Delivery O2 Flow Rate FiO2 12/07/24 18:11 106 22 109/76 12/07/24 17:00 98.1 95 98.1 12/07/24 16:00 Nasal Cannula* 4 36 Total Intake and Output 12/06/24 12/06/24 12/07/24 15:00 23:00 07:00 Intake Total 1706.78 ml 1427.28 ml 1475.62 ml Output Total 1900 ml 1000 ml Balance 1706.78 ml -472.72 ml 475.62 ml medications Current Medications Medications Dose Ordered Sig/Angelito Route Start Time Stop Time Status Last Admin Dose Admin Metoclopramide HCl 10 mg Q6HPRN PRN IV 11/25/24 00:15 12/03/24 12:18 10 MG Fat Emulsion Intravenous 100 ml/Sodium Chloride 20 meq/ Sodium Acetate 20 meq/Potassium Chloride 20 meq/ Multivitamins 10 ml/Amino Acids/ Dextrose 1,285 ml @ 53 mls/hr [id number] IV 12/07/24 22:00 12/08/24 21:59 UNV Lorazepam 1 mg Q1HP PRN IV 12/07/24 11:00 12/07/24 15:35 1 MG Morphine Sulfate 1 mg Q1HP PRN IV 12/07/24 11:00 12/07/24 17:41 1 MG Physical Exam: General: NAD Neck: Supple. No masses. HEENT: PERRL. Normal lids and conjunctiva. Moist mucous membranes. Oropharynx without lesions, exudates or excessive erythema. Normal appearance of the external aspects of the nose and ears. Heart: Regular rhythm, normal rate. No murmur. No lower extremity edema. Lungs: Normal respiratory effort. Clear to auscultation bilaterally. No wheezes. No crackles. Abdomen: Soft. Tender to palpation in the suprapubic region and right lower quadrant, with right costovertebral angle tenderness. Non-distended. No masses or abdominal hernia. Msk: No digital cyanosis. Normal strength and tone in all four limbs Skin: Warm and dry, no rashes. Neuro: Alert. No facial droop or slurred speech. Extra-ocular movements intact. Sensation intact to soft touch in all four limbs. Psych: Appropriate mood. Full affect. Oriented to person, place, time, and situation. laboratory and microbiology Laboratory Tests 12/07/24 05:20 Test 12/07/24 05:20 Range/Units Serum Glucose 160 H 74-106 mg/dL Problem List/Assessment/Plan Problems(with codes): (1) Elevated liver enzymes (2) Metastatic cancer to liver (3) Cirrhosis of liver (4) Generalized weakness (5) Hepatic encephalopathy (6) Atrial fibrillation (7) URI (upper respiratory infection) Problem List/Assessment/Plan ASSESSMENT AND PLAN: ID Problem List: \-- Acute right-sided abdominal pain \-- Right hydronephrosis \-- Possible urinary tract infection / cystitis \-- History of left renal carcinoma, status post nephrectomy (2021) \-- Atrial fibrillation on Xarelto \-- Hypertension \-- Type 2 Diabetes Mellitus \-- Hyperlipidemia Assessment This is a 79-year-old female with a history of type 2 diabetes, hypertension, hyperlipidemia, atrial fibrillation (on Xarelto), and left renal carcinoma s/p nephrectomy in 2021. She presents with acute onset, crampy, right-sided abdominal pain radiating to the right lower quadrant for four days, rated as 8/10, with associated nausea, vomiting, and constipation. Imaging (CT abdomen/pelvis) demonstrates wall thickening of the urinary bladder with perivesical fat stranding concerning for possible cystitis, a 3 x 2.3 cm hypodense area in the right seminal vesicle (abscess within differential), mild to moderate right hydronephrosis with dilated distal ureter, and possible ascending infection. 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 There is also evidence of cirrhotic liver morphology and a right echogenic kidney. Exam is notable for suprapubic, right lower quadrant, and right CVA tenderness. Labs reveal creatinine of 1.66, sodium 131-135, potassium 3.4, WBC 10.1, lactic acid 2.2, lipase 389, and urinalysis positive for pyuria but negative for nitrites and leukocyte esterase. Cultures to date, including blood and urine, are negative. Testicular ultrasound was negative for torsion, epididymitis, or orchitis; renal ultrasound confirmed moderate right hydronephrosis with perinephric fluid and right renal cyst. A nephrostomy has been planned by urology for persistent right hydronephrosis. MRI prostate is planned to evaluate for possible abscess. Liver ultrasound noted cirrhotic changes. Low suspicion for active infection per urology, however, empiric antibiotics for possible prostatic abscess are advised given imaging and lab data. 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 patient has neumorous lesions in the liver as large as 5cm , multiple renal cysts up to 2.3cm in size . heterogenous lesions in the left aspect of the pelvis in the expected region of the seminal versicles measuring 5.1x 4.4 cm but very poorly characterized . increased edema signal within the pulmonary with extremely heterogenous appearance . could represent neoplasm vs inflammatory process . overall suspicion is that patient has metastatic cancer invading the Metcalfe vesicle however as image is unable to differentiate between this and an abscess will treat empirically from proctitis 12/01: low suspicion for UTI , urine culture is without any significant growth 12/02:patients family requesting transfer to higher level of care at [place] 12/03: EKG shows borderline abnormalities , atrial fibrillation , QTC 458 . remains clinically stable , no signs of active sepsis 8: patient is without a nephrostomy line , able to urinate through catheter . no signs of cellulitis at site of nephrostomy tube exit 83: total calcium is elevated 15.4 despite bisphosphonate use .Patient likely has hypercalcemia and is transferred to ICU for further monitoring as use of zomata 8: patient has changed status to DNR DNI 12/07: likely hypercalcemia maliganacy is placing patient at continual risk for cardiac event as cardiac arrhythmia continues Plan: - defer to cardiology for additional management for this - continue zosyn - agree with ng tube and tpn use while attempting to improve hemodynamic failures , worsening renal failure and worsening liver disease - continue presser support to keep maps above 65 - currently requiring amiodarone drip , not needing too much presser and intermittent use of levofed - consider hematology oncology evaluation , optimizing treatment for hypercalcemia malignancy - determine if nephrostomy tube placement would be helpful in clearing calcium and would discuss with urology if a more urgent placement of nephrostomy tube is indicated given rising calcium levels and confusion and fevers - monitor fever curve - repeat EKG in 5 days to ensure patient is tolerating levofloxacin without arrhythmia - recommend hematology oncology consultation to evaluate satisipations cancer and to determine if additional chemotherapy regimens are indicated at this time \-- Proceed with right percutaneous nephrostomy tube placement \-- f/u on urine culture \-- Outpatient follow-up with urology at [facility] \-- Reassess with repeat CT abdomen/pelvis in six weeks to monitor for resolution of abscess or infection \-- Monitor creatinine and renal function \-- Continue all home medications as appropriate, especially anticoagulation (Xarelto) with close monitoring in context of renal insufficiency \-- Supportive care: pain control, maintain hydration \-- Patient and plan discussed with urology and patient updated accordingly Authorized and Performed by: Deysi Dominguez Total critical care time: Approximately 76 minutes Due to a high probability of clinically significant, life threatening deterioration, the patient required my highest level of preparedness to intervene emergently and I personally spent this critical care time directly and personally managing the patient. This critical care time included obtaining a history; examining the patient; pulse oximetry; ordering and review of studies; arranging urgent treatment with development of a management plan; evaluation of patient's response to treatment; frequent reassessment; and, discussions with other providers. This critical care time was performed to assess and manage the high probability of imminent, life-threatening deterioration that could result in multi-organ failure. It was exclusive of separately billable procedures and treating other patients and teaching time. Isolation Precautions: Standard Plan discussed with: Other Dietary Evaluation Review Comments: 1) CCHO 60gm + 2 gm Na diet 2) Refer [employer] for diabetes education Expected Outcomes/Goals: To meet >75% estimated needs Fu 3-5 days DEYSI DOMINGUEZ MD Dec 07, 2024 22:09
--- NOTE | 2024-12-08 08:38 | DVHDS2 ---
Discharge Summary Date of Admission Nov 25, 2024 at 00:04 Date of Discharge: Dec 08, 2024 Admitting Diagnosis Acute abdominal pain Labs/Diagnostic Data: Laboratory Results Test 12/07/24 05:38 12/07/24 05:20 12/06/24 16:35 12/06/24 15:57 POC Glucose 166 mg/dl (70-106) White Blood Count 12.4 10^3/uL (4.4-10.8) Red Blood Count 3.91 10^6/uL (4.5-5.90) Hemoglobin 12.0 g/dL (13.5-17.5) Hematocrit 35.1 % (41.0-53.0) Mean Corpuscular Volume 89.6 fL (80.0-100.0) Mean Corpuscular Hemoglobin 30.7 pg (28.0-32.0) Mean Corpuscular Hemoglobin Concent 34.3 g/dL (32.0-36.0) Red Cell Distribution Width 16.7 % (11.8-14.3) Platelet Count 155 10^3/uL (140-450) Mean Platelet Volume 8.2 fL (6.9-10.8) Neutrophils (%) (Auto) 89.1 % (37.0-80.0) Lymphocytes (%) (Auto) 2.6 % (10.0-50.0) Monocytes (%) (Auto) 7.7 % (0.0-12.0) Eosinophils (%) (Auto) 0.2 % (0.0-7.0) Basophils (%) (Auto) 0.4 % (0.0-2.0) Neutrophils # (Auto) 11.1 10 ^3/uL (1.6-8.6) Lymphocytes # (Auto) 0.3 10 ^3/uL (0.4-5.4) Monocytes # (Auto) 1.0 10 ^3/uL (0-1.3) Eosinophils # (Auto) 0 10 ^3/uL (0-0.8) Basophils # (Auto) 0 10 ^3/uL (0-0.2) Nucleated Red Blood Cells 0.0 % Sodium Level 128 mmol/L (136-145) Potassium Level 4.1 mmol/L (3.5-5.1) Chloride Level 94 mmol/L (98-107) Carbon Dioxide Level 20 mmol/L (20-31) Anion Gap 14 (5-15) Blood Urea Nitrogen 68 mg/dL (9-23) Creatinine 3.43 mg/dL (0.700-1.30) Glomerular Filtration Rate Calc 17 mL/min (>90) BUN/Creatinine Ratio 19.8 (10.0-20.0) Serum Glucose 160 mg/dL (74-106) Calcium Level 12.2 mg/dL (8.7-10.4) Phosphorus Level 4.6 mg/dL (2.4-5.1) Magnesium Level 2.3 mg/dL (1.6-2.6) Total Bilirubin 2.7 mg/dL (0.2-1.0) Aspartate Amino Transferase (AST) 974 U/L (13-40) Alanine Aminotransferase (ALT) 408 U/L (7-40) Alkaline Phosphatase 307 U/L (46-116) Total Protein 4.6 g/dL (5.7-8.2) Albumin 2.6 g/dL (3.2-4.8) Serum Immunoglobulin G 913 mg/dL (603-1613) Ionized Calcium 8.4 mg/dL (4.5-5.6) Immunoglobulin A 358 mg/dL (61-437) Immunoglobulin M 22 mg/dL (15-143) Test 12/06/24 08:12 12/06/24 06:26 12/05/24 14:40 12/03/24 05:17 Blood Gas Specimen Type Arterial Blood Gas Sample Site Left radial Blood Gas Patient Temperature 37.0 Arterial Blood Date Drawn [id number] Arterial Blood pH 7.380 (7.350-7.450) Arterial Blood Partial Pressure CO2 32.4 mmHg (35.0-48.0) Arterial Blood Partial Pressure O2 78.5 mmHg (83.0-108.0) Arterial Blood HCO3 18.7 mmol/L (21.0-28.0) Arterial Blood Oxygen Saturation 93.9 % (94.0-98.0) Arterial Blood Base Excess -5.4 mmol/L (-2.0-3.0) Arterial Blood Oxyhemoglobin 93.1 % (94.0-98.0) Arterial Blood Carboxyhemoglobin 0.5 % (0.5-1.5) Arterial Blood Methemoglobin 0.3 % (0.0-1.5) Juan Test Yes Blood Gas Total Hemoglobin 13.20 g/dL (13.5-17.5) Blood Gas Liter Flow 2.00 Blood Gas Modality Nasal cannula FiO2 % 28.0 Prothrombin Time 22.7 sec (9.3-11.8) Prothrombin Time INR 2.33 (0.9-1.15) Activated Partial Thromboplast Time 45.6 SEC (24.5-34.5) Serum Osmolality 291 mOsm/kg (278-298) Uric Acid 10.9 mg/dL (3.7-9.2) Ammonia 38 umol/L (11-32) Thyroid Stimulating Hormone (TSH) 1.02 uIU/mL (0.55-4.78) Parathyroid Hormone (Intact) 13.7 pg/mL (18.4-80.1) Hepatitis A IgM Antibody Negative Hepatitis B Surface Antigen Negative (Negative) Hepatitis B Core IgM Antibody Negative (Negative) Hepatitis C Antibody Negative (Negative) Urine Color Dark-yellow (Yellow) Urine Clarity Turbid (Clear) Urine pH 5.5 (5.0-9.0) Urine Specific [place] 1.019 (1.001-1.035) Urine Protein 1+ (Negative) Urine Ketones Negative (Negative) Urine Blood 3+ /uL (Negative) Urine Nitrite Negative (Negative) Urine Bilirubin 1+ (Negative) Urine Urobilinogen 4 mg/dL (Negative) Urine Leukocyte Esterase Trace /uL (Negative) Urine RBC 104 /hpf (0 - 3) Urine Microscopic WBC 10 /HPF (0-3) Urine Squamous Epithelial Cells Few /hpf (<5) Urine Bacteria Few /hpf (None Seen) Urine Hyaline Casts Few /lpf (0 - 2) Urine Mucus Few (None Seen) Urine Osmolality 473 mOsm/kg Urine Creatinine 139.51 mg/dL (30.0-125.0) Urine Sodium < 10 mmol/L (40-220) Urine Glucose Normal mg/dL (Normal) Triglycerides Level 75 mg/dL (< 150) Test 11/25/24 04:50 11/25/24 02:51 11/25/24 00:15 11/24/24 19:55 Hemoglobin A1c 6.7 % A1C (<5.7) Free Prostate Specific Antigen 0.58 ng/mL (N/A) Percent Free Prostate Specific Ag 20.0 % (.) Prostate Specific Antigen Total 2.9 ng/mL (0.0-4.0) Vitamin B12 Level 674 pg/mL (211-911) Vitamin D 25-Hydroxy 61.2 ng/mL (30.0-100) Folic Acid 25.71 ng/mL (>5.38) Urine Sperm Present /hpf (None Seen) Urine Opiates Screen Neg (NEGATIVE) Urine Fentanyl Screen Neg (NEGATIVE) Urine Barbiturates Screen Neg (NEGATIVE) Urine Phencyclidine Screen Neg (NEGATIVE) Urine Amphetamines Screen Neg (NEGATIVE) Urine Benzodiazepines Screen Neg (NEGATIVE) Urine Cocaine Screen Neg (NEGATIVE) Urine Cannabinoids Screen Neg (NEGATIVE) Lactic Acid Level 1.9 mmol/L (0.4-2.0) Troponin I High Sensitivity < 3 ng/L (</=54) Lipase 39 U/L (12-53) Other Laboratory Tests 12/07/24 05:20 Brief Hx & Hospital Course: History of Present Illness Patient is 79 years old male with past medical history of hypertension, diabetes mellitus type 2, hyperlipidemia, left renal carcinoma, status post left nephrectomy in 2021, atrial fibrillation on Xarelto came with a complaint of abdominal pain. As per patient he has been having abdominal pain for last 4 days, sudden onset, 8/10, crampy in nature, constant, no radiation, some relief with the pain medication. Patient also endorsed some nausea and poor appetite for a while and constipation for last 4 days. Patient denied any fever, diarrhea, dysuria, acute joint redness or swelling, chest pain no shortness of breaths. Initial lab workup revealed potassium 3.4, sodium 135, serum creatinine 1.66, GFR 42, blood sugar 215, lactic acid 2.2. CT abdomen and pelvis with IV contrast revealed- Wall thickening of the urinary bladder with adjacent fat stranding. Correlate for cystitis. Indistinctness of the seminal vesicles with adjacent fat stranding. Correlate for infectious process. 3 x 2.3 cm hypodense area adjacent to the right seminal vesicle. An abscess is within the differential. Mild fat stranding adjacent to the right mid and distal ureter with segmental Mild wall thickening and Dilatation of the distal ureter . Correlate for possible ascending infection. [id number] right hydronephrosis with no obstructing calculus noted.2 Foci of air within the right renal calyces which may represent emphysematous pyelitis. Prostate is enlarged. Course of hospitalization: Patient underwent right nephrostomy tube placement after having urology consultation. Patient had worsening clinical status with the acute decline. Patient had MRI of the abdomen which revealed that liver has a 75% metastatic disease, as well as metastatic disease in T-spine and L-spine. Patient also developed acute encephalopathy, probably secondary to sepsis, severe hypercalcemia, as well as hyperammonemia. Patient also developed AFib with RVR, requiring amiodarone drip. Patient's nutritional status also declined with TPN initiated. GI consultation was obtained. Discussion was made with patient's family after correction of hypercalcemia and ammonia level. They decided to initially place patient on DNR/DNI status, then made comfort care. Patient was subsequently earlier this a.m. Total time spent with patient discussing and formulating plan of care: 35 minutes. This medical document was created using an electronic medical record system with [employer] dictation system. Although this document has been carefully reviewed, there may still be some phonetic and typographical errors. These areas are purely typographical due to imperfections of the software programs, and do not reflect any compromise in the patient's medical care. Consults/Reason for consult Interventional Radiology: Nephrostomy tube placement Urology: Obstructive uropathy Gastroenterology: Acute liver failure Condition at Discharge: Poor Final Diagnosis/Problems List -complicated cystitis -obstructive uropathy, right hydronephrosis -history of left nephrectomy -obesity -atrial fibrillation -diabetes mellitus -primary hypertension -chronic kidney disease stage IIIB -metabolic encephalopathy -hypercalcemia -acute hypoxic respiratory failure Discharge Disposition: at Hospital Discharge Instruct/Medications Scheduled Aspirin (Aspirin), 81 MG PO DAILY, (Reported) Atorvastatin Calcium (Lipitor), 20 MG PO QPM, (Reported) Azithromycin (Zithromax Tablet), 250 MG PO DAILY Cholecalciferol (D3), 1,000 UNIT PO DAILY, (Reported) Metformin Hydrochloride (Metformin Hcl), 850 MG PO BID, (Reported) Metoprolol Tartrate (Metoprolol Tartrate), 25 MG PO BID, (Reported) Nitrofurantoin Monohydrate Mac (Macrobid), 100 MG PO BID Pantoprazole Sodium (Pantoprazole Sodium), 40 MG PO BID, (Reported) Tamsulosin HCl (Tamsulosin Hydrochloride), 0.4 MG PO BID, (Reported) Trazodone Hcl (Trazodone Hcl), 25 MG PO DAILY, (Reported) 36 Discharge Statement: "Patient was advised to return to the ER or call 911 if any headaches, dizziness, shortness of breath, chest pain, abdominal pain, bleeding, fevers, or worsening of medical condition. Patient was counseled about treatment plan, medications, possible side effects, patientverbalized understanding. All questions were answered to the best of my ability. This discharge took greater then 30 minutes in planning, reviewing documentation, counseling the patient, and discussing with other team members." ASSESSMENT ASSESSMENT Assessment Date of Service: Dec 08, 2024 Billing Provider: MEENAKSHI LEIGH NP Common Visit Codes: 62688-JDF/OBS DISCH DAY >30min MEENAKSHI LEIGH NP Dec 08, 2024 08:38
== END 2024-12-07 20:26 | DRG 689 ==
LOC: ER 19:31 → OVERFLOW 11-25 00:04 → WEST WING 11-25 01:40 → EAST 12-05 10:11 → OVERFLOW 12-07 15:51 → DOU IN ADS 12-07 15:56 → EAST 12-07 16:51
PROVIDERS: ADMIT Nurse Practitioner Acute Care; ATTEND Nurse Practitioner Acute Care
PROC: 0T9030Z Drainage of Right Kidney with Drainage Device, Percutaneous Approach (ICD-10-PCS; principal; 2024-11-26)
PROC: 02HV33Z Insertion of Infusion Device into Superior Vena Cava, Percutaneous Approach (ICD-10-PCS; 2024-12-06)
PROC: B548ZZA Ultrasonography of Superior Vena Cava, Guidance (ICD-10-PCS; 2024-12-06)
DX: N13.6 Pyonephrosis (principal); A41.9 Sepsis, unspecified organism; K72.00 Acute and subacute hepatic failure without coma; G93.41 Metabolic encephalopathy; J96.01 Acute respiratory failure with hypoxia; R65.20 Severe sepsis without septic shock; E87.1 Hypo-osmolality and hyponatremia; E87.20 Acidosis, unspecified; D68.9 Coagulation defect, unspecified; Z66 Do not resuscitate; K76.82 Hepatic encephalopathy; N41.3 Prostatocystitis; E11.65 Type 2 diabetes mellitus with hyperglycemia; E11.22 Type 2 diabetes mellitus with diabetic chronic kidney disease; N18.32 Chronic kidney disease, stage 3b; K74.60 Unspecified cirrhosis of liver; I12.9 Hypertensive chronic kidney disease with stage 1 through stage 4 chronic kidney disease, or unspecified chronic kidney disease; Z68.36 Body mass index [BMI] 36.0-36.9, adult; E66.9 Obesity, unspecified; Z51.5 Encounter for palliative care; N28.1 Cyst of kidney, acquired; N45.3 Epididymo-orchitis; N17.9 Acute kidney failure, unspecified; E78.5 Hyperlipidemia, unspecified; E86.1 Hypovolemia; E87.6 Hypokalemia; I48.0 Paroxysmal atrial fibrillation; N40.0 Benign prostatic hyperplasia without lower urinary tract symptoms; E83.52 Hypercalcemia; N34.2 Other urethritis; K59.00 Constipation, unspecified; Z93.6 Other artificial openings of urinary tract status; Z92.21 Personal history of antineoplastic chemotherapy; Z90.5 Acquired absence of kidney; Z87.891 Personal history of nicotine dependence; Z85.528 Personal history of other malignant neoplasm of kidney; Z85.51 Personal history of malignant neoplasm of bladder; Z79.899 Other long term (current) drug therapy; Z79.84 Long term (current) use of oral hypoglycemic drugs; Z79.82 Long term (current) use of aspirin; Z79.01 Long term (current) use of anticoagulants
CPT/HCPCS: 36415; 36569; 36600; 50435; 70450; 71045; 72195; 74176; 74177; 74181; 74425; 76705; 76775; 76870; 76937; 76942; 80048; 80053; 80074; 80307; 81001; 82140; 82306; 82330; 82570; 82607; 82746; 82784; 82805; 82962; 83036; 83605; 83690; 83735; 83930; 83935; 83970; 84100; 84154; 84155; 84165; 84300; 84443; 84478; 84484; 84550; 85014; 85018; 85025; 85610; 85730; 86334; 86850; 86900; 86901; 87040; 87081; 87086; 93005; 93970; 94640; 97110; 97116; 97163; 97530; 99152; 99291; G0378; J0692; J1815; J2185; J2250; J2470; J2543; J3430; J3480; J3489; J7131